=== PATIENT | female | born 1970 | race Caucasian/White ===

== ENCOUNTER → 2016-07-20 | Outpatient (CLI) | payer OTHER ==
[~2016-07-20] MED LIST: ACTUDL PEG; AMOX500C3 PO; AMOX875T PEG; ATEN50TA PEG; ATOR-22 PEG; CLX40 PEG; CMD25 PO; CYAN500L3 PEG; DRGTP12 TD; EFF75 PEG; ENOX40IN SQ; ENOX80IN SQ; ERGO8288 PEG; FLV1 PEG; FNTTP25 TOP; FOLI1TAB7 PEG; HYDR-5688 PEG; INSDGI SQ; INSDGIPEN SC; INSU1INJ2 SQ; INSUINJ20 SC; KETO200T PEG; LANS30TA3 PEG; LCTX PEG; MECL1TAB42 PEG; METO1INJ PEG; METO1TAB54 PEG; METR-163 PEG; MRLP17X PO; NUTR-1049 PEG; NUTR-1276 PEG; NUTR-1305 PEG; NUTR1.2L PEG; NVLGI/PEN SC; NVLNI SQ; NZR200 PEG; OXYC1TAB3 PEG; OXYC1TAB3 PO; POTA20IN2 PEG; PRD10 PEG; PRD10 PO; PRD5 PO; PRED-301 PEG; PROM25TA9 PEG; PROM25TA9 PO; PYRI50TA12 PEG; PYRI50TA77 PEG; QSTP PEG; SENN-65 PEG; TNR50 PEG; Tube Feeding Water Flush NG; Tube Feeding Water Flush PEG; VNCS125 PEG; VTMB12 PEG; WARF5TAB7 PEG; WARF5TAB90 PEG; WARF7.5T PEG; [UNRECOGNIZED DRUG - CODE]; [UNRECOGNIZED DRUG - CODE] PEG; [UNRECOGNIZED DRUG - CODE] PEG; [UNRECOGNIZED DRUG - REMARK] MS; [UNRECOGNIZED DRUG - REMARK] PEG
[2016-07-20 08:41] LABS: INR 1.2 (0.9-1.1); PROTHROMBIN TIME (PATIENT) 12.9 SECONDS (9.0-12.0)
== END | disposition home or self-care (01) ==
LOC: C.LABCC 07:51
PROVIDERS: ATTEND Internal Medicine
DX: I63.9 Cerebral infarction, unspecified (principal)

== ENCOUNTER → 2016-07-23 | Outpatient (CLI) | payer OTHER ==
[~2016-07-23] MED LIST changes: -FOLI1TAB7 PEG; +FOLI1TAB8 PEG; -PYRI50TA12 PEG; +PYRI50TA13 PEG
[2016-07-23 09:41] LABS: INR 1.2 (0.9-1.1); PROTHROMBIN TIME (PATIENT) 12.9 SECONDS (9.0-12.0)
== END ==
LOC: C.LABCC 09:12
PROVIDERS: ATTEND Internal Medicine
DX: N18.4 Chronic kidney disease, stage 4 (severe) (principal); I63.9 Cerebral infarction, unspecified

== ENCOUNTER → 2016-07-28 | Outpatient (CLI) | payer OTHER ==
[~2016-07-28] MED LIST changes: +FOLI1TAB7 PEG; -FOLI1TAB8 PEG; +PYRI50TA12 PEG; -PYRI50TA13 PEG
[2016-07-28 08:42] LABS: INR 1.4 (0.9-1.1); PROTHROMBIN TIME (PATIENT) 15.3 SECONDS (9.0-12.0)
== END ==
LOC: C.LABCC 08:08
PROVIDERS: ATTEND Internal Medicine
DX: I63.9 Cerebral infarction, unspecified (principal)

== ENCOUNTER → 2016-07-29 | Outpatient (CLI) | payer OTHER ==
--- NOTE | 2016-07-29 08:49 | DIAGNOSTIC IMAGING REPORT ---
EXAMINATION: RENAL ULTRASOUND CLINICAL HISTORY: Renal insufficiency COMPARISON STUDY: CT scan dated 05/07/2016 FINDINGS: The right kidney measures 11.2 cm. The left kidney measures 10.7 cm. There is no evidence of hydronephrosis. There are no renal masses. No bladder abnormalities are visualized. Bilateral ureteral jets were visualized. There is splenomegaly (17.6 cm) IMPRESSION : 1. No renal lesions identified. Symmetric renal size and cortical thickness. 2. Splenomegaly Electronically signed by: Santana Em M.D. 07/29/2016 8:47 AM Dictated Date/Time: 07/29/2016 8:45 AM
== END | disposition home or self-care (01) ==
LOC: C.ULTR 08:11
PROVIDERS: ATTEND Internal Medicine Nephrology
DX: N18.9 Chronic kidney disease, unspecified (principal); D64.9 Anemia, unspecified; I12.9 Hypertensive chronic kidney disease with stage 1 through stage 4 chronic kidney disease, or unspecified chronic kidney disease; D86.9 Sarcoidosis, unspecified; N20.0 Calculus of kidney; R16.1 Splenomegaly, not elsewhere classified

== ENCOUNTER → 2016-08-07 | Outpatient (CLI) | payer OTHER | LOC: C.LABCC 07:52 | PROVIDERS: ATTEND Internal Medicine | DX: J02.9 Acute pharyngitis, unspecified (principal) ==

== ENCOUNTER → 2016-08-10 | Outpatient (CLI) | payer OTHER ==
[2016-08-10 08:55] LABS: INR 4.2 (0.9-1.1); PROTHROMBIN TIME (PATIENT) 48.3 SECONDS (9.0-12.0)
== END ==
LOC: C.LABCC 08:28
PROVIDERS: ATTEND Internal Medicine
DX: I63.9 Cerebral infarction, unspecified (principal)

== ENCOUNTER → 2016-08-11 | Outpatient (CLI) | payer OTHER ==
[2016-08-11 08:43] LABS: INR 3.2 (0.9-1.1); PROTHROMBIN TIME (PATIENT) 35.5 SECONDS (9.0-12.0)
== END ==
LOC: C.LABCC 08:00
PROVIDERS: ATTEND Internal Medicine
DX: I63.9 Cerebral infarction, unspecified (principal)

== ENCOUNTER → 2016-08-14 | Outpatient (CLI) | payer OTHER | LOC: C.LABCC 07:59 | PROVIDERS: ATTEND Internal Medicine | DX: R74.8 Abnormal levels of other serum enzymes (principal) ==

== ENCOUNTER → 2016-08-18 | Outpatient (CLI) | payer OTHER ==
[2016-08-18 08:18] LABS: INR 2.8 (0.9-1.1); PROTHROMBIN TIME (PATIENT) 31.1 SECONDS (9.0-12.0)
== END ==
LOC: C.LABCC 07:50
PROVIDERS: ATTEND Internal Medicine
DX: E83.52 Hypercalcemia (principal); I63.9 Cerebral infarction, unspecified

== ENCOUNTER → 2016-08-19 | Outpatient (CLI) | payer OTHER ==
[2016-08-19 10:03] LABS: BASO % 0.2 %; BASO ABS # 0.01 K/uL (0-0.2); EOS % 3.5 %; HEMATOCRIT 26.3 % (37-47); IG% 0.5 %; LYMPH % 6.6 %; LYMPH ABS # 0.42 K/uL (1.2-3.4); MEAN CELL VOLUME 81.7 fL (80-100); MEAN CORPUSCULAR HEMOGLOBIN 26.7 pg (25-34); MEAN CORPUSCULAR HGB CONC 32.7 g/dl (32-36); MEAN PLATELET VOLUME 11.9 fL (7.4-10.4); MONO % 9.2 %; PLATELET COUNT 189 K/uL (130-400); RED BLOOD COUNT 3.22 M/uL (4.2-5.4); WHITE BLOOD COUNT 6.33 K/uL (4.8-10.8)
[2016-08-19 10:11] LABS: ALT/SGPT 77 U/L (12-78); BLOOD UREA NITROGEN 57 mg/dl (7-18); BUN/CREATININE RATIO 20.5 (10-20); CALCIUM 9.6 mg/dl (8.5-10.1); CARBON DIOXIDE 24 mmol/L (21-32); CHLORIDE 104 mmol/L (98-107); GLUCOSE 137 mg/dl (70-99); PHOSPHORUS 3.9 mg/dl (2.5-4.9); SODIUM 138 mmol/L (136-145)
[2016-08-19 10:24] LABS: ALKALINE PHOSPHATASE 1011 U/L (45-117); AST/SGOT 105 U/L (15-37); FERRITIN 211.6 ng/ml (8.0-388.0); TOTAL IRON BINDING CAPACITY 208 mcg/dl (250-450)
[2016-08-19 10:30] LABS: COMPLETE YES
[2016-08-19 10:37] LABS: INR 2.9 (0.9-1.1); PROTHROMBIN TIME (PATIENT) 32.3 SECONDS (9.0-12.0)
[2016-08-21 14:02] LABS: FREE KAPPA 195.5 MG/L (3.3-19.4); FREE KAPPA/LAMBDA RATIO 1.35 (0.26-1.65); FREE LAMBDA 145.1 MG/L (5.7-26.3)
== END ==
LOC: C.LABCC 09:13
PROVIDERS: ATTEND Internal Medicine
DX: N18.9 Chronic kidney disease, unspecified (principal); D86.9 Sarcoidosis, unspecified

== ENCOUNTER → 2016-08-20 | Outpatient (CLI) | payer OTHER ==
--- NOTE | 2016-08-20 12:35 | DIAGNOSTIC IMAGING REPORT ---
VIDEO SWALLOW HISTORY: Dysphagia (PT NEEDS H. LIFT)TO DETERMINE SAFEST DIET LEVEL TECHNIQUE: Video fluoroscopic evaluation of swallowing was performed in the AP and lateral projections by the speech pathology staff. The patient is fed nectar-thick and thin liquid barium, a barium coated wafer, and barium pudding. FLUOROSCOPY TIME: 2.4 minutes. COMPARISON STUDY: None. FINDINGS: Slightly diminished oral motility. Aspiration and reactive cough with thin liquids. No evidence for aspiration with thicker fluids IMPRESSION: 1. Aspiration with thin liquids 2. Please see the speech pathologist report for detailed findings and recommendations. Electronically signed by: Marcus Davye M.D. 08/20/2016 12:34 PM Dictated Date/Time: 08/20/2016 12:33 PM
--- NOTE | 2016-08-20 15:58 | SWALLOWING EVALUATION ---
HISTORY: This 46 year-old woman was referred for a VFSS at [facility] in order to rule out aspiration and determine safest diet consistency for possible return to p.o. intake. The patient has a PMH significant for a CVA in March of 2016 with resulting expressive aphasia and severe dysphagia. She currently NPO and receives all nutrition and hydration via PEG tube. Other PMH is significant for hypercalcemia, UTI with sepsis, lymphadenopathy, diabetes, and depression. She is currently a resident of [facility]. PROCEDURE: The patient was seen in the Radiology Department of [facility] for the VFSS. Cursory examination of the oral cavity revealed adequate dentition. Movement of the articulators was WNL impaired as evidenced by reduced ROM (right sided) and strength of the articulators. She was severely dysarthric. Able to nod her head appropriately to respond to yes/no questions, but was only able to vocalize glottal and vowel sounds. She was also restless and required frequent re-positioning. Easily distracted and needed frequent redirection. The patient was seated upright in a Broda wheelchair and was viewed in the Lateral planes. The Anterior-Posterior view was unable to be completed due to positioning constraints from the Broda chair. In the lateral plane, the patient was given the following boluses: 1 tsp. thin liquid barium x 2, 1 tsp. nectar-thick liquid barium, 1 tsp thin-honey liquid barium, 1 tsp. barium pudding x4, and 1 club cracker with barium paste. RESULTS: Oral Stage: Lip closure was adequate. The patient was unable to maintain a cohesive liquid bolus upon command during the liquid bolus hold task, and premature spillage of less than half of the bolus was noted (to the pyriforms and laryngeal vestibule). Mastication was slow. Lingual motion for bolus transport was disorganized, with piecemeal like deglutition being evidenced. A majority of each bolus remained in the oral cavity after the initial swallow. The initiation of the pharyngeal swallow was delayed, and triggered when the bolus head reached the pyriforms. Pharyngeal Stage: Soft palate elevation was complete. Laryngeal elevation revealed partial superior movement of the thyroid cartilage and partial approximation of the arytenoids to the epiglottic base. Anterior hyoid excursion was partially reduced. Epiglottic deflection was complete. Laryngeal vestibular closure was incomplete, with a narrow column of contrast being located in the vestibule at the height of the swallow. The pharyngeal stripping wave was present yet diminished. The opening to the pharyngoesophageal segment was partially reduced with distention and duration of the opening, with partial bolus flow obstruction. Tongue base retraction was reduced, with a narrow column of contrast being located between the tongue base and pharyngeal wall during the swallow. There was retention located in the valleculae, pyriforms, and along the aryepiglottic folds after the swallow. This patient presented with HUMPHREY aspiration of thin liquid, nectar thick liquid, and honey thick liquid. She presented with a strong cough in response to the aspiration that cleared most of the aspirated liquid but not all. This is due to delayed swallow reflex, reduced swallowing coordination, and generalized reduced strength and ROM of the pharyngeal mechanism. Aspiration of liquids occurred before (due to premature loss, with liquid spilling directly to the laryngeal vestibule) and during the swallow. There was retention in the trachea that did not fully clear after presenting honey thick liquids despite cough/throat clear. There was no aspiration of the pudding or the cracker. Retention of the pudding and cracker did clear with a second swallow. SUMMARY/RECOMMENDATIONS: This patient presents with severe oral-pharyngeal dysphagia. The following is recommended: 1. Continue with PEG tube as primary means of nutrition and hydration. 2. Initiate trials of pureed foods and pudding thick liquids with speech therapy only. Monitor closely for tolerance and signs and symptoms of aspiration to include lung sounds and temperature check 1 hour after p.o. trials. Discontinue feeding should the patient begin to cough. 3. Strict aspiration precautions to include patient being fully upright for all intake, and stringent oral care (brushing all surfaces of the oral cavity to include the tongue and palate) prior to each meal and before bed. 4. Safe swallow strategies: Small bites, small spoon of liquids. Double swallow after each bite. A summary of the results and recommendations was discussed with the patient and was recorded on a Consultation Record and returned with the patient immediately following the study. Thank you for referral of this patient. Please contact me at if any additional information is needed.
== END ==
LOC: C.RAD 10:59
PROVIDERS: ATTEND Internal Medicine
DX: R13.10 Dysphagia, unspecified (principal)

== ENCOUNTER → 2016-08-21 | Outpatient (CLI) | payer OTHER ==
--- NOTE | 2016-08-21 08:30 | DIAGNOSTIC IMAGING REPORT ---
CT SCAN OF THE ABDOMEN AND PELVIS WITHOUT IV CONTRAST CLINICAL HISTORY: Lymphadenopathy. COMPARISON STUDY: Abdominal CT dated 05/07/2016. TECHNIQUE: CT scan of the abdomen and pelvis is performed from the lung bases to the proximal femora. Images are reviewed in the axial, sagittal, and coronal planes. IV contrast was not administered for this examination as per the referring clinician. Note that the examination was performed and significant suboptimal fashion without IV contrast for the provided clinical history. Oral contrast was utilized. The examination is also degraded by streak artifact from the patient's right arm which could not be elevated above the abdomen as well as motion artifact. Automated dose control exposure was utilized. CT DOSE: 577.80 mGy.cm FINDINGS: Lung bases: The heart is mildly enlarged and without pericardial effusion. The coronary arteries and mitral annulus are densely calcified. There is diminished attenuation of the cardiac blood pool as compared to the myocardium suggesting anemia. Evaluation of the lung bases is significantly degraded by respiratory motion artifact. There is bibasilar patchy airspace consolidation calcified granulomas are noted in the left lower lobe. No pleural effusion is identified. There is a small hiatal hernia. Liver: The unenhanced liver is cirrhotic in morphology and heterogeneous in attenuation. There is nodularity of the hepatic surface contour. There is mild central intrahepatic biliary ductal dilatation. Gallbladder: Unremarkable. Spleen: The spleen is markedly enlarged, measuring 16.3 cm in length. Calcifications and heterogeneous attenuation are identified in the posterior spleen on axial image #126. Pancreas: Unremarkable. Adrenal glands: Unremarkable. Kidneys: The unenhanced kidneys are atrophic and without hydronephrosis. There are numerous bilateral nonobstructing renal calculi as well as dense renovascular calcifications. There is no evidence of contour deforming renal mass lesion. Abdominal vasculature: The abdominal aorta is normal in course and caliber noting moderate atherosclerotic calcification. There is advanced atherosclerotic calcification of the major branches. Stomach and bowel: A gastrostomy tube is in place. The stomach and duodenum are normal in configuration. There is rectosigmoid fecal impaction. No small bowel obstruction is identified. The appendix is surgically absent. Peritoneum: Trace perisplenic fluid is noted. No intraperitoneal free air is seen. Lymphadenopathy: There are numerous mildly enlarged retroperitoneal lymph nodes. An aortocaval node on image #195 measures 1.4 x 1.8 cm. Left periaortic nodes measure up to 1.3 x 1.9 cm. A portacaval node on image 162 measures 1.9 cm in short axis. These are unchanged as compared to the 05/07/2016 examination. Pelvic viscera: The the bladder wall appears thickened. Small foci of intraluminal gas are identified. The uterus and adnexa are normal as imaged. Skeletal structures: Skeletal structures are osteopenic. There is mild lumbosacral spondylosis. No lytic or blastic lesions are seen. IMPRESSION: 1. Suboptimal examination without IV contrast. 2. Mildly enlarged upper abdominal and retroperitoneal lymph nodes are similar appearance to 05/07/2016 examination. 3. Marked splenomegaly. 4. Cirrhotic liver morphology. 5. There is bibasilar patchy airspace consolidation. Cortical clinically for evidence of an infectious or inflammatory pneumonitis. 6. Cardiomegaly. 7. The bladder wall appears thickened and there is a small focus of residual gas. Correlate with urinalysis. 8. There is rectosigmoid fecal impaction. No bowel obstruction is seen. 9. Bilateral nonobstructing renal calculi. 10. Additional findings as above Electronically signed by: Tex Rosales M.D. 08/21/2016 8:28 AM Dictated Date/Time: 08/21/2016 8:11 AM
== END | disposition home or self-care (01) ==
LOC: C.CTS 06:33
PROVIDERS: ATTEND Internal Medicine Hematology & Oncology
DX: R59.1 Generalized enlarged lymph nodes (principal); R16.1 Splenomegaly, not elsewhere classified; K74.60 Unspecified cirrhosis of liver; J18.9 Pneumonia, unspecified organism; I51.7 Cardiomegaly; K56.41 Fecal impaction; N20.0 Calculus of kidney

== ENCOUNTER → 2016-08-24 | Outpatient (CLI) | payer OTHER ==
[2016-08-24 10:25] LABS: INR 3.9 (0.9-1.1); PROTHROMBIN TIME (PATIENT) 44.2 SECONDS (9.0-12.0)
== END ==
LOC: C.LABCC 09:45
PROVIDERS: ATTEND Internal Medicine
DX: I63.9 Cerebral infarction, unspecified (principal)

== ENCOUNTER → 2016-08-31 | Outpatient (CLI) | payer OTHER | LOC: C.LABCC 08:53 | PROVIDERS: ATTEND Internal Medicine | DX: E83.52 Hypercalcemia (principal) ==

== ENCOUNTER → 2016-09-01 | Outpatient (CLI) | payer OTHER ==
[2016-09-01 08:50] LABS: INR 2.1 (0.9-1.1); PROTHROMBIN TIME (PATIENT) 22.7 SECONDS (9.0-12.0)
== END ==
LOC: C.LABCC 08:16
PROVIDERS: ATTEND Internal Medicine
DX: I82.409 Acute embolism and thrombosis of unspecified deep veins of unspecified lower extremity (principal)

== ENCOUNTER → 2016-09-11 | Outpatient (CLI) | payer OTHER ==
[2016-09-11 08:45] LABS: INR 1.4 (0.9-1.1)
== END ==
LOC: C.LABCC 08:11
PROVIDERS: ATTEND Internal Medicine
DX: I63.9 Cerebral infarction, unspecified (principal)

== ENCOUNTER → 2016-09-12 | Outpatient (CLI) | payer OTHER ==
[2016-09-12 02:33] LABS: URINE APPEARANCE TURBID (CLEAR); URINE BILIRUBIN NEG (NEG); URINE COLOR DK YELLOW; URINE EPITHELIAL CELL AUTO >30 /lpf (0-5); URINE NITRITE NEG (NEG); URINE PH 6.5 (4.5-7.5); URINE SPECIFIC GRAVITY 1.009 (1.000-1.030); UROBILINOGEN NEG (NEG)
[2016-09-12 02:38] LABS: MANUAL MICROSCOPIC REQUIRED? NO; REVIEW REQ? YES
== END ==
LOC: C.LABCC 01:00
PROVIDERS: ATTEND Internal Medicine
DX: R39.89 Other symptoms and signs involving the genitourinary system (principal)

== ENCOUNTER → 2016-09-15 | Outpatient (CLI) | payer OTHER ==
[2016-09-15 08:42] LABS: INR 1.5 (0.9-1.1); PROTHROMBIN TIME (PATIENT) 16.1 SECONDS (9.0-12.0)
== END ==
LOC: C.LABCC 08:22
PROVIDERS: ATTEND Internal Medicine
DX: I63.9 Cerebral infarction, unspecified (principal)

== ENCOUNTER → 2016-09-17 | Outpatient (CLI) | payer OTHER ==
[2016-09-17 09:09] LABS: INR 1.5 (0.9-1.1); PROTHROMBIN TIME (PATIENT) 15.8 SECONDS (9.0-12.0)
== END ==
LOC: C.LABCC 08:25
PROVIDERS: ATTEND Internal Medicine
DX: I63.9 Cerebral infarction, unspecified (principal)

== ENCOUNTER → 2016-09-22 | Outpatient (CLI) | payer OTHER ==
[2016-09-22 08:38] LABS: INR 1.8 (0.9-1.1); PROTHROMBIN TIME (PATIENT) 20.1 SECONDS (9.0-12.0)
== END ==
LOC: C.LABCC 07:54
PROVIDERS: ATTEND Internal Medicine
DX: I63.9 Cerebral infarction, unspecified (principal)

== ENCOUNTER → 2016-09-30 | Outpatient (CLI) | payer OTHER ==
[2016-09-30 09:41] LABS: INR 1.2 (0.9-1.1); PROTHROMBIN TIME (PATIENT) 13.1 SECONDS (9.0-12.0)
== END ==
LOC: C.LABCC 08:52
PROVIDERS: ATTEND Internal Medicine
DX: I63.9 Cerebral infarction, unspecified (principal)

== ENCOUNTER → 2016-10-05 | Outpatient (CLI) | payer OTHER ==
[2016-10-05 10:40] LABS: MEAN CORPUSCULAR HGB CONC 32.3 g/dl (32-36)
[2016-10-05 10:51] LABS: ALT/SGPT 129 U/L (12-78); AST/SGOT 101 U/L (15-37); BLOOD UREA NITROGEN 82 mg/dl (7-18); BUN/CREATININE RATIO 24.1 (10-20); CALCIUM 11.1 mg/dl (8.5-10.1); CARBON DIOXIDE 28 mmol/L (21-32); CHLORIDE 105 mmol/L (98-107); GLUCOSE 141 mg/dl (70-99); INR 2.1 (0.9-1.1); POTASSIUM 4.4 mmol/L (3.5-5.1); PROTHROMBIN TIME (PATIENT) 23.7 SECONDS (9.0-12.0); SODIUM 140 mmol/L (136-145)
[2016-10-05 11:05] LABS: ALB/GLOB RATIO 0.4 (0.9-2); ALKALINE PHOSPHATASE 958 U/L (45-117)
[2016-10-05 13:19] LABS: HEMATOCRIT 28.5 % (37-47); MEAN CELL VOLUME 91.3 fL (80-100); MEAN CORPUSCULAR HEMOGLOBIN 29.5 pg (25-34); RED BLOOD COUNT 3.12 M/uL (4.2-5.4); WHITE BLOOD COUNT 5.19 K/uL (4.8-10.8)
[2016-10-05 13:26] LABS: BASO % 0.4 %; BASO ABS # 0.02 K/uL (0-0.2); COMPLETE YES; EOS % 0.8 %; IG% 0.4 %; LARGE PLATELETS 1+; LYMPH % 11.6 %; MEAN PLATELET VOLUME 12.7 fL (7.4-10.4); MONO % 9.2 %; NEUT % 77.6 %; PLATELET COUNT 117 K/uL (130-400)
== END ==
LOC: C.LABCC 09:12
PROVIDERS: ATTEND Internal Medicine
DX: D86.9 Sarcoidosis, unspecified (principal); E11.9 Type 2 diabetes mellitus without complications; I63.9 Cerebral infarction, unspecified

== ENCOUNTER → 2016-10-06 | Outpatient (CLI) | payer OTHER ==
[2016-10-06 08:43] LABS: BLOOD UREA NITROGEN 88 mg/dl (7-18); BUN/CREATININE RATIO 27.6 (10-20); CALCIUM 11.4 mg/dl (8.5-10.1); CARBON DIOXIDE 27 mmol/L (21-32); CHLORIDE 104 mmol/L (98-107); GLUCOSE 144 mg/dl (70-99); POTASSIUM 4.6 mmol/L (3.5-5.1); SODIUM 138 mmol/L (136-145)
--- NOTE | 2016-10-08 07:43 | CODING QUERY NO DIAGNOSIS ---
TREATMENT RENDERED WITHOUT A DIAGNOSIS To promote full compliance with coding requirements relating to patient care, physician participation is requested in all cases of geomagnetist uncertainty. Please assist us with providing a diagnosis/symptom for the test(s) below: A diagnosis/symptom was not documented on your Order. A valid diagnosis/symptom is required to bill all insurances. Please remember that we are unable to code a diagnosis of rule out, probable, possible, questionable, or suspected. Tests that require a diagnosis: DOS: 10/06/16 * PRP DIAGNOSIS: Provider Signature: Date: Thank you Tamy [facility] Information Management Once completed, please kindly fax back to [phone] For questions please call [phone]
== END ==
LOC: C.LABCC 08:16
PROVIDERS: ATTEND Internal Medicine
DX: N18.3 Chronic kidney disease, stage 3 (moderate) (principal)

== ENCOUNTER → 2016-10-09 | Outpatient (CLI) | payer OTHER ==
[2016-10-09 09:09] LABS: HEMATOCRIT 27.7 % (37-47); MEAN CELL VOLUME 93.3 fL (80-100); MEAN CORPUSCULAR HEMOGLOBIN 30.6 pg (25-34); MEAN CORPUSCULAR HGB CONC 32.9 g/dl (32-36); MEAN PLATELET VOLUME 12.4 fL (7.4-10.4); PLATELET COUNT 106 K/uL (130-400); RED BLOOD COUNT 2.97 M/uL (4.2-5.4); WHITE BLOOD COUNT 4.86 K/uL (4.8-10.8)
[2016-10-09 10:31] LABS: ANISOCYTOSIS PRESENT; BASO % 0.4 %; BASO ABS # 0.02 K/uL (0-0.2); COMPLETE YES; IG% 0.4 %; LYMPH % 10.7 %; LYMPH ABS # 0.52 K/uL (1.2-3.4); MONO % 12.3 %; NEUT % 76.2 %
== END ==
LOC: C.LABCC 08:53
PROVIDERS: ATTEND Internal Medicine
DX: D64.9 Anemia, unspecified (principal); N18.9 Chronic kidney disease, unspecified

== ENCOUNTER 2016-10-12 12:47 | Inpatient (IN) | payer OTHER ==
[~2016-10-12] VITALS: Ht 162.6 cm; Wt 72.3 kg
[~2016-10-12 12:47] MED LIST changes: -AMOX500C3 PO; -AMOX875T PEG; -ATEN50TA PEG; -CYAN500L3 PEG; -DRGTP12 TD; -EFF75 PEG; -ENOX40IN SQ; -ENOX80IN SQ; -ERGO8288 PEG; -FNTTP25 TOP; -FOLI1TAB7 PEG; -INSDGIPEN SC; -INSUINJ20 SC; -KETO200T PEG; -LCTX PEG; -MECL1TAB42 PEG; -METO1INJ PEG; -METR-163 PEG; -NUTR-1276 PEG; -NUTR-1305 PEG; -NVLGI/PEN SC; -NZR200 PEG; -OXYC1TAB3 PEG; -OXYC1TAB3 PO; -POTA20IN2 PEG; -PRD10 PO; -PRD5 PO; -PRED-301 PEG; -PROM25TA9 PEG; -PROM25TA9 PO; -PYRI50TA77 PEG; -QSTP PEG; -Tube Feeding Water Flush NG; -VNCS125 PEG; -WARF5TAB7 PEG; -WARF5TAB90 PEG; -WARF7.5T PEG; -[UNRECOGNIZED DRUG - CODE]; -[UNRECOGNIZED DRUG - CODE] PEG; -[UNRECOGNIZED DRUG - CODE] PEG; -[UNRECOGNIZED DRUG - REMARK] MS; -[UNRECOGNIZED DRUG - REMARK] PEG
[2016-10-12 13:27] LABS: BASO % 0.5 %; BASO ABS # 0.03 K/uL (0-0.2); EOS % 0.9 %; HEMATOCRIT 34.4 % (37-47); IG% 0.5 %; LYMPH % 9.4 %; LYMPH ABS # 0.62 K/uL (1.2-3.4); MEAN CORPUSCULAR HEMOGLOBIN 29.9 pg (25-34); MEAN CORPUSCULAR HGB CONC 32.8 g/dl (32-36); MEAN PLATELET VOLUME 11.2 fL (7.4-10.4); NEUT % 83.7 %; PLATELET COUNT 146 K/uL (130-400); RED BLOOD COUNT 3.78 M/uL (4.2-5.4); WHITE BLOOD COUNT 6.58 K/uL (4.8-10.8)
[2016-10-12 13:47] LABS: ALT/SGPT 122 U/L (12-78); BLOOD UREA NITROGEN 91 mg/dl (7-18); BUN/CREATININE RATIO 26.1 (10-20); CALCIUM 13.4 mg/dl (8.5-10.1); CARBON DIOXIDE 28 mmol/L (21-32); CHLORIDE 102 mmol/L (98-107); GLUCOSE 84 mg/dl (70-99); POTASSIUM 4.6 mmol/L (3.5-5.1); SODIUM 138 mmol/L (136-145)
[2016-10-12 13:58] LABS: ANISOCYTOSIS PRESENT; COMPLETE YES; TOXIC GRANULATION 1+
[2016-10-12 14:06] LABS: ALB/GLOB RATIO 0.4 (0.9-2); ALKALINE PHOSPHATASE 1103 U/L (45-117); AST/SGOT 101 U/L (15-37)
[2016-10-12] MEDS ORDERED: SODIUM CHLORIDE 0.9% 1000ML 1,000 ML IV ONE (14:15)
--- NOTE | 2016-10-12 14:20 | EMERGENCY ROOM VISIT NOTE ---
History Report prepared by Jaret: Ellis Durand Under the Supervision of: Dr. Bob Bryan M.D. First contact with patient: 13:37 Chief Complaint: ABNORMAL LABS Stated Complaint: ABNORMAL LABS/ VOMITING History of Present Illness The patient is a 45 year old female who presents to the Emergency Room from her fci, [facility], with abnormal labs prior to arrival. The patient's calcium is high. The patient also had episodes of vomiting. Her HPI is limited due to nonverbal status post-stroke. The patient has a history of stroke. Source of History: patient History Limited By: other (nonverbal status post-stroke) Onset: prior to arrival Position: other (global) Note: Other associated symptoms: high calcium Review of Systems The patient's ROS is limited due to nonverbal status post-stroke. Past Medical & Surgical Medical Problems: (1) Abdominal pain (2) Acute kidney injury (3) Anemia (4) Aspiration pneumonia due to gastric secretions (5) Diab W Unspec Compl, Type Ii Or Unspec Type, Not Uncntrld (6) Hypercalcemia (7) Hypertension Nos (8) Lymphadenopathy (9) Pleural Effusion Nos (10) Stroke Family History Diabetes mellitus Seizures Social History Smoking Status: Unknown if Ever Smoked Alcohol Use: none Drug Use: none Marital Status: in relationship Housing Status: lives with significant other Occupation Status: unemployed, disabled Current/Historical Medications Scheduled Atenolol (Tenormin), 50 MG PEG QAM Atorvastatin (Lipitor), 20 MG PEG HS Cyanocobalamin (Vitamin B-12), 500 MCG PEG QAM Ergocalciferol (Calcidol), 6.25 ML PEG WK Folic Acid (Folvite), 1 MG PEG DAILY Insulin Glargine (Lantus Solostar), 20 UNITS SC HS Insulin Isophane (Human) (Novolin N U-100), 10 UNITS SC QAM Potassium Chloride (Potassium Chloride), 20 MEQ PEG QPM Pyridoxine Hcl (Vitamin B 6), 50 MG PEG QAM Venlafaxine Hcl (Effexor), 75 MG PO QAM Warfarin Sod (Jantoven), 5 MG PO Q2D Warfarin Sodium (Coumadin), 7.5 MG PO Q2D [Free Water Flush], 1 DOSE MS Q1H [Free Water Flush], 1 DOSE MS Q4H Scheduled PRN Insulin Aspart (Novolog Flexpen), 2-12 UNITS SC DIRECTED PRN for SLIDING SCALE Promethazine Hcl (Phenergan), 25 MG PO Q6H PRN for Nausea Allergies Coded Allergies: Ezetimibe (Verified Allergy, Intermediate, Vytorin - hives and N/V, ) Simvastatin (Verified Allergy, Intermediate, Vytorin - hives and N/V, ) Latex1 -Allergic Contact Dermititis (Verified Allergy, Unknown, RASH, BLISTERS, 05/05/16) Adhesives (Verified Adverse Reaction, Mild, Unknown Rxn, 05/05/16) Physical Exam Vital Signs Date Time Temp Pulse Resp B/P Pulse Ox O2 Delivery O2 Flow Rate FiO2 10/12/16 15:00 65 18 140/79 98 Room Air 10/12/16 14:11 67 10/12/16 13:54 65 10/12/16 13:23 65 10/12/16 12:54 36.5 63 18 122/75 100 Room Air Physical Exam GENERAL: Patient awake, alert, oriented x 3. Patient follows commands. Patient does not appear toxic. Patient is adequately hydrated and well- nourished. SKIN: No erythema, pallor, cyanosis or rash HEENT: Normal head, pupils equal, reactive to light and accommodation. Ears normal. Oral cavity and posterior pharynx appear normal. Neck: Without adenopathy, no neck vein distention. LUNGS: Clear to auscultation. No wheezes, no rales, no rhonchi. HEART: 2/6 systolic ejection murmur. ABDOMEN: Peg tube in abdomen. No masses, no rebound, no hepatomegaly or splenomegaly. EXTREMITIES: No signs of trauma or infection. NEUROLOGIC: Cranial nerves II-XII within normal limits. No gross motor sensory function deficits. Medical Decision & Procedures ER Provider Diagnostic Interpretation: X ray results are stated below per my interpretation and the radiologist's interpretation. SINGLE VIEW CHEST CLINICAL HISTORY: Hypercalcemia. FINDINGS: An AP, portable, upright chest radiograph is compared to study dated 05/26/2016. Correlation is made with chest CT dated 05/21/2016. The examination is degraded by portable technique and patient rotation. The cardiomediastinal silhouette is unremarkable. There are low lung volumes. The lungs and pleural spaces are clear. No pneumothorax is seen. The skeletal structures are osteopenic. The bony thorax is grossly intact. Cholecystectomy clips are noted in the right upper quadrant. IMPRESSION: Low lung volumes with no acute cardiopulmonary abnormality. Electronically signed by: Tex Rosales M.D. 10/12/2016 2:21 PM Dictated Date/Time: 10/12/2016 2:20 PM Laboratory Results 10/12/16 13:10 Red Blood Count 3.78, Mean Corpuscular Volume 91.0, Mean Corpuscular Hemoglobin 29.9, Mean Corpuscular Hemoglobin Concent 32.8, Mean Platelet Volume 11.2, Neutrophils (%) (Auto) 83.7, Lymphocytes (%) (Auto) 9.4, Monocytes (%) (Auto) 5.0, Eosinophils (%) (Auto) 0.9, Basophils (%) (Auto) 0.5, Neutrophils # (Auto) 5.51, Lymphocytes # (Auto) 0.62, Monocytes # (Auto) 0.33, Eosinophils # (Auto) 0.06, Basophils # (Auto) 0.03 10/12/16 13:10 Test 10/12/16 12:56 10/12/16 13:10 10/12/16 15:05 Bedside Glucose 81 mg/dl (70-90) White Blood Count 6.58 K/uL (4.8-10.8) Red Blood Count 3.78 M/uL (4.2-5.4) Hemoglobin 11.3 g/dL (12.0-16.0) Hematocrit 34.4 % (37-47) Mean Corpuscular Volume 91.0 fL (80-100) Mean Corpuscular Hemoglobin 29.9 pg (25-34) Mean Corpuscular Hemoglobin Concent 32.8 g/dl (32-36) Platelet Count 146 K/uL (130-400) Mean Platelet Volume 11.2 fL (7.4-10.4) Neutrophils (%) (Auto) 83.7 % Lymphocytes (%) (Auto) 9.4 % Monocytes (%) (Auto) 5.0 % Eosinophils (%) (Auto) 0.9 % Basophils (%) (Auto) 0.5 % Neutrophils # (Auto) 5.51 K/uL (1.4-6.5) Lymphocytes # (Auto) 0.62 K/uL (1.2-3.4) Monocytes # (Auto) 0.33 K/uL (0.11-0.59) Eosinophils # (Auto) 0.06 K/uL (0-0.5) Basophils # (Auto) 0.03 K/uL (0-0.2) RDW Standard Deviation 68.6 fL (36.4-46.3) RDW Coefficient of Variation 20.4 % (11.5-14.5) Immature Granulocyte % (Auto) 0.5 % Immature Granulocyte # (Auto) 0.03 K/uL (0.00-0.02) Toxic Granulation 1+ Anisocytosis PRESENT Anion Gap 8.0 mmol/L (3-11) Estimated GFR () 17.2 Estimated GFR (Non- 14.8 BUN/Creatinine Ratio 26.1 (10-20) Calcium Level 13.4 mg/dl (8.5-10.1) Total Bilirubin 2.0 mg/dl (0.2-1) Aspartate Amino Transf (AST/SGOT) 101 U/L (15-37) Alanine Aminotransferase (ALT/SGPT) 122 U/L (12-78) Alkaline Phosphatase 1103 U/L (45-117) Total Protein 7.8 gm/dl (6.4-8.2) Albumin 2.4 gm/dl (3.4-5.0) Globulin 5.4 gm/dl (2.5-4.0) Albumin/Globulin Ratio 0.4 (0.9-2) Lipase 102 U/L (73-393) Urine Color YELLOW Urine Appearance CLOUDY (CLEAR) Urine pH 7.0 (4.5-7.5) Urine Specific [place] 1.010 (1.000-1.030) Urine Protein 1+ (NEG) Urine Glucose (UA) NEG (NEG) Urine Ketones NEG (NEG) Urine Occult Blood 2+ (NEG) Urine Nitrite NEG (NEG) Urine Bilirubin NEG (NEG) Urine Urobilinogen NEG (NEG) Urine Leukocyte Esterase MODERATE (NEG) Urine WBC (Auto) 5-10 /hpf (0-5) Urine RBC (Auto) 10-30 /hpf (0-4) Urine Hyaline Casts (Auto) 1-5 /lpf (0-5) Urine Epithelial Cells (Auto) >30 /lpf (0-5) Urine Bacteria (Auto) 1+ (NEG) Urine Renal Epithelial Cells 0-5 /lpf (0-5) Laboratory results as stated above per my review. Medications Administered Medications (Trade) Dose Ordered Sig/Filipe Route Start Time Stop Time Status Last Admin Dose Admin Sodium Chloride (Nss 1000ml) 1,000 ml @ 500 mls/hr Q2H ONCE IV 10/12/16 14:15 10/12/16 16:14 DC 10/12/16 14:15 500 MLS/HR ECG Indication: other Rate (beats per minute): 64 Rhythm: normal sinus Findings: no acute ischemic change, no ectopy ED Course 1351: Past medical records reviewed. The patient was evaluated in room B2. A complete history and physical examination was performed. 1415: Ordered NSS 1000 ml @ 500 mls/hr IV. 1540: At this time, I discussed the patient's [facility] and she agreed to accept the patient for further evaluation. Medical Decision Differential diagnoses include hypercalcemia, other metabolic disorders, infection including pneumonia or urinary. The patient was sent here from [facility] with vomiting and an elevated calcium. Calcium was repeated here and it remains high in addition to all her liver enzymes. Chest x-ray does not reveal any pathology. Multiple other labs were obtained and evaluated. Please see above. IV Fluids were started. I discussed care with the patient and with the hospitalist. Consults Time Called: 1534 Consulting Physician: Dr. Santana - Van [facility] Returned Call: 1540 At this time, I discussed the patient's case with Dr. Santana and she agreed to accept the patient for further evaluation. Impression Primary Impression: Hypercalcemia Additional Impression: Elevated alkaline phosphatase level Scribe Attestation The scribe's documentation has been prepared under my direction and personally reviewed by me in its entirety. I confirm that the note above accurately reflects all work, treatment, procedures, and medical decision making performed by me. Departure Information Dispostion Being Evaluated By Hospitalist [facility] Problem Qualifiers
[2016-10-12] MEDS ORDERED: NVLGI/PEN SC (14:34)
[2016-10-12] MEDS ORDERED: INSDGIPEN SC (14:34)
[2016-10-12] MEDS ORDERED: ATOR-22 PEG (14:34)
[2016-10-12] MEDS ORDERED: EFF75 PEG (14:34)
[2016-10-12] MEDS ORDERED: [UNRECOGNIZED DRUG - REMARK] MS ×2 (14:34)
[2016-10-12] MEDS ORDERED: WARF5TAB7 PEG (14:34)
[2016-10-12] MEDS ORDERED: ATEN50TA PEG (14:34)
[2016-10-12] MEDS ORDERED: ERGO8288 PEG (14:34)
[2016-10-12] MEDS ORDERED: PYRI50TA77 PEG (14:34)
[2016-10-12] MEDS ORDERED: CYAN500L3 PEG (14:34)
[2016-10-12] MEDS ORDERED: WARF7.5T PEG (14:34)
[2016-10-12] MEDS ORDERED: POTA20IN2 PEG (14:34)
[2016-10-12] MEDS ORDERED: PROM25TA9 PO (14:34)
[2016-10-12] MEDS ORDERED: INSUINJ20 SC (14:34)
[2016-10-12] MEDS ORDERED: FOLI1TAB7 PEG (14:34)
[2016-10-12 15:28] LABS: URINE APPEARANCE CLOUDY (CLEAR); URINE BILIRUBIN NEG (NEG); URINE COLOR YELLOW; URINE EPITHELIAL CELL AUTO >30 /lpf (0-5); URINE NITRITE NEG (NEG); UROBILINOGEN NEG (NEG); ZZURINE CULT IF INDIC CATH YES
[2016-10-12 15:32] LABS: MANUAL MICROSCOPIC REQUIRED? NO; REVIEW REQ? YES
--- NOTE | 2016-10-12 17:06 | History and Physical ---
History & Physical Date & Time of Service: Oct 12, 2016 at 16:31 Chief Complaint: Abnormal Labs/ Vomiting Primary Care Physician: Adriel Campos History of Present Illness Source: patient, hospital records, usp This is a 45 y/o F with a recent CVA with resulting right sided hemiplegia/ dysphagia and expressive aphasia, s/p PEG, sarcoidosis, HLD, CKD, hx of hypercalcemia, DM2, Anemia admitted to the hospital for evaluation of abn labs and vomiting. Pt is currently a resident at [facility] and underwent lab testing today which showed hypercalcemia with serum calcium of 13.4 and hence the pt was referred to the ER for further evaluation. In the ER repeat labs showed hypercalcemia with serum calcium greater than 13 and also acute on CKD and the pt was started on IV NSS. Pt was also noted to have a UTI and hence was started on antibiotics. Pt is aphasic and nods her head to questions. Denies any symptoms presently. Pt is bed and chair bound and does not ambulate. Pt receives tube feeds via PEG. Past Medical/Surgical History Medical Problems: (1) Hypercalcemia Status: Resolved (2) Lymphadenopathy Status: Chronic Family History Diabetes mellitus Seizures Social History Smoking Status: Former Smoker Alcohol Use: none Drug Use: none Marital Status: in relationship Housing status: other Occupational Status: unemployed, disabled Immunizations History of Influenza Vaccine: Unknown History of Tetanus Vaccine?: Unknown History of Pneumococcal: Unknown History of Hepatitis B Vaccine: Unknown Multi-Drug Resistant Organisms History of MDRO: No Allergies Coded Allergies: Ezetimibe (Verified Allergy, Intermediate, Vytorin - hives and N/V, ) Simvastatin (Verified Allergy, Intermediate, Vytorin - hives and N/V, ) Latex1 -Allergic Contact Dermititis (Verified Allergy, Unknown, RASH, BLISTERS, 05/05/16) Adhesives (Verified Adverse Reaction, Mild, Unknown Rxn, 05/05/16) Home Medications Scheduled Atenolol (Tenormin), 50 MG PEG QAM Atorvastatin (Lipitor), 20 MG PEG HS Cyanocobalamin (Vitamin B-12), 500 MCG PEG QAM Ergocalciferol (Calcidol), 6.25 ML PEG WK Folic Acid (Folvite), 1 MG PEG DAILY Insulin Glargine (Lantus Solostar), 20 UNITS SC HS Insulin Isophane (Human) (Novolin N U-100), 10 UNITS SC QAM Potassium Chloride (Potassium Chloride), 20 MEQ PEG QPM Pyridoxine Hcl (Vitamin B 6), 50 MG PEG QAM Venlafaxine Hcl (Effexor), 75 MG PO QAM Warfarin Sod (Jantoven), 5 MG PO Q2D Warfarin Sodium (Coumadin), 7.5 MG PO Q2D [Free Water Flush], 1 DOSE MS Q1H [Free Water Flush], 1 DOSE MS Q4H Scheduled PRN Insulin Aspart (Novolog Flexpen), 2-12 UNITS SC DIRECTED PRN for SLIDING SCALE Promethazine Hcl (Phenergan), 25 MG PO Q6H PRN for Nausea Review of Systems Unable to obtain due to aphasia Physical Exam Vital Signs Date Time Temp Pulse Resp B/P Pulse Ox O2 Delivery O2 Flow Rate FiO2 10/12/16 15:00 65 18 140/79 98 Room Air 10/12/16 14:11 67 10/12/16 13:54 65 10/12/16 13:23 65 10/12/16 12:54 36.5 63 18 122/75 100 Room Air General Appearance: WD/WN Head: normocephalic, atraumatic Eyes: normal inspection, PERRL, EOMI, sclerae normal ENT: hearing grossly normal Neck: supple, no adenopathy, thyroid normal, no JVD Respiratory/Chest: chest non-tender, lungs clear, normal breath sounds, no respiratory distress Cardiovascular: regular rate, rhythm, no edema, no gallop, no JVD, + systolic murmur (3/6 HSM at [facility]) Abdomen/GI: normal bowel sounds, non tender, soft, + pertinent finding (PEG tube) Extremities/Musculoskelatal: no calf tenderness, normal capillary refill, no pedal edema Neurologic/Psych: 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 RUE in flexion contracture at elbow. RLE Power 2/5 proximal and distal musculature) Diagnostics Laboratory Results Results Past 24 Hours Test 10/12/16 12:56 10/12/16 13:10 10/12/16 15:05 Range/Units Bedside Glucose 81 70-90 mg/dl White Blood Count 6.58 4.8-10.8 K/uL Red Blood Count 3.78 4.2-5.4 M/uL Hemoglobin 11.3 12.0-16.0 g/dL Hematocrit 34.4 37-47 % Mean Corpuscular Volume 91.0 80-100 fL Mean Corpuscular Hemoglobin 29.9 25-34 pg Mean Corpuscular Hemoglobin Concent 32.8 32-36 g/dl Platelet Count 146 130-400 K/uL Mean Platelet Volume 11.2 7.4-10.4 fL Neutrophils (%) (Auto) 83.7 % Lymphocytes (%) (Auto) 9.4 % Monocytes (%) (Auto) 5.0 % Eosinophils (%) (Auto) 0.9 % Basophils (%) (Auto) 0.5 % Neutrophils # (Auto) 5.51 1.4-6.5 K/uL Lymphocytes # (Auto) 0.62 1.2-3.4 K/uL Monocytes # (Auto) 0.33 0.11-0.59 K/uL Eosinophils # (Auto) 0.06 0-0.5 K/uL Basophils # (Auto) 0.03 0-0.2 K/uL RDW Standard Deviation 68.6 36.4-46.3 fL RDW Coefficient of Variation 20.4 11.5-14.5 % Immature Granulocyte % (Auto) 0.5 % Immature Granulocyte # (Auto) 0.03 0.00-0.02 K/uL Toxic Granulation 1+ Anisocytosis PRESENT Sodium Level 138 136-145 mmol/L Potassium Level 4.6 3.5-5.1 mmol/L Chloride Level 102 98-107 mmol/L Carbon Dioxide Level 28 21-32 mmol/L Anion Gap 8.0 3-11 mmol/L Blood Urea Nitrogen 91 7-18 mg/dl Creatinine 3.50 0.60-1.20 mg/dl Estimated GFR () 17.2 Estimated GFR (Non- 14.8 BUN/Creatinine Ratio 26.1 10-20 Random Glucose 84 70-99 mg/dl Calcium Level 13.4 8.5-10.1 mg/dl Total Bilirubin 2.0 0.2-1 mg/dl Aspartate Amino Transf (AST/SGOT) 101 15-37 U/L Alanine Aminotransferase (ALT/SGPT) 122 12-78 U/L Alkaline Phosphatase 1103 45-117 U/L Total Protein 7.8 6.4-8.2 gm/dl Albumin 2.4 3.4-5.0 gm/dl Globulin 5.4 2.5-4.0 gm/dl Albumin/Globulin Ratio 0.4 0.9-2 Lipase 102 73-393 U/L Urine Color YELLOW Urine Appearance CLOUDY CLEAR Urine pH 7.0 4.5-7.5 Urine Specific [place] 1.010 1.000-1.030 Urine Protein 1+ NEG Urine Glucose (UA) NEG NEG Urine Ketones NEG NEG Urine Occult Blood 2+ NEG Urine Nitrite NEG NEG Urine Bilirubin NEG NEG Urine Urobilinogen NEG NEG Urine Leukocyte Esterase MODERATE NEG Urine WBC (Auto) 5-10 0-5 /hpf Urine RBC (Auto) 10-30 0-4 /hpf Urine Hyaline Casts (Auto) 1-5 0-5 /lpf Urine Epithelial Cells (Auto) >30 0-5 /lpf Urine Bacteria (Auto) 1+ NEG Urine Renal Epithelial Cells 0-5 0-5 /lpf Microbiology Results 10/12/16 Urine Culture, Received Pending CXR normal EKG NSR, Poor R wave progression across precordial leads, Low voltage QRS limb leads Impression Assessment and Plan {} Hypercalcemia, Hx Sarcoidosis - Was on prednisone 7.5mg daily that was recently increased to 30mg daily on October 10. - Also worsening renal indices. - Continue with IV NSS. Consider IV pamidronate and IV lasix - Consult Hem/Onc , pt known to their service. {} CVA with Rt Hemiplegia - Hx of dense right hemiplegia - H/O of Homocystinemia - H/O of Lupus anticoagulant - c/w Atorvastatin 20mg daily via PEG. - Continue with coumadin. Daily INR. {} Acute on Chronic CKD stage III - Worsening renal indices. ? secondary pre renal. ? secondary to sarcoid. - Consult Renal - Check Renal Sono to rule out obstruction. - Avoid nephrotoxic agents (No NSAIDS, DARRYL or ARB). UTI - Urine culture sent from ER - Will empirically start on IV Levaquin 500mg q 48 hr. {} Dysphagia - Peg tube in place. - Will restart tube feeds. {} Anemia - Likely secondary to CKD - H/H stable {} Systolic murmur - Likely due to Mild MR. - Last echo showed normal LV and RV systolic function. {} DM2 - On Lantus and SSI at [place] - Will restart Lantus and check Accuchecks q 6 hrs. {} Mood - c/w Citalopram 40mg daily via PEG {} Code status DNR/DNI per patient wishes.
[2016-10-12] MEDS ORDERED: PAMIDRONATE DISODIUM IV INJ 60 MG in SODIUM CHLORIDE 0.9% 1000ML 1,000 ML IV SCH (17:14)
[2016-10-12] MEDS ORDERED: METOCLOPRAMIDE HCL INJ 5 MG/ML 2 ML VIAL IV PRN (17:15)
[2016-10-12] MEDS ORDERED: SODIUM CHLORIDE 0.9% 1000ML 2,000 ML IV SCH (17:15)
[2016-10-12] MEDS: TUBE FEEDING WATER FLUSH PEG SCH ×8 (17:30→23:30)
[2016-10-12] MEDS ORDERED: LEVOFLOXACIN / D5W 250 MG in PREMIXED IN D5W 50 ML IV SCH (17:30)
[2016-10-12] MEDS ORDERED: DEXTROSE 50% 50 ML SYR IV PRN (17:45)
[2016-10-12] MEDS ORDERED: GLUCOSE 40% GEL 15 GM TUBE PO PRN (17:45)
[2016-10-12] MEDS ORDERED: GLUCOSE 10 TABS/TUBE PO PRN (17:45)
[2016-10-12] MEDS ORDERED: GLUCAGON FOR INJ 1 MG VIAL SQ PRN (17:45)
[2016-10-12] MEDS: ERTAPENEM IV 500 MG in SODIUM CHLORIDE 0.9% 50ML 50 ML IV SCH (18:37)
--- NOTE | 2016-10-12 19:24 | DIAGNOSTIC IMAGING REPORT ---
RENAL ULTRASOUND HISTORY: Renal insufficiency ARF COMPARISON: 07/29/2016 FINDINGS: Right kidney: Maximum dimension 12.0 cm. No evidence for hydronephrosis. Normal corticomedullary differentiation and cortical thickness. Left kidney: Maximum dimension 12.1 cm. No evidence for hydronephrosis. Normal corticomedullary differentiation and cortical thickness. Bladder: No bladder wall thickening. The bilateral ureteral jets were identified. Trace bladder debris. Note: Several punctate nonobstructing renal calcifications bilaterally IMPRESSION: Several punctate nonobstructing renal cortical calcifications. Otherwise negative study. Electronically signed by: Marcus Davey M.D. 10/12/2016 7:22 PM Dictated Date/Time: 10/12/2016 7:21 PM
[2016-10-12] MEDS ORDERED: TUBE FEEDING WATER FLUSH NG SCH (20:00)
[2016-10-12 20:17] VITALS: BP 146/84; PULSE 83; TEMP 36.4; O2SAT 100; BMI 24.4
[2016-10-12 20:29] LABS: INR 1.3 (0.9-1.1)
[2016-10-12] MEDS ORDERED: INSULIN GLARGINE SOLOSTAR 100 UNITS/ML 3 ML PEN SC SCH (21:00)
[2016-10-12] MEDS: ATORVASTATIN 20 MG TAB PEG SCH (21:31)
[2016-10-12] MEDS: WARFARIN SOD 5 MG TAB PO SCH (21:54)
[2016-10-12 21:55] LABS: BUN/CREATININE RATIO 27.7 (10-20); CALCIUM 11.8 mg/dl (8.5-10.1); CREATININE 3.4 mg/dl (0.60-1.20); POTASSIUM 4.5 mmol/L (3.5-5.1)
[2016-10-12 23:06] VITALS: BP 163/85; PULSE 64; TEMP 36.4; O2SAT 96
[2016-10-13] VITALS (7 sets, daily range): BP systolic 112–161; BP diastolic 68–86; PULSE 66–88; TEMP 36.3–36.6; O2SAT 93–99; Ht 162.6 cm; Wt 72.3 kg
[2016-10-13] MEDS ORDERED: NURSING VERBAL MED ORDER ONE (00:15)
[2016-10-13] MEDS: INSULIN ASPART 100 UNITS/ML 3 ML PEN SC SCH ×4 (00:41→18:00)
[2016-10-13] MEDS: D5W AND NSS 1,000 ML IV SCH ×4 (00:42→21:47)
[2016-10-13] MEDS ORDERED: NURSING DECISION MEDICATION ORDER SCH (00:45)
[2016-10-13] MEDS: TUBE FEEDING WATER FLUSH PEG SCH ×7 (04:00→23:45)
[2016-10-13 07:29] LABS: BASO % 0.4 %; BASO ABS # 0.02 K/uL (0-0.2); HEMATOCRIT 28.9 % (37-47); IG% 0.4 %; LYMPH % 7.7 %; LYMPH ABS # 0.41 K/uL (1.2-3.4); MEAN CELL VOLUME 92.6 fL (80-100); MEAN CORPUSCULAR HEMOGLOBIN 30.8 pg (25-34); MEAN CORPUSCULAR HGB CONC 33.2 g/dl (32-36); MEAN PLATELET VOLUME 10.6 fL (7.4-10.4); MONO % 10.9 %; NEUT % 80.6 %; PLATELET COUNT 120 K/uL (130-400); RED BLOOD COUNT 3.12 M/uL (4.2-5.4); WHITE BLOOD COUNT 5.31 K/uL (4.8-10.8)
[2016-10-13 07:47] LABS: INR 1.2 (0.9-1.1); PROTHROMBIN TIME (PATIENT) 12.6 SECONDS (9.0-12.0)
[2016-10-13 08:00] LABS: ANISOCYTOSIS PRESENT; COMPLETE YES; TOXIC GRANULATION 1+
[2016-10-13] MEDS: CYANOCOBALAMIN 500 MCG TAB (VIT B-12) PEG SCH (08:09)
[2016-10-13] MEDS: VENLAFAXINE HCL 50 MG TAB PO SCH (08:10)
[2016-10-13] MEDS: PYRIDOXINE HCL 50 MG TAB PO SCH (08:11)
[2016-10-13] MEDS: INSULIN HUMAN NPH SC SCH (09:00)
--- NOTE | 2016-10-13 10:51 | ONCOLOGY CONSULTATION ---
DATE OF CONSULTATION: 10/13/2016 REASON FOR CONSULTATION: Hypercalcemia. HISTORY OF PRESENT ILLNESS: Carey is a pleasant and an aphasic 45-year-old female patient well known to the [facility] initially evaluated for nonspecific lymphadenopathy. She is currently a resident at [facility] and underwent lab testing on the day of admission, which showed elevated serum calcium of 13.4 with low albumin, thus corrected serum calcium is certainly a bit higher. Apparently, she had some vomiting, but otherwise asymptomatic. Carey is well known to the [facility] with history of CVA and right-sided weakness and aphasia. She was initially seen back in May. Biopsies of the liver were carried out on 05/26/2016. Pathology confirmed sarcoidosis and path was sent out for second opinion. The pathologist from [facility] confirmed the same as the patient suffers from both steatohepatitis and sarcoidosis. She also suffers from chronic anemia. I suspect due to a combination of chronic disease and renal insufficiency. Therefore, I have recommended both supplemental intravenous iron and erythropoietin to manage her anemia. I was contacted by the hospitalist service and asked to assist in the patient's hypercalcemia. I had recommended a modified dose of pamidronate, IV Lasix, and normal saline. PAST MEDICAL HISTORY: Again, significant for CVA, type 2 diabetes mellitus, sarcoidosis, anemia of chronic disease/renal failure, aspiration pneumonia, hypertension and prior pleural effusion. PAST SURGICAL HISTORY: None. SOCIAL HISTORY: Again, the patient resides at [facility]. She is a nonsmoker and nondrinker. FAMILY HISTORY: Noncontributory. HOME MEDICATIONS: Include atenolol 50 mg p.o. every day, citalopram 40 mg p.o. every day, cyanocobalamin 1000 mcg p.o. every day, folic acid 1 mg p.o. every day, ketaconazole topical cream 2% topically every day, lansoprazole 30 mg p.o. every day, Lantus insulin 20 units subcutaneously daily, Lipitor 20 mg p.o. every day, metoclopramide 5 mg p.o. b.i.d., MiraLax p.r.n., hydrocodone/acetaminophen 5/325 q. 4 hours p.r.n., Novolin N 10 units subQ daily, NovoLog subcutaneous b.i.d. dose unknown, prednisone 30 mg daily, Prevacid 30 mg p.o. q.a.m., paroxetine 50 mg p.o. every day, senna oral liquid p.o. every day, warfarin 2.5 mg p.o. every day. ALLERGIES: VYTORIN, SIMVASTATIN, LATEX, ADHESIVE. REVIEW OF SYSTEMS: The patient is aphasic and is reported as experiencing nausea prior to admission. She has a right-sided hemiparalysis and aphasia. PHYSICAL EXAMINATION: GENERAL: Very pleasant 45-year-old female patient, in no acute distress, awake and alert, answers simple questions. VITAL SIGNS: Temperature 36.5, pulse 70, respirations 20, blood pressure 133/76. SKIN: Without rash or lesion. HEENT: Atraumatic, normocephalic. EYES: PERRLA, EOMI. Sclerae are nonicteric. No conjunctival injection. Nares patent without rhinorrhea or discharge. Throat is clear. Tongue midline. Mucous membranes are moist. NECK: Supple. LYMPHATIC: No palpable cervical, supraclavicular or axillary adenopathy. HEART: Regular rate and rhythm. No clicks, rubs, murmurs or gallops. LUNGS: Clear to auscultation bilaterally. ABDOMEN: Soft, nontender, nondistended. PEG site okay. No palpable hepatosplenomegaly. No rigidity or guarding. EXTREMITIES: No clubbing, cyanosis or edema. NEUROLOGIC: Right-sided hemiparesis; otherwise, she is awake, alert and oriented. LABORATORY DATA: Sodium 141, potassium 4.5, chloride 106, carbon dioxide 27, creatinine 3.40, calcium 11.8. WBC 5310, hemoglobin 9.6, platelet count 120,000. IMPRESSION: 1. Hypercalcemia. 2. Sarcoidosis by history. 3. Cerebrovascular accident. 4. Anemia due to chronic disease and renal insufficiency. PLAN: In summary, Carey is a pleasant 45-year-old aphasic female who was admitted with elevated calcium and associated nausea. I was contacted by the hospitalist service and recommended a modified dose of pamidronate (60 mg IV x1), IV Lasix and normal saline. Continue monitoring serum chemistries daily while inhouse. I believe, Carey has already received IV iron and is in the midst of receiving erythropoietin, which can be managed as an outpatient. I have no further recommendations at this time. I would be more than happy to assist if there are any new issues during her hospital stay. Thank you for allowing us to participate in her care. If you have any questions or concerns, feel free to contact me at any time.
[2016-10-13] MEDS ORDERED: PEPTAMEN 1.5 CAL 1000ML BAG PEG PRN (14:15)
--- NOTE | 2016-10-13 15:42 | Nephrology Consultation ---
Nephrology Consultation Date & Providers Date of Consultation: Oct 13, 2016. Primary Care Provider: [facility] Referring Provider: Reason for Consultation Evaluation of hypercalcemia and acute on chronic kidney injury in this patient with biopsy proven Sarcoidosis History of Present Illness Ms. Ventura is a 45 year old white female who is seen at the request of [facility] Hospitalist Service for evaluation of hypercalcemia and acute on chronic kidney injury. Medical records in the hospital and office EMR were reviewed. The patient has a complex medical history. 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 She had emboli to the left hemisphere ( temporal/occipital/parietal and frontal lobes). She developed a dense right hemiparesis and expressive aphasia. She tested positive for lupus anticoagulant and required initiation of anticoagulation therapy. She also developed dysphagia and had a PEG tube placed. She required assisted placement. Ms. Ventura subsequently developed hypercalcemia and elevated liver enzymes. She underwent liver biopsy 05/03. Histology revealed granulomas c/w sardcoidosis, LIANG and cirrhosis. She was evaluated by Rheumatology and treated with high dose steroid therapy. Steroids were later tapered and Plaquenil was added. Ms. Ventura's medical history is also significant for CKD w / baseline creatinine 2.0, kidney stones due to hypercalcemia associated w/ sarcoidosis, AODM (poorly controlled and complicated by peripheral neuropathy), HTN, hyperlipidemia (intolerant of statins due to hives). Recently laboratory studies were obtained at [facility]. Serum calcium has risen to 13 and patient had progressive renal dysfunction she was admitted to the hospital for ongoing medical management. Ms. Ventura has been evaluated by oncology. They have started her on IV hydration, furosemide and IV pamidronate to treat her hypercalcemia Past Medical/Surgical History Medical: # CKD stage IV. 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 therapy # Dysphagia requiring PEG tube feeding Surgical: # Liver biopsy 05/03 # PEG tube Allergies Coded Allergies: Ezetimibe (Verified Allergy, Intermediate, Vytorin - hives and N/V, ) Simvastatin (Verified Allergy, Intermediate, Vytorin - hives and N/V, ) Latex1 -Allergic Contact Dermititis (Verified Allergy, Unknown, RASH, BLISTERS, 05/05/16) Adhesives (Verified Adverse Reaction, Mild, Unknown Rxn, 05/05/16) Inpatient Medications Current Inpatient Medications Medications (Trade) Dose Ordered Sig/Filipe Route Start Time Stop Time Status Last Admin Dose Admin Metoclopramide HCl (Reglan Inj) 10 mg Q6H PRN IV 10/12/16 17:15 11/11/16 17:14 Atenolol (Tenormin Tab) 50 mg QAM PEG 10/13/16 09:00 11/12/16 08:59 10/13/16 08:09 50 MG Atorvastatin Calcium (Lipitor Tab) 20 mg HS PEG 10/12/16 21:00 11/11/16 20:59 10/12/16 21:31 20 MG Folic Acid (Folvite Tab) 1 mg DAILY PEG 10/13/16 09:00 11/12/16 08:59 10/13/16 08:09 1 MG Insulin Human NPH (novoLIN-N NPH) 10 units QAM SC 10/13/16 09:00 11/12/16 08:59 Pyridoxine HCl (Vitamin B-6 Tab) 50 mg QAM PO 10/13/16 09:00 11/12/16 08:59 10/13/16 08:11 50 MG Venlafaxine HCl (effeXOR TAB) 75 mg QAM PO 10/13/16 09:00 11/12/16 08:59 10/13/16 08:10 75 MG Warfarin Sodium (Coumadin Tab) 5 mg Q2D@1600 PO 10/12/16 20:10 11/11/16 20:09 10/12/16 21:54 5 MG Warfarin Sodium (Coumadin Tab) 7.5 mg Q2D@1600 PO 10/13/16 16:00 11/12/16 15:59 Cyanocobalamin (Vitamin B-12 Tab) 500 mcg QAM PEG 10/13/16 09:00 11/12/16 08:59 10/13/16 08:09 500 MCG Sterile Water (Tube Feeding Water Flush) 1 ea Q1H PEG 10/12/16 17:30 11/11/16 17:29 Future Hold Insulin Aspart (novoLOG ASPART) SLIDING SCALE If C... Q6 SC 10/13/16 00:00 11/12/16 00:00 Glucose (Glucose 40% Gel) 15-30 GRAMS 15 GRAMS... UD PRN PO 10/12/16 17:45 11/11/16 17:44 Glucose (Glucose Chew Tab) 4-8 Tablets 4 Tabl... UD PRN PO 10/12/16 17:45 11/11/16 17:44 Dextrose (Dextrose 50% 50ML Syringe) 25-50ML OF 50% DW IV FOR... UD PRN IV 10/12/16 17:45 11/11/16 17:44 Glucagon 1 mg 1 mg UD PRN SQ 10/12/16 17:45 11/11/16 17:44 Ertapenem/Sodium Chloride (Invanz Iv/Nss 50ml) 55 ml @ 120 mls/hr Q24H IV 10/12/16 18:00 10/22/16 17:59 10/12/16 18:37 120 MLS/HR Sterile Water 1 ea 1 ea Q4H PEG 10/12/16 20:00 11/11/16 19:59 10/13/16 12:04 1 EA Dextrose/Sodium Chloride (D5W And Nss) 1,000 ml @ 150 mls/hr Q6H40M IV 10/13/16 00:30 11/12/16 00:29 10/13/16 14:17 150 MLS/HR Enteral Nutritional Formula (Peptamen 1.5) 1,000 ml PERINSTRUCTIONS PRN PEG 10/13/16 14:15 11/12/16 14:14 Family History Diabetes mellitus Seizures Negative for CKD/ESRD Social History Smoking Status: Unknown if Ever Smoked Alcohol Use: none Drug Use: none Marital Status: in relationship Housing Status: other Occupation: unemployed, disabled . Medically disabled. Resides at [facility]. No history of tobacco or alcohol use. Review of Systems Unable to obtain ROS due to expressive aphasia Physical Exam Date Time Temp Pulse Resp B/P Pulse Ox O2 Delivery O2 Flow Rate FiO2 10/13/16 14:49 36.4 67 18 136/77 98 10/13/16 11:30 Room Air 10/13/16 11:17 36.3 79 20 119/68 93 Room Air 10/13/16 07:44 36.5 70 20 133/76 99 Room Air 10/13/16 07:30 Room Air 10/13/16 04:06 36.6 71 18 149/86 97 Room Air 10/13/16 04:00 Room Air 10/13/16 00:01 Room Air 10/12/16 23:06 36.4 64 18 163/85 96 Room Air 10/12/16 20:17 36.4 83 18 146/84 100 Room Air 10/12/16 18:31 68 18 159/53 99 Room Air 10/12/16 18:13 67 10/12/16 16:48 66 18 144/54 97 Room Air General Appearance: + thin (frail, chronically ill appearing) Head: atraumatic (temporal muscle wasting) Eyes: PERRL, EOMI ENT: + pertinent finding (dry mucous membranes) Neck: no adenopathy Respiratory/Chest: + crackles (bibasilar rales) Cardiovascular: regular rate, rhythm Abdomen/GI: non tender, soft, + pertinent finding (PEG tube in place) Extremities/Musculoskelatal: no calf tenderness, no pedal edema Neurologic/Psych: alert, + pertinent finding (expressive aphasia, right hemiparesis) Laboratory Results Last 24 Hours Test 10/12/16 21:09 10/12/16 21:29 10/13/16 00:02 10/13/16 00:58 Bedside Glucose 77 mg/dl 64 mg/dl 71 mg/dl Sodium Level 141 mmol/L Potassium Level 4.5 mmol/L Chloride Level 106 mmol/L Carbon Dioxide Level 27 mmol/L Anion Gap 8.0 mmol/L Blood Urea Nitrogen 94 mg/dl Creatinine 3.40 mg/dl Est Creatinine Clear Calc Drug Dose 17.9 ml/min Estimated GFR () 17.8 Estimated GFR (Non- 15.4 BUN/Creatinine Ratio 27.7 Random Glucose 71 mg/dl Calcium Level 11.8 mg/dl Test 10/13/16 05:50 10/13/16 07:03 10/13/16 10:08 10/13/16 11:21 Bedside Glucose 77 mg/dl 83 mg/dl White Blood Count 5.31 K/uL Red Blood Count 3.12 M/uL Hemoglobin 9.6 g/dL Hematocrit 28.9 % Mean Corpuscular Volume 92.6 fL Mean Corpuscular Hemoglobin 30.8 pg Mean Corpuscular Hemoglobin Concent 33.2 g/dl Platelet Count 120 K/uL Mean Platelet Volume 10.6 fL Neutrophils (%) (Auto) 80.6 % Lymphocytes (%) (Auto) 7.7 % Monocytes (%) (Auto) 10.9 % Eosinophils (%) (Auto) 0.0 % Basophils (%) (Auto) 0.4 % Neutrophils # (Auto) 4.28 K/uL Lymphocytes # (Auto) 0.41 K/uL Monocytes # (Auto) 0.58 K/uL Eosinophils # (Auto) 0.00 K/uL Basophils # (Auto) 0.02 K/uL RDW Standard Deviation 69.2 fL RDW Coefficient of Variation 20.2 % Immature Granulocyte % (Auto) 0.4 % Immature Granulocyte # (Auto) 0.02 K/uL Toxic Granulation 1+ Anisocytosis PRESENT Prothrombin Time 12.6 SECONDS Prothromb Time International Ratio 1.2 Magnesium Level 2.7 mg/dl Impression (1) Acute kidney injury (2) Chronic kidney disease (3) Hypercalcemia (4) Sarcoidosis (5) Transaminasemia (6) Expressive aphasia (7) Lupus anticoagulant positive Patient admitted to the hospital with hypercalcemia, dehydration and acute on chronic kidney injury. She has biopsy proven sarcoidosis. She has chronic microscopic hematuria due to kidney stones. Patient has low grade proteinuria. Renal US was negative for obstruction. Recommendations ACUTE KIDNEY INJURY: -- Likely related to dehydration and hypercalcemia -- Renal US report reviewed. No obstruction -- Urine sediment shows hematuria from kidney stones. Will order UPCR to quantitate urinary protein -- Monitor serial PRP CHRONIC KIDNEY DISEASE: -- Baseline creatinine has been 2.0 HYPERCALCEMIA: -- Patient appears clinically volume contracted. Will increase IVF to 150 cc/hr -- Agree with oncology's recommendation to provide one dose of loop diuretic and start IV Pamidronate -- Will request consultation w/ rheumatology for steroid management of sarcoidosis TRANSAMINITIS: -- Likely related to LIANG and sarcoidosis involving the liver -- Recommend monitoring LFT's. Consider consultation w/ GI
[2016-10-13] MEDS: WARFARIN SOD 7.5 MG TAB PO SCH (15:55)
[2016-10-13 16:49] LABS: BUN/CREATININE RATIO 25.5 (10-20); CALCIUM 10.4 mg/dl (8.5-10.1); CREATININE 3.2 mg/dl (0.60-1.20); POTASSIUM 3.5 mmol/L (3.5-5.1)
--- NOTE | 2016-10-13 18:10 | Hospitalist Progress Note ---
Hospitalist Progress Note Date of Service Oct 13, 2016. Subjective Pt evaluation today including: chart review, review of studies Constitutional: + problem reported (unable to obtain due to aphasia) Objective Vital Signs Date Time Temp Pulse Resp B/P Pulse Ox O2 Delivery O2 Flow Rate FiO2 10/13/16 16:00 98 Room Air 10/13/16 14:49 36.4 67 18 136/77 98 10/13/16 11:30 Room Air 10/13/16 11:17 36.3 79 20 119/68 93 Room Air 10/13/16 07:44 36.5 70 20 133/76 99 Room Air 10/13/16 07:30 Room Air 10/13/16 04:06 36.6 71 18 149/86 97 Room Air 10/13/16 04:00 Room Air 10/13/16 00:01 Room Air 10/12/16 23:06 36.4 64 18 163/85 96 Room Air 10/12/16 20:17 36.4 83 18 146/84 100 Room Air 10/12/16 18:31 68 18 159/53 99 Room Air 10/12/16 18:13 67 Physical Exam General Appearance: WD/WN, no apparent distress Eyes: normal inspection, PERRL ENT: normal ENT inspection, hearing grossly normal Neck: supple, no adenopathy Respiratory/Chest: chest non-tender, lungs clear Cardiovascular: regular rate, rhythm, no edema Abdomen: normal bowel sounds, non tender Neurologic/Psychiatric: + motor weakness (right hemiparesis) Skin: normal color Laboratory Results Last 24 Hours Test 10/12/16 21:09 10/12/16 21:29 10/13/16 00:02 10/13/16 00:58 Bedside Glucose 77 mg/dl 64 mg/dl 71 mg/dl Sodium Level 141 mmol/L Potassium Level 4.5 mmol/L Chloride Level 106 mmol/L Carbon Dioxide Level 27 mmol/L Anion Gap 8.0 mmol/L Blood Urea Nitrogen 94 mg/dl Creatinine 3.40 mg/dl Est Creatinine Clear Calc Drug Dose 17.9 ml/min Estimated GFR () 17.8 Estimated GFR (Non- 15.4 BUN/Creatinine Ratio 27.7 Random Glucose 71 mg/dl Calcium Level 11.8 mg/dl Test 10/13/16 05:50 10/13/16 07:03 10/13/16 10:08 10/13/16 11:21 Bedside Glucose 77 mg/dl 83 mg/dl White Blood Count 5.31 K/uL Red Blood Count 3.12 M/uL Hemoglobin 9.6 g/dL Hematocrit 28.9 % Mean Corpuscular Volume 92.6 fL Mean Corpuscular Hemoglobin 30.8 pg Mean Corpuscular Hemoglobin Concent 33.2 g/dl Platelet Count 120 K/uL Mean Platelet Volume 10.6 fL Neutrophils (%) (Auto) 80.6 % Lymphocytes (%) (Auto) 7.7 % Monocytes (%) (Auto) 10.9 % Eosinophils (%) (Auto) 0.0 % Basophils (%) (Auto) 0.4 % Neutrophils # (Auto) 4.28 K/uL Lymphocytes # (Auto) 0.41 K/uL Monocytes # (Auto) 0.58 K/uL Eosinophils # (Auto) 0.00 K/uL Basophils # (Auto) 0.02 K/uL RDW Standard Deviation 69.2 fL RDW Coefficient of Variation 20.2 % Immature Granulocyte % (Auto) 0.4 % Immature Granulocyte # (Auto) 0.02 K/uL Toxic Granulation 1+ Anisocytosis PRESENT Prothrombin Time 12.6 SECONDS Prothromb Time International Ratio 1.2 Magnesium Level 2.7 mg/dl Test 10/13/16 16:05 Sodium Level 143 mmol/L Potassium Level 3.5 mmol/L Chloride Level 110 mmol/L Carbon Dioxide Level 25 mmol/L Anion Gap 8.0 mmol/L Blood Urea Nitrogen 81 mg/dl Creatinine 3.20 mg/dl Est Creatinine Clear Calc Drug Dose 20.9 ml/min Estimated GFR () 19.2 Estimated GFR (Non- 16.5 BUN/Creatinine Ratio 25.5 Random Glucose 121 mg/dl Calcium Level 10.4 mg/dl Diagnostic Results Medications (Trade) Dose Ordered Sig/Filipe Route Start Time Stop Time Status Last Admin Dose Admin Atenolol (Tenormin Tab) 50 mg QAM PEG 10/13/16 09:00 11/12/16 08:59 10/13/16 08:09 50 MG Atorvastatin Calcium (Lipitor Tab) 20 mg HS PEG 10/12/16 21:00 11/11/16 20:59 10/12/16 21:31 20 MG Folic Acid (Folvite Tab) 1 mg DAILY PEG 10/13/16 09:00 4/27/17 08:59 10/13/16 08:09 1 MG Pyridoxine HCl (Vitamin B-6 Tab) 50 mg QAM PO 10/13/16 09:00 11/12/16 08:59 10/13/16 08:11 50 MG Venlafaxine HCl (effeXOR TAB) 75 mg QAM PO 10/13/16 09:00 11/12/16 08:59 10/13/16 08:10 75 MG Warfarin Sodium (Coumadin Tab) 5 mg Q2D@1600 PO 10/12/16 20:10 11/11/16 20:09 10/12/16 21:54 5 MG Warfarin Sodium (Coumadin Tab) 7.5 mg Q2D@1600 PO 10/13/16 16:00 11/12/16 15:59 10/13/16 15:55 7.5 MG Cyanocobalamin (Vitamin B-12 Tab) 500 mcg QAM PEG 10/13/16 09:00 11/12/16 08:59 10/13/16 08:09 500 MCG Sterile Water 1 ea 1 ea Q4H PEG 10/12/16 20:00 11/11/16 19:59 10/13/16 15:55 1 EA Dextrose/Sodium Chloride (D5W And Nss) 1,000 ml @ 150 mls/hr Q6H40M IV 10/13/16 00:30 11/12/16 00:29 10/13/16 14:17 150 MLS/HR Enteral Nutritional Formula (Peptamen 1.5) 1,000 ml PERINSTRUCTIONS PRN PEG 10/13/16 14:15 11/12/16 14:14 10/13/16 15:52 1,000 ML Assessment and Plan {} Hypercalcemia, Hx Sarcoidosis - Was on prednisone 7.5mg daily that was recently increased to 30mg daily on October 10. - Also worsening renal indices. - Continue with IV NSS. Received IV pamidronate and IV lasix - Appreciate Renal and Hem/Onc {} CVA with Rt Hemiplegia - Hx of dense right hemiplegia - H/O of Homocystinemia - H/O of Lupus anticoagulant - c/w Atorvastatin 20mg daily via PEG. - Continue with coumadin. Daily INR. {} Acute on Chronic CKD stage III - Worsening renal indices. ? secondary pre renal. ? secondary to sarcoid. - Consult Renal - Check Renal Sono to rule out obstruction. - Avoid nephrotoxic agents (No NSAIDS, DARRYL or ARB). UTI - Urine culture sent from ER - Will empirically start on IV Levaquin 500mg q 48 hr. {} Dysphagia - Peg tube in place. - Will restart tube feeds.Customer Experience Leader services consulted {} Anemia - Likely secondary to CKD - H/H stable {} Systolic murmur - Likely due to Mild MR. - Last echo showed normal LV and RV systolic function. {} DM2 - On Lantus and SSI at [place] - Will restart Lantus and check Accuchecks q 6 hrs. {} Mood - c/w Citalopram 40mg daily via PEG {} Code status DNR/DNI per patient wishes.
[2016-10-13] MEDS: ERTAPENEM IV 500 MG in SODIUM CHLORIDE 0.9% 50ML 50 ML IV SCH (18:39)
[2016-10-13] MEDS: ACETAMINOPHEN SOLN 325 MG/10.15 ML UDC PO PRN (18:40)
[2016-10-13] MEDS: ATORVASTATIN 20 MG TAB PEG SCH (21:47)
[2016-10-14] MEDS: ACETAMINOPHEN SOLN 325 MG/10.15 ML UDC PO PRN ×3 (00:35→16:02)
[2016-10-14] MEDS: D5W AND NSS 1,000 ML IV SCH ×4 (04:08→23:28)
[2016-10-14] MEDS: TUBE FEEDING WATER FLUSH PEG SCH ×6 (04:08→19:35)
[2016-10-14 04:22] VITALS: BP 106/67; PULSE 61; TEMP 36.4; O2SAT 98
[2016-10-14 06:06] LABS: BASO % 0.3 %; BASO ABS # 0.01 K/uL (0-0.2); HEMATOCRIT 26.6 % (37-47); IG% 0.3 %; LYMPH ABS # 0.22 K/uL (1.2-3.4); MEAN CELL VOLUME 93.7 fL (80-100); MEAN CORPUSCULAR HEMOGLOBIN 30.6 pg (25-34); MEAN CORPUSCULAR HGB CONC 32.7 g/dl (32-36); MEAN PLATELET VOLUME 11.4 fL (7.4-10.4); NEUT % 80.4 %; PLATELET COUNT 108 K/uL (130-400); RED BLOOD COUNT 2.84 M/uL (4.2-5.4); WHITE BLOOD COUNT 3.16 K/uL (4.8-10.8)
[2016-10-14] MEDS: INSULIN ASPART 100 UNITS/ML 3 ML PEN SC SCH ×4 (06:11→19:34)
[2016-10-14 06:19] LABS: INR 1.6 (0.9-1.1); PROTHROMBIN TIME (PATIENT) 17.1 SECONDS (9.0-12.0)
[2016-10-14 06:35] LABS: COMPLETE YES; TOXIC GRANULATION 1+
[2016-10-14 06:42] LABS: BUN/CREATININE RATIO 24.7 (10-20); CALCIUM 9.9 mg/dl (8.5-10.1); POTASSIUM 3.4 mmol/L (3.5-5.1)
[2016-10-14 06:46] LABS: ALB/GLOB RATIO 0.5 (0.9-2)
[2016-10-14 07:08] LABS: LARGE PLATELETS 1+
--- NOTE | 2016-10-14 07:38 | Hospitalist Progress Note ---
Hospitalist Progress Note Date of Service Oct 14, 2016. Subjective Pt evaluation today including: chart review, review of studies Constitutional: + problem reported (unable to obtain due to aphasia) Medications Medications (Trade) Dose Ordered Sig/Filipe Route Start Time Stop Time Status Last Admin Dose Admin Atenolol (Tenormin Tab) 50 mg QAM PEG 10/13/16 09:00 11/12/16 08:59 10/13/16 08:09 50 MG Folic Acid (Folvite Tab) 1 mg DAILY PEG 10/13/16 09:00 11/12/16 08:59 10/13/16 08:09 1 MG Pyridoxine HCl (Vitamin B-6 Tab) 50 mg QAM PO 10/13/16 09:00 11/12/16 08:59 10/13/16 08:11 50 MG Venlafaxine HCl (effeXOR TAB) 75 mg QAM PO 10/13/16 09:00 11/12/16 08:59 10/13/16 08:10 75 MG Warfarin Sodium (Coumadin Tab) 7.5 mg Q2D@1600 PO 10/13/16 16:00 11/12/16 15:59 10/13/16 15:55 7.5 MG Cyanocobalamin (Vitamin B-12 Tab) 500 mcg QAM PEG 10/13/16 09:00 11/12/16 08:59 10/13/16 08:09 500 MCG Enteral Nutritional Formula (Peptamen 1.5) 1,000 ml PERINSTRUCTIONS PRN PEG 10/13/16 14:15 11/12/16 14:14 10/13/16 15:52 1,000 ML Acetaminophen (Tylenol Soln) 325 mg Q4H PRN PO 10/13/16 17:45 11/12/16 17:44 10/14/16 00:35 325 MG Objective Vital Signs Date Time Temp Pulse Resp B/P Pulse Ox O2 Delivery O2 Flow Rate FiO2 10/14/16 04:22 36.4 61 16 106/67 98 Room Air 10/14/16 04:00 Room Air 10/14/16 00:00 Room Air 10/13/16 23:00 36.5 66 16 161/83 97 Room Air 10/13/16 20:00 Room Air 10/13/16 19:58 36.5 88 16 112/70 95 Room Air 10/13/16 16:00 98 Room Air 10/13/16 14:49 36.4 67 18 136/77 98 10/13/16 11:30 Room Air 10/13/16 11:17 36.3 79 20 119/68 93 Room Air 10/13/16 07:44 36.5 70 20 133/76 99 Room Air Physical Exam General Appearance: WD/WN, no apparent distress Eyes: normal inspection, PERRL ENT: normal ENT inspection Neck: supple, no adenopathy Respiratory/Chest: chest non-tender, lungs clear Cardiovascular: regular rate, rhythm, no edema Abdomen: normal bowel sounds, non tender, + pertinent finding (PEG) Neurologic/Psychiatric: + pertinent finding (Right hemiparesis) Skin: normal color Laboratory Results Last 24 Hours Test 10/13/16 10:08 10/13/16 11:21 10/13/16 16:05 10/13/16 18:03 Bedside Glucose 83 mg/dl 117 mg/dl Sodium Level 143 mmol/L Potassium Level 3.5 mmol/L Chloride Level 110 mmol/L Carbon Dioxide Level 25 mmol/L Anion Gap 8.0 mmol/L Blood Urea Nitrogen 81 mg/dl Creatinine 3.20 mg/dl Est Creatinine Clear Calc Drug Dose 20.9 ml/min Estimated GFR () 19.2 Estimated GFR (Non- 16.5 BUN/Creatinine Ratio 25.5 Random Glucose 121 mg/dl Calcium Level 10.4 mg/dl Test 10/14/16 00:14 10/14/16 05:29 Bedside Glucose 139 mg/dl White Blood Count 3.16 K/uL Red Blood Count 2.84 M/uL Hemoglobin 8.7 g/dL Hematocrit 26.6 % Mean Corpuscular Volume 93.7 fL Mean Corpuscular Hemoglobin 30.6 pg Mean Corpuscular Hemoglobin Concent 32.7 g/dl Platelet Count 108 K/uL Mean Platelet Volume 11.4 fL Neutrophils (%) (Auto) 80.4 % Lymphocytes (%) (Auto) 7.0 % Monocytes (%) (Auto) 12.0 % Eosinophils (%) (Auto) 0.0 % Basophils (%) (Auto) 0.3 % Neutrophils # (Auto) 2.54 K/uL Lymphocytes # (Auto) 0.22 K/uL Monocytes # (Auto) 0.38 K/uL Eosinophils # (Auto) 0.00 K/uL Basophils # (Auto) 0.01 K/uL RDW Standard Deviation 68.9 fL RDW Coefficient of Variation 19.9 % Immature Granulocyte % (Auto) 0.3 % Immature Granulocyte # (Auto) 0.01 K/uL Toxic Granulation 1+ Large Platelets 1+ Prothrombin Time 17.1 SECONDS Prothromb Time International Ratio 1.6 Sodium Level 145 mmol/L Potassium Level 3.4 mmol/L Chloride Level 113 mmol/L Carbon Dioxide Level 25 mmol/L Anion Gap 7.0 mmol/L Blood Urea Nitrogen 74 mg/dl Creatinine 3.00 mg/dl Est Creatinine Clear Calc Drug Dose 22.4 ml/min Estimated GFR () 20.7 Estimated GFR (Non- 17.9 BUN/Creatinine Ratio 24.7 Random Glucose 182 mg/dl Calcium Level 9.9 mg/dl Total Bilirubin 1.0 mg/dl Aspartate Amino Transf (AST/SGOT) 57 U/L Alanine Aminotransferase (ALT/SGPT) 80 U/L Alkaline Phosphatase 762 U/L Total Protein 5.9 gm/dl Albumin 1.9 gm/dl Globulin 4.0 gm/dl Albumin/Globulin Ratio 0.5 10/14/16 05:29 Red Blood Count 2.84, Mean Corpuscular Volume 93.7, Mean Corpuscular Hemoglobin 30.6, Mean Corpuscular Hemoglobin Concent 32.7, Mean Platelet Volume 11.4, Neutrophils (%) (Auto) 80.4, Lymphocytes (%) (Auto) 7.0, Monocytes (%) (Auto) 12.0, Eosinophils (%) (Auto) 0.0, Basophils (%) (Auto) 0.3, Neutrophils # (Auto ) 2.54, Lymphocytes # (Auto) 0.22, Monocytes # (Auto) 0.38, Eosinophils # (Auto ) 0.00, Basophils # (Auto) 0.01 10/14/16 05:29 Test 10/12/16 13:10 10/12/16 15:05 10/13/16 07:03 10/13/16 10:08 Lipase 102 U/L (73-393) Urine Color YELLOW Urine Appearance CLOUDY (CLEAR) Urine pH 7.0 (4.5-7.5) Urine Specific [place] 1.010 (1.000-1.030) Urine Protein 1+ (NEG) Urine Glucose (UA) NEG (NEG) Urine Ketones NEG (NEG) Urine Occult Blood 2+ (NEG) Urine Nitrite NEG (NEG) Urine Bilirubin NEG (NEG) Urine Urobilinogen NEG (NEG) Urine Leukocyte Esterase MODERATE (NEG) Urine WBC (Auto) 5-10 /hpf (0-5) Urine RBC (Auto) 10-30 /hpf (0-4) Urine Hyaline Casts (Auto) 1-5 /lpf (0-5) Urine Epithelial Cells (Auto) >30 /lpf (0-5) Urine Bacteria (Auto) 1+ (NEG) Urine Renal Epithelial Cells 0-5 /lpf (0-5) Anisocytosis PRESENT Magnesium Level 2.7 mg/dl (1.8-2.4) Test 10/14/16 00:14 10/14/16 05:29 Bedside Glucose 139 mg/dl (70-90) White Blood Count 3.16 K/uL (4.8-10.8) Red Blood Count 2.84 M/uL (4.2-5.4) Hemoglobin 8.7 g/dL (12.0-16.0) Hematocrit 26.6 % (37-47) Mean Corpuscular Volume 93.7 fL (80-100) Mean Corpuscular Hemoglobin 30.6 pg (25-34) Mean Corpuscular Hemoglobin Concent 32.7 g/dl (32-36) Platelet Count 108 K/uL (130-400) Mean Platelet Volume 11.4 fL (7.4-10.4) Neutrophils (%) (Auto) 80.4 % Lymphocytes (%) (Auto) 7.0 % Monocytes (%) (Auto) 12.0 % Eosinophils (%) (Auto) 0.0 % Basophils (%) (Auto) 0.3 % Neutrophils # (Auto) 2.54 K/uL (1.4-6.5) Lymphocytes # (Auto) 0.22 K/uL (1.2-3.4) Monocytes # (Auto) 0.38 K/uL (0.11-0.59) Eosinophils # (Auto) 0.00 K/uL (0-0.5) Basophils # (Auto) 0.01 K/uL (0-0.2) RDW Standard Deviation 68.9 fL (36.4-46.3) RDW Coefficient of Variation 19.9 % (11.5-14.5) Immature Granulocyte % (Auto) 0.3 % Immature Granulocyte # (Auto) 0.01 K/uL (0.00-0.02) Toxic Granulation 1+ Large Platelets 1+ Prothrombin Time 17.1 SECONDS (9.0-12.0) Prothromb Time International Ratio 1.6 (0.9-1.1) Anion Gap 7.0 mmol/L (3-11) Est Creatinine Clear Calc Drug Dose 22.4 ml/min Estimated GFR () 20.7 Estimated GFR (Non- 17.9 BUN/Creatinine Ratio 24.7 (10-20) Calcium Level 9.9 mg/dl (8.5-10.1) Total Bilirubin 1.0 mg/dl (0.2-1) Aspartate Amino Transf (AST/SGOT) 57 U/L (15-37) Alanine Aminotransferase (ALT/SGPT) 80 U/L (12-78) Alkaline Phosphatase 762 U/L (45-117) Total Protein 5.9 gm/dl (6.4-8.2) Albumin 1.9 gm/dl (3.4-5.0) Globulin 4.0 gm/dl (2.5-4.0) Albumin/Globulin Ratio 0.5 (0.9-2) Date/Time Source Procedure Growth Status 10/13/16 06:40 Nasal MRSA DNA Surveillance Screen - Final Specimen Negative for MRSA by DNA Probe Complete 10/12/16 15:05 Urine,Catheterized Urine Culture - Preliminary PIN-POINT GROWTH PRESENT, REINCUBATING. Resulted Diagnostic Results 10/14/16 05:29 Red Blood Count 2.84, Mean Corpuscular Volume 93.7, Mean Corpuscular Hemoglobin 30.6, Mean Corpuscular Hemoglobin Concent 32.7, Mean Platelet Volume 11.4, Neutrophils (%) (Auto) 80.4, Lymphocytes (%) (Auto) 7.0, Monocytes (%) (Auto) 12.0, Eosinophils (%) (Auto) 0.0, Basophils (%) (Auto) 0.3, Neutrophils # (Auto ) 2.54, Lymphocytes # (Auto) 0.22, Monocytes # (Auto) 0.38, Eosinophils # (Auto ) 0.00, Basophils # (Auto) 0.01 10/14/16 05:29 Test 10/12/16 13:10 10/12/16 15:05 10/13/16 07:03 10/13/16 10:08 Lipase 102 U/L (73-393) Urine Color YELLOW Urine Appearance CLOUDY (CLEAR) Urine pH 7.0 (4.5-7.5) Urine Specific [place] 1.010 (1.000-1.030) Urine Protein 1+ (NEG) Urine Glucose (UA) NEG (NEG) Urine Ketones NEG (NEG) Urine Occult Blood 2+ (NEG) Urine Nitrite NEG (NEG) Urine Bilirubin NEG (NEG) Urine Urobilinogen NEG (NEG) Urine Leukocyte Esterase MODERATE (NEG) Urine WBC (Auto) 5-10 /hpf (0-5) Urine RBC (Auto) 10-30 /hpf (0-4) Urine Hyaline Casts (Auto) 1-5 /lpf (0-5) Urine Epithelial Cells (Auto) >30 /lpf (0-5) Urine Bacteria (Auto) 1+ (NEG) Urine Renal Epithelial Cells 0-5 /lpf (0-5) Anisocytosis PRESENT Magnesium Level 2.7 mg/dl (1.8-2.4) Test 10/14/16 05:29 10/14/16 11:39 White Blood Count 3.16 K/uL (4.8-10.8) Red Blood Count 2.84 M/uL (4.2-5.4) Hemoglobin 8.7 g/dL (12.0-16.0) Hematocrit 26.6 % (37-47) Mean Corpuscular Volume 93.7 fL (80-100) Mean Corpuscular Hemoglobin 30.6 pg (25-34) Mean Corpuscular Hemoglobin Concent 32.7 g/dl (32-36) Platelet Count 108 K/uL (130-400) Mean Platelet Volume 11.4 fL (7.4-10.4) Neutrophils (%) (Auto) 80.4 % Lymphocytes (%) (Auto) 7.0 % Monocytes (%) (Auto) 12.0 % Eosinophils (%) (Auto) 0.0 % Basophils (%) (Auto) 0.3 % Neutrophils # (Auto) 2.54 K/uL (1.4-6.5) Lymphocytes # (Auto) 0.22 K/uL (1.2-3.4) Monocytes # (Auto) 0.38 K/uL (0.11-0.59) Eosinophils # (Auto) 0.00 K/uL (0-0.5) Basophils # (Auto) 0.01 K/uL (0-0.2) RDW Standard Deviation 68.9 fL (36.4-46.3) RDW Coefficient of Variation 19.9 % (11.5-14.5) Immature Granulocyte % (Auto) 0.3 % Immature Granulocyte # (Auto) 0.01 K/uL (0.00-0.02) Toxic Granulation 1+ Large Platelets 1+ Prothrombin Time 17.1 SECONDS (9.0-12.0) Prothromb Time International Ratio 1.6 (0.9-1.1) Anion Gap 7.0 mmol/L (3-11) Est Creatinine Clear Calc Drug Dose 22.4 ml/min Estimated GFR () 20.7 Estimated GFR (Non- 17.9 BUN/Creatinine Ratio 24.7 (10-20) Calcium Level 9.9 mg/dl (8.5-10.1) Total Bilirubin 1.0 mg/dl (0.2-1) Aspartate Amino Transf (AST/SGOT) 57 U/L (15-37) Alanine Aminotransferase (ALT/SGPT) 80 U/L (12-78) Alkaline Phosphatase 762 U/L (45-117) Total Protein 5.9 gm/dl (6.4-8.2) Albumin 1.9 gm/dl (3.4-5.0) Globulin 4.0 gm/dl (2.5-4.0) Albumin/Globulin Ratio 0.5 (0.9-2) Bedside Glucose 219 mg/dl (70-90) Date/Time Source Procedure Growth Status 10/13/16 06:40 Nasal MRSA DNA Surveillance Screen - Final Specimen Negative for MRSA by DNA Probe Complete 10/12/16 15:05 Urine,Catheterized Urine Culture - Final THREE TYPES OF ORGANISMS PRESENT, ALL... Complete Assessment and Plan {} Hypercalcemia, Hx Sarcoidosis - Was on prednisone 7.5mg daily that was recently increased to 30mg daily on October 10. - Continue with IV NSS. Received IV pamidronate and IV lasix - Appreciate Renal and Hem/Onc - Spoke to Rheum who would like her to be restarted on Prednisone 5mg daily and Ketoconazole 200mg daily. Weekly CMP. {} CVA with Rt Hemiplegia - Hx of dense right hemiplegia - H/O of Homocystinemia - H/O of Lupus anticoagulant - c/w Atorvastatin 20mg daily via PEG. - Continue with coumadin. Daily INR. {} Acute on Chronic CKD stage III - Worsening renal indices. Likely pre renal azotemia - Renal consult appreciated. - Renal sono shows no evidence of obstruction - Avoid nephrotoxic agents (No NSAIDS, DARRYL or ARB). - Improving renal indices. Cont with IV fluids UTI - Urine culture sent from ER. Will follow up - Will empirically start on IV Levaquin 500mg q 48 hr. {} Dysphagia - Peg tube in place. - Will restart tube feeds.Set [employer] Type Operator services consulted - Tube feeds restarted. Will restart lantus at 10 units qhs (pt was on 20 units qhs at the time of admit) {} Anemia - Likely secondary to CKD - H/H stable {} Systolic murmur - Likely due to Mild MR. - Last echo showed normal LV and RV systolic function. {} DM2 - On Lantus and SSI at [place] - Will restart Lantus and check Accuchecks q 6 hrs. {} Mood - c/w Citalopram 40mg daily via PEG {} Code status DNR/DNI per patient wishes. Continued [facility] stay due to: multiple IV medications needed Discharge planning: group home facility
[2016-10-14] MEDS: CYANOCOBALAMIN 500 MCG TAB (VIT B-12) PEG SCH (07:39)
[2016-10-14] MEDS: VENLAFAXINE HCL 50 MG TAB PO SCH (07:39)
[2016-10-14] MEDS: PYRIDOXINE HCL 50 MG TAB PO SCH (07:40)
[2016-10-14 07:57] VITALS: BP 148/69; PULSE 74; TEMP 36.5; O2SAT 96
[2016-10-14] MEDS: INSULIN HUMAN NPH SC SCH (10:07)
[2016-10-14] MEDS: PEPTAMEN 1.5 CAL 1000ML BAG PEG SCH (10:19)
--- NOTE | 2016-10-14 10:58 | Nephrology Progress Note ---
Nephrology Progress Note Date of Service Oct 14, 2016. Chief Complaint Evaluation of hypercalcemia and acute on chronic kidney injury in this patient with biopsy proven Sarcoidosis Subjective Ms. Ventura was seen & examined in her hospital room this morning. 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 She is resting comfortably. She does not appear to be in distress. She is receiving 0.9NS at 150 cc/hr. Review of Systems Unable to obtain due to aphasia Vital Signs Last 8 Hrs Date Time Temp Pulse Resp B/P Pulse Ox O2 Delivery O2 Flow Rate FiO2 10/14/16 08:00 Room Air 10/14/16 07:57 36.5 74 16 148/69 96 Room Air 10/14/16 04:22 36.4 61 16 106/67 98 Room Air 10/14/16 04:00 Room Air I & O 24-Hour Column 10/14/16 07:59 Intake Total 4180 ml Output Total 1100 ml Balance 3080 ml Last Recorded Weight Weight (Kilograms): 69.400 Physical Exam General Appearance: no apparent distress, + thin (chronically ill appearing) Head: normocephalic, atraumatic Eyes: PERRL, EOMI Neck: supple, no adenopathy Respiratory/Chest: lungs clear Cardiovascular: regular rate, rhythm Abdomen/GI: normal bowel sounds, non tender, soft, + pertinent finding (PEG tube in place) Extremities/Musculoskelatal: no calf tenderness, no pedal edema Neurologic/Psych: alert Family History Diabetes mellitus Seizures Negative for CKD/ESRD Social History Smoking Status: Never smoker Alcohol Use: none Drug Use: none Marital Status: in relationship Housing Status: other Occupation: unemployed, disabled . Medically disabled. Resides at [facility]. No history of tobacco or alcohol use. Laboratory Results Past 24 Hours 10/14/16 05:29 Red Blood Count 2.84, Mean Corpuscular Volume 93.7, Mean Corpuscular Hemoglobin 30.6, Mean Corpuscular Hemoglobin Concent 32.7, Mean Platelet Volume 11.4, Neutrophils (%) (Auto) 80.4, Lymphocytes (%) (Auto) 7.0, Monocytes (%) (Auto) 12.0, Eosinophils (%) (Auto) 0.0, Basophils (%) (Auto) 0.3, Neutrophils # (Auto ) 2.54, Lymphocytes # (Auto) 0.22, Monocytes # (Auto) 0.38, Eosinophils # (Auto ) 0.00, Basophils # (Auto) 0.01 10/13/16 16:05 10/14/16 05:29 Test 10/13/16 11:21 10/13/16 16:05 10/13/16 18:03 10/14/16 00:14 Bedside Glucose 83 mg/dl (70-90) 117 mg/dl (70-90) 139 mg/dl (70-90) Anion Gap 8.0 mmol/L (3-11) Est Creatinine Clear Calc Drug Dose 20.9 ml/min Estimated GFR () 19.2 Estimated GFR (Non- 16.5 BUN/Creatinine Ratio 25.5 (10-20) Calcium Level 10.4 mg/dl (8.5-10.1) Test 10/14/16 05:29 10/14/16 05:55 White Blood Count 3.16 K/uL (4.8-10.8) Red Blood Count 2.84 M/uL (4.2-5.4) Hemoglobin 8.7 g/dL (12.0-16.0) Hematocrit 26.6 % (37-47) Mean Corpuscular Volume 93.7 fL (80-100) Mean Corpuscular Hemoglobin 30.6 pg (25-34) Mean Corpuscular Hemoglobin Concent 32.7 g/dl (32-36) Platelet Count 108 K/uL (130-400) Mean Platelet Volume 11.4 fL (7.4-10.4) Neutrophils (%) (Auto) 80.4 % Lymphocytes (%) (Auto) 7.0 % Monocytes (%) (Auto) 12.0 % Eosinophils (%) (Auto) 0.0 % Basophils (%) (Auto) 0.3 % Neutrophils # (Auto) 2.54 K/uL (1.4-6.5) Lymphocytes # (Auto) 0.22 K/uL (1.2-3.4) Monocytes # (Auto) 0.38 K/uL (0.11-0.59) Eosinophils # (Auto) 0.00 K/uL (0-0.5) Basophils # (Auto) 0.01 K/uL (0-0.2) RDW Standard Deviation 68.9 fL (36.4-46.3) RDW Coefficient of Variation 19.9 % (11.5-14.5) Immature Granulocyte % (Auto) 0.3 % Immature Granulocyte # (Auto) 0.01 K/uL (0.00-0.02) Toxic Granulation 1+ Large Platelets 1+ Prothrombin Time 17.1 SECONDS (9.0-12.0) Prothromb Time International Ratio 1.6 (0.9-1.1) Anion Gap 7.0 mmol/L (3-11) Est Creatinine Clear Calc Drug Dose 22.4 ml/min Estimated GFR () 20.7 Estimated GFR (Non- 17.9 BUN/Creatinine Ratio 24.7 (10-20) Calcium Level 9.9 mg/dl (8.5-10.1) Total Bilirubin 1.0 mg/dl (0.2-1) Aspartate Amino Transf (AST/SGOT) 57 U/L (15-37) Alanine Aminotransferase (ALT/SGPT) 80 U/L (12-78) Alkaline Phosphatase 762 U/L (45-117) Total Protein 5.9 gm/dl (6.4-8.2) Albumin 1.9 gm/dl (3.4-5.0) Globulin 4.0 gm/dl (2.5-4.0) Albumin/Globulin Ratio 0.5 (0.9-2) Bedside Glucose 179 mg/dl (70-90) Allergies Coded Allergies: Ezetimibe (Verified Allergy, Intermediate, Vytorin - hives and N/V, ) Simvastatin (Verified Allergy, Intermediate, Vytorin - hives and N/V, ) Latex1 -Allergic Contact Dermititis (Verified Allergy, Unknown, RASH, BLISTERS, 05/05/16) Adhesives (Verified Adverse Reaction, Mild, Unknown Rxn, 05/05/16) Medications Current Inpatient Medications Medications (Trade) Dose Ordered Sig/Filipe Route Start Time Stop Time Status Last Admin Dose Admin Metoclopramide HCl (Reglan Inj) 10 mg Q6H PRN IV 10/12/16 17:15 11/11/16 17:14 Atenolol (Tenormin Tab) 50 mg QAM PEG 10/13/16 09:00 11/12/16 08:59 10/14/16 07:40 50 MG Atorvastatin Calcium (Lipitor Tab) 20 mg HS PEG 10/12/16 21:00 11/11/16 20:59 10/13/16 21:47 20 MG Folic Acid (Folvite Tab) 1 mg DAILY PEG 10/13/16 09:00 11/12/16 08:59 10/14/16 07:39 1 MG Insulin Human NPH (novoLIN-N NPH) 10 units QAM SC 10/13/16 09:00 11/12/16 08:59 10/14/16 10:07 10 UNITS Pyridoxine HCl (Vitamin B-6 Tab) 50 mg QAM PO 10/13/16 09:00 11/12/16 08:59 10/14/16 07:40 50 MG Venlafaxine HCl (effeXOR TAB) 75 mg QAM PO 10/13/16 09:00 11/12/16 08:59 10/14/16 07:39 75 MG Warfarin Sodium (Coumadin Tab) 5 mg Q2D@1600 PO 10/12/16 20:10 11/11/16 20:09 10/12/16 21:54 5 MG Warfarin Sodium (Coumadin Tab) 7.5 mg Q2D@1600 PO 10/13/16 16:00 11/12/16 15:59 10/13/16 15:55 7.5 MG Cyanocobalamin (Vitamin B-12 Tab) 500 mcg QAM PEG 10/13/16 09:00 11/12/16 08:59 10/14/16 07:39 500 MCG Sterile Water (Tube Feeding Water Flush) 1 ea Q1H PEG 10/12/16 17:30 11/11/16 17:29 Future Hold 10/13/16 23:45 1 EA Insulin Aspart (novoLOG ASPART) SLIDING SCALE If C... Q6 SC 10/13/16 00:00 11/12/16 00:00 10/14/16 06:11 1 UNITS Glucose (Glucose 40% Gel) 15-30 GRAMS 15 GRAMS... UD PRN PO 10/12/16 17:45 11/11/16 17:44 Glucose (Glucose Chew Tab) 4-8 Tablets 4 Tabl... UD PRN PO 10/12/16 17:45 11/11/16 17:44 Dextrose (Dextrose 50% 50ML Syringe) 25-50ML OF 50% DW IV FOR... UD PRN IV 10/12/16 17:45 11/11/16 17:44 Glucagon 1 mg 1 mg UD PRN SQ 10/12/16 17:45 11/11/16 17:44 Ertapenem/Sodium Chloride (Invanz Iv/Nss 50ml) 55 ml @ 120 mls/hr Q24H IV 10/12/16 18:00 10/22/16 17:59 10/13/16 18:39 120 MLS/HR Sterile Water 1 ea 1 ea Q4H PEG 10/12/16 20:00 11/11/16 19:59 10/14/16 08:11 1 EA Dextrose/Sodium Chloride (D5W And Nss) 1,000 ml @ 150 mls/hr Q6H40M IV 10/13/16 00:30 11/12/16 00:29 10/14/16 10:36 150 MLS/HR Acetaminophen (Tylenol Soln) 325 mg Q4H PRN PO 10/13/16 17:45 11/12/16 17:44 10/14/16 10:35 325 MG Enteral Nutritional Formula (Peptamen 1.5) 1,000 ml DAILY PEG 10/14/16 10:00 11/13/16 09:59 10/14/16 10:19 1,000 ML Impression (1) Acute kidney injury (2) Chronic kidney disease (3) Hypercalcemia (4) Sarcoidosis (5) Transaminasemia (6) Expressive aphasia (7) Lupus anticoagulant positive Patient admitted to the hospital with hypercalcemia, dehydration and acute on chronic kidney injury. She has biopsy proven sarcoidosis. She has chronic microscopic hematuria due to kidney stones. Patient has low grade proteinuria. Renal US was negative for obstruction. Recommendations ACUTE KIDNEY INJURY: -- Likely related to dehydration and hypercalcemia. Creatinine has improved from 3.5 to 3.0 (baseline 2.0) with IV hydration -- Renal US 10/12/16: No obstruction -- Urine sediment shows hematuria from kidney stones. Will order UPCR to quantitate urinary protein -- Monitor serial PRP CHRONIC KIDNEY DISEASE: -- Baseline creatinine has been 2.0 HYPERCALCEMIA: -- Continue IV hydration -- Patient has been given one dose IV Pamidronate 10/13/16 -- Rheumatology consultation has been requested for management of sarcoidosis / steroid therapy TRANSAMINITIS: -- Likely related to LIANG and sarcoidosis involving the liver -- LFT's are trending downward. Continue to monitor. Consider consultation w/ GI
[2016-10-14 11:59] VITALS: BP 130/79; PULSE 69; TEMP 36.5; O2SAT 99
--- NOTE | 2016-10-14 12:53 | Rheumatology Consultation ---
Rheumatology Consultation Date of Consultation: Oct 14, 2016. Requesting Physician: Dr Mccartney Attending Physician: Dr Arteaga Reason for Consultation: Sarcoidosis, hypercalcemia History of Present Illness Carey is well known to me and the rheumatology department for sarcoidosis recurrent hypercalcemia. She has a complicated medical history with major CVA last fall that left her with right sided weakness (mainly arm > leg), aphasia, dysphagia recurring tube feeds and now recurrent admissions for hypercalcemia. she has received IV bisphosphonates on multiple occasions now (3 times) in the last 6-7 months. she continues to require relatively higher doses of steroids to control her calcium levels as well. she was last seen in the rheumatology clinic with increasing calcium levels around 11. She was started on plaquenil several months ago to try to help with the hypercalcemia but so far has not been helping. her treatment is complicated given CKD stage 4/5 and multiple UTIs as well. She presented to the [facility] [place] several days ago for again worsening renal function, nausea and elevated Ca at 13.4. she was on her baseline pred 7.5mg daily at [facility] and on the day of admission was given 30mg orally. when she was admitted she was given 1 dose of IV pamidronate and fluids. also being treated for a UTI. Her calcium has responded nicely with a level of 9.9 today , her GFR also has improved slightly to 17. she has been seen by nephrology Dr Mccartney and hematology Dr Peterson and I reviewed both notes. I saw in room today - she was lying in bed - reports she feels fine, no more nausea. history limited given aphasia. nursing reports some right knee pain that responds to tylenol. no loera - getting straight cathed. she denies any rashes, nursing denies any hematuria, blood in stools, no diarrhea. getting tube feeds again now. prednisone is not on her admission med list and she is currently not getting any prednisone. no fevers. is on IV abx. she has continued elevated DARRYL level. in past PTH was normal, PTH rp was at 44, vit D low at 7 Past Medical/Surgical History Medical History: CVA/TIA/stroke (with aphasia, dysphagia), depression, diabetes , renal disease (ckd stage 4-5), other (sarcoidosis) Family History non contributory Social History Smoking Status: Unknown if Ever Smoked History of Alcohol Use: No Drug Use: none Marital Status: in relationship Housing Status: other Occupation Status: unemployed, disabled Review of Systems Constitutional: No chills, No fever Abdomen: + nausea, + see HPI Musculoskeletal: + see HPI All Other Systems: Reviewed and Negative Allergies Coded Allergies: Ezetimibe (Verified Allergy, Intermediate, Vytorin - hives and N/V, ) Simvastatin (Verified Allergy, Intermediate, Vytorin - hives and N/V, ) Latex1 -Allergic Contact Dermititis (Verified Allergy, Unknown, RASH, BLISTERS, 05/05/16) Adhesives (Verified Adverse Reaction, Mild, Unknown Rxn, 05/05/16) Medications Current Inpatient Medications Medications (Trade) Dose Ordered Sig/Filipe Route Start Time Stop Time Status Last Admin Dose Admin Metoclopramide HCl (Reglan Inj) 10 mg Q6H PRN IV 10/12/16 17:15 11/11/16 17:14 Atenolol (Tenormin Tab) 50 mg QAM PEG 10/13/16 09:00 11/12/16 08:59 10/13/16 08:09 50 MG Atorvastatin Calcium (Lipitor Tab) 20 mg HS PEG 10/12/16 21:00 11/11/16 20:59 10/13/16 21:47 20 MG Folic Acid (Folvite Tab) 1 mg DAILY PEG 10/13/16 09:00 11/12/16 08:59 10/13/16 08:09 1 MG Insulin Human NPH (novoLIN-N NPH) 10 units QAM SC 10/13/16 09:00 11/12/16 08:59 Pyridoxine HCl (Vitamin B-6 Tab) 50 mg QAM PO 10/13/16 09:00 11/12/16 08:59 10/13/16 08:11 50 MG Venlafaxine HCl (effeXOR TAB) 75 mg QAM PO 10/13/16 09:00 11/12/16 08:59 10/13/16 08:10 75 MG Warfarin Sodium (Coumadin Tab) 5 mg Q2D@1600 PO 10/12/16 20:10 11/11/16 20:09 10/12/16 21:54 5 MG Warfarin Sodium (Coumadin Tab) 7.5 mg Q2D@1600 PO 10/13/16 16:00 11/12/16 15:59 10/13/16 15:55 7.5 MG Cyanocobalamin (Vitamin B-12 Tab) 500 mcg QAM PEG 10/13/16 09:00 11/12/16 08:59 10/13/16 08:09 500 MCG Sterile Water (Tube Feeding Water Flush) 1 ea Q1H PEG 10/12/16 17:30 11/11/16 17:29 Future Hold 10/13/16 23:45 1 EA Insulin Aspart (novoLOG ASPART) SLIDING SCALE If C... Q6 SC 10/13/16 00:00 11/12/16 00:00 10/14/16 06:11 1 UNITS Glucose (Glucose 40% Gel) 15-30 GRAMS 15 GRAMS... UD PRN PO 10/12/16 17:45 11/11/16 17:44 Glucose (Glucose Chew Tab) 4-8 Tablets 4 Tabl... UD PRN PO 10/12/16 17:45 11/11/16 17:44 Dextrose (Dextrose 50% 50ML Syringe) 25-50ML OF 50% DW IV FOR... UD PRN IV 10/12/16 17:45 11/11/16 17:44 Glucagon 1 mg 1 mg UD PRN SQ 10/12/16 17:45 11/11/16 17:44 Ertapenem/Sodium Chloride (Invanz Iv/Nss 50ml) 55 ml @ 120 mls/hr Q24H IV 10/12/16 18:00 10/22/16 17:59 10/13/16 18:39 120 MLS/HR Sterile Water 1 ea 1 ea Q4H PEG 10/12/16 20:00 11/11/16 19:59 10/14/16 04:08 1 EA Dextrose/Sodium Chloride (D5W And Nss) 1,000 ml @ 150 mls/hr Q6H40M IV 10/13/16 00:30 11/12/16 00:29 10/14/16 04:08 150 MLS/HR Enteral Nutritional Formula (Peptamen 1.5) 1,000 ml PERINSTRUCTIONS PRN PEG 10/13/16 14:15 11/12/16 14:14 10/13/16 15:52 1,000 ML Acetaminophen (Tylenol Soln) 325 mg Q4H PRN PO 10/13/16 17:45 11/12/16 17:44 10/14/16 00:35 325 MG Physical Exam Date Time Temp Pulse Resp B/P Pulse Ox O2 Delivery O2 Flow Rate FiO2 10/14/16 04:22 36.4 61 16 106/67 98 Room Air 10/14/16 04:00 Room Air 10/14/16 00:00 Room Air 10/13/16 23:00 36.5 66 16 161/83 97 Room Air 10/13/16 20:00 Room Air 10/13/16 19:58 36.5 88 16 112/70 95 Room Air 10/13/16 16:00 98 Room Air 10/13/16 14:49 36.4 67 18 136/77 98 10/13/16 11:30 Room Air 10/13/16 11:17 36.3 79 20 119/68 93 Room Air 10/13/16 07:44 36.5 70 20 133/76 99 Room Air 10/13/16 07:30 Room Air General Appearance: WD/WN, no apparent distress ENT: normal ENT inspection, hearing grossly normal, pharynx normal Respiratory: chest non-tender, lungs clear Cardiovascular: regular rate, rhythm, no edema Abdomen: normal bowel sounds, non tender, soft Musculoskeletal: no synovitis or effusions noted no knee pain on exam contracture deformity of right hand Skin: normal color, warm/dry, no rash Laboratory Results Last 24 Hours Test 10/13/16 10:08 10/13/16 11:21 10/13/16 16:05 10/13/16 18:03 Bedside Glucose 83 mg/dl 117 mg/dl Sodium Level 143 mmol/L Potassium Level 3.5 mmol/L Chloride Level 110 mmol/L Carbon Dioxide Level 25 mmol/L Anion Gap 8.0 mmol/L Blood Urea Nitrogen 81 mg/dl Creatinine 3.20 mg/dl Est Creatinine Clear Calc Drug Dose 20.9 ml/min Estimated GFR () 19.2 Estimated GFR (Non- 16.5 BUN/Creatinine Ratio 25.5 Random Glucose 121 mg/dl Calcium Level 10.4 mg/dl Test 10/14/16 00:14 10/14/16 05:29 Bedside Glucose 139 mg/dl White Blood Count 3.16 K/uL Red Blood Count 2.84 M/uL Hemoglobin 8.7 g/dL Hematocrit 26.6 % Mean Corpuscular Volume 93.7 fL Mean Corpuscular Hemoglobin 30.6 pg Mean Corpuscular Hemoglobin Concent 32.7 g/dl Platelet Count 108 K/uL Mean Platelet Volume 11.4 fL Neutrophils (%) (Auto) 80.4 % Lymphocytes (%) (Auto) 7.0 % Monocytes (%) (Auto) 12.0 % Eosinophils (%) (Auto) 0.0 % Basophils (%) (Auto) 0.3 % Neutrophils # (Auto) 2.54 K/uL Lymphocytes # (Auto) 0.22 K/uL Monocytes # (Auto) 0.38 K/uL Eosinophils # (Auto) 0.00 K/uL Basophils # (Auto) 0.01 K/uL RDW Standard Deviation 68.9 fL RDW Coefficient of Variation 19.9 % Immature Granulocyte % (Auto) 0.3 % Immature Granulocyte # (Auto) 0.01 K/uL Toxic Granulation 1+ Large Platelets 1+ Prothrombin Time 17.1 SECONDS Prothromb Time International Ratio 1.6 Sodium Level 145 mmol/L Potassium Level 3.4 mmol/L Chloride Level 113 mmol/L Carbon Dioxide Level 25 mmol/L Anion Gap 7.0 mmol/L Blood Urea Nitrogen 74 mg/dl Creatinine 3.00 mg/dl Est Creatinine Clear Calc Drug Dose 22.4 ml/min Estimated GFR () 20.7 Estimated GFR (Non- 17.9 BUN/Creatinine Ratio 24.7 Random Glucose 182 mg/dl Calcium Level 9.9 mg/dl Total Bilirubin 1.0 mg/dl Aspartate Amino Transf (AST/SGOT) 57 U/L Alanine Aminotransferase (ALT/SGPT) 80 U/L Alkaline Phosphatase 762 U/L Total Protein 5.9 gm/dl Albumin 1.9 gm/dl Globulin 4.0 gm/dl Albumin/Globulin Ratio 0.5 Assessment & Plan Assessment & Plan: Assessment: Carey is a 45 y/o female with sarcoidosis with persistent hypercalcemia despite ongoing prednisone therapy and plaquenil. she has had 3 admissions now for hypercaclemia and received 3 doses of IV bisphosphonates as well. her treatment is complicated by diabetes, CVA with complications, recurrent UTIS and CKD. I would be hesitant to use remicade given her recurrent infections. does not seem to be responding to the addition of plaquenil at this point. I discussed case with Dr Benitez ([facility]) as well to get her input. at this point we both recommend starting ketoconazole 200mg daily for her hypercalcemia. Plan: 1. start her pred 5mg daily (she was on 7.5mg daily at [facility]) 2. check PTH, PTH rp as well 3. check daily calcium's while in house - weekly at [facility] 4. start ketocanozole 200mg daily 5. case dsicussed with primary Service Dr Arteaga 6. Thank you for the consult and involving me in this patient's care 7. I will arrange outpatient Rheumatology follow up in the next 3-4 weeks
[2016-10-14 15:02] VITALS: BP 160/86; PULSE 68; TEMP 36.7; O2SAT 100
[2016-10-14] MEDS: WARFARIN SOD 5 MG TAB PO SCH (16:02)
[2016-10-14] MEDS: ERTAPENEM IV 500 MG in SODIUM CHLORIDE 0.9% 50ML 50 ML IV SCH (19:34)
[2016-10-14 20:01] VITALS: BP 162/83; PULSE 69; TEMP 36.8; O2SAT 97
[2016-10-14] MEDS: ATORVASTATIN 20 MG TAB PEG SCH (20:40)
[2016-10-15] VITALS (7 sets, daily range): BP systolic 124–160; BP diastolic 60–85; PULSE 73–93; TEMP 36.4–37.2; O2SAT 93–99
[2016-10-15] MEDS: INSULIN ASPART 100 UNITS/ML 3 ML PEN SC SCH ×4 (01:03→18:13)
[2016-10-15] MEDS: PEPTAMEN 1.5 CAL 1000ML BAG PEG SCH (03:06)
[2016-10-15] MEDS: TUBE FEEDING WATER FLUSH PEG SCH ×7 (04:12→23:46)
[2016-10-15] MEDS: ACETAMINOPHEN SOLN 325 MG/10.15 ML UDC PO PRN ×2 (04:59→23:46)
[2016-10-15] MEDS: D5W AND NSS 1,000 ML IV SCH ×2 (05:09→11:55)
[2016-10-15 05:26] LABS: BASO % 0.5 %; BASO ABS # 0.02 K/uL (0-0.2); HEMATOCRIT 26.6 % (37-47); IG% 0.5 %; LYMPH % 7.9 %; LYMPH ABS # 0.29 K/uL (1.2-3.4); MEAN CELL VOLUME 91.1 fL (80-100); MEAN CORPUSCULAR HEMOGLOBIN 30.1 pg (25-34); MEAN CORPUSCULAR HGB CONC 33.1 g/dl (32-36); MEAN PLATELET VOLUME 11.4 fL (7.4-10.4); MONO % 8.7 %; NEUT % 82.4 %; PLATELET COUNT 113 K/uL (130-400); RED BLOOD COUNT 2.92 M/uL (4.2-5.4); WHITE BLOOD COUNT 3.67 K/uL (4.8-10.8)
[2016-10-15 05:34] LABS: INR 2.4 (0.9-1.1); PROTHROMBIN TIME (PATIENT) 26.1 SECONDS (9.0-12.0)
[2016-10-15 05:53] LABS: BUN/CREATININE RATIO 22.5 (10-20); CALCIUM 9.7 mg/dl (8.5-10.1); CREATININE 2.6 mg/dl (0.60-1.20); POTASSIUM 3.3 mmol/L (3.5-5.1)
[2016-10-15 05:55] LABS: ALB/GLOB RATIO 0.5 (0.9-2)
[2016-10-15 06:05] LABS: COMPLETE YES
--- NOTE | 2016-10-15 07:32 | Hospitalist Progress Note ---
Hospitalist Progress Note Date of Service Oct 15, 2016. Subjective Pt evaluation today including: physical exam Medications Medications (Trade) Dose Ordered Sig/Filipe Route Start Time Stop Time Status Last Admin Dose Admin Enteral Nutritional Formula (Peptamen 1.5) 1,000 ml DAILY PEG 10/14/16 10:00 11/13/16 09:59 10/15/16 03:06 1,000 ML Objective Vital Signs Date Time Temp Pulse Resp B/P Pulse Ox O2 Delivery O2 Flow Rate FiO2 10/15/16 04:00 Room Air 10/15/16 04:00 36.5 75 18 135/84 99 Room Air 10/15/16 00:35 36.8 93 18 138/82 98 Room Air 10/15/16 00:00 Room Air 10/14/16 20:01 36.8 69 18 162/83 97 Room Air 10/14/16 20:00 Room Air 10/14/16 16:00 Room Air 10/14/16 15:02 36.7 68 20 160/86 100 Room Air 10/14/16 12:00 Room Air 10/14/16 11:59 36.5 69 16 130/79 99 Room Air 10/14/16 08:00 Room Air 10/14/16 07:57 36.5 74 16 148/69 96 Room Air Laboratory Results Last 24 Hours Test 10/14/16 11:39 10/14/16 19:02 10/15/16 00:59 10/15/16 04:54 Bedside Glucose 219 mg/dl 255 mg/dl 254 mg/dl White Blood Count 3.67 K/uL Red Blood Count 2.92 M/uL Hemoglobin 8.8 g/dL Hematocrit 26.6 % Mean Corpuscular Volume 91.1 fL Mean Corpuscular Hemoglobin 30.1 pg Mean Corpuscular Hemoglobin Concent 33.1 g/dl Platelet Count 113 K/uL Mean Platelet Volume 11.4 fL Neutrophils (%) (Auto) 82.4 % Lymphocytes (%) (Auto) 7.9 % Monocytes (%) (Auto) 8.7 % Eosinophils (%) (Auto) 0.0 % Basophils (%) (Auto) 0.5 % Neutrophils # (Auto) 3.02 K/uL Lymphocytes # (Auto) 0.29 K/uL Monocytes # (Auto) 0.32 K/uL Eosinophils # (Auto) 0.00 K/uL Basophils # (Auto) 0.02 K/uL RDW Standard Deviation 65.0 fL RDW Coefficient of Variation 19.2 % Immature Granulocyte % (Auto) 0.5 % Immature Granulocyte # (Auto) 0.02 K/uL Red Blood Cell Morphology Unremarkable Prothrombin Time 26.1 SECONDS Prothromb Time International Ratio 2.4 Sodium Level 147 mmol/L Potassium Level 3.3 mmol/L Chloride Level 116 mmol/L Carbon Dioxide Level 23 mmol/L Anion Gap 8.0 mmol/L Blood Urea Nitrogen 58 mg/dl Creatinine 2.60 mg/dl Est Creatinine Clear Calc Drug Dose 25.9 ml/min Estimated GFR () 24.6 Estimated GFR (Non- 21.3 BUN/Creatinine Ratio 22.5 Random Glucose 234 mg/dl Calcium Level 9.7 mg/dl Total Bilirubin 1.0 mg/dl Aspartate Amino Transf (AST/SGOT) 59 U/L Alanine Aminotransferase (ALT/SGPT) 81 U/L Alkaline Phosphatase 792 U/L Total Protein 5.9 gm/dl Albumin 1.9 gm/dl Globulin 4.0 gm/dl Albumin/Globulin Ratio 0.5 Test 10/15/16 06:12 Bedside Glucose 246 mg/dl Assessment and Plan {} Hypercalcemia, Hx Sarcoidosis - Was on prednisone 7.5mg daily that was recently increased to 30mg daily on October 10. - Continue with IV NSS. Received IV pamidronate and IV lasix - Appreciate Renal and Hem/Onc - Spoke to Rheum who would like her to be restarted on Prednisone 5mg daily and Ketoconazole 200mg daily. Weekly CMP. {} CVA with Rt Hemiplegia - Hx of dense right hemiplegia - H/O of Homocystinemia - H/O of Lupus anticoagulant - c/w Atorvastatin 20mg daily via PEG. - Continue with coumadin. Daily INR. {} Acute on Chronic CKD stage III - Worsening renal indices. Likely pre renal azotemia - Renal consult appreciated. - Renal sono shows no evidence of obstruction - Avoid nephrotoxic agents (No NSAIDS, DARRYL or ARB). - Improving renal indices. Cont with IV fluids UTI - Urine culture sent from ER. Will follow up - Will empirically start on IV Levaquin 500mg q 48 hr. {} Dysphagia - Peg tube in place. - Will restart tube feeds.[employer] services consulted - Tube feeds restarted. Will increase lantus to 20 units qhs (pt was on 20 units qhs at the time of admit) {} Anemia - Likely secondary to CKD - H/H stable {} Systolic murmur - Likely due to Mild MR. - Last echo showed normal LV and RV systolic function. {} DM2 - On Lantus and SSI at [facility] - Will restart Lantus and check Accuchecks q 6 hrs. {} Mood - c/w Citalopram 40mg daily via PEG {} Code status DNR/DNI per patient wishes. Will tx back to [facility] today. Discharge planning: senior care facility
[2016-10-15] MEDS: CYANOCOBALAMIN 500 MCG TAB (VIT B-12) PEG SCH (07:59)
[2016-10-15] MEDS: VENLAFAXINE HCL 50 MG TAB PO SCH (07:59)
[2016-10-15] MEDS: PYRIDOXINE HCL 50 MG TAB PO SCH (07:59)
[2016-10-15] MEDS: KETOCONAZOLE 200 MG TAB PEG SCH (08:22)
[2016-10-15] MEDS: INSULIN HUMAN NPH SC SCH (08:26)
--- NOTE | 2016-10-15 15:51 | Nephrology Progress Note ---
Nephrology Progress Note Date of Service Oct 15, 2016. Chief Complaint Evaluation of hypercalcemia and acute on chronic kidney injury in this patient with biopsy proven Sarcoidosis Subjective Ms. Ventura was seen & examined in her hospital room this morning. 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 She is resting comfortably. She does not appear to be in distress. She is receiving D5 0.9NS at 150 cc/hr. Review of Systems Unable to obtain ROS due to expressive aphasia Vital Signs Last 8 Hrs Date Time Temp Pulse Resp B/P Pulse Ox O2 Delivery O2 Flow Rate FiO2 10/15/16 14:57 36.4 75 20 160/84 99 Room Air 10/15/16 12:48 36.4 73 18 99 Room Air 10/15/16 12:00 Room Air 10/15/16 11:57 36.4 73 18 133/80 99 Room Air 10/15/16 08:00 Room Air 10/15/16 07:58 37.2 79 18 124/60 97 Room Air I & O 24-Hour Column 10/15/16 08:00 Intake Total 5093 ml Output Total 2595 ml Balance 2498 ml Last Recorded Weight Weight (Kilograms): 71.700 Physical Exam General Appearance: no apparent distress Head: atraumatic Eyes: PERRL Neck: no adenopathy Respiratory/Chest: lungs clear Cardiovascular: regular rate, rhythm Abdomen/GI: normal bowel sounds, non tender, soft, + pertinent finding (PEG tube in place) Extremities/Musculoskelatal: no calf tenderness, no pedal edema Neurologic/Psych: alert, + pertinent finding (aphasic) Family History Diabetes mellitus Seizures Negative for CKD/ESRD Social History Smoking Status: Never smoker Alcohol Use: none Drug Use: none Marital Status: in relationship Housing Status: other Occupation: unemployed, disabled . Medically disabled. Resides at [facility]. No history of tobacco or alcohol use. Laboratory Results Past 24 Hours 10/15/16 04:54 Red Blood Count 2.92, Mean Corpuscular Volume 91.1, Mean Corpuscular Hemoglobin 30.1, Mean Corpuscular Hemoglobin Concent 33.1, Mean Platelet Volume 11.4, Neutrophils (%) (Auto) 82.4, Lymphocytes (%) (Auto) 7.9, Monocytes (%) (Auto) 8.7, Eosinophils (%) (Auto) 0.0, Basophils (%) (Auto) 0.5, Neutrophils # (Auto) 3.02, Lymphocytes # (Auto) 0.29, Monocytes # (Auto) 0.32, Eosinophils # (Auto) 0.00, Basophils # (Auto) 0.02 10/15/16 04:54 Test 10/14/16 19:02 10/15/16 00:59 10/15/16 04:54 10/15/16 06:12 Bedside Glucose 255 mg/dl (70-90) 254 mg/dl (70-90) 246 mg/dl (70-90) White Blood Count 3.67 K/uL (4.8-10.8) Red Blood Count 2.92 M/uL (4.2-5.4) Hemoglobin 8.8 g/dL (12.0-16.0) Hematocrit 26.6 % (37-47) Mean Corpuscular Volume 91.1 fL (80-100) Mean Corpuscular Hemoglobin 30.1 pg (25-34) Mean Corpuscular Hemoglobin Concent 33.1 g/dl (32-36) Platelet Count 113 K/uL (130-400) Mean Platelet Volume 11.4 fL (7.4-10.4) Neutrophils (%) (Auto) 82.4 % Lymphocytes (%) (Auto) 7.9 % Monocytes (%) (Auto) 8.7 % Eosinophils (%) (Auto) 0.0 % Basophils (%) (Auto) 0.5 % Neutrophils # (Auto) 3.02 K/uL (1.4-6.5) Lymphocytes # (Auto) 0.29 K/uL (1.2-3.4) Monocytes # (Auto) 0.32 K/uL (0.11-0.59) Eosinophils # (Auto) 0.00 K/uL (0-0.5) Basophils # (Auto) 0.02 K/uL (0-0.2) RDW Standard Deviation 65.0 fL (36.4-46.3) RDW Coefficient of Variation 19.2 % (11.5-14.5) Immature Granulocyte % (Auto) 0.5 % Immature Granulocyte # (Auto) 0.02 K/uL (0.00-0.02) Red Blood Cell Morphology Unremarkable Prothrombin Time 26.1 SECONDS (9.0-12.0) Prothromb Time International Ratio 2.4 (0.9-1.1) Anion Gap 8.0 mmol/L (3-11) Est Creatinine Clear Calc Drug Dose 25.9 ml/min Estimated GFR () 24.6 Estimated GFR (Non- 21.3 BUN/Creatinine Ratio 22.5 (10-20) Calcium Level 9.7 mg/dl (8.5-10.1) Total Bilirubin 1.0 mg/dl (0.2-1) Aspartate Amino Transf (AST/SGOT) 59 U/L (15-37) Alanine Aminotransferase (ALT/SGPT) 81 U/L (12-78) Alkaline Phosphatase 792 U/L (45-117) Total Protein 5.9 gm/dl (6.4-8.2) Albumin 1.9 gm/dl (3.4-5.0) Globulin 4.0 gm/dl (2.5-4.0) Albumin/Globulin Ratio 0.5 (0.9-2) 25-Hydroxy Vitamin D Total 15.4 ng/ml (30-100) Test 10/15/16 11:41 Bedside Glucose 223 mg/dl (70-90) Allergies Coded Allergies: Ezetimibe (Verified Allergy, Intermediate, Vytorin - hives and N/V, ) Simvastatin (Verified Allergy, Intermediate, Vytorin - hives and N/V, ) Latex1 -Allergic Contact Dermititis (Verified Allergy, Unknown, RASH, BLISTERS, 05/05/16) Adhesives (Verified Adverse Reaction, Mild, Unknown Rxn, 05/05/16) Medications Current Inpatient Medications Medications (Trade) Dose Ordered Sig/Filipe Route Start Time Stop Time Status Last Admin Dose Admin Metoclopramide HCl (Reglan Inj) 10 mg Q6H PRN IV 10/12/16 17:15 11/11/16 17:14 Atenolol (Tenormin Tab) 50 mg QAM PEG 10/13/16 09:00 11/12/16 08:59 10/15/16 07:59 50 MG Atorvastatin Calcium (Lipitor Tab) 20 mg HS PEG 10/12/16 21:00 11/11/16 20:59 10/14/16 20:40 20 MG Folic Acid (Folvite Tab) 1 mg DAILY PEG 10/13/16 09:00 11/12/16 08:59 10/15/16 07:59 1 MG Insulin Human NPH (novoLIN-N NPH) 10 units QAM SC 10/13/16 09:00 11/12/16 08:59 10/15/16 08:26 10 UNITS Pyridoxine HCl (Vitamin B-6 Tab) 50 mg QAM PO 10/13/16 09:00 11/12/16 08:59 10/15/16 07:59 50 MG Venlafaxine HCl (effeXOR TAB) 75 mg QAM PO 10/13/16 09:00 11/12/16 08:59 10/15/16 07:59 75 MG Warfarin Sodium (Coumadin Tab) 5 mg Q2D@1600 PO 10/12/16 20:10 11/11/16 20:09 10/14/16 16:02 5 MG Warfarin Sodium (Coumadin Tab) 7.5 mg Q2D@1600 PO 10/13/16 16:00 11/12/16 15:59 10/13/16 15:55 7.5 MG Cyanocobalamin (Vitamin B-12 Tab) 500 mcg QAM PEG 10/13/16 09:00 11/12/16 08:59 10/15/16 07:59 500 MCG Sterile Water (Tube Feeding Water Flush) 1 ea Q1H PEG 10/12/16 17:30 11/11/16 17:29 Future Hold 10/13/16 23:45 1 EA Insulin Aspart (novoLOG ASPART) SLIDING SCALE If C... Q6 SC 10/13/16 00:00 11/12/16 00:00 10/15/16 12:20 7 UNITS Glucose (Glucose 40% Gel) 15-30 GRAMS 15 GRAMS... UD PRN PO 10/12/16 17:45 11/11/16 17:44 Glucose (Glucose Chew Tab) 4-8 Tablets 4 Tabl... UD PRN PO 10/12/16 17:45 11/11/16 17:44 Dextrose (Dextrose 50% 50ML Syringe) 25-50ML OF 50% DW IV FOR... UD PRN IV 10/12/16 17:45 11/11/16 17:44 Glucagon 1 mg 1 mg UD PRN SQ 10/12/16 17:45 11/11/16 17:44 Ertapenem/Sodium Chloride (Invanz Iv/Nss 50ml) 55 ml @ 120 mls/hr Q24H IV 10/12/16 18:00 10/22/16 17:59 10/14/16 19:34 120 MLS/HR Sterile Water 1 ea 1 ea Q4H PEG 10/12/16 20:00 11/11/16 19:59 10/15/16 12:18 1 EA Dextrose/Sodium Chloride (D5W And Nss) 1,000 ml @ 150 mls/hr Q6H40M IV 10/13/16 00:30 11/12/16 00:29 10/15/16 11:55 150 MLS/HR Acetaminophen (Tylenol Soln) 325 mg Q4H PRN PO 10/13/16 17:45 11/12/16 17:44 10/15/16 04:59 325 MG Enteral Nutritional Formula (Peptamen 1.5) 1,000 ml DAILY PEG 10/14/16 10:00 11/13/16 09:59 10/15/16 03:06 1,000 ML Ketoconazole (Nizoral Tab) 200 mg QAM PEG 10/15/16 09:00 10/22/16 08:59 10/15/16 08:22 200 MG Prednisone (PredniSONE TAB) 5 mg DAILY PO 10/16/16 09:00 11/15/16 08:59 Impression (1) Acute kidney injury (2) Chronic kidney disease (3) Hypercalcemia (4) Sarcoidosis (5) Transaminasemia (6) Expressive aphasia (7) Lupus anticoagulant positive Patient admitted to the hospital with hypercalcemia, dehydration and acute on chronic kidney injury. She has biopsy proven sarcoidosis. She has chronic microscopic hematuria due to kidney stones. Patient has low grade proteinuria. Renal US was negative for obstruction. Recommendations ACUTE KIDNEY INJURY: -- Related to dehydration and hypercalcemia. Creatinine is improving with IV hydration (baseline creatinine 2.0) -- Will change IVF to 0.45 NS at 75 cc/hr to avoid hypernatremia -- Renal US 10/12/16: No obstruction -- Urine sediment shows hematuria from kidney stones. Awaiting UPCR to quantitate urinary protein -- Monitor serial PRP CHRONIC KIDNEY DISEASE: -- Baseline creatinine has been 2.0 HYPERCALCEMIA: -- Resolved -- Patient has been given one dose IV Pamidronate 10/13/16 -- Rheumatology has started patient on low dose Prednisone and Ketoconazole TRANSAMINITIS: -- Likely related to LIANG and sarcoidosis involving the liver -- LFT's are trending downward. Continue to monitor. Consider consultation w/ GI
[2016-10-15] MEDS: WARFARIN SOD 7.5 MG TAB PO SCH (15:54)
[2016-10-15] MEDS: SODIUM CHLORIDE 0.45% 1000ML 1,000 ML IV SCH (15:55)
[2016-10-15] MEDS: ERTAPENEM IV 500 MG in SODIUM CHLORIDE 0.9% 50ML 50 ML IV SCH (18:11)
[2016-10-15] MEDS: ATORVASTATIN 20 MG TAB PEG SCH (20:26)
[2016-10-16] MEDS: INSULIN ASPART 100 UNITS/ML 3 ML PEN SC SCH ×3 (00:28→12:33)
[2016-10-16 00:31] VITALS: BP 148/81; PULSE 78; TEMP 36.4; O2SAT 100
[2016-10-16] MEDS: TUBE FEEDING WATER FLUSH PEG SCH ×3 (03:35→12:32)
[2016-10-16] MEDS: PEPTAMEN 1.5 CAL 1000ML BAG PEG SCH (03:35)
[2016-10-16 04:37] VITALS: BP 145/62; PULSE 78; TEMP 36.5; O2SAT 99
[2016-10-16] MEDS: SODIUM CHLORIDE 0.45% 1000ML 1,000 ML IV SCH (05:09)
[2016-10-16 07:24] VITALS: BP 136/75; PULSE 73; TEMP 36.3; O2SAT 100
[2016-10-16] MEDS: INSULIN HUMAN NPH SC SCH (07:37)
[2016-10-16 08:13] LABS: INR 2.3 (0.9-1.1)
[2016-10-16] MEDS: VENLAFAXINE HCL 50 MG TAB PO SCH (08:28)
[2016-10-16] MEDS: KETOCONAZOLE 200 MG TAB PEG SCH (08:28)
[2016-10-16] MEDS: CYANOCOBALAMIN 500 MCG TAB (VIT B-12) PEG SCH (08:28)
[2016-10-16] MEDS: PYRIDOXINE HCL 50 MG TAB PO SCH (08:29)
[2016-10-16 08:37] LABS: BUN/CREATININE RATIO 22.4 (10-20); CALCIUM 9.6 mg/dl (8.5-10.1); CREATININE 2.3 mg/dl (0.60-1.20)
[2016-10-16 11:29] VITALS: BP 163/84; PULSE 70; TEMP 36.6; O2SAT 99
--- NOTE | 2016-10-16 11:36 | Nephrology Progress Note ---
Nephrology Progress Note Date of Service Oct 16, 2016. Chief Complaint Evaluation of hypercalcemia and acute on chronic kidney injury in this patient with biopsy proven Sarcoidosis Subjective Ms. Ventura was seen & examined in her hospital room this morning. 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 She is resting comfortably. She does not appear to be in distress. Review of Systems Unable to obtain due to expressive aphasia Vital Signs Last 8 Hrs Date Time Temp Pulse Resp B/P Pulse Ox O2 Delivery O2 Flow Rate FiO2 10/16/16 11:29 36.6 70 20 163/84 99 Room Air 10/16/16 08:00 Room Air 10/16/16 07:24 36.3 73 18 136/75 100 Room Air 10/16/16 04:37 36.5 78 18 145/62 99 Room Air 10/16/16 04:00 Room Air I & O 24-Hour Column 10/16/16 07:59 Intake Total 4745 ml Output Total 2950 ml Balance 1795 ml Last Recorded Weight Weight (Kilograms): 72.300 Physical Exam General Appearance: no apparent distress Head: normocephalic, atraumatic Eyes: PERRL Neck: no adenopathy Respiratory/Chest: lungs clear, no respiratory distress Cardiovascular: regular rate, rhythm Abdomen/GI: normal bowel sounds, non tender, soft Extremities/Musculoskelatal: no calf tenderness, no pedal edema Neurologic/Psych: alert, + pertinent finding (aphasic) Family History Diabetes mellitus Seizures Negative for CKD/ESRD Social History Smoking Status: Never smoker Alcohol Use: none Drug Use: none Marital Status: in relationship Housing Status: other Occupation: unemployed, disabled . Medically disabled. Resides at [facility]. No history of tobacco or alcohol use. Laboratory Results Past 24 Hours 10/16/16 07:50 Test 10/15/16 11:41 10/15/16 18:07 10/16/16 00:11 10/16/16 06:16 Bedside Glucose 223 mg/dl (70-90) 217 mg/dl (70-90) 176 mg/dl (70-90) 163 mg/dl (70-90) Test 10/16/16 07:50 Prothrombin Time 25.0 SECONDS (9.0-12.0) Prothromb Time International Ratio 2.3 (0.9-1.1) Anion Gap 8.0 mmol/L (3-11) Est Creatinine Clear Calc Drug Dose 29.8 ml/min Estimated GFR () 28.6 Estimated GFR (Non- 24.7 BUN/Creatinine Ratio 22.4 (10-20) Calcium Level 9.6 mg/dl (8.5-10.1) Allergies Coded Allergies: Ezetimibe (Verified Allergy, Intermediate, Vytorin - hives and N/V, ) Simvastatin (Verified Allergy, Intermediate, Vytorin - hives and N/V, ) Latex1 -Allergic Contact Dermititis (Verified Allergy, Unknown, RASH, BLISTERS, 05/05/16) Adhesives (Verified Adverse Reaction, Mild, Unknown Rxn, 05/05/16) Medications Current Inpatient Medications Medications (Trade) Dose Ordered Sig/Filipe Route Start Time Stop Time Status Last Admin Dose Admin Metoclopramide HCl (Reglan Inj) 10 mg Q6H PRN IV 10/12/16 17:15 11/11/16 17:14 Atenolol (Tenormin Tab) 50 mg QAM PEG 10/13/16 09:00 11/12/16 08:59 10/16/16 08:28 50 MG Atorvastatin Calcium (Lipitor Tab) 20 mg HS PEG 10/12/16 21:00 11/11/16 20:59 10/15/16 20:26 20 MG Folic Acid (Folvite Tab) 1 mg DAILY PEG 10/13/16 09:00 11/12/16 08:59 10/16/16 08:28 1 MG Insulin Human NPH (novoLIN-N NPH) 10 units QAM SC 10/13/16 09:00 11/12/16 08:59 10/16/16 07:37 10 UNITS Pyridoxine HCl (Vitamin B-6 Tab) 50 mg QAM PO 10/13/16 09:00 11/12/16 08:59 10/16/16 08:29 50 MG Venlafaxine HCl (effeXOR TAB) 75 mg QAM PO 10/13/16 09:00 11/12/16 08:59 10/16/16 08:28 75 MG Warfarin Sodium (Coumadin Tab) 5 mg Q2D@1600 PO 10/12/16 20:10 11/11/16 20:09 10/14/16 16:02 5 MG Warfarin Sodium (Coumadin Tab) 7.5 mg Q2D@1600 PO 10/13/16 16:00 11/12/16 15:59 10/15/16 15:54 7.5 MG Cyanocobalamin (Vitamin B-12 Tab) 500 mcg QAM PEG 10/13/16 09:00 11/12/16 08:59 10/16/16 08:28 500 MCG Sterile Water (Tube Feeding Water Flush) 1 ea Q1H PEG 10/12/16 17:30 11/11/16 17:29 Future Hold 10/13/16 23:45 1 EA Insulin Aspart (novoLOG ASPART) SLIDING SCALE If C... Q6 SC 10/13/16 00:00 11/12/16 00:00 10/16/16 06:20 5 UNITS Glucose (Glucose 40% Gel) 15-30 GRAMS 15 GRAMS... UD PRN PO 10/12/16 17:45 11/11/16 17:44 Glucose (Glucose Chew Tab) 4-8 Tablets 4 Tabl... UD PRN PO 10/12/16 17:45 11/11/16 17:44 Dextrose (Dextrose 50% 50ML Syringe) 25-50ML OF 50% DW IV FOR... UD PRN IV 10/12/16 17:45 11/11/16 17:44 Glucagon 1 mg 1 mg UD PRN SQ 10/12/16 17:45 11/11/16 17:44 Ertapenem/Sodium Chloride (Invanz Iv/Nss 50ml) 55 ml @ 120 mls/hr Q24H IV 10/12/16 18:00 10/22/16 17:59 10/15/16 18:11 120 MLS/HR Sterile Water (Tube Feeding Water Flush) 1 ea Q4H PEG 10/12/16 20:00 11/11/16 19:59 10/16/16 07:36 1 EA Acetaminophen (Tylenol Soln) 325 mg Q4H PRN PO 10/13/16 17:45 11/12/16 17:44 10/15/16 23:46 325 MG Enteral Nutritional Formula (Peptamen 1.5) 1,000 ml DAILY PEG 10/14/16 10:00 11/13/16 09:59 10/16/16 03:35 1,000 ML Ketoconazole (Nizoral Tab) 200 mg QAM PEG 10/15/16 09:00 10/22/16 08:59 10/16/16 08:28 200 MG Prednisone 5 mg 5 mg DAILY PO 10/16/16 09:00 11/15/16 08:59 10/16/16 08:28 5 MG Sodium Chloride (1/2 Nss 1000ml) 1,000 ml @ 75 mls/hr [id number] IV 10/15/16 15:45 11/14/16 15:44 10/16/16 05:09 75 MLS/HR Impression (1) Acute kidney injury (2) Chronic kidney disease (3) Hypercalcemia (4) Sarcoidosis (5) Transaminasemia (6) Expressive aphasia (7) Lupus anticoagulant positive Patient admitted to the hospital with hypercalcemia, dehydration and acute on chronic kidney injury. She has biopsy proven sarcoidosis. She has chronic microscopic hematuria due to kidney stones. Patient has low grade proteinuria. Renal US was negative for obstruction. Recommendations ACUTE KIDNEY INJURY: -- Related to dehydration and hypercalcemia. Creatinine is improving with IV hydration (baseline creatinine 2.0) -- Renal US 10/12/16: No obstruction -- Urine sediment shows hematuria from kidney stones. Awaiting UPCR to quantitate urinary protein -- Monitor serial PRP CHRONIC KIDNEY DISEASE: -- Baseline creatinine has been 2.0 HYPERCALCEMIA: -- Resolved -- Patient has been given one dose IV Pamidronate 10/13/16 -- Rheumatology has started patient on low dose Prednisone and Ketoconazole TRANSAMINITIS: -- Likely related to LIANG and sarcoidosis involving the liver -- LFT's are trending downward
[2016-10-16] MEDS ORDERED: NUTR-1305 PEG (12:19)
[2016-10-16] MEDS ORDERED: PRD5 PO (12:19)
[2016-10-16] MEDS ORDERED: NZR200 PEG (12:19)
--- NOTE | 2016-10-16 12:38 | Discharge Summary ---
Discharge Summary Date of Service Oct 16, 2016. Discharge Summary Admission Date: Oct 12, 2016 at 17:13 Discharge Date: Oct 16, 2016 Discharge Disposition: detention facility Principal Diagnosis: Hypercalcemia, Sarcoidosis, Acute Renal failure Problems/Secondary Diagnoses: Abn.LFTs secondary to sarcoid Anemia Immunizations: Have You Had Influenza Vaccine: Unknown History of Tetanus Vaccine?: Unknown History of Pneumococcal: Unknown History of Hepatitis B Vaccine: Unknown Consultations: Oncology, Nephrology, Rheumatology, Wet Process Operator services. Medication Reconciliation New Medications: Ketoconazole (Ketoconazole) 200 Mg Tab 200 MG PEG QAM for 30 Days, #30 TAB 6 Refills Nutritional Supplements (Peptamen 1.5 Jos) 1 Liq Liq 1000 ML PEG DAILY for 30 Days, #30 BAG 7 Refills Prednisone (Prednisone) 5 Mg Tab 5 MG PO DAILY for 30 Days, #30 TAB 4 Refills Continued Medications: Atenolol (Tenormin) 50 Mg Tab 50 MG PEG QAM, TAB Atorvastatin (Lipitor) 20 Mg Tab 20 MG PEG HS, TAB Cyanocobalamin (Vitamin B-12) 500 Mcg Be 500 MCG PEG QAM Ergocalciferol (Calcidol) 8,000 Unit/Ml Neto 6.25 ML PEG WK MONDAYS Folic Acid (Folvite) 1 Mg Tab 1 MG PEG DAILY, TAB Insulin Aspart (Novolog Flexpen) 100 Units/Ml Inj 2-12 UNITS SC DIRECTED PRN for SLIDING SCALE 131-180= 2 UNITS 181-240= 4 UNITS 241-300= 6 UNITS 301-350= 8 UNITS 351-400= 10 UNITS GREATED THAN 400= 12 UNITS AND CALL Insulin Glargine (Lantus Solostar) 100 Unit/Ml Inj 20 UNITS SC HS, PEN Insulin Isophane (Human) (Novolin N U-100) 100 Unit/Ml Inj 10 UNITS SC QAM Potassium Chloride (Potassium Chloride) 20 Meq/100 Ml Inj 20 MEQ PEG QPM DILUTE WITH 90-120ML WATER/JUICE Promethazine Hcl (Phenergan) 25 Mg Tab 25 MG PO Q6H PRN for Nausea, TAB Pyridoxine Hcl (Vitamin B 6) 50 Mg Tab 50 MG PEG QAM Venlafaxine Hcl (Effexor) 75 Mg Tab 75 MG PO QAM, TAB MAY GIVE VIA PEG IF UNABLE TO TAKE ORALLY Warfarin Sod (Jantoven) 5 Mg Tab 5 MG PO Q2D, TAB ON ODD DAYS ALTERNATING WITH 7.5MG TABS Warfarin Sodium (Coumadin) 7.5 Mg Tab 7.5 MG PO Q2D, TAB ON EVEN DAYS ALTERNATING WITH 5MG TABS [Free Water Flush] () 1 DOSE MS Q4H 100ML FREE WATER FLUSH EVERY 4 HOURS WHILE TUBE FEED IS OFF Discontinued Medications: [Free Water Flush] () 1 DOSE MS Q1H 100ML FREE WATER FLUSHES EVERY 1 HOUR VIA PUMP WHILE FEEDS INFUSE Discharge Exam Physical Exam: General Appearance: WD/WN, no apparent distress Eyes: normal inspection, PERRL ENT: normal ENT inspection Neck: supple Respiratory/Chest: chest non-tender, lungs clear, normal breath sounds Cardiovascular: regular rate, rhythm, no edema Abdomen / GI: normal bowel sounds, + pertinent finding (PEG tube) Extremities: normal inspection Neurologic/Psychiatric: + aphasia (right hemiparesis), + pertinent finding Skin: normal color Hospital Course Ms. Ventura is a 45 year old white female who is seen at the request of [facility] Hospitalist Service for evaluation of hypercalcemia and acute on chronic kidney injury. Medical records in the hospital and office EMR were reviewed. The patient has a complex medical history. 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 She had emboli to the left hemisphere ( temporal/occipital/parietal and frontal lobes). She developed a dense right hemiparesis and expressive aphasia. She tested positive for lupus anticoagulant and required initiation of anticoagulation therapy. She also developed dysphagia and had a PEG tube placed. She required usp placement. Ms. Ventura subsequently developed hypercalcemia and elevated liver enzymes. She underwent liver biopsy 05/03. Histology revealed granulomas c/w sardcoidosis, LIANG and cirrhosis. She was evaluated by Rheumatology and treated with high dose steroid therapy. Steroids were later tapered and Plaquenil was added. Ms. Ventura's medical history is also significant for CKD w / baseline creatinine 2.0, kidney stones due to hypercalcemia associated w/ sarcoidosis, AODM (poorly controlled and complicated by peripheral neuropathy), HTN, hyperlipidemia (intolerant of statins due to hives). Recently laboratory studies were obtained at [facility]. Serum calcium has risen to 13 and patient had progressive renal dysfunction she was admitted to the hospital for ongoing medical management. Patient was admitted to telemetry and the following is a summarization of the medical problems encountered during the hospital stay {} Hypercalcemia, Hx Sarcoidosis - Received IV pamidronate and IV lasix and IV fluids. Serum calcium improved to normal at the time of discharge. - Appreciate Renal and Hem/Onc - Spoke to Rheum who would like her to be restarted on Prednisone 5mg daily and Ketoconazole 200mg daily. Weekly CMP. {} CVA with Rt Hemiplegia - Hx of dense right hemiplegia - H/O of Homocystinemia - H/O of Lupus anticoagulant - c/w Atorvastatin 20mg daily via PEG. - Continue with coumadin. Daily INR. {} Acute on Chronic CKD stage III - Worsening renal indices. Likely pre renal azotemia - Renal consult appreciated. - Renal sono shows no evidence of obstruction - Avoid nephrotoxic agents (No NSAIDS, DARRYL or ARB). - Improving renal indices. Cont with IV fluids UTI - Urine culture sent from ER. Will follow up - Will empirically start on IV Levaquin 500mg q 48 hr. {} Dysphagia - Peg tube in place. - Will restart tube feeds.Wet Process Operator services consulted - Tube feeds restarted. Will increase lantus to 20 units qhs (pt was on 20 units qhs at the time of admit) {} Anemia - Likely secondary to CKD - H/H stable {} Systolic murmur - Likely due to Mild MR. - Last echo showed normal LV and RV systolic function. {} DM2 - On Lantus and SSI at [facility] - Will restart Lantus and check Accuchecks q 6 hrs. {} Mood - c/w Citalopram 40mg daily via PEG {} Code status DNR/DNI per patient wishes. Will tx back to [facility] today. NUTRITION RECOMMENDATIONS Height (Feet) * 5 Feet Height (Inches) * 4.00 inches Weight (Kilograms) MAKE SURE ENTRY IS IN KILOGRAMS * 69.400 KILOGRAMS Weight Comment * Pt denied any recent weight changes. Admission weight: 68.3kg BMI: 25.8kg/m2 Estimated Calorie Needs * 1570-1650kcal Protein Requirement * 68-85g protein Food and Nutrition Progress * Pt began Peptamen 1.5 yesterday at a rate of 20ml/hr and has been tolerating this well. She has had one small bowel movement since EN began; abdomen remains non-distended, soft, and non-tender. Her Creatinine is trending down- was 3.5 on admission & is now 3.0. Calcium is also trending down & is WNL today. Potassium is 3.4(L); EN regimen at goal of 45ml/hr will provide 2030mg K. Will advance pt to goal of 45ml/hr today as pt has been tolerating current formula at 20ml/hr. At goal, this will provide 1080ml total volume, 1620kcal, 73g protein, 832ml free water. Additional 120ml free water flush q4h and 30ml free water flush when feeding stops. Nutrition Assessment Label * Alt Nutr Related Lab Vals * Related To unknown etiology- possibly d/t sarcoidosis * Evidenced By hypercalcemia. Intervention/Recommendations * RECOMMENDATIONS: 1. Advance Peptamen 1.5 to 45ml/hr continuous. This will provide 1080ml total volume, 1620kcal, 73g protein, 832ml free water. 2. Provide 240ml free water flush q6h and 30ml water flush if/when EN stops. 3. Once tolerance is established of EN at goal rate, consider cycling EN to provide periods of bowel rest. Nutritional Goals * Maintain Weight +/- 5 lbs * Maintain/Imp Skin Integ * Bowel Regularity * Optimal Nutrition Support Follow Up Plan * Level of Care 3 (5 Days) Total Time Spent: Greater than 30 minutes This includes examination of the patient, discharge planning, medication reconciliation, and communication with other providers. Discharge Instructions Please refer to the electronic Patient Visit Report (Discharge Instructions) for additional information.
--- NOTE | 2016-10-16 12:39 | Discharge Instructions ---
Discharge Instructions Date of Service Oct 16, 2016. Admission Reason for Admission: Acute Kidney Injury; Hypercalcemia Discharge Discharge Diagnosis / Problem: Acute Kidney injury, Hypercalcemia, Abn LFTs, Sarcoidosis Discharge Goals Goal(s): Learn about illness Activity Recommendations Activity Limitations: as noted below (pt is bed bound) . Instructions / Follow-Up Instructions / Follow-Up follow up with Renal, Oncology, Rheumatology in one to two weeks. Current Hospital Diet Patient's current hospital diet: Discharge Diet Recommended Diet: N/A (on tube feeds-please see recommendations) Pending Studies Studies pending at discharge: yes (Weekly BMP and serum calcium) List of pending studies: BMP Laboratory Results 10/15/16 04:54 Red Blood Count 2.92, Mean Corpuscular Volume 91.1, Mean Corpuscular Hemoglobin 30.1, Mean Corpuscular Hemoglobin Concent 33.1, Mean Platelet Volume 11.4, Neutrophils (%) (Auto) 82.4, Lymphocytes (%) (Auto) 7.9, Monocytes (%) (Auto) 8.7, Eosinophils (%) (Auto) 0.0, Basophils (%) (Auto) 0.5, Neutrophils # (Auto) 3.02, Lymphocytes # (Auto) 0.29, Monocytes # (Auto) 0.32, Eosinophils # (Auto) 0.00, Basophils # (Auto) 0.02 10/16/16 07:50 Test 10/12/16 13:10 10/12/16 15:05 10/13/16 07:03 10/13/16 10:08 Lipase 102 U/L (73-393) Urine Color YELLOW Urine Appearance CLOUDY (CLEAR) Urine pH 7.0 (4.5-7.5) Urine Specific [place] 1.010 (1.000-1.030) Urine Protein 1+ (NEG) Urine Glucose (UA) NEG (NEG) Urine Ketones NEG (NEG) Urine Occult Blood 2+ (NEG) Urine Nitrite NEG (NEG) Urine Bilirubin NEG (NEG) Urine Urobilinogen NEG (NEG) Urine Leukocyte Esterase MODERATE (NEG) Urine WBC (Auto) 5-10 /hpf (0-5) Urine RBC (Auto) 10-30 /hpf (0-4) Urine Hyaline Casts (Auto) 1-5 /lpf (0-5) Urine Epithelial Cells (Auto) >30 /lpf (0-5) Urine Bacteria (Auto) 1+ (NEG) Urine Renal Epithelial Cells 0-5 /lpf (0-5) Anisocytosis PRESENT Magnesium Level 2.7 mg/dl (1.8-2.4) Angiotensin Converting Enzyme 193 U/L (9-67) Test 10/14/16 05:29 10/15/16 04:54 10/16/16 07:50 10/16/16 11:38 Toxic Granulation 1+ Large Platelets 1+ White Blood Count 3.67 K/uL (4.8-10.8) Red Blood Count 2.92 M/uL (4.2-5.4) Hemoglobin 8.8 g/dL (12.0-16.0) Hematocrit 26.6 % (37-47) Mean Corpuscular Volume 91.1 fL (80-100) Mean Corpuscular Hemoglobin 30.1 pg (25-34) Mean Corpuscular Hemoglobin Concent 33.1 g/dl (32-36) Platelet Count 113 K/uL (130-400) Mean Platelet Volume 11.4 fL (7.4-10.4) Neutrophils (%) (Auto) 82.4 % Lymphocytes (%) (Auto) 7.9 % Monocytes (%) (Auto) 8.7 % Eosinophils (%) (Auto) 0.0 % Basophils (%) (Auto) 0.5 % Neutrophils # (Auto) 3.02 K/uL (1.4-6.5) Lymphocytes # (Auto) 0.29 K/uL (1.2-3.4) Monocytes # (Auto) 0.32 K/uL (0.11-0.59) Eosinophils # (Auto) 0.00 K/uL (0-0.5) Basophils # (Auto) 0.02 K/uL (0-0.2) RDW Standard Deviation 65.0 fL (36.4-46.3) RDW Coefficient of Variation 19.2 % (11.5-14.5) Immature Granulocyte % (Auto) 0.5 % Immature Granulocyte # (Auto) 0.02 K/uL (0.00-0.02) Red Blood Cell Morphology Unremarkable Total Bilirubin 1.0 mg/dl (0.2-1) Aspartate Amino Transf (AST/SGOT) 59 U/L (15-37) Alanine Aminotransferase (ALT/SGPT) 81 U/L (12-78) Alkaline Phosphatase 792 U/L (45-117) Total Protein 5.9 gm/dl (6.4-8.2) Albumin 1.9 gm/dl (3.4-5.0) Globulin 4.0 gm/dl (2.5-4.0) Albumin/Globulin Ratio 0.5 (0.9-2) 25-Hydroxy Vitamin D Total 15.4 ng/ml (30-100) Prothrombin Time 25.0 SECONDS (9.0-12.0) Prothromb Time International Ratio 2.3 (0.9-1.1) Anion Gap 8.0 mmol/L (3-11) Est Creatinine Clear Calc Drug Dose 29.8 ml/min Estimated GFR () 28.6 Estimated GFR (Non- 24.7 BUN/Creatinine Ratio 22.4 (10-20) Calcium Level 9.6 mg/dl (8.5-10.1) Bedside Glucose 179 mg/dl (70-90) Date/Time Source Procedure Growth Status 10/13/16 06:40 Nasal MRSA DNA Surveillance Screen - Final Specimen Negative for MRSA by DNA Probe Complete 10/12/16 15:05 Urine,Catheterized Urine Culture - Final THREE TYPES OF ORGANISMS PRESENT, ALL... Complete Medical Emergencies . Who to Call and When: Medical Emergencies: If at any time you feel your situation is an emergency, please call 911 immediately. . Non-Emergent Contact Non-Emergency issues call your: Primary Care Provider . Past History Medical & Surgical History: (1) Expressive aphasia (2) Sarcoidosis (3) Chronic kidney disease (4) Transaminasemia (5) Lupus anticoagulant positive (6) Diab W Unspec Compl, Type Ii Or Unspec Type, Not Uncntrld (7) Hypertension Nos (8) Stroke (9) Hypercalcemia . "Provider Documentation" section prepared by Shannan Arteaga. VTE Core Measure Inpt VTE Proph given/why not?: Warfarin (Coumadin)
[2016-10-18] MEDS ORDERED: METR-163 PEG (16:22)
[2016-11-11] MEDS ORDERED: ENOX40IN SQ (10:06)
[2016-12-10] MEDS ORDERED: WARF5TAB90 PEG (05:27)
[2016-12-10] MEDS ORDERED: WARF7.5T PEG (05:27)
[2016-12-10] MEDS ORDERED: FNTTP25 TOP (05:29)
[2016-12-10] MEDS ORDERED: NUTR-1276 PEG (05:40)
[2016-12-10] MEDS ORDERED: [UNRECOGNIZED DRUG - REMARK] PEG (05:41)
[2016-12-13] MEDS ORDERED: INSDGIPEN SC (13:15)
[2016-12-13] MEDS ORDERED: FNTTP25 TOP (13:15)
[2016-12-13] MEDS ORDERED: Tube Feeding Water Flush NG (13:15)
[2016-12-13] MEDS ORDERED: OXYC1TAB3 PEG (13:15)
[2016-12-13] MEDS ORDERED: OXYC1TAB3 PO (13:15)
== END 2016-10-16 16:00 | DRG 641 ==
LOC: ENRESERVTM → ENRESERVDT → EDBD 12:47 → C.EDB 12:48 → C.MED 17:13
PROVIDERS: ADMIT Internal Medicine; ATTEND Internal Medicine
DX: E83.52 Hypercalcemia (principal); I69.353 Hemiplegia and hemiparesis following cerebral infarction affecting right non-dominant side; N17.9 Acute kidney failure, unspecified; N39.0 Urinary tract infection, site not specified; N18.4 Chronic kidney disease, stage 4 (severe); I69.320 Aphasia following cerebral infarction; D86.9 Sarcoidosis, unspecified; D63.1 Anemia in chronic kidney disease; E11.40 Type 2 diabetes mellitus with diabetic neuropathy, unspecified; E86.0 Dehydration; K21.9 Gastro-esophageal reflux disease without esophagitis; I12.9 Hypertensive chronic kidney disease with stage 1 through stage 4 chronic kidney disease, or unspecified chronic kidney disease; K75.81 Nonalcoholic steatohepatitis (NASH); K74.60 Unspecified cirrhosis of liver; N18.3 Chronic kidney disease, stage 3 (moderate); Z83.3 Family history of diabetes mellitus; Z82.0 Family history of epilepsy and other diseases of the nervous system; Z79.4 Long term (current) use of insulin; Z79.01 Long term (current) use of anticoagulants; Z79.899 Other long term (current) drug therapy; Z87.891 Personal history of nicotine dependence; Z93.1 Gastrostomy status

== ENCOUNTER → 2016-10-12 | Outpatient (CLI) | payer OTHER ==
[2016-10-12 10:20] LABS: BLOOD UREA NITROGEN 89 mg/dl (7-18); BUN/CREATININE RATIO 26.3 (10-20); CALCIUM 12.5 mg/dl (8.5-10.1); CARBON DIOXIDE 29 mmol/L (21-32); CHLORIDE 103 mmol/L (98-107); GLUCOSE 73 mg/dl (70-99); POTASSIUM 4.3 mmol/L (3.5-5.1); SODIUM 140 mmol/L (136-145)
== END | disposition home or self-care (01) ==
LOC: C.LABCC 09:19
PROVIDERS: ATTEND Internal Medicine
DX: D86.9 Sarcoidosis, unspecified (principal)

== ENCOUNTER → 2016-10-17 | Outpatient (CLI) | payer OTHER ==
[~2016-10-17] MED LIST changes: -ACTUDL PEG; +AMOX500C3 PO; +AMOX875T PEG; +ATEN50TA PEG; -CLX40 PEG; -CMD25 PO; +CYAN500L3 PEG; +DRGTP12 TD; +EFF75 PEG; +ENOX40IN SQ; +ENOX80IN SQ; +ERGO8288 PEG; -FLV1 PEG; +FNTTP25 TOP; +FOLI1TAB7 PEG; -HYDR-5688 PEG; -INSDGI SQ; +INSDGIPEN SC; -INSU1INJ2 SQ; +INSUINJ20 SC; +KETO200T PEG; -LANS30TA3 PEG; +LCTX PEG; +MECL1TAB42 PEG; +METO1INJ PEG; -METO1TAB54 PEG; +METR-163 PEG; -MRLP17X PO; -NUTR-1049 PEG; +NUTR-1276 PEG; +NUTR-1305 PEG; -NUTR1.2L PEG; +NVLGI/PEN SC; -NVLNI SQ; +NZR200 PEG; +OXYC1TAB3 PEG; +OXYC1TAB3 PO; +POTA20IN2 PEG; -PRD10 PEG; +PRD10 PO; +PRD5 PO; +PRED-301 PEG; +PROM25TA9 PEG; +PROM25TA9 PO; -PYRI50TA12 PEG; +PYRI50TA77 PEG; +QSTP PEG; -SENN-65 PEG; -TNR50 PEG; +Tube Feeding Water Flush NG; -Tube Feeding Water Flush PEG; +VNCS125 PEG; -VTMB12 PEG; +WARF5TAB7 PEG; +WARF5TAB90 PEG; +WARF7.5T PEG; +[UNRECOGNIZED DRUG - CODE]; +[UNRECOGNIZED DRUG - CODE] PEG; +[UNRECOGNIZED DRUG - CODE] PEG; +[UNRECOGNIZED DRUG - REMARK] MS; +[UNRECOGNIZED DRUG - REMARK] PEG
== END ==
LOC: EDSTATUS 11:44 → C.LABCC 11:45
PROVIDERS: ATTEND Internal Medicine
DX: R19.7 Diarrhea, unspecified (principal)

== ENCOUNTER → 2016-10-20 | Outpatient (CLI) | payer OTHER ==
[~2016-10-20] MED LIST changes: +ACTUDL PEG; +CLX40 PEG; +CMD25 PO; +FLV1 PEG; +HYDR-5688 PEG; +INSDGI SQ; +INSU1INJ2 SQ; +LANS30TA3 PEG; +METO1TAB54 PEG; +MRLP17X PO; +NUTR-1049 PEG; +NUTR1.2L PEG; +NVLNI SQ; +PRD10 PEG; +PYRI50TA12 PEG; +SENN-65 PEG; +TNR50 PEG; +Tube Feeding Water Flush PEG; +VTMB12 PEG
[2016-10-20 09:05] LABS: INR 3.8 (0.9-1.1); PROTHROMBIN TIME (PATIENT) 42.7 SECONDS (9.0-12.0)
== END ==
LOC: C.LABCC 08:27
PROVIDERS: ATTEND Internal Medicine
DX: I63.9 Cerebral infarction, unspecified (principal)

== ENCOUNTER → 2016-10-21 | Outpatient (CLI) | payer OTHER ==
[~2016-10-21] MED LIST changes: -ACTUDL PEG; -CLX40 PEG; -CMD25 PO; -FLV1 PEG; -HYDR-5688 PEG; -INSDGI SQ; -INSU1INJ2 SQ; -LANS30TA3 PEG; -METO1TAB54 PEG; -MRLP17X PO; -NUTR-1049 PEG; -NUTR1.2L PEG; -NVLNI SQ; -PRD10 PEG; -PYRI50TA12 PEG; -SENN-65 PEG; -TNR50 PEG; -Tube Feeding Water Flush PEG; -VTMB12 PEG
[2016-10-21 08:29] LABS: BASO % 0.5 %; BASO ABS # 0.03 K/uL (0-0.2); COMPLETE YES; EOS % 2.7 %; HEMATOCRIT 27.7 % (37-47); IG% 0.5 %; LYMPH % 13.5 %; LYMPH ABS # 0.79 K/uL (1.2-3.4); MEAN CORPUSCULAR HEMOGLOBIN 30.9 pg (25-34); MEAN CORPUSCULAR HGB CONC 33.2 g/dl (32-36); MEAN PLATELET VOLUME 11.1 fL (7.4-10.4); MONO % 11.1 %; NEUT % 71.7 %; PLATELET COUNT 103 K/uL (130-400); RED BLOOD COUNT 2.98 M/uL (4.2-5.4); WHITE BLOOD COUNT 5.86 K/uL (4.8-10.8)
[2016-10-21 08:40] LABS: ALT/SGPT 28 U/L (12-78); BLOOD UREA NITROGEN 69 mg/dl (7-18); BUN/CREATININE RATIO 29.8 (10-20); CALCIUM 10.7 mg/dl (8.5-10.1); CARBON DIOXIDE 20 mmol/L (21-32); CHLORIDE 115 mmol/L (98-107); GLUCOSE 182 mg/dl (70-99); POTASSIUM 3.7 mmol/L (3.5-5.1); SODIUM 146 mmol/L (136-145)
[2016-10-21 08:43] LABS: ALB/GLOB RATIO 0.5 (0.9-2); ALKALINE PHOSPHATASE 506 U/L (45-117); AST/SGOT 19 U/L (15-37)
--- NOTE | 2016-10-22 07:46 | CODING QUERY NO DIAGNOSIS ---
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 Please assist us with providing a diagnosis/symptom for the test(s) below: A diagnosis/symptom was not documented on your Order. A valid diagnosis/symptom is required to bill all insurances. Please remember that we are unable to code a diagnosis of rule out, probable, possible, questionable, or suspected. Tests that require a diagnosis: DOS: 10/21/16 * CBC DIAGNOSIS: * CMP DIAGNOSIS: Provider Signature: Date: Thank you Tamy Ortiz [facility] Information Management Once completed, please kindly fax back to [phone] For questions please call [phone]
== END ==
LOC: C.LABCC 08:09
PROVIDERS: ATTEND Internal Medicine
DX: D64.9 Anemia, unspecified (principal); N18.3 Chronic kidney disease, stage 3 (moderate)

== ENCOUNTER → 2016-10-26 | Outpatient (CLI) | payer OTHER ==
[2016-10-26 09:15] LABS: ALT/SGPT 44 U/L (12-78); BLOOD UREA NITROGEN 70 mg/dl (7-18); BUN/CREATININE RATIO 29.3 (10-20); CALCIUM 10.9 mg/dl (8.5-10.1); CARBON DIOXIDE 24 mmol/L (21-32); CHLORIDE 112 mmol/L (98-107); GLUCOSE 156 mg/dl (70-99); POTASSIUM 4.9 mmol/L (3.5-5.1); SODIUM 145 mmol/L (136-145)
[2016-10-26 09:18] LABS: ALB/GLOB RATIO 0.5 (0.9-2); ALKALINE PHOSPHATASE 674 U/L (45-117); AST/SGOT 42 U/L (15-37)
[2016-10-26 09:21] LABS: INR 1.6 (0.9-1.1); PROTHROMBIN TIME (PATIENT) 17.4 SECONDS (9.0-12.0)
== END ==
LOC: C.LABCC 08:34
PROVIDERS: ATTEND Internal Medicine
DX: I63.9 Cerebral infarction, unspecified (principal); E83.52 Hypercalcemia

== ENCOUNTER 2016-10-28 15:18 | Emergency (ER) | payer OTHER ==
[~2016-10-28 15:18] MED LIST changes: -AMOX500C3 PO; -AMOX875T PEG; -DRGTP12 TD; -ENOX40IN SQ; -ENOX80IN SQ; -FNTTP25 TOP; -KETO200T PEG; -LCTX PEG; -MECL1TAB42 PEG; -METO1INJ PEG; -NUTR-1276 PEG; -OXYC1TAB3 PEG; -OXYC1TAB3 PO; -PRD10 PO; -PRED-301 PEG; -PROM25TA9 PEG; -QSTP PEG; -Tube Feeding Water Flush NG; -VNCS125 PEG; -WARF5TAB90 PEG; -[UNRECOGNIZED DRUG - CODE]; -[UNRECOGNIZED DRUG - CODE] PEG; -[UNRECOGNIZED DRUG - CODE] PEG; -[UNRECOGNIZED DRUG - REMARK] PEG
[2016-10-28 15:27] VITALS: TEMP 36.7
--- NOTE | 2016-10-28 16:14 | EMERGENCY ROOM VISIT NOTE ---
History Report prepared by Jaret: Stacy Osorio Under the Supervision of: Dr. Bud Marti M.D. 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 The patient has aphasia from a previous stroke but was able to answer yes and no questions. She states she fell and hit the right side of her head and injured her right leg. She denies any LOC from the fall. The patient states she does have pain on the right side of her head behind her ear. She states she also has right leg pain that is worsened with bending and movement. The patient denies any neck pain, facial pain, or shortness of breath. The patient stats she is still currently taking Coumadin and has a history of diabetes. The patient states she has a peg tube and denies any pain or recent complications. She states that she also had a ultrasound of her right leg after the fall occurred with no significant findings. Source of History: patient History Limited By: aphasia Position: other (global) Timing: other (sudden) Associated Symptoms: No LOC, No SOB, No neck pain Note: Associated symptoms: right leg pain, right head pain. Patient denies facial pain. Review of Systems See HPI for pertinent positives & negatives. A total of 10 systems reviewed and were otherwise negative. Past Medical & Surgical Medical Problems: (1) Abdominal pain (2) Acute kidney injury (3) Anemia (4) Aspiration pneumonia due to gastric secretions (5) Chronic kidney disease (6) Diab W Unspec Compl, Type Ii Or Unspec Type, Not Uncntrld (7) Expressive aphasia (8) Hypercalcemia (9) Hypertension Nos (10) Lupus anticoagulant positive (11) Lymphadenopathy (12) Pleural Effusion Nos (13) Sarcoidosis (14) Stroke (15) Transaminasemia Old medical records were reviewed. Nurse's notes were reviewed and I agree with. Family History Diabetes mellitus Seizures Social History Smoking Status: Former Smoker Alcohol Use: none Drug Use: none Marital Status: in relationship Housing Status: lives with significant other Occupation Status: unemployed, disabled Current/Historical Medications Scheduled Atenolol (Tenormin), 50 MG PEG QAM Atorvastatin (Lipitor), 20 MG PEG HS Cyanocobalamin (Vitamin B-12), 500 MCG PEG QAM Ergocalciferol (Calcidol), 6.25 ML PEG WK Folic Acid (Folvite), 1 MG PEG DAILY Insulin Aspart (Novolog Flexpen), UNITS SC QID Insulin Glargine (Lantus Solostar), 20 UNITS SC HS Insulin Isophane (Human) (Novolin N U-100), 10 UNITS SC QAM Ketoconazole (Ketoconazole), 200 MG PEG QAM Metoclopramide HCl (Metoclopramide HCl), 5 ML PEG Q6 Metronidazole (Flagyl), 500 MG PEG Q8 Nutritional Supplements (Vital 1.5 Jos), UD Potassium Chloride (Potassium Chloride), 20 MEQ PEG QPM Prednisone (Prednisone), 5 MG PEG QAM Venlafaxine Hcl (Effexor), 75 MG PO QAM Warfarin Sod (Jantoven), 5 MG PO 5XWK Warfarin Sodium (Coumadin), 7.5 MG PO TTH [Free Water Flush], 1 DOSE MS Q4H Allergies Coded Allergies: Ezetimibe (Verified Allergy, Intermediate, Vytorin - hives and N/V, ) Simvastatin (Verified Allergy, Intermediate, Vytorin - hives and N/V, ) Latex1 -Allergic Contact Dermititis (Verified Allergy, Unknown, RASH, BLISTERS, 05/05/16) Adhesives (Verified Adverse Reaction, Mild, Unknown Rxn, 05/05/16) Physical Exam Vital Signs Date Time Temp Pulse Resp B/P Pulse Ox O2 Delivery O2 Flow Rate FiO2 10/28/16 21:30 82 20 110/50 96 Room Air 10/28/16 19:57 80 16 96/46 98 Room Air 10/28/16 17:25 80 16 114/72 96 Room Air 10/28/16 15:27 36.7 83 18 114/72 95 Room Air Physical Exam General: Chronically ill appearing middle aged female. Baseline aphasia but answers yes no questions appropriately. HEENT: Small hematoma and tenderness to right lateral scalp. Pupils are equal round and reactive to light. Extraocular movements are intact. Oropharynx is pink with moist mucous membranes. No swelling of the mouth lips or tongue. Neck: Supple with a midline trachea. No meningeal signs or stiffness, no JVD or bruits. No Stridor. Chest: Clear to auscultation bilaterally. No wheezes or rhonchi. No increased work of breathing. Heart: regular rate and rhythm. Abdomen: Soft nontender, nondistended without rebound guarding or rigidity. Extremities: No cyanosis clubbing or edema. No calf tenderness or assymetry. Mild tenderness to right femur and knee, no redness. Spine/Back. Non tender to palpation. No CVA tenderness Skin: Good turgor without rashes. Neurologic exam: Cranial nerves two through 12 are intact. Baseline weakness in right arm and right leg. Medical Decision & Procedures ER Provider Diagnostic Interpretation: X-ray results as stated below per interpretation by me and the radiologist: RIGHT KNEE 1 OR 2 VIEWS ROUTINE CLINICAL HISTORY: eval for trauma Right pain COMPARISON: None. DISCUSSION: Mild to moderate degenerative change. Extensive soft tissue vascular calcification. No acute bony abnormality. There is no evidence for soft tissue swelling. IMPRESSION: No acute bony abnormality. Electronically signed by: Marcus Davey M.D. 10/28/2016 4:47 PM Dictated Date/Time: 10/28/2016 4:47 PM RIGHT FEMUR 2 VIEWS ROUTINE CLINICAL HISTORY: eval for trauma Right pain COMPARISON: None. DISCUSSION: Moderate generalized degenerative change right hip. Sclerosis and elevation of the right acetabular angle. No evidence for acute bony abnormality. Multiple soft tissue vascular calcifications. There is no evidence for soft tissue swelling. IMPRESSION: No evidence for acute bony abnormality. Moderate degenerative change. Electronically signed by: Marcus Davey M.D. 10/28/2016 4:46 PM Dictated Date/Time: 10/28/2016 4:[address] results as stated below per my review and radiologist interpretation: HEAD CT NONCONTRAST CT DOSE: 537.48 mGy.cm HISTORY: Trauma eval for trauma TECHNIQUE: Multiaxial CT images of the head were performed without the use of intravenous contrast. Comparison: 04/19/2016 Findings: The paranasal sinuses and mastoid air cells are clear. Progressive benign calcification left middle cerebral arterial infarct. No evidence for acute intracranial abnormality. No midline shift. No acute intracranial hemorrhage. Ventricular system is midline. Impression: 1. No acute intracranial abnormality. 2. Progressive calcification of an old left middle cerebral arterial territory infarct. This is a benign finding Electronically signed by: Marcus Davey M.D. 10/28/2016 4:22 PM Dictated Date/Time: 10/28/2016 4:19 PM Laboratory Results 10/28/16 16:00 Red Blood Count 3.07, Mean Corpuscular Volume 95.4, Mean Corpuscular Hemoglobin 31.6, Mean Corpuscular Hemoglobin Concent 33.1, Mean Platelet Volume 11.9, Neutrophils (%) (Auto) 77.1, Lymphocytes (%) (Auto) 10.4, Monocytes (%) (Auto) 8.5, Eosinophils (%) (Auto) 2.8, Basophils (%) (Auto) 0.4, Neutrophils # (Auto) 3.92, Lymphocytes # (Auto) 0.53, Monocytes # (Auto) 0.43, Eosinophils # (Auto) 0.14, Basophils # (Auto) 0.02 10/28/16 16:00 Test 10/28/16 16:00 White Blood Count 5.08 K/uL (4.8-10.8) Red Blood Count 3.07 M/uL (4.2-5.4) Hemoglobin 9.7 g/dL (12.0-16.0) Hematocrit 29.3 % (37-47) Mean Corpuscular Volume 95.4 fL (80-100) Mean Corpuscular Hemoglobin 31.6 pg (25-34) Mean Corpuscular Hemoglobin Concent 33.1 g/dl (32-36) Platelet Count 156 K/uL (130-400) Mean Platelet Volume 11.9 fL (7.4-10.4) Neutrophils (%) (Auto) 77.1 % Lymphocytes (%) (Auto) 10.4 % Monocytes (%) (Auto) 8.5 % Eosinophils (%) (Auto) 2.8 % Basophils (%) (Auto) 0.4 % Neutrophils # (Auto) 3.92 K/uL (1.4-6.5) Lymphocytes # (Auto) 0.53 K/uL (1.2-3.4) Monocytes # (Auto) 0.43 K/uL (0.11-0.59) Eosinophils # (Auto) 0.14 K/uL (0-0.5) Basophils # (Auto) 0.02 K/uL (0-0.2) RDW Standard Deviation 66.0 fL (36.4-46.3) RDW Coefficient of Variation 18.6 % (11.5-14.5) Immature Granulocyte % (Auto) 0.8 % Immature Granulocyte # (Auto) 0.04 K/uL (0.00-0.02) Prothrombin Time 22.9 SECONDS (9.0-12.0) Prothromb Time International Ratio 2.1 (0.9-1.1) Activated Partial Thromboplast Time 36.5 SECONDS (21.0-31.0) Partial Thromboplastin Ratio 1.4 Anion Gap 6.0 mmol/L (3-11) Estimated GFR () 27.1 Estimated GFR (Non- 23.4 BUN/Creatinine Ratio 28.1 (10-20) Calcium Level 10.9 mg/dl (8.5-10.1) Laboratory studies as stated above per my review. ED Course 1542: Past medical records reviewed. The patient was evaluated in room B3B, and a complete history and physical examination were performed. 162: I reevaluated the patient and she was at CT currently. 1754: Upon reevaluation, the patient is resting comfortably. I discussed the results and treatment plan with her. She verbalized agreement of the treatment plan. The patient was discharged home. Medical Decision Differentials include, but are not limited to; intracranial hemorrhage, trauma, orthopedic injuries, electrolyte or metabolic abnormality. This patient comes in as described above. she had a mechanical fall. she does have a history of a stroke that has left her with a large deficit on the right side and aphasia. She has no new neurologic deficits. I did a CAT scan of her head and and she has no acute findings. Her blood work shows some baseline renal insufficiency. I did x-rays of her leg and knee and there are no evidence of any injuries. She is resting comfortably and and will be discharged back to the half-way. She should return if worsening symptoms, fever chills, any new problems concerns. She was happy with the plan and discharged to the airway was home. Impression Primary Impression: Closed head injury Additional Impression: Contusion of right leg Scribe Attestation The scribe's documentation has been prepared under my direction and personally reviewed by me in its entirety. I confirm that the note above accurately reflects all work, treatment, procedures, and medical decision making performed by me. Departure Information Dispostion Home / Self-Care Referrals Adriel Campos (PCP) Forms HOME CARE DOCUMENTATION FORM, IMPORTANT VISIT INFORMATION Patient Instructions My [facility] Additional Instructions Rest. Drink plenty of fluids. Be careful getting up and down. With assistance only. Your potassium was mildly elevated at with 5.2. Have this rechecked in 1-2 days. Return if: Worsening of symptoms, fever or chills, any new problems or concerns Problem Qualifiers
[2016-10-28] MEDS ORDERED: METO1INJ PEG (16:22)
[2016-10-28] MEDS ORDERED: [UNRECOGNIZED DRUG - CODE] (16:22)
[2016-10-28] MEDS ORDERED: PRED-301 PEG (16:22)
--- NOTE | 2016-10-28 16:25 | DIAGNOSTIC IMAGING REPORT ---
HEAD CT NONCONTRAST CT DOSE: 537.48 mGy.cm HISTORY: Trauma eval for trauma TECHNIQUE: Multiaxial CT images of the head were performed without the use of intravenous contrast. Comparison: 04/19/2016 Findings: The paranasal sinuses and mastoid air cells are clear. Progressive benign calcification left middle cerebral arterial infarct. No evidence for acute intracranial abnormality. No midline shift. No acute intracranial hemorrhage. Ventricular system is midline. Impression: 1. No acute intracranial abnormality. 2. Progressive calcification of an old left middle cerebral arterial territory infarct. This is a benign finding Electronically signed by: Marcus Davey M.D. 10/28/2016 4:22 PM Dictated Date/Time: 10/28/2016 4:19 PM
[2016-10-28 16:36] LABS: BASO % 0.4 %; BASO ABS # 0.02 K/uL (0-0.2); COMPLETE YES; EOS % 2.8 %; HEMATOCRIT 29.3 % (37-47); IG% 0.8 %; LYMPH % 10.4 %; LYMPH ABS # 0.53 K/uL (1.2-3.4); MEAN CELL VOLUME 95.4 fL (80-100); MEAN CORPUSCULAR HEMOGLOBIN 31.6 pg (25-34); MEAN CORPUSCULAR HGB CONC 33.1 g/dl (32-36); MEAN PLATELET VOLUME 11.9 fL (7.4-10.4); MONO % 8.5 %; NEUT % 77.1 %; PLATELET COUNT 156 K/uL (130-400); RED BLOOD COUNT 3.07 M/uL (4.2-5.4); WHITE BLOOD COUNT 5.08 K/uL (4.8-10.8)
[2016-10-28 16:38] LABS: INR 2.1 (0.9-1.1); PARTIAL THROMBOPLASTIN RATIO 1.4; PROTHROMBIN TIME (PATIENT) 22.9 SECONDS (9.0-12.0)
[2016-10-28 16:47] LABS: BLOOD UREA NITROGEN 67 mg/dl (7-18); BUN/CREATININE RATIO 28.1 (10-20); CALCIUM 10.9 mg/dl (8.5-10.1); CARBON DIOXIDE 26 mmol/L (21-32); CHLORIDE 111 mmol/L (98-107); GLUCOSE 208 mg/dl (70-99); POTASSIUM 5.3 mmol/L (3.5-5.1); SODIUM 143 mmol/L (136-145)
--- NOTE | 2016-10-28 16:48 | DIAGNOSTIC IMAGING REPORT ---
RIGHT FEMUR 2 VIEWS ROUTINE CLINICAL HISTORY: eval for trauma Right pain COMPARISON: None. DISCUSSION: Moderate generalized degenerative change right hip. Sclerosis and elevation of the right acetabular angle. No evidence for acute bony abnormality. Multiple soft tissue vascular calcifications. There is no evidence for soft tissue swelling. IMPRESSION: No evidence for acute bony abnormality. Moderate degenerative change. Electronically signed by: Marcus Davey M.D. 10/28/2016 4:46 PM Dictated Date/Time: 10/28/2016 4:45 PM
--- NOTE | 2016-10-28 16:49 | DIAGNOSTIC IMAGING REPORT ---
RIGHT KNEE 1 OR 2 VIEWS ROUTINE CLINICAL HISTORY: eval for trauma Right pain COMPARISON: None. DISCUSSION: Mild to moderate degenerative change. Extensive soft tissue vascular calcification. No acute bony abnormality. There is no evidence for soft tissue swelling. IMPRESSION: No acute bony abnormality. Electronically signed by: Marcus Davey M.D. 10/28/2016 4:47 PM Dictated Date/Time: 10/28/2016 4:47 PM
[2016-10-28 21:30] VITALS: BP 110/50; PULSE 82; O2SAT 96
[2016-11-11] MEDS ORDERED: ENOX40IN SQ (10:06)
[2016-12-10] MEDS ORDERED: WARF5TAB90 PEG (05:27)
[2016-12-10] MEDS ORDERED: WARF7.5T PEG (05:27)
[2016-12-10] MEDS ORDERED: FNTTP25 TOP (05:29)
[2016-12-10] MEDS ORDERED: NUTR-1276 PEG (05:40)
[2016-12-10] MEDS ORDERED: [UNRECOGNIZED DRUG - REMARK] PEG (05:41)
[2016-12-13] MEDS ORDERED: Tube Feeding Water Flush NG (13:15)
[2016-12-13] MEDS ORDERED: OXYC1TAB3 PEG (13:15)
[2016-12-13] MEDS ORDERED: INSDGIPEN SC (13:15)
[2016-12-13] MEDS ORDERED: FNTTP25 TOP (13:15)
[2016-12-13] MEDS ORDERED: OXYC1TAB3 PO (13:15)
== END 2016-10-28 21:36 | disposition home or self-care (01) ==
LOC: EDBD 15:18 → C.EDB 15:19
DX: S09.90XA Unspecified injury of head, initial encounter (principal); S80.11XA Contusion of right lower leg, initial encounter; W19.XXXA Unspecified fall, initial encounter; D64.9 Anemia, unspecified; N18.9 Chronic kidney disease, unspecified; E11.9 Type 2 diabetes mellitus without complications; F80.1 Expressive language disorder; E83.52 Hypercalcemia; I10 Essential (primary) hypertension; D68.62 Lupus anticoagulant syndrome; R59.1 Generalized enlarged lymph nodes; D86.9 Sarcoidosis, unspecified; I63.9 Cerebral infarction, unspecified; R74.0 Nonspecific elevation of levels of transaminase and lactic acid dehydrogenase [LDH]; Z83.3 Family history of diabetes mellitus; Z82.0 Family history of epilepsy and other diseases of the nervous system; Z87.891 Personal history of nicotine dependence; Z79.4 Long term (current) use of insulin; Z79.01 Long term (current) use of anticoagulants; Z51.81 Encounter for therapeutic drug level monitoring

== ENCOUNTER → 2016-10-29 | Outpatient (CLI) | payer OTHER ==
[~2016-10-29] MED LIST changes: +AMOX500C3 PO; +AMOX875T PEG; +DRGTP12 TD; +ENOX40IN SQ; +ENOX80IN SQ; +FNTTP25 TOP; +KETO200T PEG; +LCTX PEG; +MECL1TAB42 PEG; +METO1INJ PEG; +NUTR-1276 PEG; -NUTR-1305 PEG; +OXYC1TAB3 PEG; +OXYC1TAB3 PO; +PRD10 PO; -PRD5 PO; +PRED-301 PEG; +PROM25TA9 PEG; -PROM25TA9 PO; -PYRI50TA77 PEG; +QSTP PEG; +Tube Feeding Water Flush NG; +VNCS125 PEG; +WARF5TAB90 PEG; +[UNRECOGNIZED DRUG - CODE]; +[UNRECOGNIZED DRUG - CODE] PEG; +[UNRECOGNIZED DRUG - CODE] PEG; +[UNRECOGNIZED DRUG - REMARK] PEG
[2016-10-29 08:51] LABS: BASO % 0.7 %; BASO ABS # 0.03 K/uL (0-0.2); EOS % 3.6 %; HEMATOCRIT 25.9 % (37-47); IG% 0.5 %; LYMPH % 11.9 %; LYMPH ABS # 0.49 K/uL (1.2-3.4); MEAN CELL VOLUME 95.9 fL (80-100); MEAN CORPUSCULAR HEMOGLOBIN 31.5 pg (25-34); MEAN CORPUSCULAR HGB CONC 32.8 g/dl (32-36); MEAN PLATELET VOLUME 12.2 fL (7.4-10.4); MONO % 10.7 %; NEUT % 72.6 %; PLATELET COUNT 145 K/uL (130-400); WHITE BLOOD COUNT 4.11 K/uL (4.8-10.8)
[2016-10-29 09:30] LABS: ANISOCYTOSIS PRESENT; COMPLETE YES; GIANT PLATELETS 2+; HYPOCHROMIA PRESENT; POIKILOCYTOSIS PRESENT
[2016-10-29 09:51] LABS: ALT/SGPT 40 U/L (12-78); AST/SGOT 38 U/L (15-37); BLOOD UREA NITROGEN 64 mg/dl (7-18); BUN/CREATININE RATIO 26.5 (10-20); CALCIUM 10.8 mg/dl (8.5-10.1); CARBON DIOXIDE 29 mmol/L (21-32); CHLORIDE 111 mmol/L (98-107); GLUCOSE 156 mg/dl (70-99); POTASSIUM 4.8 mmol/L (3.5-5.1); SODIUM 145 mmol/L (136-145)
[2016-10-29 09:53] LABS: ALB/GLOB RATIO 0.5 (0.9-2); ALKALINE PHOSPHATASE 609 U/L (45-117)
== END ==
LOC: C.LABCC 07:56
PROVIDERS: ATTEND Internal Medicine
DX: N18.9 Chronic kidney disease, unspecified (principal); D64.9 Anemia, unspecified

== ENCOUNTER → 2016-10-30 | Outpatient (CLI) | payer OTHER ==
[2016-10-30 09:02] LABS: ALT/SGPT 30 U/L (12-78); AST/SGOT 27 U/L (15-37); BLOOD UREA NITROGEN 70 mg/dl (7-18); BUN/CREATININE RATIO 27.8 (10-20); CARBON DIOXIDE 27 mmol/L (21-32); CHLORIDE 109 mmol/L (98-107); GLUCOSE 219 mg/dl (70-99); SODIUM 143 mmol/L (136-145)
[2016-10-30 09:05] LABS: ALB/GLOB RATIO 0.5 (0.9-2); ALKALINE PHOSPHATASE 573 U/L (45-117)
[2016-10-30 09:06] LABS: CALCIUM 10.8 mg/dl (8.5-10.1)
== END ==
LOC: C.LABCC 08:33
PROVIDERS: ATTEND Internal Medicine
DX: E87.5 Hyperkalemia (principal)

== ENCOUNTER → 2016-11-02 | Outpatient (CLI) | payer OTHER ==
[2016-11-02 08:22] LABS: BASO % 0.4 %; BASO ABS # 0.02 K/uL (0-0.2); EOS % 3.2 %; HEMATOCRIT 27.1 % (37-47); IG% 0.4 %; LYMPH % 11.4 %; LYMPH ABS # 0.57 K/uL (1.2-3.4); MEAN CELL VOLUME 98.2 fL (80-100); MEAN CORPUSCULAR HEMOGLOBIN 31.5 pg (25-34); MEAN CORPUSCULAR HGB CONC 32.1 g/dl (32-36); MEAN PLATELET VOLUME 12.2 fL (7.4-10.4); MONO % 8.4 %; NEUT % 76.2 %; PLATELET COUNT 152 K/uL (130-400); RED BLOOD COUNT 2.76 M/uL (4.2-5.4); WHITE BLOOD COUNT 4.99 K/uL (4.8-10.8)
[2016-11-02 08:31] LABS: INR 3.5 (0.9-1.1); PROTHROMBIN TIME (PATIENT) 39.8 SECONDS (9.0-12.0)
[2016-11-02 08:48] LABS: COMPLETE YES
== END | disposition home or self-care (01) ==
LOC: C.LABCC 08:05
PROVIDERS: ATTEND Internal Medicine
DX: D64.9 Anemia, unspecified (principal)

== ENCOUNTER 2016-11-04 22:55 | Inpatient (IN) | payer OTHER ==
[~2016-11-04] VITALS: Ht 162.6 cm; Wt 70.5 kg
[~2016-11-04 22:55] MED LIST changes: -AMOX500C3 PO; -AMOX875T PEG; -DRGTP12 TD; -ENOX40IN SQ; -ENOX80IN SQ; -FNTTP25 TOP; -KETO200T PEG; -LCTX PEG; -MECL1TAB42 PEG; -NUTR-1276 PEG; -OXYC1TAB3 PEG; -OXYC1TAB3 PO; -PRD10 PO; -PROM25TA9 PEG; -QSTP PEG; -Tube Feeding Water Flush NG; -VNCS125 PEG; -WARF5TAB90 PEG; -[UNRECOGNIZED DRUG - CODE] PEG; -[UNRECOGNIZED DRUG - CODE] PEG; -[UNRECOGNIZED DRUG - REMARK] PEG
[2016-11-04] MEDS ORDERED: SODIUM CHLORIDE 0.9% 1000ML 1,000 ML IV STA (23:24)
[2016-11-04] MEDS ORDERED: PANTOprazole INJ 80 MG in DEXTROSE 5% 100ML 100 ML IV SCH (23:30)
[2016-11-04 23:36] LABS: BASO % 0.3 %; BASO ABS # 0.03 K/uL (0-0.2); COMPLETE YES; EOS % 0.8 %; HEMATOCRIT 32.7 % (37-47); IG% 0.4 %; LYMPH % 6.1 %; LYMPH ABS # 0.72 K/uL (1.2-3.4); MEAN CELL VOLUME 101.2 fL (80-100); MEAN CORPUSCULAR HEMOGLOBIN 32.5 pg (25-34); MEAN CORPUSCULAR HGB CONC 32.1 g/dl (32-36); MEAN PLATELET VOLUME 12.5 fL (7.4-10.4); MONO % 3.6 %; NEUT % 88.8 %; PLATELET COUNT 214 K/uL (130-400); RED BLOOD COUNT 3.23 M/uL (4.2-5.4); WHITE BLOOD COUNT 11.77 K/uL (4.8-10.8)
[2016-11-04 23:44] LABS: ALT/SGPT 52 U/L (12-78); AST/SGOT 55 U/L (15-37); BLOOD UREA NITROGEN 90 mg/dl (7-18); BUN/CREATININE RATIO 30.9 (10-20); CALCIUM 11.9 mg/dl (8.5-10.1); CARBON DIOXIDE 33 mmol/L (21-32); CHLORIDE 106 mmol/L (98-107); GLUCOSE 205 mg/dl (70-99); MAGNESIUM 2.6 mg/dl (1.8-2.4); POTASSIUM 4.9 mmol/L (3.5-5.1); SODIUM 147 mmol/L (136-145)
--- NOTE | 2016-11-04 23:46 | EMERGENCY ROOM VISIT NOTE ---
History Report prepared by Jaret: Fabrizio Ragsdale Under the Supervision of: Dr. Frances Comer M.D. First contact with patient: 23:18 Chief Complaint: GI ASSESSMENT Stated Complaint: COFFEE GROUND EMISIS History of Present Illness The patient is a 45 year old female who presents to the Emergency Room from [facility] via EMS with complaints of coffee ground emesis starting about 5 and a half hours ago. The emesis was positive for blood. She received Phenergan about an hour and a half ago. She has a peg tube in place. She is on Coumadin. The patient is a DNR. HPI is limited secondary to patient's history of chronic expressive aphasia. She has a history of CVA. Additional history is obtained as per Emergency Room nursing staff. Source of History: nursing staff History Limited By: other (chronic expressive aphasia) Onset: about 5 and a half hours ago Position: other (global) Quality: other (coffee ground emesis) Modifying Factors (Relieving): other (Phenergan ) Review of Systems ROS is limited secondary to patient's history of chronic expressive aphasia. Past Medical & Surgical Medical Problems: (1) Abdominal pain (2) Acute kidney injury (3) Adult failure to thrive (4) Anemia (5) Aphasia following cerebral infarction (6) Aspiration pneumonia due to gastric secretions (7) Chronic kidney disease (8) Chronic kidney disease, stage 3 (9) Diab W Unspec Compl, Type Ii Or Unspec Type, Not Uncntrld (10) Dysphagia following cerebral infarction (11) Dysphagia, oropharyngeal phase (12) Dysphagia, unspecified (13) Expressive aphasia (14) GI bleed (15) Gross hematuria (16) Hemiparesis (17) Hemiplegia (18) Hypercalcemia (19) Hypertension Nos (20) Hypertensive chronic kidney disease (21) group home (current) use of anticoagulants (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 (23) Lupus anticoagulant positive (24) Lymphadenopathy (25) Major depressive disorder (26) Muscle weakness (generalized) (27) Nausea and vomiting (28) Other artificial openings of gastrointestinal tract status (29) Pleural Effusion Nos (30) Pressure ulcer of right buttock, stage 2 (31) Sarcoidosis (32) Splenomegaly (33) Stroke (34) Transaminasemia Family History Diabetes mellitus Seizures Social History Smoking Status: Former Smoker Alcohol Use: none Drug Use: none Marital Status: in relationship Housing Status: lives with significant other Occupation Status: unemployed, disabled Current/Historical Medications Scheduled Atenolol (Tenormin), 50 MG PEG QAM Atorvastatin (Lipitor), 20 MG PEG HS Cyanocobalamin (Vitamin B-12), 500 MCG PEG QAM Ergocalciferol (Calcidol), 6.25 ML PEG WK Fentanyl (Fentanyl), 12 MCG TD Q72H Folic Acid (Folvite), 1 MG PEG DAILY Insulin Aspart (Novolog Flexpen), UNITS SC QID Insulin Glargine (Lantus Solostar), 20 UNITS SC HS Insulin Isophane (Human) (Novolin N U-100), 10 UNITS SC QAM Ketoconazole (Nizoral), 200 MG PEG DAILY Metoclopramide HCl (Metoclopramide HCl), 5 ML PEG Q6 Nutritional Supplements (Vital 1.5 Jos), PEG UD Potassium Chloride (Potassium Chloride), 20 MEQ PEG QPM Prednisone (Prednisone), 5 MG PEG QAM Venlafaxine Hcl (Effexor), 75 MG PEG QAM Warfarin Sod (Jantoven), 5 MG PEG 5XWK Warfarin Sodium (Coumadin), 7.5 MG PEG TTH Scheduled PRN Meclizine Hcl (Meclizine Hcl), 25 MG PEG PRN/UD PRN for ONE HOUR PRIOR TO TRAVEL Oxycodone Ir (Roxicodone Ir), 5 MG PEG Q4H PRN for MOD PAIN Oxycodone Ir (Roxicodone Ir), 10 MG PO Q4H PRN for Severe Pain Promethazine Hcl (Phenergan), 25 MG PEG Q6H PRN for Nausea Allergies Coded Allergies: Ezetimibe (Verified Allergy, Intermediate, Vytorin - hives and N/V, ) Simvastatin (Verified Allergy, Intermediate, Vytorin - hives and N/V, ) Latex1 -Allergic Contact Dermititis (Verified Allergy, Unknown, RASH, BLISTERS, 05/05/16) Adhesives (Verified Adverse Reaction, Mild, Unknown Rxn, 05/05/16) Physical Exam Vital Signs Date Time Temp Pulse Resp B/P Pulse Ox O2 Delivery O2 Flow Rate FiO2 11/05/16 03:01 141/54 11/05/16 02:55 107 19 94 11/05/16 02:40 107 24 93 11/05/16 02:31 124/55 11/05/16 02:25 105 24 95 11/05/16 02:10 107 22 98 11/05/16 02:02 Nasal Cannula 2.0 11/05/16 02:00 123/55 11/05/16 01:55 108 25 99 11/05/16 01:50 107 22 99 11/05/16 01:40 107 22 100 11/05/16 01:31 110/92 11/05/16 01:30 108 24 99 11/05/16 01:27 141/86 11/05/16 01:20 111 21 100 11/05/16 01:01 152/91 11/05/16 01:00 113 24 96 11/05/16 00:50 112 21 95 11/05/16 00:45 112 24 96 11/05/16 00:43 90/40 11/05/16 00:35 113 22 97 11/05/16 00:25 109 27 98 11/05/16 00:15 113 25 93 11/05/16 00:05 114 27 92 11/04/16 23:55 112 25 93 11/04/16 23:45 109 23 93 11/04/16 23:35 109 26 93 11/04/16 23:25 110 26 93 11/04/16 23:20 110 11/04/16 23:19 37.2 112 18 95/73 95 Room Air 11/04/16 23:15 110 25 11/04/16 23:05 111 30 93 11/04/16 22:59 95/73 Physical Exam Vital signs reviewed. General: Chronically ill-appearing with right sided hemiplegia and contracture. HEENT: No scleral icterus, PERRLA, neck supple. Atraumatic. Cardiovascular: Tachycardic rate. Notably hypotensive. Pulmonary: Coarse breath sounds bilaterally, normal work of breathing. Abdomen: Soft, mild abdominal tenderness, nondistended, positive bowel sounds. Peg tube in place. Musculoskeletal: Atraumatic, no peripheral edema. Neurologic: Patient awake alert and oriented x 3, full strength in all 4 extremities. Cranial nerves 2 through 12 grossly intact. Skin: Warm, dry, no rash Medical Decision & Procedures ER Provider Diagnostic Interpretation: X-ray results as stated below per interpretation by me: CHEST X-RAY Some right perihilar fullness with obscuration of the heart border, no significant change from previous 10/12/16. CT results as stated below per my review and radiologist interpretation: CT ABDOMEN & PELVIS Compared to 08/21/16 Redemonstrated cirrhosis with evidence of portal hypertension including splenomegaly. Posterior splenic calcification is stable, possibly sequela of remote infarct. No ascites. Development of distal esophageal wall thickening, likely esophagitis. No free air. Redemonstrated PEG tube, appropriately positioned. No bowel obstruction or perforation. Cholecystectomy and appendectomy. Extensive vascular calcification, likely from diabetic vasculopathy. Mild retroperitoneal lymphadenopathy is grossly stable. Radiologist: Mukesh Pro MD Laboratory Results 11/04/16 22:42 Red Blood Count 3.23, Mean Corpuscular Volume 101.2, Mean Corpuscular Hemoglobin 32.5, Mean Corpuscular Hemoglobin Concent 32.1, Mean Platelet Volume 12.5, Neutrophils (%) (Auto) 88.8, Lymphocytes (%) (Auto) 6.1, Monocytes (%) ( Auto) 3.6, Eosinophils (%) (Auto) 0.8, Basophils (%) (Auto) 0.3, Neutrophils # ( Auto) 10.45, Lymphocytes # (Auto) 0.72, Monocytes # (Auto) 0.42, Eosinophils # ( Auto) 0.10, Basophils # (Auto) 0.03 11/04/16 22:42 Test 11/04/16 22:42 White Blood Count 11.77 K/uL (4.8-10.8) Red Blood Count 3.23 M/uL (4.2-5.4) Hemoglobin 10.5 g/dL (12.0-16.0) Hematocrit 32.7 % (37-47) Mean Corpuscular Volume 101.2 fL (80-100) Mean Corpuscular Hemoglobin 32.5 pg (25-34) Mean Corpuscular Hemoglobin Concent 32.1 g/dl (32-36) Platelet Count 214 K/uL (130-400) Mean Platelet Volume 12.5 fL (7.4-10.4) Neutrophils (%) (Auto) 88.8 % Lymphocytes (%) (Auto) 6.1 % Monocytes (%) (Auto) 3.6 % Eosinophils (%) (Auto) 0.8 % Basophils (%) (Auto) 0.3 % Neutrophils # (Auto) 10.45 K/uL (1.4-6.5) Lymphocytes # (Auto) 0.72 K/uL (1.2-3.4) Monocytes # (Auto) 0.42 K/uL (0.11-0.59) Eosinophils # (Auto) 0.10 K/uL (0-0.5) Basophils # (Auto) 0.03 K/uL (0-0.2) RDW Standard Deviation 69.3 fL (36.4-46.3) RDW Coefficient of Variation 18.4 % (11.5-14.5) Immature Granulocyte % (Auto) 0.4 % Immature Granulocyte # (Auto) 0.05 K/uL (0.00-0.02) Anion Gap 8.0 mmol/L (3-11) Estimated GFR () 21.6 Estimated GFR (Non- 18.6 BUN/Creatinine Ratio 30.9 (10-20) Calcium Level 11.9 mg/dl (8.5-10.1) Magnesium Level 2.6 mg/dl (1.8-2.4) Total Bilirubin 0.9 mg/dl (0.2-1) Direct Bilirubin 0.6 mg/dl (0-0.2) Aspartate Amino Transf (AST/SGOT) 55 U/L (15-37) Alanine Aminotransferase (ALT/SGPT) 52 U/L (12-78) Alkaline Phosphatase 704 U/L (45-117) Total Protein 6.9 gm/dl (6.4-8.2) Albumin 2.3 gm/dl (3.4-5.0) Laboratory results per my review. Medications Administered Medications (Trade) Dose Ordered Sig/Filipe Route Start Time Stop Time Status Last Admin Dose Admin Sodium Chloride 1,000 ml @ 999 mls/hr Q1H1M STAT IV 11/04/16 23:24 11/05/16 00:24 DC 11/04/16 23:24 999 MLS/HR Pantoprazole Sodium 80 mg/ Dextrose 120 ml @ 400 mls/hr NOW IV 11/04/16 23:30 11/05/16 04:05 DC 11/05/16 01:45 400 MLS/HR Phytonadione 5 mg/ Sodium Chloride 50.5 ml @ 101 mls/hr ONE ONCE IV 11/05/16 00:15 4/20/17 00:44 DC 11/05/16 00:34 101 MLS/HR Sodium Chloride (Nss 1000ml) 1,000 ml @ 999 mls/hr Q1H1M STAT IV 11/05/16 01:21 11/05/16 02:21 DC 11/05/16 01:21 999 MLS/HR Fentanyl Citrate (Fentanyl Inj) 50 mcg NOW STAT IV 11/05/16 01:30 11/05/16 01:31 DC 11/05/16 01:57 50 MCG ECG Indication: abdominal pain Rate (beats per minute): 105 Rhythm: sinus tachycardia Findings: Q waves (inferior and anterior), no acute ischemic change, left axis deviation, no ectopy ED Course 2318: Past medical records reviewed. The patient was evaluated in room B09. A complete history and physical examination was performed. 2324: Sodium Chloride 1000 ml @ 999 mls/hr IV 2330: Pantoprazole Sodium 80 mg/Dextrose 120 ml @ 400 mls/hr IV 0015: Phytonadione 5 mg/Sodium Chloride 50.5 ml @ 101 mls/hr Protocol IV 0121: Sodium Chloride 1000 ml @ 999 mls/hr IV 0130: Fentanyl Inj 50 mcg IV 0200: Upon reevaluation, the patient is resting comfortably. I discussed laboratory and radiographic results with her. She verbalized agreement of the treatment plan. [facility] The patient will be evaluated for further management and care.; Medical Decision Differential diagnosis: Etiologies such as diverticulosis, AVM, coagulopathy, colitis, inflammatory bowel disease, malignancy, Inna-Dejesus tear, esophagitis, peptic ulcer disease , variceal bleed, gastritis, epistaxis, fissure, hemorrhoids, as well as others were entertained. This patient was evaluated and appeared to be in no significant distress. IV access was obtained and laboratory work was drawn. Patient was placed on the cardiac catheterization technologist. Patient was found to be slightly tachycardic and mildly hypotensive. She was hydrated with normal saline solution. Laboratory work reveals a stable H&H. She does seem to be volume depleted with a BUN of 90 and a creatinine of 2.9 from a baseline of 2.5. Patient was given IV Protonix 80 mg bolus. Type and cross for 2 units of PRBCs was ordered to hold. Patient had gross blood from the PEG tube with manual aspiration. Patient's INR is 4.3. Patient was given vitamin K 5 mg IV. Patient's case was discussed with the hospitalist service. She will be evaluated for further management. Consults Time Called: 0155 Consulting Physician: [facility] Returned Call: [phone] [facility]. Impression Primary Impression: GI bleed Additional Impressions: Acute on chronic renal insufficiency Dehydration Scribe Attestation The scribe's documentation has been prepared under my direction and personally reviewed by me in its entirety. I confirm that the note above accurately reflects all work, treatment, procedures, and medical decision making performed by me. Departure Information Dispostion Being Evaluated By Hospitalist Referrals [place] (PCP) Patient Instructions My [facility] Problem Qualifiers Primary Impression: GI bleed
[2016-11-04 23:47] LABS: ALKALINE PHOSPHATASE 704 U/L (45-117)
[2016-11-04 23:50] LABS: INR 4.3 (0.9-1.1); PARTIAL THROMBOPLASTIN RATIO 1.9; PROTHROMBIN TIME (PATIENT) 48.4 SECONDS (9.0-12.0)
[2016-11-05] MEDS ORDERED: PHYTONADIONE INJ 5 MG in SODIUM CHLORIDE 0.9% 50ML 50 ML IV ONE (00:15)
[2016-11-05] MEDS ORDERED: KETO200T PEG (00:18)
[2016-11-05] MEDS ORDERED: [UNRECOGNIZED DRUG - CODE] PEG (00:24)
[2016-11-05] MEDS ORDERED: DRGTP12 TD (00:34)
[2016-11-05] MEDS ORDERED: [UNRECOGNIZED DRUG - CODE] PEG (00:39)
[2016-11-05] MEDS ORDERED: PROM25TA9 PEG (00:49)
[2016-11-05] MEDS ORDERED: OXYC1TAB3 PEG (00:51)
[2016-11-05] MEDS ORDERED: OXYC1TAB3 PO (00:52)
[2016-11-05] MEDS ORDERED: MECL1TAB42 PEG (00:55)
[2016-11-05] MEDS ORDERED: SODIUM CHLORIDE 0.9% 1000ML 1,000 ML IV STA (01:21)
[2016-11-05] MEDS ORDERED: FENTANYL CITRATE INJ 50 MCG/1 ML 2 ML VIAL IV STA (01:30)
[2016-11-05] MEDS ORDERED: POLYETHYLENE (MIRALAX) 17 GM PACK PO PRN (03:00)
[2016-11-05] MEDS ORDERED: ONDANSETRON INJ 2 MG/ML 2 ML VIAL IV PRN (03:00)
--- NOTE | 2016-11-05 03:05 | History and Physical ---
History & Physical Date & Time of Service: Nov 05, 2016 at 03:04 Chief Complaint: Coffee Ground Emisis Primary Care Physician: Cuate Keller M.D. 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 The patient has expressive aphasia and nods yes or no to questions. She appears to be in pain and has bright red bleeding via PEG tube. Past Medical/Surgical History Medical Problems: (1) Abdominal pain Status: Resolved (2) Acute kidney injury Status: Resolved (3) Adult failure to thrive Status: Resolved (4) Anemia Status: Resolved (5) Aphasia following cerebral infarction Status: Chronic (6) Aspiration pneumonia due to gastric secretions Status: Resolved (7) Chronic kidney disease Status: Resolved (8) Chronic kidney disease, stage 3 Status: Chronic (9) Diab W Unspec Compl, Type Ii Or Unspec Type, Not Uncntrld Status: Chronic (10) Dysphagia following cerebral infarction Status: Resolved (11) Dysphagia, oropharyngeal phase Status: Resolved (12) Dysphagia, unspecified Status: Resolved (13) Expressive aphasia Status: Chronic (14) Gross hematuria Status: Resolved (15) Hemiparesis Status: Resolved (16) Hemiplegia Status: Resolved (17) Hypercalcemia Status: Resolved (18) Hypertension Nos Status: Chronic (19) Hypertensive chronic kidney disease Status: Chronic (20) intermediate (current) use of anticoagulants Status: Chronic (21) intermediate (current) use of insulin Status: Chronic (22) Lupus anticoagulant positive Status: Chronic (23) Lymphadenopathy Status: Chronic (24) Major depressive disorder Status: Chronic (25) Muscle weakness (generalized) Status: Resolved (26) Nausea and vomiting Status: Resolved (27) Other artificial openings of gastrointestinal tract status Status: Chronic (28) Pleural Effusion Nos Status: Resolved (29) Pressure ulcer of right buttock, stage 2 Status: Resolved (30) Sarcoidosis Status: Resolved (31) Splenomegaly Status: Resolved (32) Stroke Status: Resolved (33) Transaminasemia Status: Resolved Family History Diabetes mellitus Seizures Social History Smoking Status: Former Smoker Drug Use: none Marital Status: in relationship Housing status: other Occupational Status: unemployed, disabled Immunizations History of Influenza Vaccine: Unknown History of Tetanus Vaccine?: Unknown History of Pneumococcal: Unknown History of Hepatitis B Vaccine: Unknown Multi-Drug Resistant Organisms History of MDRO: No Allergies Coded Allergies: Ezetimibe (Verified Allergy, Intermediate, Vytorin - hives and N/V, ) Simvastatin (Verified Allergy, Intermediate, Vytorin - hives and N/V, ) Latex1 -Allergic Contact Dermititis (Verified Allergy, Unknown, RASH, BLISTERS, 05/05/16) Adhesives (Verified Adverse Reaction, Mild, Unknown Rxn, 05/05/16) Home Medications Scheduled Atenolol (Tenormin), 50 MG PEG QAM Atorvastatin (Lipitor), 20 MG PEG HS Cyanocobalamin (Vitamin B-12), 500 MCG PEG QAM Ergocalciferol (Calcidol), 6.25 ML PEG WK Fentanyl (Fentanyl), 12 MCG TD Q72H Folic Acid (Folvite), 1 MG PEG DAILY Insulin Aspart (Novolog Flexpen), UNITS SC QID Insulin Glargine (Lantus Solostar), 20 UNITS SC HS Insulin Isophane (Human) (Novolin N U-100), 10 UNITS SC QAM Ketoconazole (Nizoral), 200 MG PEG DAILY Metoclopramide HCl (Metoclopramide HCl), 5 ML PEG Q6 Nutritional Supplements (Vital 1.5 Jos), PEG UD Potassium Chloride (Potassium Chloride), 20 MEQ PEG QPM Prednisone (Prednisone), 5 MG PEG QAM Venlafaxine Hcl (Effexor), 75 MG PEG QAM Warfarin Sod (Jantoven), 5 MG PEG 5XWK Warfarin Sodium (Coumadin), 7.5 MG PEG TTH Scheduled PRN Meclizine Hcl (Meclizine Hcl), 25 MG PEG PRN/UD PRN for ONE HOUR PRIOR TO TRAVEL Oxycodone Ir (Roxicodone Ir), 5 MG PEG Q4H PRN for MOD PAIN Oxycodone Ir (Roxicodone Ir), 10 MG PO Q4H PRN for Severe Pain Promethazine Hcl (Phenergan), 25 MG PEG Q6H PRN for Nausea Review of Systems Unable to obtain as the patient has expressive aphasia but but she nods yes or no. When asked about pain she nodded yes and pointed to suprapubic area. Physical Exam Vital Signs Date Time Temp Pulse Resp B/P Pulse Ox O2 Delivery O2 Flow Rate FiO2 11/05/16 02:02 Nasal Cannula 2.0 11/05/16 01:50 107 22 99 11/05/16 01:40 107 22 100 11/05/16 01:31 110/92 11/05/16 01:30 108 24 99 11/05/16 01:27 141/86 11/05/16 01:20 111 21 100 11/05/16 01:01 152/91 11/05/16 01:00 113 24 96 11/05/16 00:50 112 21 95 11/05/16 00:45 112 24 96 11/05/16 00:43 90/40 11/05/16 00:35 113 22 97 11/05/16 00:25 109 27 98 11/05/16 00:15 113 25 93 11/05/16 00:05 114 27 92 11/04/16 23:55 112 25 93 11/04/16 23:45 109 23 93 11/04/16 23:35 109 26 93 11/04/16 23:25 110 26 93 11/04/16 23:20 110 11/04/16 23:19 37.2 112 18 95/73 95 Room Air 11/04/16 23:15 110 25 11/04/16 23:05 111 30 93 11/04/16 22:59 95/73 General Appearance: + mild distress Head: normocephalic Eyes: normal inspection ENT: hearing grossly normal, + pertinent finding (expressive aphasia) Respiratory/Chest: chest non-tender, lungs clear, normal breath sounds, no respiratory distress, no accessory muscle use Cardiovascular: regular rate, rhythm, + tachycardia Abdomen/GI: normal bowel sounds, soft, + tenderness (diffuse), + pertinent finding (PEG tube with tyler blood) Extremities/Musculoskelatal: no pedal edema Neurologic/Psych: alert, + aphasia, + motor weakness (right-sided hemiparesis) Diagnostics Laboratory Results Results Past 24 Hours Test 11/04/16 22:42 Range/Units White Blood Count 11.77 4.8-10.8 K/uL Red Blood Count 3.23 4.2-5.4 M/uL Hemoglobin 10.5 12.0-16.0 g/dL Hematocrit 32.7 37-47 % Mean Corpuscular Volume 101.2 80-100 fL Mean Corpuscular Hemoglobin 32.5 25-34 pg Mean Corpuscular Hemoglobin Concent 32.1 32-36 g/dl Platelet Count 214 130-400 K/uL Mean Platelet Volume 12.5 7.4-10.4 fL Neutrophils (%) (Auto) 88.8 % Lymphocytes (%) (Auto) 6.1 % Monocytes (%) (Auto) 3.6 % Eosinophils (%) (Auto) 0.8 % Basophils (%) (Auto) 0.3 % Neutrophils # (Auto) 10.45 1.4-6.5 K/uL Lymphocytes # (Auto) 0.72 1.2-3.4 K/uL Monocytes # (Auto) 0.42 0.11-0.59 K/uL Eosinophils # (Auto) 0.10 0-0.5 K/uL Basophils # (Auto) 0.03 0-0.2 K/uL RDW Standard Deviation 69.3 36.4-46.3 fL RDW Coefficient of Variation 18.4 11.5-14.5 % Immature Granulocyte % (Auto) 0.4 % Immature Granulocyte # (Auto) 0.05 0.00-0.02 K/uL Prothrombin Time 48.4 9.0-12.0 SECONDS Prothromb Time International Ratio 4.3 0.9-1.1 Activated Partial Thromboplast Time 50.0 21.0-31.0 SECONDS Partial Thromboplastin Ratio 1.9 Sodium Level 147 136-145 mmol/L Potassium Level 4.9 3.5-5.1 mmol/L Chloride Level 106 98-107 mmol/L Carbon Dioxide Level 33 21-32 mmol/L Anion Gap 8.0 3-11 mmol/L Blood Urea Nitrogen 90 7-18 mg/dl Creatinine 2.90 0.60-1.20 mg/dl Estimated GFR () 21.6 Estimated GFR (Non- 18.6 BUN/Creatinine Ratio 30.9 10-20 Random Glucose 205 70-99 mg/dl Calcium Level 11.9 8.5-10.1 mg/dl Magnesium Level 2.6 1.8-2.4 mg/dl Total Bilirubin 0.9 0.2-1 mg/dl Direct Bilirubin 0.6 0-0.2 mg/dl Aspartate Amino Transf (AST/SGOT) 55 15-37 U/L Alanine Aminotransferase (ALT/SGPT) 52 12-78 U/L Alkaline Phosphatase 704 45-117 U/L Total Protein 6.9 6.4-8.2 gm/dl Albumin 2.3 3.4-5.0 gm/dl Diagnostic Radiology [~ rep ct add3]] ABDOMEN AND PELVIS CT WITHOUT CONTRAST CT DOSE: 569.33 mGy.cm HISTORY: Obstruction. Emesis. GIB, SBO TECHNIQUE: Multiaxial CT images of the abdomen and pelvis were performed without contrast. COMPARISON STUDY: 08/21/2016 FINDINGS: Minimal interstitial change at both lung bases. Gastrostomy tube in good position. Bilateral renal nephrocalcinosis no evidence for obstruction. Cirrhotic liver morphology. Moderate stable splenomegaly. Mild esophageal wall thickening. Stable abdominal and pelvic constantino change. Nonobstructive bowel pattern. Multiple uterine myometrial calcifications. IMPRESSION: 1. Nonobstructive bowel pattern. 2. Hepatic cirrhosis. 3. Moderate splenomegaly. 4. 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 5. Multiple incidental findings unchanged in prior exam. 6. PEG tube in good position Electronically signed by: Marcus Davey M.D. 11/05/2016 6:53 AM [~ rep ct add3]] SINGLE VIEW CHEST CLINICAL HISTORY: GI bleeding. Vomiting. FINDINGS: An AP, portable, upright chest radiograph is compared to study dated 10/12/2016. The examination is significantly degraded by portable technique and patient rotation. The cardiomediastinal silhouette is unremarkable. There is elevation of the right hemidiaphragm. The lungs and pleural spaces are clear. No pneumothorax is seen. The bony thorax is grossly intact. IMPRESSION: No active disease in the chest. 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 GI bleeding: - CT abd/pelvis: 1. Nonobstructive bowel pattern. 2. Hepatic cirrhosis. 3. Moderate splenomegaly. 4. 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 5. Multiple incidental findings unchanged in prior exam. 6. PEG tube in good position - Coffee-ground emesis and tyler blood from PEG tube - Protonix bolus and drip - Octreotide drip - GI consult Acute blood loss anemia: secondary to GI bleed and supratherapeutic INR - Hemoglobin on arrival 10.5-->8.2 - Monitor H&H every 6 hours - Might require blood transfusion Supra therapeutic INR: INR on admission 4.3 - Received 5 mg of vitamin K - Repeat INR at 2.3 - Hold Coumadin , monitor INR. UTI: UA: Positive for moderate leuk esterase , 2+ occult blood, 2+ bacteria Urine culture pending Started on Rocephin EARL ON CKD -Baseline creatinine around 2 -Creatinine on admission 2.9 - Continue IV fluids, monitor creatinine and avoid nephrotoxins Hypercalcemia, history of sarcoidosis - Calcium at 11.9 - IV fluids, pamidronate 60 mg IV - Continue therapy per Rheum consult during last admission Elevated alkaline phosphatase: Likely secondary to sarcoidosis History of stroke with right hemiparesis - H/O of Homocystinemia and Lupus anticoagulant - c/w Atorvastatin 20mg daily via PEG. Dysphagia - Peg tube in place -Hold feeds due to GI bleed Type 2 diabetes: - Insulin sliding-scale DVT prophylaxis: SCDs Avoid chemical anti-coagulation DO NOT RESUSCITATE Disposition: Admitted to telemetry, monitor H&H, INR Level of Care Telemetry Resuscitation Status DO NOT RESUSCITATE VTE Prophylaxis VTE Risk Assessment Done? Y/N: Yes Risk Level: Moderate Given or contraindicated: SCD's Resident Tracking Resident Involvement: Resident Care Provided Care Provided: Adult Hospital Medicine Assessment and Plan Attending Addendum: I have physically seen and examined this patient, have directed their medical care, have supervised the medical residents activities, and agree with the H&P as noted above, with the following changes: NONE
[2016-11-05] MEDS ORDERED: OCTREOTIDE IV BOLUS & DRIP IV STA (03:12)
[2016-11-05] MEDS ORDERED: OCTREOTIDE ACETATE INJ 100 MCG in SYRINGE 9 ML IV STA (03:17)
[2016-11-05 03:26] LABS: HEMATOCRIT 25.8 % (37-47)
[2016-11-05] MEDS ORDERED: OCTREOTIDE ACETATE INJ 500 MCG in NSS 100ML IV SCH (03:30)
[2016-11-05 03:36] LABS: INR 2.3 (0.9-1.1); PARTIAL THROMBOPLASTIN RATIO 1.5; PROTHROMBIN TIME (PATIENT) 25.3 SECONDS (9.0-12.0)
[2016-11-05 04:24] LABS: URINE APPEARANCE TURBID (CLEAR); URINE BILIRUBIN NEG (NEG); URINE COLOR DK YELLOW; URINE EPITHELIAL CELL AUTO 20-30 /lpf (0-5); URINE NITRITE NEG (NEG); URINE SPECIFIC GRAVITY 1.014 (1.000-1.030); UROBILINOGEN NEG (NEG); ZZURINE CULT IF INDIC CATH YES
[2016-11-05 04:27] LABS: MANUAL MICROSCOPIC REQUIRED? NO; REVIEW REQ? NO
[2016-11-05 05:15] VITALS: BP 105/84; PULSE 101; TEMP 37.4; O2SAT 94; Ht 162.6 cm; Wt 70.5 kg
[2016-11-05] MEDS: SODIUM CHLORIDE 0.45% 1000ML 1,000 ML IV SCH ×2 (06:03→16:18)
[2016-11-05] MEDS: PANTOprazole INJ 40 MG in DEXTROSE 5% 100ML IV SCH ×4 (06:04→20:56)
[2016-11-05] MEDS ORDERED: PAMIDRONATE DISODIUM IV INJ 60 MG in SODIUM CHLORIDE 0.9% 1000ML 1,000 ML IV SCH (06:30)
[2016-11-05] MEDS ORDERED: PHARMACY GLYCEMIC MGMT CONSULT PRN (06:49)
--- NOTE | 2016-11-05 06:55 | DIAGNOSTIC IMAGING REPORT ---
ABDOMEN AND PELVIS CT WITHOUT CONTRAST CT DOSE: 569.33 mGy.cm HISTORY: Obstruction. Emesis. GIB, SBO TECHNIQUE: Multiaxial CT images of the abdomen and pelvis were performed without contrast. COMPARISON STUDY: 08/21/2016 FINDINGS: Minimal interstitial change at both lung bases. Gastrostomy tube in good position. Bilateral renal nephrocalcinosis no evidence for obstruction. Cirrhotic liver morphology. Moderate stable splenomegaly. Mild esophageal wall thickening. Stable abdominal and pelvic constantino change. Nonobstructive bowel pattern. Multiple uterine myometrial calcifications. IMPRESSION: 1. Nonobstructive bowel pattern. 2. Hepatic cirrhosis. 3. Moderate splenomegaly. 4. 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 5. Multiple incidental findings unchanged in prior exam. 6. PEG tube in good position Electronically signed by: Marcus Davey M.D. 11/05/2016 6:53 AM Dictated Date/Time: 11/05/2016 6:50 AM
[2016-11-05 07:03] LABS: HEMATOCRIT 28.6 % (37-47); MEAN CELL VOLUME 101.4 fL (80-100); MEAN CORPUSCULAR HEMOGLOBIN 32.3 pg (25-34); MEAN CORPUSCULAR HGB CONC 31.8 g/dl (32-36); MEAN PLATELET VOLUME 11.1 fL (7.4-10.4); PLATELET COUNT 146 K/uL (130-400); RED BLOOD COUNT 2.82 M/uL (4.2-5.4); WHITE BLOOD COUNT 13.01 K/uL (4.8-10.8)
[2016-11-05 07:10] LABS: INR 1.7 (0.9-1.1); PROTHROMBIN TIME (PATIENT) 18.4 SECONDS (9.0-12.0)
[2016-11-05 07:28] LABS: BASO % 0.2 %; BASO ABS # 0.03 K/uL (0-0.2); COMPLETE YES; EOS % 0.2 %; IG% 0.3 %; LYMPH % 5.8 %; LYMPH ABS # 0.75 K/uL (1.2-3.4); MONO % 5.4 %; NEUT % 88.1 %
[2016-11-05] MEDS ORDERED: GLUCOSE 10 TABS/TUBE PO PRN (07:30)
[2016-11-05] MEDS ORDERED: GLUCAGON FOR INJ 1 MG VIAL SQ PRN (07:30)
[2016-11-05] MEDS ORDERED: DEXTROSE 50% 50 ML SYR IV PRN (07:30)
[2016-11-05] MEDS ORDERED: GLUCOSE 40% GEL 15 GM TUBE PO PRN (07:30)
[2016-11-05 07:46] LABS: BUN/CREATININE RATIO 28.4 (10-20); CREATININE 2.9 mg/dl (0.60-1.20); POTASSIUM 4.8 mmol/L (3.5-5.1)
[2016-11-05 07:47] LABS: ALB/GLOB RATIO 0.5 (0.9-2)
[2016-11-05] MEDS: CEFTRIAXONE SOD INJ 1 GM in DEXTROSE 5% ADD-VANTAGE 50ML 50 ML IV SCH (07:51)
--- NOTE | 2016-11-05 07:51 | DIAGNOSTIC IMAGING REPORT ---
SINGLE VIEW CHEST CLINICAL HISTORY: GI bleeding. Vomiting. FINDINGS: An AP, portable, upright chest radiograph is compared to study dated 10/12/2016. The examination is significantly degraded by portable technique and patient rotation. The cardiomediastinal silhouette is unremarkable. There is elevation of the right hemidiaphragm. The lungs and pleural spaces are clear. No pneumothorax is seen. The bony thorax is grossly intact. IMPRESSION: No active disease in the chest. Electronically signed by: Tex Rosales M.D. 11/05/2016 7:48 AM Dictated Date/Time: 11/05/2016 7:48 AM
[2016-11-05 07:54] VITALS: BP 96/57; PULSE 89; TEMP 36.6; O2SAT 95
[2016-11-05] MEDS: FENTANYL 12 MCG/HR TDSY TD SCH (07:59)
[2016-11-05] MEDS: CHECK FENTANYL PATCH PLACEMENT SCH ×3 (07:59→23:59)
--- NOTE | 2016-11-05 08:13 | Family Medicine Progress Note ---
Progress Note Date of Service Nov 05, 2016. Subjective Pt evaluation today including: conversation w/ patient, physical exam, chart review, lab review, review of studies Patient indicates that she is having diffuse abdominal pain, and it seems to have started acutely yesterday, as she denies having abdominal discomfort the day prior. She otherwise denies chest pain, SOB, lightheadedness, headaches. She indicates that she was not told that she had blood in either her urine or stool in [place], although nursing staff here mentioned her one large stool here was possibly melena. Constitutional: No fever, No sweats Respiratory: No cough, No shortness of breath Cardiovascular: No chest pain, No palpitations Abdomen: + GI bleeding, + nausea, + pain, No vomiting Objective Vital Signs Date Time Temp Pulse Resp B/P Pulse Ox O2 Delivery O2 Flow Rate FiO2 11/05/16 07:54 36.6 89 22 96/57 95 Room Air 11/05/16 05:15 37.4 101 20 105/84 94 Room Air 11/05/16 04:44 130/50 11/05/16 04:36 101 26 95 11/05/16 04:06 104 24 93 11/05/16 04:00 103/55 11/05/16 03:47 37.7 104 26 130/45 93 Room Air 11/05/16 03:38 130/45 11/05/16 03:36 107 26 11/05/16 03:06 105 20 94 11/05/16 03:01 141/54 11/05/16 02:55 107 19 94 11/05/16 02:40 107 24 93 11/05/16 02:31 124/55 11/05/16 02:25 105 24 95 11/05/16 02:10 107 22 98 11/05/16 02:02 Nasal Cannula 2.0 11/05/16 02:00 123/55 11/05/16 01:55 108 25 99 11/05/16 01:50 107 22 99 11/05/16 01:40 107 22 100 11/05/16 01:31 110/92 11/05/16 01:30 108 24 99 11/05/16 01:27 141/86 11/05/16 01:20 111 21 100 11/05/16 01:01 152/91 11/05/16 01:00 113 24 96 11/05/16 00:50 112 21 95 11/05/16 00:45 112 24 96 11/05/16 00:43 90/40 11/05/16 00:35 113 22 97 11/05/16 00:25 109 27 98 11/05/16 00:15 113 25 93 11/05/16 00:05 114 27 92 11/04/16 23:55 112 25 93 11/04/16 23:45 109 23 93 11/04/16 23:35 109 26 93 11/04/16 23:25 110 26 93 11/04/16 23:20 110 11/04/16 23:19 37.2 112 18 95/73 95 Room Air 11/04/16 23:15 110 25 11/04/16 23:05 111 30 93 11/04/16 22:59 95/73 Physical Exam General Appearance: WD/WN, + moderate distress Eyes: normal inspection ENT: hearing grossly normal Neck: supple Respiratory/Chest: lungs clear, normal breath sounds, no respiratory distress, no accessory muscle use Cardiovascular: regular rate, rhythm, no murmur Abdomen: normal bowel sounds, soft, + tenderness (diffuse) Extremities: normal inspection, no pedal edema, no calf tenderness Neurologic/Psychiatric: alert, oriented x 3, + aphasia, + motor weakness ( right hemiparesis) Skin: normal color, warm/dry, no rash Laboratory Results Results Past 24 Hours Test 11/04/16 22:42 11/05/16 03:15 11/05/16 03:30 11/05/16 06:47 Range/Units White Blood Count 11.77 4.8-10.8 K/uL Red Blood Count 3.23 4.2-5.4 M/uL Hemoglobin 10.5 8.2 12.0-16.0 g/dL Hematocrit 32.7 25.8 37-47 % Mean Corpuscular Volume 101.2 80-100 fL Mean Corpuscular Hemoglobin 32.5 25-34 pg Mean Corpuscular Hemoglobin Concent 32.1 32-36 g/dl Platelet Count 214 130-400 K/uL Mean Platelet Volume 12.5 7.4-10.4 fL Neutrophils (%) (Auto) 88.8 % Lymphocytes (%) (Auto) 6.1 % Monocytes (%) (Auto) 3.6 % Eosinophils (%) (Auto) 0.8 % Basophils (%) (Auto) 0.3 % Neutrophils # (Auto) 10.45 1.4-6.5 K/uL Lymphocytes # (Auto) 0.72 1.2-3.4 K/uL Monocytes # (Auto) 0.42 0.11-0.59 K/uL Eosinophils # (Auto) 0.10 0-0.5 K/uL Basophils # (Auto) 0.03 0-0.2 K/uL RDW Standard Deviation 69.3 36.4-46.3 fL RDW Coefficient of Variation 18.4 11.5-14.5 % Immature Granulocyte % (Auto) 0.4 % Immature Granulocyte # (Auto) 0.05 0.00-0.02 K/uL Prothrombin Time 48.4 25.3 9.0-12.0 SECONDS Prothromb Time International Ratio 4.3 2.3 0.9-1.1 Activated Partial Thromboplast Time 50.0 37.9 21.0-31.0 SECONDS Partial Thromboplastin Ratio 1.9 1.5 Sodium Level 147 136-145 mmol/L Potassium Level 4.9 3.5-5.1 mmol/L Chloride Level 106 98-107 mmol/L Carbon Dioxide Level 33 21-32 mmol/L Anion Gap 8.0 3-11 mmol/L Blood Urea Nitrogen 90 7-18 mg/dl Creatinine 2.90 0.60-1.20 mg/dl Estimated GFR () 21.6 Estimated GFR (Non- 18.6 BUN/Creatinine Ratio 30.9 10-20 Random Glucose 205 70-99 mg/dl Calcium Level 11.9 8.5-10.1 mg/dl Magnesium Level 2.6 1.8-2.4 mg/dl Total Bilirubin 0.9 0.2-1 mg/dl Direct Bilirubin 0.6 0-0.2 mg/dl Aspartate Amino Transf (AST/SGOT) 55 15-37 U/L Alanine Aminotransferase (ALT/SGPT) 52 12-78 U/L Alkaline Phosphatase 704 45-117 U/L Total Protein 6.9 6.4-8.2 gm/dl Albumin 2.3 3.4-5.0 gm/dl Urine Color DK YELLOW Urine Appearance TURBID CLEAR Urine pH 5.0 4.5-7.5 Urine Specific [place] 1.014 1.000-1.030 Urine Protein 1+ NEG Urine Glucose (UA) TRACE NEG Urine Ketones NEG NEG Urine Occult Blood 3+ NEG Urine Nitrite NEG NEG Urine Bilirubin NEG NEG Urine Urobilinogen NEG NEG Urine Leukocyte Esterase MODERATE NEG Urine WBC (Auto) 10-30 0-5 /hpf Urine RBC (Auto) >30 0-4 /hpf Urine Hyaline Casts (Auto) 1-5 0-5 /lpf Urine Epithelial Cells (Auto) 20-30 0-5 /lpf Urine Bacteria (Auto) 2+ NEG Bedside Glucose 143 70-90 mg/dl Test 11/05/16 06:58 11/05/16 11:10 11/05/16 11:45 11/05/16 16:05 Range/Units White Blood Count 13.01 4.8-10.8 K/uL Red Blood Count 2.82 4.2-5.4 M/uL Hemoglobin 9.1 8.2 8.7 12.0-16.0 g/dL Hematocrit 28.6 26.3 28.2 37-47 % Mean Corpuscular Volume 101.4 80-100 fL Mean Corpuscular Hemoglobin 32.3 25-34 pg Mean Corpuscular Hemoglobin Concent 31.8 32-36 g/dl Platelet Count 146 130-400 K/uL Mean Platelet Volume 11.1 7.4-10.4 fL Neutrophils (%) (Auto) 88.1 % Lymphocytes (%) (Auto) 5.8 % Monocytes (%) (Auto) 5.4 % Eosinophils (%) (Auto) 0.2 % Basophils (%) (Auto) 0.2 % Neutrophils # (Auto) 11.46 1.4-6.5 K/uL Lymphocytes # (Auto) 0.75 1.2-3.4 K/uL Monocytes # (Auto) 0.70 0.11-0.59 K/uL Eosinophils # (Auto) 0.03 0-0.5 K/uL Basophils # (Auto) 0.03 0-0.2 K/uL RDW Standard Deviation 69.7 36.4-46.3 fL RDW Coefficient of Variation 18.4 11.5-14.5 % Immature Granulocyte % (Auto) 0.3 % Immature Granulocyte # (Auto) 0.04 0.00-0.02 K/uL Red Blood Cell Morphology Unremarkable Prothrombin Time 18.4 16.2 9.0-12.0 SECONDS Prothromb Time International Ratio 1.7 1.5 0.9-1.1 Sodium Level 147 148 136-145 mmol/L Potassium Level 4.8 4.8 3.5-5.1 mmol/L Chloride Level 109 112 98-107 mmol/L Carbon Dioxide Level 29 28 21-32 mmol/L Anion Gap 9.0 8.0 3-11 mmol/L Blood Urea Nitrogen 82 82 7-18 mg/dl Creatinine 2.90 2.80 0.60-1.20 mg/dl Est Creatinine Clear Calc Drug Dose 23.2 24.0 ml/min Estimated GFR () 21.6 22.5 Estimated GFR (Non- 18.6 19.4 BUN/Creatinine Ratio 28.4 29.3 10-20 Random Glucose 141 159 70-99 mg/dl Calcium Level 11.0 10.2 8.5-10.1 mg/dl Total Bilirubin 1.1 0.2-1 mg/dl Aspartate Amino Transf (AST/SGOT) 41 15-37 U/L Alanine Aminotransferase (ALT/SGPT) 44 12-78 U/L Alkaline Phosphatase 588 45-117 U/L Total Protein 6.4 6.4-8.2 gm/dl Albumin 2.2 3.4-5.0 gm/dl Globulin 4.2 2.5-4.0 gm/dl Albumin/Globulin Ratio 0.5 0.9-2 Bedside Glucose 151 70-90 mg/dl Microbiology Results 11/05/16 MRSA DNA Surveillance Screen - Final, Complete Specimen Negative for MRSA by DNA Probe 11/05/16 Urine Culture, Received Pending Assessment and Plan 45-year-old female with a 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 GI bleeding - CT abdo/pelvis showed no acute pathology. GI consulted - recs appreciated. Octreotide drip discontinued, in view of stable H/H - NPO/no feeds via PEG - Continue Protonix drip - Pain management Anemia - secondary to GI bleed. Repeat H/H q6h showed stable values. - Trend H/H daily, or sooner if clinically indicated (symptoms/further GI bleed) - Consider need for blood transfusion Supra therapeutic INR - INR 4.3 on admission. Given vitamin K, with subsequent improvements in INR - Hold warfarin, trend INR - May need endoscopy to assess safety in restarting warfarin UTI - UA positive for leuk esterase, occult blood and bacteria. Urine culture pending. - Continue Rocephin (day 1) EARL ON CKD - Baseline creatinine ~2, creatinine on admission 2.9 - Continue IV fluids - Avoid nephrotoxins - Monitor BMP Hypercalcemia, history of sarcoidosis - Given 1 dose pamidronate - Continue IV fluids - Continue therapy per Rheum consult during last admission Elevated alkaline phosphatase - Likely secondary to sarcoidosis History of stroke with right hemiparesis - H/O of Homocystinemia and Lupus anticoagulant - Atorvastatin 20mg daily via PEG. Dysphagia - Peg tube in place - Hold feeds due to GI bleed Type 2 diabetes - Insulin sliding-scale DVT prophylaxis - SCDs - Avoid chemical anti-coagulation Code status: DO NOT RESUSCITATE Resident Physician Supervision Note: I interviewed and examined the patient. Discussed with Dr. Cage and agree with findings and plan as documented in the note. Any exceptions or clarifications are listed here: None Documented By: Ladarius Bruno ongoing upper abdominal pain. no further bleeding. did have large loose suzie colored stool ros otherwise negative except for as above as best can be ascertained vitals noted, see EMR, appearing in mild pain (pain meds then given stat by nursing) no diaphoresis. epigastric tenderness without guarding or rebound UGI bleed w acute blood loss anemia - stabilizing with reversal of coumadin. continue protonix, trend Hgb. hemodynamically stable and has 2 IVs. anticipate scope in near future to help risk stratify being able to resume coumadin Continued [facility] stay due to: multiple IV medications needed Discharge planning: custodial facility Resident Tracking Resident Involvement: Resident Care Provided Care Provided: Adult Hospital Medicine
[2016-11-05] MEDS: MoRPHine SULFATE 2 MG/ML CARP IV PRN (08:48)
--- NOTE | 2016-11-05 10:09 | Gastrointestinal Consultation ---
Gastrointestinal Consultation Date of Consultation: Nov 05, 2016 Attending Physician: Dr. Farmer Consulting Physician: Dr. Salinas/WILLA Gardner Reason for Consultation: Bleeding from PEG site History of Present Illness Patient is a 45 year old female with a history of embolic CVA in 2016 with right hemiparesis resulting in dysphagia and aphasia status post PEG tube placement by Dr. Salinas. Patient was brought to the ER from [facility] due to reports of coffee-ground emesis approximately 5 hours prior to arrival. Patient' s baseline hemoglobin is approximately 9. On arrival, she was noted to have an H &H of 10.5 and 32.7 which dropped to 8.2 and 25.8. She did have a supratherapeutic INR of 4.3 upon arrival which has been in the process of being reversed and most recent INR was noted to be 1.7. She has been placed on a PPI ggt. The most recent H&H was 9.1 and 28.6. The patient is only able to provide minimal history to questions about symptoms via head movements. She denies any recent vomiting but has some nausea. She confirms abdominal pain around the PEG site. 2 units of PRBCs are ordered and are pending. Past Medical/Surgical History Medical Problems: (1) Acute on chronic renal insufficiency Status: Acute (2) Altered mental status Status: Acute (3) Closed head injury Status: Acute (4) Contusion of multiple sites Status: Acute (5) Contusion of right leg Status: Acute (6) Dehydration Status: Acute (7) Elevated alkaline phosphatase level Status: Acute (8) Fall Status: Acute (9) Fever Status: Acute (10) Hyperkalemia Status: Acute (11) Nausea Status: Acute (12) Sepsis due to urinary tract infection Status: Acute (13) UTI (urinary tract infection) Status: Acute (14) Vomiting Status: Acute Past Surgical History: PEG tube placement Family History Diabetes mellitus Seizures Unable to obtain from patient as she is nonverbal Social History Smoking Status: Former Smoker Alcohol Use: none Drug Use: none Marital Status: in relationship Housing Status: lives with significant other Occupation Status: disabled Allergies Coded Allergies: Ezetimibe (Verified Allergy, Intermediate, Vytorin - hives and N/V, ) Simvastatin (Verified Allergy, Intermediate, Vytorin - hives and N/V, ) Latex1 -Allergic Contact Dermititis (Verified Allergy, Unknown, RASH, BLISTERS, 05/05/16) Adhesives (Verified Adverse Reaction, Mild, Unknown Rxn, 05/05/16) Current Medications Home Meds and Scripts Medications Dose Route/Sig Max Daily Dose Days Date Category Dose Instructions Meclizine Hcl 25 Mg Tab 25 Mg PEG PRN/UD PRN 11/05/16 Reported Roxicodone Ir (Oxycodone HCl) 5 Mg Tab 10 Mg PO Q4H PRN 11/05/16 Reported Roxicodone Ir (Oxycodone HCl) 5 Mg Tab 5 Mg PEG Q4H PRN 11/05/16 Reported Phenergan (Promethazine HCl) 25 Mg Tab 25 Mg PEG Q6H PRN 11/05/16 Reported Vital 1.5 Jos (Nutritional Supplements) 1 Liq Liq PEG UD 11/05/16 Reported 75ML/HR VIA PEG TUBE UNTIL 1080ML INFUSED Fentanyl 12 Mcg Tdsy 12 Mcg TD Q72H 11/05/16 Reported Nizoral (Ketoconazole) 200 Mg Tab 200 Mg PEG DAILY 11/05/16 Reported Prednisone 5 Mg Tab 5 Mg PEG QAM 10/28/16 Reported Metoclopramide HCl 5 Mg/Ml Inj 5 Ml PEG Q6 10/28/16 Reported Jantoven (Warfarin Sodium) 5 Mg Tab 5 Mg PEG 5XWK 10/12/16 Reported EXCEPT WEDNESDAY AND WEDNESDAY Coumadin (Warfarin Sodium) 7.5 Mg Tab 7.5 Mg PEG TTH 10/12/16 Reported Vitamin B-12 (Cyanocobalamin) 500 Mcg Be 500 Mcg PEG QAM 10/12/16 Reported Effexor (Venlafaxine Hcl) 75 Mg Tab 75 Mg PEG QAM 10/12/16 Reported Novolog Flexpen (Insulin Aspart) 100 Units/Ml Inj Units SC QID 10/12/16 Reported 131-180= 2 UNITS 181-240= 4 UNITS 241-300= 6 UNITS 301-350= 8 UNITS 351-400= 10 UNITS GREATED THAN 400= 12 UNITS AND CALL MD Alfonso Rain U-100 (Insulin Isophane (Human)) 100 Unit/Ml Inj 10 Units SC QAM 10/12/16 Reported Lantus Solostar (Insulin Glargine) 100 Unit/Ml Inj 20 Units SC HS 10/12/16 Reported Potassium Chloride 20 Meq/100 Ml Inj 20 Meq PEG QPM 10/12/16 Reported DILUTE WITH 90-120ML WATER/JUICE Folvite (Folic Acid) 1 Mg Tab 1 Mg PEG DAILY 10/12/16 Reported Calcidol (Ergocalciferol) 8,000 Unit/Ml Neto 6.25 Ml PEG WK 10/12/16 Reported MONDAYS Lipitor (Atorvastatin Calcium) 20 Mg Tab 20 Mg PEG HS 10/12/16 Reported Tenormin (Atenolol) 50 Mg Tab 50 Mg PEG QAM 10/12/16 Reported Review of Systems unable to obtain as the patient is nonverbal Physical Exam Date Time Temp Pulse Resp B/P Pulse Ox O2 Delivery O2 Flow Rate FiO2 11/05/16 07:54 36.6 89 22 96/57 95 Room Air 11/05/16 05:15 37.4 101 20 105/84 94 Room Air 11/05/16 04:44 130/50 11/05/16 04:36 101 26 95 11/05/16 04:06 104 24 93 11/05/16 04:00 103/55 11/05/16 03:47 37.7 104 26 130/45 93 Room Air 11/05/16 03:38 130/45 11/05/16 03:36 107 26 11/05/16 03:06 105 20 94 11/05/16 03:01 141/54 11/05/16 02:55 107 19 94 11/05/16 02:40 107 24 93 11/05/16 02:31 124/55 11/05/16 02:25 105 24 95 11/05/16 02:10 107 22 98 11/05/16 02:02 Nasal Cannula 2.0 11/05/16 02:00 123/55 11/05/16 01:55 108 25 99 11/05/16 01:50 107 22 99 11/05/16 01:40 107 22 100 11/05/16 01:31 110/92 11/05/16 01:30 108 24 99 11/05/16 01:27 141/86 11/05/16 01:20 111 21 100 11/05/16 01:01 152/91 11/05/16 01:00 113 24 96 11/05/16 00:50 112 21 95 11/05/16 00:45 112 24 96 11/05/16 00:43 90/40 11/05/16 00:35 113 22 97 11/05/16 00:25 109 27 98 11/05/16 00:15 113 25 93 11/05/16 00:05 114 27 92 11/04/16 23:55 112 25 93 11/04/16 23:45 109 23 93 11/04/16 23:35 109 26 93 11/04/16 23:25 110 26 93 11/04/16 23:20 110 11/04/16 23:19 37.2 112 18 95/73 95 Room Air 11/04/16 23:15 110 25 11/04/16 23:05 111 30 93 11/04/16 22:59 95/73 General Appearance: no apparent distress Eyes: EOMI Respiratory/Chest: lungs clear, normal breath sounds, no respiratory distress Cardiovascular: regular rate, rhythm, no gallop, no murmur Abdomen: normal bowel sounds, soft, + tenderness (epigastric and LUQ), + pertinent finding (PEG tube intact within the LUQ. Unable to determine skin line placement as markings are eroded. Old blood noted at fistulous tract. Several pieces of gauze under bumper.) Extremities: no pedal edema Neurologic/Psych: alert, normal mood/affect Skin: warm/dry Laboratory Results Last 24 Hours Test 11/04/16 22:42 11/05/16 03:15 11/05/16 03:30 11/05/16 06:47 White Blood Count 11.77 K/uL Red Blood Count 3.23 M/uL Hemoglobin 10.5 g/dL 8.2 g/dL Hematocrit 32.7 % 25.8 % Mean Corpuscular Volume 101.2 fL Mean Corpuscular Hemoglobin 32.5 pg Mean Corpuscular Hemoglobin Concent 32.1 g/dl Platelet Count 214 K/uL Mean Platelet Volume 12.5 fL Neutrophils (%) (Auto) 88.8 % Lymphocytes (%) (Auto) 6.1 % Monocytes (%) (Auto) 3.6 % Eosinophils (%) (Auto) 0.8 % Basophils (%) (Auto) 0.3 % Neutrophils # (Auto) 10.45 K/uL Lymphocytes # (Auto) 0.72 K/uL Monocytes # (Auto) 0.42 K/uL Eosinophils # (Auto) 0.10 K/uL Basophils # (Auto) 0.03 K/uL RDW Standard Deviation 69.3 fL RDW Coefficient of Variation 18.4 % Immature Granulocyte % (Auto) 0.4 % Immature Granulocyte # (Auto) 0.05 K/uL Prothrombin Time 48.4 SECONDS 25.3 SECONDS Prothromb Time International Ratio 4.3 2.3 Activated Partial Thromboplast Time 50.0 SECONDS 37.9 SECONDS Partial Thromboplastin Ratio 1.9 1.5 Sodium Level 147 mmol/L Potassium Level 4.9 mmol/L Chloride Level 106 mmol/L Carbon Dioxide Level 33 mmol/L Anion Gap 8.0 mmol/L Blood Urea Nitrogen 90 mg/dl Creatinine 2.90 mg/dl Estimated GFR () 21.6 Estimated GFR (Non- 18.6 BUN/Creatinine Ratio 30.9 Random Glucose 205 mg/dl Calcium Level 11.9 mg/dl Magnesium Level 2.6 mg/dl Total Bilirubin 0.9 mg/dl Direct Bilirubin 0.6 mg/dl Aspartate Amino Transf (AST/SGOT) 55 U/L Alanine Aminotransferase (ALT/SGPT) 52 U/L Alkaline Phosphatase 704 U/L Total Protein 6.9 gm/dl Albumin 2.3 gm/dl Urine Color DK YELLOW Urine Appearance TURBID Urine pH 5.0 Urine Specific [place] 1.014 Urine Protein 1+ Urine Glucose (UA) TRACE Urine Ketones NEG Urine Occult Blood 3+ Urine Nitrite NEG Urine Bilirubin NEG Urine Urobilinogen NEG Urine Leukocyte Esterase MODERATE Urine WBC (Auto) 10-30 /hpf Urine RBC (Auto) >30 /hpf Urine Hyaline Casts (Auto) 1-5 /lpf Urine Epithelial Cells (Auto) 20-30 /lpf Urine Bacteria (Auto) 2+ Bedside Glucose 143 mg/dl Test 11/05/16 06:58 11/05/16 09:00 White Blood Count 13.01 K/uL Red Blood Count 2.82 M/uL Hemoglobin 9.1 g/dL Hematocrit 28.6 % Mean Corpuscular Volume 101.4 fL Mean Corpuscular Hemoglobin 32.3 pg Mean Corpuscular Hemoglobin Concent 31.8 g/dl Platelet Count 146 K/uL Mean Platelet Volume 11.1 fL Neutrophils (%) (Auto) 88.1 % Lymphocytes (%) (Auto) 5.8 % Monocytes (%) (Auto) 5.4 % Eosinophils (%) (Auto) 0.2 % Basophils (%) (Auto) 0.2 % Neutrophils # (Auto) 11.46 K/uL Lymphocytes # (Auto) 0.75 K/uL Monocytes # (Auto) 0.70 K/uL Eosinophils # (Auto) 0.03 K/uL Basophils # (Auto) 0.03 K/uL RDW Standard Deviation 69.7 fL RDW Coefficient of Variation 18.4 % Immature Granulocyte % (Auto) 0.3 % Immature Granulocyte # (Auto) 0.04 K/uL Red Blood Cell Morphology Unremarkable Prothrombin Time 18.4 SECONDS Prothromb Time International Ratio 1.7 Sodium Level 147 mmol/L Potassium Level 4.8 mmol/L Chloride Level 109 mmol/L Carbon Dioxide Level 29 mmol/L Anion Gap 9.0 mmol/L Blood Urea Nitrogen 82 mg/dl Creatinine 2.90 mg/dl Est Creatinine Clear Calc Drug Dose 23.2 ml/min Estimated GFR () 21.6 Estimated GFR (Non- 18.6 BUN/Creatinine Ratio 28.4 Random Glucose 141 mg/dl Calcium Level 11.0 mg/dl Total Bilirubin 1.1 mg/dl Aspartate Amino Transf (AST/SGOT) 41 U/L Alanine Aminotransferase (ALT/SGPT) 44 U/L Alkaline Phosphatase 588 U/L Total Protein 6.4 gm/dl Albumin 2.2 gm/dl Globulin 4.2 gm/dl Albumin/Globulin Ratio 0.5 Impression Patient is a 45 year old female with history of embolic CVA with dysphagia and aphasia status post PEG tube placement admitted with coffee-ground emesis and bleeding from PEG site in the setting of supratherapeutic INR of 4.3. Plan 1. Agree with INR reversal and blood transfusion as ordered. 2. Gastrografin PEG tube check to ensure intact placement. I did discuss with nursing about the finding of gauze under PEG bumper which can contribute to bleeding, buried bumper syndrome, PEG displacement and gastric ulcerations. 3. Continue IV Protonix ggt as ordered. If no further bleeding, could transition to Protonix 40 mg IV BID. 4. Additional recommendations pending results of testing. Thank you for allowing us to participate in the care of this pleasant patient. If you have any questions or concerns, please do not hesitate to contact us. Agree with WILLA Gardner as above Abd: Soft, NT, ND, +BS Continue current therapy No plans for invasive workup at this time.
--- NOTE | 2016-11-05 10:26 | Pharmacy Progress Note ---
Glycemic Control Intl Consult Date of Service Nov 05, 2016. Scope Glycemic Pharmacist consulted by Dr Farmer on 11/05/16 for glycemic control and to write orders per [facility] inpatient glycemic control protocol Objective Weight (Kilograms): 69.200 Accuchecks BSG (last 24hrs): Test 11/04/16 22:42 11/05/16 06:47 11/05/16 06:58 11/05/16 09:00 Random Glucose 205 mg/dl (70-99) 141 mg/dl (70-99) Bedside Glucose 143 mg/dl (70-90) Laboratory Data (last 24hrs) Test 11/04/16 22:42 11/05/16 06:58 11/05/16 09:00 Anion Gap 8.0 mmol/L 9.0 mmol/L BUN/Creatinine Ratio 30.9 28.4 Blood Urea Nitrogen 90 mg/dl 82 mg/dl Creatinine 2.90 mg/dl 2.90 mg/dl Potassium Level 4.9 mmol/L 4.8 mmol/L Sodium Level 147 mmol/L 147 mmol/L White Blood Count 11.77 K/uL 13.01 K/uL Red Blood Count 3.23 M/uL 2.82 M/uL Hemoglobin 10.5 g/dL 9.1 g/dL Hematocrit 32.7 % 28.6 % Mean Corpuscular Volume 101.2 fL 101.4 fL Mean Corpuscular Hemoglobin 32.5 pg 32.3 pg Mean Corpuscular Hemoglobin Concent 32.1 g/dl 31.8 g/dl Platelet Count 214 K/uL 146 K/uL Mean Platelet Volume 12.5 fL 11.1 fL Neutrophils (%) (Auto) 88.8 % 88.1 % Lymphocytes (%) (Auto) 6.1 % 5.8 % Monocytes (%) (Auto) 3.6 % 5.4 % Eosinophils (%) (Auto) 0.8 % 0.2 % Basophils (%) (Auto) 0.3 % 0.2 % Neutrophils # (Auto) 10.45 K/uL 11.46 K/uL Lymphocytes # (Auto) 0.72 K/uL 0.75 K/uL Monocytes # (Auto) 0.42 K/uL 0.70 K/uL Eosinophils # (Auto) 0.10 K/uL 0.03 K/uL Basophils # (Auto) 0.03 K/uL 0.03 K/uL Recent Pertinent Medications Outpatient Anti-diabetic Regimen: * NovoLog * 2-12 units SQ QID * Lantus * 20 units SQ q PM * NPH * 10 units SQ q AM * TUBE FEEDS OUTPATIENT * A1c outdated on admission Risk Factors for Insulin Resistance: * Infection: UTI, ceftriaxone IV, day #1 * Pressors: n/a * IVF: 1/2 NSS, pantoprazole gtt, octreotide gtt, pamidronate gtt * Diet: NPO (tube feeds being held secondary to GI bleed) Assessment & Plan ASSESSMENT: * ADA & AACE recommend a goal blood sugar range 140-180 mg/dl for the majority of critically ill & non-critically ill patients. However, more stringent targets may be selected in individual cases. * Pt on chronic PEG tube feedings with Vital 1.5 @ 75ml/hr [id number] * Historically, when tube feedings are on hold BSGs are normal and minimal insulin is required * From historic admission/consultations: pt required ~ 80 units of insulin/day with tube feedings, dextrose IVF, + prednisone 11/05/16 * Fasting BSG at goal today and tube feeds are being held secondary to GI bleed * Hold basal insulin at this time, resume if >180mg/dL * Many infusion that will directly affect BSGs (octreotide, pantoprazole) * continue to monitor BSGs, correctional NovoLog PRN - add basal insulin if sustained hyperglycemia occurs * Currently NPO * forgo prandial coverage at this time * A1c outdated - ordered with AM labs PLAN FOR INPATIENT GLYCEMIC CONTROL: WHILE TUBE FEEDINGS ON HOLD: * HOLD HOME NPH * HOLD Lantus * NovoLog insulin per scale Q6hrs while NPO * Goal Range: Low 140 mg/dL - High 180 mg/dL * Correction Factor: 20 mg/dL/unit * Carb ratio: forgo at this time * A1c - on order * add to discharge instructions RECOMMENDATIONS FOR DISCHARGE: * * Please note that the plan above was derived based on current level of insulin resistance and hospital stress. These recommendations are appropriate for inpatient admission only. Plan of care upon discharge will need to be reassessed to avoid potential outpatient hypo/hyperglycemia. Thank you.
--- NOTE | 2016-11-05 11:03 | DIAGNOSTIC IMAGING REPORT ---
KUB CLINICAL HISTORY: GASTRO TUBE CHECK WITH GASTROGRAFIN tube check COMPARISON STUDY: 05/06/2016 FINDINGS: The soft tissues, psoas shadows, renal outlines and intestinal gas pattern appear normal. There is no evidence for bowel obstruction. No abnormal abdominal calcifications are seen. PEG tube in good position. No evidence for extravasation. IMPRESSION: Negative in good position. No evidence for contrast extravasation. Nonobstructive bowel pattern. Electronically signed by: Marcus Davey M.D. 11/05/2016 11:02 AM Dictated Date/Time: 11/05/2016 11:00 AM
[2016-11-05 11:24] LABS: HEMATOCRIT 26.3 % (37-47)
[2016-11-05 11:53] LABS: BUN/CREATININE RATIO 29.3 (10-20); CALCIUM 10.2 mg/dl (8.5-10.1); CREATININE 2.8 mg/dl (0.60-1.20); INR 1.5 (0.9-1.1); POTASSIUM 4.8 mmol/L (3.5-5.1); PROTHROMBIN TIME (PATIENT) 16.2 SECONDS (9.0-12.0)
[2016-11-05 11:56] VITALS: BP 110/49; PULSE 83; TEMP 36.6; O2SAT 96
[2016-11-05] MEDS: INSULIN ASPART 100 UNITS/ML 3 ML PEN SC SCH ×2 (12:00→18:00)
[2016-11-05 14:56] VITALS: BP 120/68; PULSE 78; TEMP 36.7; O2SAT 95
[2016-11-05] MEDS: MoRPHine SULFATE 4 MG/ML 1 ML CARP\\VIAL IV PRN (15:16)
[2016-11-05 16:14] LABS: HEMATOCRIT 28.2 % (37-47)
[2016-11-05 19:05] VITALS: BP 117/52; PULSE 74; TEMP 36.9; O2SAT 98
[2016-11-05 23:54] VITALS: BP 123/46; PULSE 77; TEMP 36.5; O2SAT 96
[2016-11-06] MEDS: SODIUM CHLORIDE 0.45% 1000ML 1,000 ML IV SCH ×3 (00:47→21:20)
[2016-11-06] MEDS: PANTOprazole INJ 40 MG in DEXTROSE 5% 100ML IV SCH ×5 (01:58→21:21)
[2016-11-06] MEDS: INSULIN ASPART 100 UNITS/ML 3 ML PEN SC SCH ×4 (06:00→18:00)
[2016-11-06 06:10] LABS: ESTIMATED AVERAGE GLUCOSE 117 mg/dl; HA1C FLAG Normal (Normal)
[2016-11-06 06:17] LABS: HEMATOCRIT 24.9 % (37-47)
[2016-11-06 06:27] LABS: INR 1.2 (0.9-1.1); PROTHROMBIN TIME (PATIENT) 13.1 SECONDS (9.0-12.0)
--- NOTE | 2016-11-06 06:37 | Family Medicine Progress Note ---
Progress Note Date of Service Nov 06, 2016. Subjective Pt evaluation today including: conversation w/ patient, physical exam, chart review, lab review Patient indicates that she is no longer feeling abdominal pain, she is however feeling pain on either lateral side of her abdomen. She indicates that she is no longer having nausea. She also denies symptoms of anemia including SOB, headache, lightheadedness. According to nursing staff, patient seems to be perking up, in comparison to yesterday. Nurse states that patient had another large 'suzie' bowel movement again, however, there is no more tyler blood coming out of her PEG tube. Constitutional: No chills, No fever Respiratory: No shortness of breath Cardiovascular: No chest pain, No palpitations Abdomen: + GI bleeding, + diarrhea, + pain (laterally), No nausea, No vomiting Female : + problem reported (Pedraza in situ) Objective Vital Signs Date Time Temp Pulse Resp B/P Pulse Ox O2 Delivery O2 Flow Rate FiO2 11/06/16 04:00 Room Air 11/06/16 00:00 Room Air 11/05/16 23:54 36.5 77 16 123/46 96 Room Air 11/05/16 20:00 Room Air 11/05/16 19:05 36.9 74 21 117/52 98 Room Air 11/05/16 16:00 Room Air 11/05/16 14:56 36.7 78 18 120/68 95 Room Air 11/05/16 12:00 Room Air 11/05/16 11:56 36.6 83 16 110/49 96 Room Air 11/05/16 08:00 Room Air 11/05/16 07:54 36.6 89 22 96/57 95 Room Air Physical Exam General Appearance: WD/WN, no apparent distress Eyes: normal inspection ENT: hearing grossly normal Neck: supple Respiratory/Chest: lungs clear, normal breath sounds, no respiratory distress, no accessory muscle use Cardiovascular: regular rate, rhythm, no murmur Abdomen: normal bowel sounds, soft, + tenderness (laterally - right worse than left), + pertinent finding (PEG in situ) Extremities: normal inspection, no pedal edema, no calf tenderness Neurologic/Psychiatric: alert, normal mood/affect, + aphasia, + motor weakness (Right hemiparesis from previous CVA) Skin: normal color, warm/dry, no rash Laboratory Results Results Past 24 Hours Test 11/05/16 23:56 11/06/16 06:09 11/06/16 06:18 11/06/16 10:55 Range/Units Bedside Glucose 91 84 104 70-90 mg/dl Hemoglobin 7.9 12.0-16.0 g/dL Hematocrit 24.9 37-47 % Prothrombin Time 13.1 9.0-12.0 SECONDS Prothromb Time International Ratio 1.2 0.9-1.1 Sodium Level 147 136-145 mmol/L Potassium Level 4.2 3.5-5.1 mmol/L Chloride Level 112 98-107 mmol/L Carbon Dioxide Level 24 21-32 mmol/L Anion Gap 11.0 3-11 mmol/L Blood Urea Nitrogen 80 7-18 mg/dl Creatinine 2.70 0.60-1.20 mg/dl Est Creatinine Clear Calc Drug Dose 25.1 ml/min Estimated GFR () 23.5 Estimated GFR (Non- 20.3 BUN/Creatinine Ratio 29.6 10-20 Random Glucose 83 70-99 mg/dl Calcium Level 10.0 8.5-10.1 mg/dl Test 11/06/16 14:13 Range/Units Hemoglobin 7.7 12.0-16.0 g/dL Hematocrit 24.0 37-47 % Assessment and Plan 45-year-old female with a 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 GI bleeding - CT abdo/pelvis showed no acute pathology. GI consulted - recs appreciated. Octreotide drip discontinued, in view of relatively stable H/H - NPO/no feeds via PEG - Continue Protonix drip - Pain management via morphine PRN Anemia - secondary to GI bleed. Repeat H/H q6h showed stable values, however daily labs do show slow downtrend of Hb. - Trend H/H daily, or sooner if clinically indicated (symptoms/further GI bleed) - Consider need for blood transfusion Supra therapeutic INR - INR 4.3 on admission. Given vitamin K, with subsequent improvements in INR - Hold warfarin, trend INR - Likely will need endoscopy to assess safety in restarting warfarin given clotting risk and CVA history - plans to discuss with GI UTI - UA positive for leuk esterase, occult blood and bacteria. Urine culture shows growth of streptococcus species. Sensitivities pending. - Continue Rocephin (day 2) - modify according to sensitivities. EARL ON CKD - Baseline creatinine ~2, creatinine on admission 2.9 - Continue IV fluids - Avoid nephrotoxins - Monitor BMP Hypercalcemia, history of sarcoidosis - Given 1 dose pamidronate - Continue IV fluids - Continue therapy per Rheum consult during last admission Elevated alkaline phosphatase - Likely secondary to sarcoidosis History of stroke with right hemiparesis - H/O of Homocystinemia and Lupus anticoagulant - Atorvastatin 20mg daily via PEG. Dysphagia - Peg tube in place - Hold PEG feeds due to GI bleed Type 2 diabetes - Insulin sliding-scale DVT prophylaxis - SCDs - Avoid chemical anti-coagulation for now Code status: DO NOT RESUSCITATE Resident Physician Supervision Note: I interviewed and examined the patient. Discussed with Dr. Cage and agree with findings and plan as documented in the note. Any exceptions or clarifications are listed here: None Documented By: Ladarius Bruno feeling better no further vomiting no abdominal pain ongoing suzie colored stools but no blood ros otherwise negative except for as above as best can be ascertained vitals noted nad no pallor or icterus abd soft nd nt a/p UGI bleed - ongoing protonix - change to PEG -continue reversal of coumadin currently. without scope, will need to d/w GI timing of trial of re-introduction of anticoagulation given CVA and concern w antiphospholipid antibodies otherwise as above Continued [facility] stay due to: multiple IV medications needed Discharge planning: fdc facility Resident Tracking Resident Involvement: Resident Care Provided Care Provided: Adult Hospital Medicine
[2016-11-06 07:03] LABS: BUN/CREATININE RATIO 29.6 (10-20); CREATININE 2.7 mg/dl (0.60-1.20); POTASSIUM 4.2 mmol/L (3.5-5.1)
[2016-11-06] MEDS: CEFTRIAXONE SOD INJ 1 GM in DEXTROSE 5% ADD-VANTAGE 50ML 50 ML IV SCH (07:39)
[2016-11-06] MEDS: MoRPHine SULFATE 2 MG/ML CARP IV PRN ×2 (07:42→14:17)
[2016-11-06] MEDS: CHECK FENTANYL PATCH PLACEMENT SCH ×3 (07:48→23:38)
[2016-11-06 08:00] VITALS: BP 133/65; PULSE 75; TEMP 36.7; O2SAT 97
--- NOTE | 2016-11-06 11:03 | Pharmacy Progress Note ---
Glycemic Control: Progress Nt Date of Service Nov 06, 2016. Scope Glycemic Pharmacist consulted by Dr Farmer on 11/05/16 for glycemic control and to write orders per [facility] inpatient glycemic control protocol. Objective Accuchecks BSG (last 24hrs): Test 11/05/16 11:10 11/05/16 11:45 11/05/16 23:56 11/06/16 06:09 Random Glucose 159 mg/dl (70-99) 83 mg/dl (70-99) Bedside Glucose 151 mg/dl (70-90) 91 mg/dl (70-90) Test 11/06/16 06:18 Bedside Glucose 84 mg/dl (70-90) Laboratory Data (last 24hrs) Test 11/05/16 11:10 11/06/16 06:09 Anion Gap 8.0 mmol/L 11.0 mmol/L BUN/Creatinine Ratio 29.3 29.6 Blood Urea Nitrogen 82 mg/dl 80 mg/dl Creatinine 2.80 mg/dl 2.70 mg/dl Potassium Level 4.8 mmol/L 4.2 mmol/L Sodium Level 148 mmol/L 147 mmol/L HbA1c: Test 11/05/16 06:58 Hemoglobin A1c 5.7 % (4.5-5.6) H Recent Pertinent Medications Outpatient Anti-diabetic Regimen: * Lantus 20 units Q HS * NPH 10 units Q AM * Novolog 2-12 units SQ ACHS * Vital 1.5 cont tube feeds for ~14 hrs per day * A1c = 5.7 % 10/2016 The patient is currently receiving: * Basal insulin: Lantus -- units every -- hours * Correctional Insulin: Novolog Correction per scale Q 6 hrs Goal Range: Low 140 mg/dL - High 180 mg/dL Correction Factor: 20 mg/dL/unit * Prandial insulin: Per carb ratio of 1 unit per -- grams CHO consumed * Oral Agents: None currently Risk Factors for Insulin Resistance: * Steroids: n/a * Infection: treatment for UTI and SBP prophylaxis; Ceftriaxone * Pressors: n/a * IVF: Pantoprazole drip mixed in D5W * Recent Surgery: n/a * Diet: currently NPO * Mechanical Ventilation: n/a Assessment & Plan ASSESSMENT: 11/05/16 * Fasting BSG at goal today and tube feeds are being held secondary to GI bleed * Hold basal insulin at this time, resume if >180mg/dL * Many infusion that will directly affect BSGs (octreotide, pantoprazole) * continue to monitor BSGs, correctional NovoLog PRN - add basal insulin if sustained hyperglycemia occurs * Currently NPO * forgo prandial coverage at this time * A1c outdated - ordered with AM labs 11/06/16 * Patient remains NPO; only source of CHO administration is via pantoprazole infusion (mixed in D5W) * BSGs less than 100 x 2 checks now * Will continue only correctional insulin w/ the current CF; doubt that patient will require additional insulin coverage until diet advanced/tolerated PLAN FOR INPATIENT GLYCEMIC CONTROL: * No basal insulin at this time * Continuing correction factor of 20 mg/dl/unit * No correctional insulin at this time * Continuing goal range of Low 140 mg/dL - High 180 mg/dL RECOMMENDATIONS FOR DISCHARGE: * * Please note that the plan above was derived based on current level of insulin resistance and hospital stress. These recommendations are appropriate for inpatient admission only. Plan of care upon discharge will need to be reassessed to avoid potential outpatient hypo/hyperglycemia. Thank you.
[2016-11-06 12:26] VITALS: BP 118/70; PULSE 79; TEMP 36.7; O2SAT 97
[2016-11-06 15:26] VITALS: BP 115/51; PULSE 70; TEMP 36.6; O2SAT 97
--- NOTE | 2016-11-06 17:43 | DIAGNOSTIC IMAGING REPORT ---
HEAD CT NONCONTRAST CT DOSE: 537.48 mGy.cm HISTORY: No logic deficit L sided numbness and weakness eval for any new findings TECHNIQUE: Multiaxial CT images of the head were performed without the use of intravenous contrast. Comparison: 10/28/2016 Findings: Sinuses are clear The calvarium and skull base are intact. The ventricles and sulci are within normal limits. There is no mass, hematoma, midline shift, or acute infarct. Heavily calcified left middle cerebral arterial territory infarct similar compared to the prior study. This involves components of the left lateral frontal lobe. These findings are considered similar compared to the prior exam. No new or interval findings are present. Ventricular system is midline. Impression: Heavily calcified left cerebral infarct. No acute or interval process. Electronically signed by: Marcus Davey M.D. 11/06/2016 5:41 PM Dictated Date/Time: 11/06/2016 5:39 PM
[2016-11-06 20:06] VITALS: BP 116/56; PULSE 72; TEMP 36.5; O2SAT 95
[2016-11-06 23:56] VITALS: BP 137/67; PULSE 71; TEMP 36.9; O2SAT 95
[2016-11-07] VITALS (8 sets, daily range): BP systolic 106–148; BP diastolic 41–96; PULSE 67–79; TEMP 36.6–36.9; O2SAT 90–99
[2016-11-07] MEDS ORDERED: NURSING VERBAL MED ORDER ONE ×2 (00:15→14:45)
[2016-11-07] MEDS ORDERED: DEXTROSE 50% 50 ML SYR IV STA (00:19)
[2016-11-07] MEDS: D5W AND 1/2NSS 1,000 ML IV SCH ×3 (00:28→21:22)
[2016-11-07] MEDS: MoRPHine SULFATE 4 MG/ML 1 ML CARP\\VIAL IV PRN ×2 (02:35→09:13)
[2016-11-07] MEDS: PANTOprazole INJ 40 MG in DEXTROSE 5% 100ML IV SCH ×2 (02:35→08:48)
[2016-11-07] MEDS: INSULIN ASPART 100 UNITS/ML 3 ML PEN SC SCH ×4 (05:54→17:04)
[2016-11-07 06:15] LABS: HEMATOCRIT 23.5 % (37-47)
[2016-11-07 06:25] LABS: INR 1.2 (0.9-1.1); PROTHROMBIN TIME (PATIENT) 12.8 SECONDS (9.0-12.0)
[2016-11-07 06:59] LABS: BUN/CREATININE RATIO 26.9 (10-20); CALCIUM 9.1 mg/dl (8.5-10.1); CREATININE 2.6 mg/dl (0.60-1.20)
[2016-11-07] MEDS: CHECK FENTANYL PATCH PLACEMENT SCH ×3 (08:22→23:24)
[2016-11-07] MEDS: CEFTRIAXONE SOD INJ 1 GM in DEXTROSE 5% ADD-VANTAGE 50ML 50 ML IV SCH (08:22)
--- NOTE | 2016-11-07 11:08 | Pharmacy Progress Note ---
Glycemic: Assessment & Plan Date of Service Nov 07, 2016. Assessment & Plan The patient is currently receiving 0 units of insulin per day. BSGs ranging 72 - 124 mg/dl over the past 24hrs. * Basal insulin: NONE * Correctional Insulin: Novolog Correction per scale q6h Goal Range: Low 140 mg/dL - High 180 mg/dL Correction Factor: 20 mg/dL/unit * Prandial insulin: None ASSESSMENT: * IVFs were changed to include dextrose d/t hypernatremia and/or decreasing BSGs * BSGs are still below goal this AM so no plans to add basal insulin at this point PLAN FOR INPATIENT GLYCEMIC CONTROL: * Continue Novolog q6h * Goal 140-180 * CF 20 * No carb ratio * Resume basal and/or carb ratio once BSGs increase above goal and/or diet resumes Pharmacy will continue to monitor patient daily and write orders per [facility] inpatient glycemic control protocol. Thanks. * Please note that the plan above was derived based on current level of insulin resistance and hospital stress. These recommendations are appropriate for inpatient admission only. Plan of care upon discharge will need to be reassessed to avoid potential outpatient hypo/hyperglycemia.
[2016-11-07] MEDS: PENICILLIN-VK SUSP 250 MG/5 ML 200 ML GT SCH ×3 (13:29→21:20)
--- NOTE | 2016-11-07 15:34 | Family Medicine Progress Note ---
Progress Note Date of Service Nov 07, 2016. Subjective Pt evaluation today including: conversation w/ patient, physical exam, chart review, lab review, conversation w/ sap pp consultant, review of inpatient medication list Pain: pain of her right calf PO Intake: currently NPO Voiding: loera catheter in place Patient with no acute events overnight She did complain of right calf pain as she points to her right calf and whimpers as she is unable to speak. She denies any chest pain, haematochezia, haematemesis, sob, nausea, vomiting, fevers, chills, or night sweats She has not had any bowel movements in the last 24 hours. All Other Systems: Reviewed and Negative Medications Current Inpatient Medications Medications (Trade) Dose Ordered Sig/Filipe Route Start Time Stop Time Status Last Admin Dose Admin Acetaminophen (Tylenol Tab) 650 mg Q4H PRN PO 11/05/16 03:00 12/05/16 02:59 Ondansetron HCl (Zofran Inj) 4 mg Q6H PRN IV 11/05/16 03:00 12/05/16 02:59 Polyethylene (Miralax Powder Packet) 17 gm DAILY PRN PO 11/05/16 03:00 12/05/16 02:59 Fentanyl (Duragesic Patch) 12 mcg Q72H TD 11/05/16 06:45 11/19/16 06:44 11/05/16 07:59 12 MCG Miscellaneous (Fentanyl Patch Remove & Waste) 1 ea Q3D N/A 11/08/16 06:45 12/08/16 06:44 Miscellaneous Information (Check Fentanyl Patch Placement) 1 ea QS N/A 11/05/16 08:00 12/05/16 07:59 11/07/16 08:22 1 EA Miscellaneous Information (Consult Glycemic Management Pharmacy) 1 ea DAILY PRN N/A 11/05/16 06:49 12/05/16 06:48 Morphine Sulfate (MoRPHine SULFATE INJ) 2 mg Q4H PRN IV 11/05/16 06:45 11/19/16 06:44 11/06/16 14:17 2 MG Morphine Sulfate (MoRPHine SULFATE INJ) 4 mg Q4H PRN IV 11/05/16 06:45 11/19/16 06:44 11/07/16 09:13 4 MG Insulin Aspart (novoLOG ASPART) SLIDING SCALE Q6 SC 11/05/16 12:00 12/05/16 11:59 Glucose (Glucose 40% Gel) 15-30 GRAMS 15 GRAMS... UD PRN PO 11/05/16 07:30 12/05/16 07:29 Glucose (Glucose Chew Tab) 4-8 Tablets 4 Tabl... UD PRN PO 11/05/16 07:30 12/05/16 07:29 Dextrose (Dextrose 50% 50ML Syringe) 25-50ML OF 50% DW IV FOR... UD PRN IV 11/05/16 07:30 12/05/16 07:29 Glucagon 1 mg 1 mg UD PRN SQ 11/05/16 07:30 12/05/16 07:29 Dextrose/Sodium Chloride (D5W And 1/2nss) 1,000 ml @ 100 mls/hr Q10H IV 11/07/16 00:30 12/07/16 00:29 11/07/16 10:56 100 MLS/HR Lansoprazole (Prevacid Solutab) 30 mg BID PEG 11/07/16 21:00 12/07/16 20:59 Penicillin V Potassium (Penicillin-Vk Susp) 5 ml QID GT 11/07/16 13:00 11/12/16 12:59 11/07/16 13:29 5 ML Miscellaneous Information (Nursing Verbal Med Order) 1 ea ONE ONCE N/A 11/07/16 14:45 11/07/16 14:46 UNV Objective Vital Signs Date Time Temp Pulse Resp B/P Pulse Ox O2 Delivery O2 Flow Rate FiO2 11/07/16 15:03 36.6 71 18 122/41 99 Room Air 11/07/16 12:00 Room Air 11/07/16 11:16 36.7 67 18 148/69 98 Room Air 11/07/16 08:00 Room Air 11/07/16 07:31 36.6 79 18 125/54 90 Room Air 11/07/16 04:00 Room Air 11/07/16 04:00 36.9 70 18 106/53 97 Room Air 11/06/16 23:59 Room Air 11/06/16 23:56 36.9 71 16 137/67 95 Room Air 11/06/16 20:06 36.5 72 18 116/56 95 Room Air 11/06/16 20:00 Room Air 11/06/16 15:26 36.6 70 16 115/51 97 Room Air Physical Exam General Appearance: + mild distress Respiratory/Chest: lungs clear, normal breath sounds, no respiratory distress, no accessory muscle use Cardiovascular: regular rate, rhythm, no edema, no JVD Abdomen: normal bowel sounds, soft, + tenderness (tenderness in the R middle and RUQ), + pertinent finding (PEG tube in place w/out any surrounding erythema or discharge) Extremities: no pedal edema, normal capillary refill, + calf tenderness ( tenderness to palpation at the R upper part of calf, small amount of blood exravasation at mid part of right calf), + pertinent finding Neurologic/Psychiatric: normal mood/affect, oriented x 3, + aphasia, + motor weakness (Right sided motor weakness due to previous CVA) Skin: normal color, warm/dry, no rash Assessment and Plan 45-year-old female with a history of CVA (right hemiparesis and expressive aphasia), positive homocystine and lupus anticoagulant, dysphagia s/p PEG tube placement, sarcoidosis resulting in hypercalcemia (with h/o kidney stones), cirrhosis, CKD, DM with peripheral neuropathy, HTN, HLD who was admitted from [facility] with coffee-ground emesis/tyler blood from PEG and supra- therapeutic INR. GI bleeding - Protonix switch from IV to PO (via PEG) - H&H stable with no evidence of active bleeding - Asked case management to get type of peg tube feeding so we can restart patients diet - Warfarin held for now. Will likely restart anticoagulation tomorrow in light of repeat risk of stroke. Warfarin vs NOAC? - Continue to monitor H&H and INR UTI - Cultures and Sensitivities returned (grew enterococcus faecalis) - Will start patient on Pen VK 250 QID EARL on CKD - Baseline creat 2 - Creat currently 2.6 - Continue IV fluids - Monitor renal function Hypercalcemia hx of Sarcoidosis - Continue IV fluids Hx of stroke - atorvastatin via PEG T2DM - Insulin sliding scale Diet - restart PEG tube feedings as soon as we get tube feeding from [facility] DVT prophylaxis - ANJEL stoddard DNR Resident Physician Supervision Note: I interviewed and examined the patient. Discussed with Dr. Rothman and agree with findings and plan as documented in the note. Any exceptions or clarifications are listed here: None Documented By: Ladarius Ruiz leg feeling better, pain behind R leg now. no further abdominal pain no further hematemesis, no further BM's at this time vitals noted nad breathing unlabored RLE area of bruising behind R knee no calf tenderness or edema a/p UGI bleed - now resolved. d/w pt risks/benefits - despite bleed, since she had large stroke appearing embolic and high risk for repeated clotting events - would want to get back on blood thinners - she expresses understanding of this. since risk for rebleed present, would want to resume anticoagulation while inpt to be able to closely observe for rebleed (if rebleeds, would then ask GI to revisit possible EGD). harder question is what anticoagulation -- coumadin allows for reversal but also can get supratherapeutic (as occurred this admission) and also overall higher risk of bleeding; NOACs somewhat harder to reverse (currently) but lower overall risk for bleeding - but with CKD ??could any be safely dosed. will review literature. more than likely due to severity of CKD will have to resume coumadin but will review and determine - barring an re-bleed or significant drop in Hgb, will resume anticoagulation of some kind tomorrow R leg pain - check dopplers otherwise as above Continued [facility] stay due to: ambulation difficulties, multiple IV medications needed Discharge planning: alf facility
[2016-11-07] MEDS: TUBE FEEDING WATER FLUSH PEG SCH ×7 (16:30→22:21)
[2016-11-07] MEDS: PEPTAMEN 1.5 CAL 1000ML BAG PEG SCH (16:31)
--- NOTE | 2016-11-07 17:56 | DIAGNOSTIC IMAGING REPORT ---
ULTRASOUND VENOUS DOPPLER LWR EXT BILA CLINICAL HISTORY: Lower extremity pain COMPARISON STUDY: 03/26/2016 FINDINGS: Real-time and color flow Doppler imaging were performed. Flow was seen within the femoral, popliteal and calf veins with no intraluminal thrombus demonstrated. The saphenous vein is patent. IMPRESSION: No evidence of lower extremity DVT. Electronically signed by: Santana Em M.D. 11/07/2016 5:54 PM Dictated Date/Time: 11/07/2016 5:54 PM
[2016-11-07] MEDS: ACETAMINOPHEN 325 MG TAB PO PRN (18:03)
[2016-11-07] MEDS: LANSOPRAZOLE SOLUTAB 30 MG PEG SCH (21:23)
[2016-11-07] MEDS: [UNRECOGNIZED DRUG - REMARK] SCH (22:21)
--- NOTE | 2016-11-07 22:47 | DIAGNOSTIC IMAGING REPORT ---
RIGHT TIBIA/FIBULA 2 VIEWS ROUTINE CLINICAL HISTORY: Right leg pain COMPARISON: None. DISCUSSION: There are vascular calcifications present. There are dural calcifications present. No fractures are visualized. No destructive lesions are evident. IMPRESSION: 1. No fractures identified 2. Vascular and dermal calcifications. Electronically signed by: Santana Em M.D. 11/07/2016 10:45 PM Dictated Date/Time: 11/07/2016 10:44 PM
[2016-11-07] MEDS: MoRPHine SULFATE 2 MG/ML CARP IV PRN (23:23)
[2016-11-08] VITALS (9 sets, daily range): BP systolic 102–143; BP diastolic 41–80; PULSE 72–87; TEMP 36.5–37.1; O2SAT 95–99
[2016-11-08] MEDS: INSULIN ASPART 100 UNITS/ML 3 ML PEN SC SCH ×6 (00:10→22:08)
[2016-11-08] MEDS: TUBE FEEDING WATER FLUSH PEG SCH ×17 (02:00→22:05)
[2016-11-08] MEDS: MoRPHine SULFATE 4 MG/ML 1 ML CARP\\VIAL IV PRN (02:05)
[2016-11-08] MEDS: FENTANYL 12 MCG/HR TDSY TD SCH (06:13)
[2016-11-08] MEDS: FENTANYL PATCH REMOVE & WASTE SCH (06:13)
[2016-11-08 06:14] LABS: HEMATOCRIT 24.8 % (37-47)
[2016-11-08 06:21] LABS: INR 1.2 (0.9-1.1); PROTHROMBIN TIME (PATIENT) 13.1 SECONDS (9.0-12.0)
[2016-11-08 06:47] LABS: BUN/CREATININE RATIO 22.8 (10-20); CALCIUM 8.8 mg/dl (8.5-10.1); CREATININE 2.6 mg/dl (0.60-1.20); POTASSIUM 3.6 mmol/L (3.5-5.1)
[2016-11-08] MEDS: D5W AND 1/2NSS 1,000 ML IV SCH (07:35)
[2016-11-08] MEDS: PEPTAMEN 1.5 CAL 1000ML BAG PEG SCH (07:35)
[2016-11-08] MEDS: CHECK FENTANYL PATCH PLACEMENT SCH ×2 (07:36→16:10)
[2016-11-08] MEDS: PENICILLIN-VK SUSP 250 MG/5 ML 200 ML GT SCH ×4 (07:36→20:23)
[2016-11-08] MEDS: LANSOPRAZOLE SOLUTAB 30 MG PEG SCH ×2 (07:37→20:23)
[2016-11-08] MEDS: ACETAMINOPHEN 325 MG TAB PO PRN ×2 (07:37→20:22)
--- NOTE | 2016-11-08 09:18 | Pharmacy Progress Note ---
Glycemic: Assessment & Plan Date of Service Nov 08, 2016. Assessment & Plan The patient is currently receiving 1 units of insulin per day. BSGs ranging 135 - 192 mg/dl over the past 24hrs. * Basal insulin: NONE * Correctional Insulin: Novolog Correction per scale Q6H Goal Range: Low 140 mg/dL - High 180 mg/dL Correction Factor: 20 mg/dL/unit * Prandial insulin: NONE ASSESSMENT: 11/07/16 * IVFs were changed to include dextrose d/t hypernatremia and/or decreasing BSGs * BSGs are still below goal this AM so no plans to add basal insulin at this point 11/08/16 * Tube feeds have been started and are set to run from [id number] each day * She received ~5 hrs last night and BSGs were only as high as 192 * Of note, dextrose IVFs still running at this point * I noted that during her last admission when on tube feeds, she actually only required correctional insulin at times * Would like to see how BSGs respond to tube feeds (especially when off dextrose IVFs) prior to adding any basal or correctional insulin PLAN FOR INPATIENT GLYCEMIC CONTROL: * Change Novolog to q4h during tube feeding administration only * Goal 140-180 * CF 20 * No carb ratio * Would recommend d/c'ing dextrose IVFs now that tube feeds resumed * Will plan to resume basal and/or nutritional insulin coverage if BSGs are sustained above 180 while on TFs Pharmacy will continue to monitor patient daily and write orders per [facility] inpatient glycemic control protocol. Thanks. * Please note that the plan above was derived based on current level of insulin resistance and hospital stress. These recommendations are appropriate for inpatient admission only. Plan of care upon discharge will need to be reassessed to avoid potential outpatient hypo/hyperglycemia.
[2016-11-08] MEDS: DICLOFENAC SOD 1% GEL 100 GM TUBE EXT SCH ×2 (13:41→20:23)
[2016-11-08] MEDS ORDERED: NURSING VERBAL MED ORDER ONE (14:15)
--- NOTE | 2016-11-08 14:37 | Family Medicine Progress Note ---
Progress Note Date of Service Nov 08, 2016. Subjective Pt evaluation today including: conversation w/ patient, physical exam, chart review, lab review, review of studies, conversation w/ workday consultant, review of inpatient medication list Pain: moderate PO Intake: via PEG Voiding: loera catheter in place Patient with no acute events overnight. Had her feeding tube started and there was a hole in the tubing which was resolved by the nurse Patient still having pain at the site of her right calf and right knee. She denies any vomiting, nausea, chest pain, shortness of breath, abdominal pain , or bleeding from PEG tube. She has not had a bowel movement overnight, All Other Systems: Reviewed and Negative Medications Current Inpatient Medications Medications (Trade) Dose Ordered Sig/Filipe Route Start Time Stop Time Status Last Admin Dose Admin Acetaminophen (Tylenol Tab) 650 mg Q4H PRN PO 11/05/16 03:00 12/05/16 02:59 11/08/16 07:37 650 MG Ondansetron HCl (Zofran Inj) 4 mg Q6H PRN IV 11/05/16 03:00 12/05/16 02:59 Polyethylene (Miralax Powder Packet) 17 gm DAILY PRN PO 11/05/16 03:00 12/05/16 02:59 Fentanyl (Duragesic Patch) 12 mcg Q72H TD 11/05/16 06:45 11/19/16 06:44 11/08/16 06:13 12 MCG Miscellaneous (Fentanyl Patch Remove & Waste) 1 ea Q3D N/A 11/08/16 06:45 12/08/16 06:44 11/08/16 06:13 1 EA Miscellaneous Information (Check Fentanyl Patch Placement) 1 ea QS N/A 11/05/16 08:00 12/05/16 07:59 11/08/16 07:36 1 EA Miscellaneous Information (Consult Glycemic Management Pharmacy) 1 ea DAILY PRN N/A 11/05/16 06:49 12/05/16 06:48 Morphine Sulfate (MoRPHine SULFATE INJ) 2 mg Q4H PRN IV 11/05/16 06:45 11/19/16 06:44 11/07/16 23:23 2 MG Morphine Sulfate (MoRPHine SULFATE INJ) 4 mg Q4H PRN IV 11/05/16 06:45 11/19/16 06:44 11/08/16 02:05 4 MG Glucose (Glucose 40% Gel) 15-30 GRAMS 15 GRAMS... UD PRN PO 11/05/16 07:30 12/05/16 07:29 Glucose (Glucose Chew Tab) 4-8 Tablets 4 Tabl... UD PRN PO 11/05/16 07:30 12/05/16 07:29 Dextrose (Dextrose 50% 50ML Syringe) 25-50ML OF 50% DW IV FOR... UD PRN IV 11/05/16 07:30 12/05/16 07:29 Glucagon (Glucagon Inj) 1 mg UD PRN SQ 11/05/16 07:30 12/05/16 07:29 Lansoprazole (Prevacid Solutab) 30 mg BID PEG 11/07/16 21:00 12/07/16 20:59 11/08/16 07:37 30 MG Penicillin V Potassium (Penicillin-Vk Susp) 5 ml QID GT 11/07/16 13:00 11/12/16 12:59 11/08/16 13:40 5 ML Enteral Nutritional Formula (Peptamen 1.5) SEE PROTOCOL DAILY@0700 PEG 11/08/16 07:00 12/08/16 06:59 11/08/16 07:35 1,000 ML Miscellaneous (Stop Order) 1 ea DAILY@2200 N/A 11/07/16 22:00 12/07/16 21:59 11/07/16 22:21 1 EA Sterile Water (Tube Feeding Water Flush) 1 ea 0800,0900,1000,1100,1200,1300 PEG 11/08/16 08:00 12/08/16 07:59 11/08/16 13:00 1 EA Sterile Water (Tube Feeding Water Flush) 1 ea 1400,1500,1600,1700,1800 PEG 11/07/16 16:00 12/07/16 15:59 11/08/16 13:40 1 EA Sterile Water (Tube Feeding Water Flush) 1 ea 1900,2000,2100,2200 PEG 11/07/16 19:00 12/07/16 18:59 11/07/16 22:21 1 EA Sterile Water (Tube Feeding Water Flush) 1 ea 0200,0600 PEG 11/08/16 02:00 12/08/16 01:59 11/08/16 05:58 1 EA Insulin Aspart (novoLOG ASPART) SLIDING SCALE 1000,1400,1800,2200 SC 11/08/16 10:00 12/08/16 09:59 11/08/16 13:47 1 UNITS Diclofenac Sodium (Voltaren 1% Top Gel) 1 appln TID EXT 11/08/16 14:00 12/08/16 13:59 11/08/16 13:41 1 APPLN Objective Vital Signs Date Time Temp Pulse Resp B/P Pulse Ox O2 Delivery O2 Flow Rate FiO2 11/08/16 12:00 Room Air 11/08/16 11:09 36.7 78 16 128/57 98 Room Air 11/08/16 08:00 Room Air 11/08/16 07:39 36.7 77 16 143/41 99 Room Air 11/08/16 04:19 36.6 72 18 126/71 98 Room Air 11/08/16 04:00 Room Air 11/07/16 23:59 Room Air 11/07/16 23:36 36.6 74 16 134/96 96 Room Air 11/07/16 20:00 95 Room Air 2.0 11/07/16 19:32 36.7 76 18 126/66 95 Room Air 11/07/16 16:00 95 Room Air 11/07/16 15:03 36.6 71 18 122/41 99 Room Air Physical Exam General Appearance: WD/WN, + mild distress, + pertinent finding (patient appears tearful and sad at the bedside) Eyes: normal inspection ENT: hearing grossly normal, pharynx normal Respiratory/Chest: chest non-tender, lungs clear, no respiratory distress, no accessory muscle use Cardiovascular: regular rate, rhythm, no JVD, no murmur Abdomen: normal bowel sounds, non tender, soft, + pertinent finding (PEG tube in place with no surrounding erythema or discharge) Extremities: normal capillary refill, + pertinent finding (knee and right calf are tender to touch) Neurologic/Psychiatric: + aphasia, + motor weakness (Right sided motor weakness due to previous CVA) Skin: warm/dry (small amount of bruising and exravasation of blood at right calf (likely the beginning of a pressure ulcer)), + pertinent finding Laboratory Results Results Past 24 Hours Test 11/07/16 16:02 11/07/16 23:17 11/08/16 06:03 11/08/16 06:08 Range/Units Bedside Glucose 180 192 135 70-90 mg/dl Hemoglobin 8.2 12.0-16.0 g/dL Hematocrit 24.8 37-47 % Prothrombin Time 13.1 9.0-12.0 SECONDS Prothromb Time International Ratio 1.2 0.9-1.1 Sodium Level 141 136-145 mmol/L Potassium Level 3.6 3.5-5.1 mmol/L Chloride Level 108 98-107 mmol/L Carbon Dioxide Level 25 21-32 mmol/L Anion Gap 8.0 3-11 mmol/L Blood Urea Nitrogen 59 7-18 mg/dl Creatinine 2.60 0.60-1.20 mg/dl Est Creatinine Clear Calc Drug Dose 26.1 ml/min Estimated GFR () 24.6 Estimated GFR (Non- 21.3 BUN/Creatinine Ratio 22.8 10-20 Random Glucose 143 70-99 mg/dl Calcium Level 8.8 8.5-10.1 mg/dl Test 11/08/16 11:12 11/08/16 13:43 Range/Units Bedside Glucose 160 193 70-90 mg/dl Assessment and Plan 45-year-old female with a history of CVA (right hemiparesis and expressive aphasia), positive homocystine and lupus anticoagulant, dysphagia s/p PEG tube placement, sarcoidosis resulting in hypercalcemia (with h/o kidney stones), cirrhosis, CKD, DM with peripheral neuropathy, HTN, HLD who was admitted from [facility] with coffee-ground emesis/tyler blood from PEG and supra- therapeutic INR. Patient had feeds started via PEG tube and hole in tubing was fixed by nurse. Tibia/fibula xray and lower extremity doppler were negative for any acute pathology. Right calf pain is likely due to the beginning of a pressure ulcer and will treat with voltaren gel and will consult wound nurse for further recommendations. Patient's Hgb is stable and is rising therefore would be reasonable to start heparin drip and then restart Warfarin if no there is no evidence of bleeding overnight. NOAC's shouldn't be used with poor renal function. GI bleeding - Protonix PO (via PEG) - H&H stable with no evidence of active bleeding - Will start heparin this afternoon with hopes to restart warfarin if no bleeding. - Continue to monitor H&H and INR UTI - Cultures and Sensitivities returned (grew enterococcus faecalis) - Pen VK 250 QID EARL on CKD - Baseline creat 2 - Creat currently 2.6 - Monitor renal function Hx of stroke - atorvastatin via PEG T2DM - Insulin sliding scale Diet - Peg tube feedings DVT prophylaxis - ANJEL stockings DNR Resident Physician Supervision Note: I interviewed and examined the patient. Discussed with Dr. Rothman and agree with findings and plan as documented in the note. Any exceptions or clarifications are listed here: None Documented By: Ladarius Bruno no new abdominal pain or GI bleeding. seems anxious about restarting blood thinner but undrstands risks/benefits and that unless rebleeding continues benefit of preventing another massive stroke (risking locked in syndrome or worse if she were to have contralateral CVA as bad as her initial one) outweighs risk of recurrent GI bleeding. as best can be ascertained, ROS otherwise negative except for as above vitals noted nad breathing unlabored abdomen soft nd nt GI bleeding with acute blood loss anemia - now stable. GI had no plans for scope. at this point bleeding has stopped and she really requires every possible effort at anticoagulation so as to not risk recurrent stroke (see above ). reviewed and unfortunately w renal function no clear safe vs effective dosing of NOAC. will start heparin gtt -- if rebleeds will have to have scope. if doesn't then can resume coumadin cautiously otherwise as above Continued [facility] stay due to: multiple IV medications needed, home environment unsafe for pt Discharge planning: [facility]
[2016-11-08 15:50] LABS: PARTIAL THROMBOPLASTIN RATIO 1.3
[2016-11-08] MEDS: HEPARIN 25,000 UNIT/500ML D5W 500 ML IV PRN (16:19)
[2016-11-08] MEDS: [UNRECOGNIZED DRUG - REMARK] SCH (22:08)
[2016-11-08 23:03] LABS: PARTIAL THROMBOPLASTIN RATIO 2.2
[2016-11-09] VITALS (9 sets, daily range): BP systolic 83–135; BP diastolic 53–85; PULSE 80–102; TEMP 36.7–37.2; O2SAT 95–100
[2016-11-09] MEDS: CHECK FENTANYL PATCH PLACEMENT SCH ×4 (00:01→23:44)
[2016-11-09] MEDS: MoRPHine SULFATE 2 MG/ML CARP IV PRN ×2 (01:05→05:26)
[2016-11-09] MEDS: TUBE FEEDING WATER FLUSH PEG SCH ×17 (02:01→21:57)
[2016-11-09] MEDS: MoRPHine SULFATE 4 MG/ML 1 ML CARP\\VIAL IV PRN ×2 (03:14→09:27)
[2016-11-09 06:28] LABS: HEMATOCRIT 25.1 % (37-47)
[2016-11-09 06:50] LABS: INR 1.2 (0.9-1.1); PROTHROMBIN TIME (PATIENT) 13.1 SECONDS (9.0-12.0)
[2016-11-09 07:02] LABS: BUN/CREATININE RATIO 20.6 (10-20); CALCIUM 9.1 mg/dl (8.5-10.1); CREATININE 2.4 mg/dl (0.60-1.20); POTASSIUM 3.4 mmol/L (3.5-5.1)
[2016-11-09] MEDS: LANSOPRAZOLE SOLUTAB 30 MG PEG SCH ×2 (07:25→21:18)
[2016-11-09] MEDS: DICLOFENAC SOD 1% GEL 100 GM TUBE EXT SCH ×3 (07:25→21:09)
[2016-11-09] MEDS: PENICILLIN-VK SUSP 250 MG/5 ML 200 ML GT SCH ×4 (07:29→21:23)
[2016-11-09] MEDS: PEPTAMEN 1.5 CAL 1000ML BAG PEG SCH (07:58)
[2016-11-09] MEDS: INSULIN ASPART 100 UNITS/ML 3 ML PEN SC SCH ×4 (10:00→22:27)
[2016-11-09] MEDS ORDERED: POTASSIUM CHLORIDE 20 MEQ/15 ML UDC PEG STA (10:03)
--- NOTE | 2016-11-09 10:58 | Pharmacy Progress Note ---
Glycemic: Assessment & Plan Date of Service Nov 09, 2016. Assessment & Plan The patient is currently receiving 2 units of insulin per day. BSGs ranging 103 - 193 mg/dl over the past 24hrs. * Basal insulin: NONE * Correctional Insulin: Novolog Correction per scale q4h while on tube feeds only Goal Range: Low 140 mg/dL - High 180 mg/dL Correction Factor: 20 mg/dL/unit * Prandial insulin: NONE - BSGs remain at or just above goal with only correctional insulin, no changes needed to inpatient regimen at this time - Will consider decreasing frequency of Novolog if BSGs remain stable Pharmacy will continue to monitor patient daily and write orders per [facility] inpatient glycemic control protocol. Thanks. * Please note that the plan above was derived based on current level of insulin resistance and hospital stress. These recommendations are appropriate for inpatient admission only. Plan of care upon discharge will need to be reassessed to avoid potential outpatient hypo/hyperglycemia.
--- NOTE | 2016-11-09 13:34 | Family Medicine Progress Note ---
Progress Note Date of Service Nov 09, 2016. Subjective Pt evaluation today including: conversation w/ patient, physical exam, chart review, lab review, review of studies, review of inpatient medication list Pain: pain at Rt knee, Rt Calf PO Intake: adequate Voiding: loera catheter in place NO acute events overnight, at baseline mental status per nurse. Patient remains non-verbal but appears to comprehend/follow commands. She denies Chest pain, SOB, palpitation. She also reports ongoing pain at Rt knee and calf. Cardiovascular: No chest pain, No palpitations Musculoskeletal: + problem reported (pain RLE (calf, knee)) Neurologic: + weakness (Rt sided weakness (from previous CVA)) Additional Comments: could not assess thorough ROS due to patient's aphasia. Refer to above for positive symptoms Medications Current Inpatient Medications Medications (Trade) Dose Ordered Sig/Filipe Route Start Time Stop Time Status Last Admin Dose Admin Acetaminophen (Tylenol Tab) 650 mg Q4H PRN PO 11/05/16 03:00 12/05/16 02:59 11/08/16 20:22 650 MG Ondansetron HCl (Zofran Inj) 4 mg Q6H PRN IV 11/05/16 03:00 12/05/16 02:59 Polyethylene (Miralax Powder Packet) 17 gm DAILY PRN PO 11/05/16 03:00 12/05/16 02:59 Fentanyl (Duragesic Patch) 12 mcg Q72H TD 11/05/16 06:45 11/19/16 06:44 11/08/16 06:13 12 MCG Miscellaneous (Fentanyl Patch Remove & Waste) 1 ea Q3D N/A 11/08/16 06:45 12/08/16 06:44 11/08/16 06:13 1 EA Miscellaneous Information (Check Fentanyl Patch Placement) 1 ea QS N/A 11/05/16 08:00 12/05/16 07:59 11/09/16 07:24 1 EA Miscellaneous Information (Consult Glycemic Management Pharmacy) 1 ea DAILY PRN N/A 11/05/16 06:49 12/05/16 06:48 Morphine Sulfate (MoRPHine SULFATE INJ) 2 mg Q4H PRN IV 11/05/16 06:45 11/19/16 06:44 11/09/16 05:26 2 MG Morphine Sulfate (MoRPHine SULFATE INJ) 4 mg Q4H PRN IV 11/05/16 06:45 11/19/16 06:44 11/09/16 09:27 4 MG Glucose (Glucose 40% Gel) 15-30 GRAMS 15 GRAMS... UD PRN PO 11/05/16 07:30 12/05/16 07:29 Glucose (Glucose Chew Tab) 4-8 Tablets 4 Tabl... UD PRN PO 11/05/16 07:30 12/05/16 07:29 Dextrose (Dextrose 50% 50ML Syringe) 25-50ML OF 50% DW IV FOR... UD PRN IV 11/05/16 07:30 12/05/16 07:29 Glucagon (Glucagon Inj) 1 mg UD PRN SQ 11/05/16 07:30 12/05/16 07:29 Lansoprazole (Prevacid Solutab) 30 mg BID PEG 11/07/16 21:00 12/07/16 20:59 11/09/16 07:25 30 MG Penicillin V Potassium (Penicillin-Vk Susp) 5 ml QID GT 11/07/16 13:00 11/12/16 12:59 11/09/16 07:29 5 ML Enteral Nutritional Formula (Peptamen 1.5) SEE PROTOCOL DAILY@0700 PEG 11/08/16 07:00 12/08/16 06:59 11/09/16 07:58 1,000 ML Miscellaneous (Stop Order) 1 ea DAILY@2200 N/A 11/07/16 22:00 12/07/16 21:59 11/08/16 22:08 1 EA Sterile Water (Tube Feeding Water Flush) 1 ea 0800,0900,1000,1100,1200,1300 PEG 11/08/16 08:00 12/08/16 07:59 11/09/16 12:00 1 EA Sterile Water (Tube Feeding Water Flush) 1 ea 1400,1500,1600,1700,1800 PEG 11/07/16 16:00 12/07/16 15:59 11/08/16 18:09 1 EA Sterile Water (Tube Feeding Water Flush) 1 ea 1900,2000,2100,2200 PEG 11/07/16 19:00 12/07/16 18:59 11/08/16 22:05 1 EA Sterile Water (Tube Feeding Water Flush) 1 ea 0200,0600 PEG 11/08/16 02:00 12/08/16 01:59 11/09/16 05:26 1 EA Insulin Aspart (novoLOG ASPART) SLIDING SCALE 1000,1400,1800,2200 SC 11/08/16 10:00 12/08/16 09:59 11/08/16 22:08 1 UNITS Diclofenac Sodium 1 appln 1 appln TID EXT 11/08/16 14:00 12/08/16 13:59 11/09/16 07:25 1 APPLN Heparin Sodium/ Dextrose (Heparin 25,000 Unit/500ml D5W) 500 ml @ 20 mls/hr Q24H PRN IV 11/08/16 15:45 12/08/16 15:44 11/08/16 16:19 22 MLS/HR Objective Vital Signs Date Time Temp Pulse Resp B/P Pulse Ox O2 Delivery O2 Flow Rate FiO2 11/09/16 12:36 96 Room Air 11/09/16 10:48 36.7 102 20 125/74 99 11/09/16 08:01 96 Room Air 11/09/16 07:47 36.9 87 20 135/85 100 Room Air 11/09/16 04:15 37.1 80 22 131/53 98 Room Air 11/09/16 04:00 98 Room Air 11/08/16 23:59 98 Room Air 11/08/16 23:54 37.1 74 20 104/49 98 Room Air 11/08/16 21:20 95 Room Air 11/08/16 19:13 36.5 87 20 102/80 95 Room Air 11/08/16 16:00 97 Room Air 11/08/16 15:08 36.6 79 18 124/54 97 Room Air Physical Exam Notes: General Appearance: WD/WN, + mild distress, + pertinent finding Eyes: normal inspection ENT: hearing grossly normal, pharynx normal Respiratory/Chest: chest non-tender, lungs clear, no respiratory distress, no accessory muscle use Cardiovascular: regular rate, rhythm, no JVD, no murmur Abdomen: normal bowel sounds, non tender, soft, + pertinent finding (PEG tube in place, no localized erythema/discharge) Extremities: normal capillary refill, + pertinent finding (knee and right calf are tender to touch) Neurologic/Psychiatric: + aphasia, + motor weakness (Right sided motor weakness due to previous CVA) Skin: warm/dry Laboratory Results Results Past 24 Hours Test 11/08/16 13:43 11/08/16 15:31 11/08/16 18:08 11/08/16 22:04 Range/Units Bedside Glucose 193 163 183 70-90 mg/dl Activated Partial Thromboplast Time 32.8 21.0-31.0 SECONDS Partial Thromboplastin Ratio 1.3 Test 11/08/16 22:37 11/09/16 06:05 11/09/16 06:41 11/09/16 10:02 Range/Units Activated Partial Thromboplast Time 58.1 78.4 21.0-31.0 SECONDS Partial Thromboplastin Ratio 2.2 3.0 Hemoglobin 8.3 12.0-16.0 g/dL Hematocrit 25.1 37-47 % Prothrombin Time 13.1 9.0-12.0 SECONDS Prothromb Time International Ratio 1.2 0.9-1.1 Sodium Level 142 136-145 mmol/L Potassium Level 3.4 3.5-5.1 mmol/L Chloride Level 109 98-107 mmol/L Carbon Dioxide Level 24 21-32 mmol/L Anion Gap 9.0 3-11 mmol/L Blood Urea Nitrogen 49 7-18 mg/dl Creatinine 2.40 0.60-1.20 mg/dl Est Creatinine Clear Calc Drug Dose 27.9 ml/min Estimated GFR () 27.1 Estimated GFR (Non- 23.4 BUN/Creatinine Ratio 20.6 10-20 Random Glucose 105 70-99 mg/dl Calcium Level 9.1 8.5-10.1 mg/dl Bedside Glucose 103 140 70-90 mg/dl Test 11/09/16 13:00 Range/Units Assessment and Plan 45 yo F w/ PMHx fo CVA ( +Homocysteine, +Lupus anticoag) complicated by Rt sided hemiparesis and Expressive aphasia, dysphagia s/p PEG Tube placement, Sarcoidosis with resultant Hypercalcemia, Cirrhosis, CKD, DM/peripheral neuropathym HTN, HLD, [facility] resident p/w bleeding per PEG tube with supratherapeutic INR, with condition complaints of rt knee, calf pain with negative Rt Rib/fib XR, negative Rt Doppler LE GI bleeding - Protonix PO (via PEG) - H&H stable with no evidence of active bleeding (Hgb 8.2 -->8.3) - Heparin restarted 11/08 - Restart Warfarin this evening provided no further bleeding - Continue to monitor H&H and INR UTI - Cultures positive for enterococcus faecalis - Continue PCN VK 250 QID EALR on CKD - Baseline creat 2 -Cr trending down, Cr 2.4 <--2.6 -Continue to Monitor renal function Hx of stroke - Continue atorvastatin via PEG T2DM - Insulin sliding scale Diet - Peg tube feedings DVT prophylaxis - Heparin, Coumadin will be started provided no further bleeding this evening Hypokalemia - K 3.4 , mild -Given 20 meq KCl via PEG Rt LE pain (Calf) -possible early ulcer formation -Doppler negative, Tib/fib XR negative -Wound care, Pain management DNR Resident Physician Supervision Note: I interviewed and examined the patient. Discussed with Dr. Younger and agree with findings and plan as documented in the note. Any exceptions or clarifications are listed here: No signs of bleeding since starting therapeutic heparin 24 hours ago; will restart Coumadin this evening and continue to monitor for bleeding. H/H in AM. GI notes reviewed; no further work up recommended at this time. Documented By: Juan Ridley Continued [facility] stay due to: inadequate oral pain control, other (GI Bleed) Discharge planning: [facility] facility Resident Tracking Resident Involvement: Resident Care Provided Care Provided: Adult Hospital Medicine
[2016-11-09 14:21] LABS: PARTIAL THROMBOPLASTIN RATIO 2.3
[2016-11-09] MEDS: HEPARIN 25,000 UNIT/500ML D5W 500 ML IV PRN (18:49)
[2016-11-09] MEDS ORDERED: WARFARIN SOD 5 MG TAB PO ONE (21:00)
[2016-11-09] MEDS: [UNRECOGNIZED DRUG - REMARK] SCH (21:58)
[2016-11-10] VITALS (11 sets, daily range): BP systolic 109–123; BP diastolic 65–87; PULSE 97–107; TEMP 36.7–37.4; O2SAT 95–100
[2016-11-10] MEDS: TUBE FEEDING WATER FLUSH PEG SCH ×17 (01:51→22:04)
[2016-11-10] MEDS: MoRPHine SULFATE 2 MG/ML CARP IV PRN ×3 (02:59→13:36)
[2016-11-10 06:20] LABS: HEMATOCRIT 24.9 % (37-47); MEAN CELL VOLUME 97.6 fL (80-100); MEAN CORPUSCULAR HEMOGLOBIN 32.5 pg (25-34); MEAN CORPUSCULAR HGB CONC 33.3 g/dl (32-36); MEAN PLATELET VOLUME 11.6 fL (7.4-10.4); PLATELET COUNT 118 K/uL (130-400); RED BLOOD COUNT 2.55 M/uL (4.2-5.4)
[2016-11-10 06:53] LABS: INR 1.1 (0.9-1.1); PARTIAL THROMBOPLASTIN RATIO 2.2; PROTHROMBIN TIME (PATIENT) 12.3 SECONDS (9.0-12.0)
[2016-11-10 06:59] LABS: BUN/CREATININE RATIO 17.6 (10-20); CALCIUM 9.4 mg/dl (8.5-10.1); CREATININE 2.4 mg/dl (0.60-1.20); POTASSIUM 3.7 mmol/L (3.5-5.1)
[2016-11-10] MEDS: PEPTAMEN 1.5 CAL 1000ML BAG PEG SCH (07:02)
[2016-11-10] MEDS: LANSOPRAZOLE SOLUTAB 30 MG PEG SCH ×2 (08:06→20:12)
[2016-11-10] MEDS: DICLOFENAC SOD 1% GEL 100 GM TUBE EXT SCH ×3 (08:07→20:13)
[2016-11-10] MEDS: PENICILLIN-VK SUSP 250 MG/5 ML 200 ML GT SCH ×4 (08:07→20:12)
[2016-11-10] MEDS: CHECK FENTANYL PATCH PLACEMENT SCH ×3 (08:08→23:49)
[2016-11-10] MEDS: INSULIN ASPART 100 UNITS/ML 3 ML PEN SC SCH ×4 (10:59→22:09)
--- NOTE | 2016-11-10 11:08 | Family Medicine Progress Note ---
Progress Note Date of Service Nov 10, 2016. Subjective Pt evaluation today including: conversation w/ patient, physical exam, chart review, lab review, review of studies, review of inpatient medication list Pain: Rt calf pain improved from previous PO Intake: NPO Voiding: no voiding problems Patient has expressive aphasia and is unable to verbalize. No acute events overnight per nurse. She confirms pain has improved at right calf. Pt denies fevers, chest pain, shortness of breath, nausea, vomiting, diarrhea, constipation Constitutional: No chills, No fever Respiratory: No shortness of breath Cardiovascular: No chest pain, No palpitations Abdomen: No constipation, No diarrhea, No nausea, No pain, No vomiting Additional Comments: Could not get thorough review of symptoms due to patient's inability to verbalize. Please refer to above note for pertinent symptoms. Medications Current Inpatient Medications Medications (Trade) Dose Ordered Sig/Filipe Route Start Time Stop Time Status Last Admin Dose Admin Acetaminophen (Tylenol Tab) 650 mg Q4H PRN PO 11/05/16 03:00 12/05/16 02:59 11/08/16 20:22 650 MG Ondansetron HCl (Zofran Inj) 4 mg Q6H PRN IV 11/05/16 03:00 12/05/16 02:59 Polyethylene (Miralax Powder Packet) 17 gm DAILY PRN PO 11/05/16 03:00 12/05/16 02:59 Fentanyl (Duragesic Patch) 12 mcg Q72H TD 11/05/16 06:45 11/19/16 06:44 11/08/16 06:13 12 MCG Miscellaneous (Fentanyl Patch Remove & Waste) 1 ea Q3D N/A 11/08/16 06:45 12/08/16 06:44 11/08/16 06:13 1 EA Miscellaneous Information (Check Fentanyl Patch Placement) 1 ea QS N/A 11/05/16 08:00 12/05/16 07:59 11/10/16 08:08 1 EA Miscellaneous Information (Consult Glycemic Management Pharmacy) 1 ea DAILY PRN N/A 11/05/16 06:49 12/05/16 06:48 Morphine Sulfate (MoRPHine SULFATE INJ) 2 mg Q4H PRN IV 11/05/16 06:45 11/19/16 06:44 11/10/16 02:59 2 MG Morphine Sulfate (MoRPHine SULFATE INJ) 4 mg Q4H PRN IV 11/05/16 06:45 11/19/16 06:44 11/09/16 09:27 4 MG Glucose (Glucose 40% Gel) 15-30 GRAMS 15 GRAMS... UD PRN PO 11/05/16 07:30 12/05/16 07:29 Glucose (Glucose Chew Tab) 4-8 Tablets 4 Tabl... UD PRN PO 11/05/16 07:30 12/05/16 07:29 Dextrose (Dextrose 50% 50ML Syringe) 25-50ML OF 50% DW IV FOR... UD PRN IV 11/05/16 07:30 12/05/16 07:29 Glucagon (Glucagon Inj) 1 mg UD PRN SQ 11/05/16 07:30 12/05/16 07:29 Lansoprazole (Prevacid Solutab) 30 mg BID PEG 11/07/16 21:00 12/07/16 20:59 11/10/16 08:06 30 MG Penicillin V Potassium (Penicillin-Vk Susp) 5 ml QID GT 11/07/16 13:00 11/12/16 12:59 11/10/16 08:07 5 ML Enteral Nutritional Formula (Peptamen 1.5) SEE PROTOCOL DAILY@0700 PEG 11/08/16 07:00 12/08/16 06:59 11/10/16 07:02 75 ML Miscellaneous (Stop Order) 1 ea DAILY@2200 N/A 11/07/16 22:00 12/07/16 21:59 11/09/16 21:58 1 EA Sterile Water (Tube Feeding Water Flush) 1 ea 0800,0900,1000,1100,1200,1300 PEG 11/08/16 08:00 12/08/16 07:59 11/10/16 11:01 1 EA Sterile Water (Tube Feeding Water Flush) 1 ea 1400,1500,1600,1700,1800 PEG 11/07/16 16:00 12/07/16 15:59 11/09/16 18:41 1 EA Sterile Water (Tube Feeding Water Flush) 1 ea 1900,2000,2100,2200 PEG 11/07/16 19:00 12/07/16 18:59 11/09/16 21:57 1 EA Sterile Water (Tube Feeding Water Flush) 1 ea 0200,0600 PEG 11/08/16 02:00 12/08/16 01:59 11/10/16 05:51 1 EA Insulin Aspart (novoLOG ASPART) SLIDING SCALE 1000,1400,1800,2200 SC 11/08/16 10:00 12/08/16 09:59 11/10/16 10:59 4 UNITS Diclofenac Sodium 1 appln 1 appln TID EXT 11/08/16 14:00 12/08/16 13:59 11/10/16 08:07 1 APPLN Heparin Sodium/ Dextrose (Heparin 25,000 Unit/500ml D5W) 500 ml @ 20 mls/hr Q24H PRN IV 11/08/16 15:45 12/08/16 15:44 11/09/16 18:49 20 MLS/HR Objective Vital Signs Date Time Temp Pulse Resp B/P Pulse Ox O2 Delivery O2 Flow Rate FiO2 11/10/16 08:04 37.2 97 20 119/72 99 Room Air 11/10/16 08:00 98 Room Air 2.0 11/10/16 04:00 98 Room Air 11/10/16 02:59 37.3 100 20 123/70 98 Room Air 11/10/16 00:23 37.4 102 16 112/65 99 Room Air 11/09/16 23:59 99 Room Air 11/09/16 20:00 Room Air 11/09/16 18:52 36.9 96 18 83/72 99 Room Air 11/09/16 16:00 Room Air 11/09/16 15:48 37.2 95 18 95/56 95 Room Air 11/09/16 12:36 96 Room Air Physical Exam Eyes: + abnormal EOM Notes: General Appearance: WD/WN, NO distress, + pertinent finding Eyes: normal inspection ENT: hearing grossly normal, pharynx normal Respiratory/Chest: chest non-tender, lungs clear, no respiratory distress, no accessory muscle use Cardiovascular: regular rate, rhythm, no JVD, no murmur Abdomen: normal bowel sounds, non tender, soft, + pertinent finding (PEG tube in place, no localized erythema/discharge) Extremities: normal capillary refill, + pertinent finding (knee and right calf are tender to touch) Neurologic/Psychiatric: + aphasia, + motor weakness (Right sided motor weakness due to previous CVA) Skin: warm/dry Rt calf, tender touch at area of ecchymoses Laboratory Results Results Past 24 Hours Test 11/09/16 18:43 11/09/16 22:13 11/10/16 05:50 11/10/16 10:55 Range/Units Bedside Glucose 223 194 242 70-90 mg/dl White Blood Count 3.80 4.8-10.8 K/uL Red Blood Count 2.55 4.2-5.4 M/uL Hemoglobin 8.3 12.0-16.0 g/dL Hematocrit 24.9 37-47 % Mean Corpuscular Volume 97.6 80-100 fL Mean Corpuscular Hemoglobin 32.5 25-34 pg Mean Corpuscular Hemoglobin Concent 33.3 32-36 g/dl RDW Standard Deviation 58.3 36.4-46.3 fL RDW Coefficient of Variation 16.4 11.5-14.5 % Platelet Count 118 130-400 K/uL Mean Platelet Volume 11.6 7.4-10.4 fL Prothrombin Time 12.3 9.0-12.0 SECONDS Prothromb Time International Ratio 1.1 0.9-1.1 Activated Partial Thromboplast Time 57.6 21.0-31.0 SECONDS Partial Thromboplastin Ratio 2.2 Sodium Level 142 136-145 mmol/L Potassium Level 3.7 3.5-5.1 mmol/L Chloride Level 109 98-107 mmol/L Carbon Dioxide Level 24 21-32 mmol/L Anion Gap 9.0 3-11 mmol/L Blood Urea Nitrogen 42 7-18 mg/dl Creatinine 2.40 0.60-1.20 mg/dl Est Creatinine Clear Calc Drug Dose 27.9 ml/min Estimated GFR () 27.1 Estimated GFR (Non- 23.4 BUN/Creatinine Ratio 17.6 10-20 Random Glucose 147 70-99 mg/dl Calcium Level 9.4 8.5-10.1 mg/dl Test 11/10/16 13:43 Range/Units Bedside Glucose 214 70-90 mg/dl Assessment and Plan 45 yo F w/ PMHx fo CVA ( +Homocysteine, +Lupus anticoag) complicated by Rt sided hemiparesis and Expressive aphasia, dysphagia s/p PEG Tube placement, Sarcoidosis with resultant Hypercalcemia, Cirrhosis, CKD, DM/peripheral neuropathy HTN, HLD, [facility] resident p/w bleeding per PEG tube with supratherapeutic INR, with condition complaints of rt knee, calf pain with negative Rt Rib/fib XR, negative Rt Doppler LE GI bleeding - not bleeding on exam - H&H stable with no evidence of active bleeding (Hgb 8.3 -->8.3) - Repeat INR 1.1 -Restarted Warfarin on 11/09 -Give Warfarin 5 mg this evening - Continue to monitor H&H and INR UTI - Cultures positive for enterococcus faecalis - Continue PCN VK 250 QID EARL on CKD - Baseline creat 2 -Cr stable , Cr 2.4 <--2.4 -Continue to Monitor renal function Hx of stroke - Continue atorvastatin via PEG T2DM - Insulin sliding scale Diet - Peg tube feedings DVT prophylaxis - Heparin, Coumadin will be started provided no further bleeding this evening Hypokalemia - resolved -K 3.7 Rt LE pain (Calf) -possible early ulcer formation -Doppler negative, Tib/fib XR negative -Wound care, Pain management DNR Resident Physician Supervision Note: I interviewed and examined the patient. Discussed with Dr. Younger and agree with findings and plan as documented in the note. Any exceptions or clarifications are listed here: The patient's hemoglobin has been stable and is been no signs of bleeding from her PEG site; she's had no hematemesis. Coumadin was reinitiated yesterday, and she remains on therapeutic heparin today with a subtherapeutic INR. We'll continue Coumadin this evening; if no evidence of bleeding we'll transferred to [facility] tomorrow. Documented By: uJan Ridley Discharge planning: care home facility Resident Tracking Resident Involvement: Resident Care Provided Care Provided: Adult Hospital Medicine
[2016-11-10] MEDS ORDERED: INSULIN ASPART 100 UNITS/ML 3 ML PEN SC SCH (14:00)
[2016-11-10] MEDS: MoRPHine SULFATE 4 MG/ML 1 ML CARP\\VIAL IV PRN (20:12)
[2016-11-10] MEDS ORDERED: WARFARIN SOD 5 MG TAB PO ONE (21:00)
[2016-11-10] MEDS: [UNRECOGNIZED DRUG - REMARK] SCH (22:04)
[2016-11-10] MEDS: HEPARIN 25,000 UNIT/500ML D5W 500 ML IV PRN (22:08)
[2016-11-11] MEDS: TUBE FEEDING WATER FLUSH PEG SCH ×9 (01:54→13:51)
[2016-11-11 04:00] VITALS: O2SAT 95
[2016-11-11 04:40] VITALS: BP 108/72; PULSE 93; TEMP 36.7; O2SAT 94
[2016-11-11] MEDS: FENTANYL PATCH REMOVE & WASTE SCH (06:10)
[2016-11-11] MEDS: FENTANYL 12 MCG/HR TDSY TD SCH (06:10)
[2016-11-11] MEDS: PEPTAMEN 1.5 CAL 1000ML BAG PEG SCH (06:11)
[2016-11-11 06:35] LABS: PARTIAL THROMBOPLASTIN RATIO 2.4
[2016-11-11 07:05] LABS: INR 1.3 (0.9-1.1); PROTHROMBIN TIME (PATIENT) 13.7 SECONDS (9.0-12.0)
[2016-11-11 07:07] LABS: HEMATOCRIT 24.5 % (37-47); MEAN CORPUSCULAR HEMOGLOBIN 33.2 pg (25-34); MEAN CORPUSCULAR HGB CONC 33.9 g/dl (32-36); MEAN PLATELET VOLUME 11.4 fL (7.4-10.4); PLATELET COUNT 105 K/uL (130-400); WHITE BLOOD COUNT 3.48 K/uL (4.8-10.8)
[2016-11-11 07:11] LABS: BUN/CREATININE RATIO 16.5 (10-20); CALCIUM 9.9 mg/dl (8.5-10.1); CREATININE 2.3 mg/dl (0.60-1.20); POTASSIUM 4.1 mmol/L (3.5-5.1)
[2016-11-11 07:24] VITALS: BP 139/77; PULSE 102; TEMP 36.5; O2SAT 98
[2016-11-11] MEDS: LANSOPRAZOLE SOLUTAB 30 MG PEG SCH (08:54)
[2016-11-11] MEDS: DICLOFENAC SOD 1% GEL 100 GM TUBE EXT SCH ×2 (08:54→13:40)
[2016-11-11] MEDS: CHECK FENTANYL PATCH PLACEMENT SCH (08:55)
[2016-11-11] MEDS: PENICILLIN-VK SUSP 250 MG/5 ML 200 ML GT SCH ×2 (09:17→12:09)
--- NOTE | 2016-11-11 09:57 | Discharge Instructions ---
Discharge Instructions Date of Service Nov 11, 2016. Admission Reason for Admission: Gi Bleed Discharge Discharge Diagnosis / Problem: gastrointestinal bleed Discharge Goals Goal(s): Improve function, Diagnostic testing, Therapeutic intervention Activity Recommendations Activity Limitations: resume your previous activity Lifting Limitations: none (not applicable) Exercise/Sports Limitations: as tolerated May Resume Sexual Activity: when tolerated Driving or Machine Use: not applicable Weightbearing Status: Left non-weightbearing, Right non-weightbearing Limitations secondary to history of CVA. . Current Hospital Diet Patient's current hospital diet: Discharge Diet Recommended Diet: N/A Fluid Restriction: None Procedures Procedures Performed: None Pending Studies Studies pending at discharge: no Laboratory Results Hemoglobin A1c Test 11/05/16 06:58 Range/Units Estimated Average Glucose 117 mg/dl Hemoglobin A1c 5.7 H 4.5-5.6 % Medical Emergencies . Who to Call and When: Medical Emergencies: If at any time you feel your situation is an emergency, please call 911 immediately. . Non-Emergent Contact Non-Emergency issues call your: Primary Care Provider Contact Number: group home . . "Provider Documentation" section prepared by Juan Ridley. . VTE Core Measure Inpt VTE Proph given/why not?: SCD's
[2016-11-11] MEDS ORDERED: ENOX40IN SQ (10:06)
[2016-11-11] MEDS ORDERED: ENOXAPARIN 1 MG/KG SQ SCH (10:15)
--- NOTE | 2016-11-11 10:22 | Discharge Summary ---
Discharge Summary Date of Service Nov 11, 2016. Discharge Summary Admission Date: Nov 05, 2016 at 03:04 Discharge Date: Nov 11, 2016 Discharge Disposition: senior care facility Principal Diagnosis: 1) gastrointestinal bleed 2) anemia secondary to acute blood loss, with history of chronic anemia Secondary Diagnoses/Problems: 1) Supra therapeutic INR: 2) UTI 3) EARL ON CKD 4) hypercalcemia 5) History of stroke with right hemiparesis 6) Dysphagia 7) type 2 diabetes on insulin Procedures: None Vaccinations: None Consultations: Gastroenterology, Case Pending Studies/Follow-Up: None Medication Reconciliation New Medications: Enoxaparin (Lovenox) 40 Mg/0.4 Ml Inj 70 MG SQ DAILY for 10 Days, #10 SYR Continued Medications: Atenolol (Tenormin) 50 Mg Tab 50 MG PEG QAM, TAB Atorvastatin (Lipitor) 20 Mg Tab 20 MG PEG HS, TAB Cyanocobalamin (Vitamin B-12) 500 Mcg Be 500 MCG PEG QAM Ergocalciferol (Calcidol) 8,000 Unit/Ml Neto 6.25 ML PEG WK MONDAYS Fentanyl (Fentanyl) 12 Mcg Tdsy 12 MCG TD Q72H Folic Acid (Folvite) 1 Mg Tab 1 MG PEG DAILY, TAB Insulin Aspart (Novolog Flexpen) 100 Units/Ml Inj UNITS SC QID for SLIDING SCALE 131-180= 2 UNITS 181-240= 4 UNITS 241-300= 6 UNITS 301-350= 8 UNITS 351-400= 10 UNITS GREATED THAN 400= 12 UNITS AND CALL Insulin Glargine (Lantus Solostar) 100 Unit/Ml Inj 20 UNITS SC HS, PEN Insulin Isophane (Human) (Novolin N U-100) 100 Unit/Ml Inj 10 UNITS SC QAM Ketoconazole (Nizoral) 200 Mg Tab 200 MG PEG DAILY, TAB Meclizine Hcl (Meclizine Hcl) 25 Mg Tab 25 MG PEG PRN/UD PRN for ONE HOUR PRIOR TO TRAVEL, TAB Metoclopramide HCl (Metoclopramide HCl) 5 Mg/Ml Inj 5 ML PEG Q6 Nutritional Supplements (Vital 1.5 Jos) 1 Liq Liq PEG UD 75ML/HR VIA PEG TUBE UNTIL 1080ML INFUSED Oxycodone Ir (Roxicodone Ir) 5 Mg Tab 5 MG PEG Q4H PRN for MOD PAIN, TAB Oxycodone Ir (Roxicodone Ir) 5 Mg Tab 10 MG PO Q4H PRN for Severe Pain, TAB Potassium Chloride (Potassium Chloride) 20 Meq/100 Ml Inj 20 MEQ PEG QPM DILUTE WITH 90-120ML WATER/JUICE Prednisone (Prednisone) 5 Mg Tab 5 MG PEG QAM, TAB Promethazine Hcl (Phenergan) 25 Mg Tab 25 MG PEG Q6H PRN for Nausea, TAB Venlafaxine Hcl (Effexor) 75 Mg Tab 75 MG PEG QAM, TAB Warfarin Sod (Jantoven) 5 Mg Tab 5 MG PEG 5XWK, TAB EXCEPT WEDNESDAY AND WEDNESDAY Warfarin Sodium (Coumadin) 7.5 Mg Tab 7.5 MG PEG TTH, TAB Admission Information HPI (per Admitting provider): 45-year-old female with a 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 The patient has expressive aphasia and nods yes or no to questions. She appears to be in pain and has bright red bleeding via PEG tube. Physical Exam (per Admitting): General Appearance: + mild distress Head: normocephalic Eyes: normal inspection ENT: hearing grossly normal, + pertinent finding (expressive aphasia) Respiratory/Chest: chest non-tender, lungs clear, normal breath sounds, no respiratory distress, no accessory muscle use Cardiovascular: regular rate, rhythm, + tachycardia Abdomen/GI: normal bowel sounds, soft, + tenderness (diffuse), + pertinent finding (PEG tube with tyler blood) Extremities/Musculoskelatal: no pedal edema Neurologic/Psych: alert, + aphasia, + motor weakness (right-sided hemiparesis) Hospital Course The patient was admitted to the telemetry unit. Gastroenterology was consult. Anticoagulation was held. The patient was also found to have a urinary tract infection. This was treated with IV Rocephin and then switched to penicillin via the PEG tube. The bleeding stopped and the patient's hemoglobin stabilized; she did not require blood transfusion. Given that the bleeding stopped, gastroenterology deferred on any procedures. There was concern given her history of embolic CVA that despite the bleeding and anemia, the risk of holding anticoagulation for too long was greater than the risk of recurrent bleeding. As such the patient initially was started on a heparin drip and she was continued on this for 36 hours; when she did not rebleed, her Coumadin was also restarted. On the day of discharge, the patient was medicated with 70 Mg of Lovenox subcutaneous at the same time her heparin drip was discontinued. She required this bridge therapy until she is therapeutic on her Coumadin. Dosing was discussed with pharmacy it was decided to medically the patient with 70 mg every 24 hours based on her renal function. The idea of a novel anticoagulant was also discussed that obtaining therapeutic levels may be difficult given her renal function. Prior to discharge, I discussed the case with Dr. Jordi Chaves he was a physician at the skilled nursing where the patient resides. Discharge Exam Vital signs as noted. She is her baseline in terms of communication; she has some difficulty medication board as well. Heart regular rate and rhythm Lungs were clear except somewhat diminished in the baseline due to respiratory effort. The site of the patent tube was clear without any signs of bleeding. She had a resolving bruise in the right posterior calf; this area is nontender; there is no calf edema. Time statement 45 minutes including bedside exam, discussion with pharmacy, and discussion with receiving physician at skilled nursing. Total time spent on discharge = This includes examination of the patient, discharge planning, medication reconciliation, and communication with other providers. Discharge Instructions Discussed with physician at skilled nursing
[2016-11-11] MEDS ORDERED: ENOXAPARIN 80 MG/0.8 ML SYR SQ SCH (10:30)
[2016-11-11] MEDS ORDERED: INSULIN ASPART 100 UNITS/ML 3 ML PEN SC SCH ×2 (11:00)
[2016-11-11 11:27] VITALS: BP 139/77; PULSE 102; TEMP 36.5; O2SAT 98
[2016-11-11] MEDS: MoRPHine SULFATE 2 MG/ML CARP IV PRN ×2 (11:50→13:39)
--- NOTE | 2016-11-11 14:32 | Pharmacy Progress Note ---
Glycemic Control: Progress Nt Date of Service Nov 11, 2016. Scope Glycemic Pharmacist consulted by Dr Farmer on 11/05/16 for glycemic control and to write orders per [facility] inpatient glycemic control protocol. Objective Accuchecks BSG (last 24hrs): Test 11/10/16 17:32 11/10/16 21:27 11/11/16 06:00 11/11/16 12:02 Bedside Glucose 239 mg/dl (70-90) 255 mg/dl (70-90) 248 mg/dl (70-90) Random Glucose 112 mg/dl (70-99) Laboratory Data (last 24hrs) Test 11/11/16 06:00 Anion Gap 9.0 mmol/L BUN/Creatinine Ratio 16.5 Blood Urea Nitrogen 38 mg/dl Creatinine 2.30 mg/dl Potassium Level 4.1 mmol/L Sodium Level 145 mmol/L White Blood Count 3.48 K/uL HbA1c: Test 11/05/16 06:58 Hemoglobin A1c 5.7 % (4.5-5.6) H Recent Pertinent Medications Outpatient Anti-diabetic Regimen: * NovoLog * 2-12 units SQ QID * Lantus * 20 units SQ q PM * NPH * 10 units SQ q AM * TUBE FEEDS OUTPATIENT * A1c outdated on admission Risk Factors for Insulin Resistance: * Infection: PCN * Diet: Peptamen from 07:00-22:00 @ 75mL/hr Assessment & Plan ASSESSMENT: * ADA & AACE recommend a goal blood sugar range 140-180 mg/dl for the majority of critically ill & non-critically ill patients. However, more stringent targets may be selected in individual cases. * Pt on chronic PEG tube feedings with Vital 1.5 @ 75ml/hr [id number] * Historically, when tube feedings are on hold BSGs are normal and minimal insulin is required * From historic admission/consultations: pt required ~ 80 units of insulin/day with tube feedings, dextrose IVF, + prednisone 11/11/16 * The patient has been experiencing hyperglycemia with correctional NovoLog alone * Add prandial NovoLog coverage of tube feedings at this time to help achieve euglycemia * Fasting BSG remains WNL * continue to forgo basal insulins PLAN FOR INPATIENT GLYCEMIC CONTROL: FOR WHEN PEPTAMEN IS @75ML/HR FROM 07:00-22:00 * NovoLog insulin per scale Q4H @ 07,11,,, * Goal Range: Low 110 mg/dL - High 150 mg/dL * Correction Factor: 20 mg/dL/unit * NovoLog 3 units SQ q4H @ ,,,, to cover CHO which is a CR of ~20 * A1c 5.7% * added to discharge instructions * Please note that the plan above was derived based on current level of insulin resistance and hospital stress. These recommendations are appropriate for inpatient admission only. Plan of care upon discharge will need to be reassessed to avoid potential outpatient hypo/hyperglycemia. Thank you.
[2016-12-10] MEDS ORDERED: WARF5TAB90 PEG (05:27)
[2016-12-10] MEDS ORDERED: WARF7.5T PEG (05:27)
[2016-12-10] MEDS ORDERED: FNTTP25 TOP (05:29)
[2016-12-10] MEDS ORDERED: NUTR-1276 PEG (05:40)
[2016-12-10] MEDS ORDERED: [UNRECOGNIZED DRUG - REMARK] PEG (05:41)
[2016-12-13] MEDS ORDERED: Tube Feeding Water Flush NG (13:15)
[2016-12-13] MEDS ORDERED: INSDGIPEN SC (13:15)
[2016-12-13] MEDS ORDERED: OXYC1TAB3 PO (13:15)
[2016-12-13] MEDS ORDERED: FNTTP25 TOP (13:15)
[2016-12-13] MEDS ORDERED: OXYC1TAB3 PEG (13:15)
== END 2016-11-11 15:30 | DRG 378 ==
LOC: ENRESERVDT → CANRESERV → ENRESERVTM → EDBD 22:55 → C.EDB 22:57 → C.2E 11-05 03:04 → EDBEDREQSVC 11-05 04:20
PROVIDERS: ADMIT Family Medicine; ATTEND Family Medicine
DX: K92.2 Gastrointestinal hemorrhage, unspecified (principal); D62 Acute posthemorrhagic anemia; N39.0 Urinary tract infection, site not specified; N17.9 Acute kidney failure, unspecified; I69.351 Hemiplegia and hemiparesis following cerebral infarction affecting right dominant side; I12.9 Hypertensive chronic kidney disease with stage 1 through stage 4 chronic kidney disease, or unspecified chronic kidney disease; E11.22 Type 2 diabetes mellitus with diabetic chronic kidney disease; E83.52 Hypercalcemia; Z79.4 Long term (current) use of insulin; R13.10 Dysphagia, unspecified; K75.81 Nonalcoholic steatohepatitis (NASH); D86.9 Sarcoidosis, unspecified; E83.59 Other disorders of calcium metabolism; N29 Other disorders of kidney and ureter in diseases classified elsewhere; K74.60 Unspecified cirrhosis of liver; E78.5 Hyperlipidemia, unspecified; Z66 Do not resuscitate; E87.6 Hypokalemia; G62.9 Polyneuropathy, unspecified; Z79.01 Long term (current) use of anticoagulants; Z87.891 Personal history of nicotine dependence; I69.320 Aphasia following cerebral infarction; Z93.1 Gastrostomy status; N18.3 Chronic kidney disease, stage 3 (moderate); I69.391 Dysphagia following cerebral infarction

== ENCOUNTER → 2016-11-13 | Outpatient (CLI) | payer OTHER ==
[~2016-11-13] MED LIST changes: +AMOX500C3 PO; +AMOX875T PEG; +DRGTP12 TD; +ENOX40IN SQ; +ENOX80IN SQ; +FNTTP25 TOP; +KETO200T PEG; +LCTX PEG; +MECL1TAB42 PEG; -METR-163 PEG; +NUTR-1276 PEG; -NZR200 PEG; +OXYC1TAB3 PEG; +OXYC1TAB3 PO; +PRD10 PO; +PROM25TA9 PEG; +QSTP PEG; +Tube Feeding Water Flush NG; +VNCS125 PEG; +WARF5TAB90 PEG; -[UNRECOGNIZED DRUG - CODE]; +[UNRECOGNIZED DRUG - CODE] PEG; -[UNRECOGNIZED DRUG - REMARK] MS; +[UNRECOGNIZED DRUG - REMARK] PEG
[2016-11-13 08:45] LABS: INR 1.2 (0.9-1.1); PROTHROMBIN TIME (PATIENT) 13.1 SECONDS (9.0-12.0)
== END ==
LOC: C.LABCC 08:14
PROVIDERS: ATTEND Internal Medicine
DX: I63.9 Cerebral infarction, unspecified (principal)

== ENCOUNTER → 2016-11-14 | Outpatient (CLI) | payer OTHER ==
[2016-11-14 07:42] LABS: INR 1.5 (0.9-1.1); PROTHROMBIN TIME (PATIENT) 15.8 SECONDS (9.0-12.0)
== END ==
LOC: C.LABCC 14:08
PROVIDERS: ATTEND Internal Medicine
DX: I63.9 Cerebral infarction, unspecified (principal)

== ENCOUNTER → 2016-11-15 | Outpatient (CLI) | payer OTHER ==
[2016-11-15 08:18] LABS: INR 1.6 (0.9-1.1); PROTHROMBIN TIME (PATIENT) 17.9 SECONDS (9.0-12.0)
== END | disposition home or self-care (01) ==
LOC: C.LABCC 14:01
PROVIDERS: ATTEND Internal Medicine
DX: I63.9 Cerebral infarction, unspecified (principal)

== ENCOUNTER → 2016-11-16 | Outpatient (CLI) | payer OTHER ==
[2016-11-16 08:41] LABS: INR 1.7 (0.9-1.1); PROTHROMBIN TIME (PATIENT) 18.3 SECONDS (9.0-12.0)
== END ==
LOC: C.LABCC 08:18
PROVIDERS: ATTEND Internal Medicine
DX: I63.9 Cerebral infarction, unspecified (principal)

== ENCOUNTER → 2016-11-18 | Outpatient (CLI) | payer OTHER ==
[2016-11-18 09:46] LABS: INR 1.3 (0.9-1.1); PROTHROMBIN TIME (PATIENT) 13.8 SECONDS (9.0-12.0)
== END | disposition home or self-care (01) ==
LOC: C.LABCC 09:11
PROVIDERS: ATTEND Internal Medicine
DX: Z79.01 Long term (current) use of anticoagulants (principal)

== ENCOUNTER → 2016-11-20 | Outpatient (CLI) | payer OTHER ==
[2016-11-20 08:44] LABS: INR 1.1 (0.9-1.1); PROTHROMBIN TIME (PATIENT) 11.6 SECONDS (9.0-12.0)
== END ==
LOC: C.LABCC 08:11
PROVIDERS: ATTEND Internal Medicine
DX: Z51.81 Encounter for therapeutic drug level monitoring (principal); Z79.01 Long term (current) use of anticoagulants

== ENCOUNTER → 2016-11-21 | Outpatient (CLI) | payer OTHER ==
[2016-11-21 16:00] LABS: INR 1.9 (0.9-1.1); PROTHROMBIN TIME (PATIENT) 20.7 SECONDS (9.0-12.0)
== END ==
LOC: C.LABCC 09:27
PROVIDERS: ATTEND Internal Medicine
DX: I48.91 Unspecified atrial fibrillation (principal)

== ENCOUNTER → 2016-11-22 | Outpatient (CLI) | payer OTHER ==
[2016-11-22 08:58] LABS: INR 1.9 (0.9-1.1); PROTHROMBIN TIME (PATIENT) 21.1 SECONDS (9.0-12.0)
== END ==
LOC: C.LABCC 09:26
PROVIDERS: ATTEND Internal Medicine
DX: I63.9 Cerebral infarction, unspecified (principal)

== ENCOUNTER → 2016-11-23 | Outpatient (CLI) | payer OTHER ==
[2016-11-23 08:17] LABS: BASO % 0.5 %; BASO ABS # 0.03 K/uL (0-0.2); EOS % 2.4 %; HEMATOCRIT 27.1 % (37-47); IG% 0.2 %; LYMPH % 11.5 %; LYMPH ABS # 0.63 K/uL (1.2-3.4); MEAN CELL VOLUME 101.1 fL (80-100); MEAN CORPUSCULAR HEMOGLOBIN 32.8 pg (25-34); MEAN CORPUSCULAR HGB CONC 32.5 g/dl (32-36); MEAN PLATELET VOLUME 11.6 fL (7.4-10.4); MONO % 12.5 %; NEUT % 72.9 %; PLATELET COUNT 137 K/uL (130-400); RED BLOOD COUNT 2.68 M/uL (4.2-5.4)
[2016-11-23 08:34] LABS: INR 1.4 (0.9-1.1); PROTHROMBIN TIME (PATIENT) 15.7 SECONDS (9.0-12.0)
[2016-11-23 09:11] LABS: COMPLETE YES
== END ==
LOC: C.LABCC 08:03
PROVIDERS: ATTEND Internal Medicine
DX: Z79.01 Long term (current) use of anticoagulants (principal)

== ENCOUNTER → 2016-11-24 | Outpatient (CLI) | payer OTHER ==
[~2016-11-24] MED LIST changes: -ENOX40IN SQ
[2016-11-24 08:30] LABS: BLOOD UREA NITROGEN 78 mg/dl (7-18); CARBON DIOXIDE 28 mmol/L (21-32); CHLORIDE 100 mmol/L (98-107); GLUCOSE 183 mg/dl (70-99); INR 1.3 (0.9-1.1); POTASSIUM 4.4 mmol/L (3.5-5.1); PROTHROMBIN TIME (PATIENT) 13.6 SECONDS (9.0-12.0); SODIUM 137 mmol/L (136-145)
[2016-11-24 09:01] LABS: CALCIUM 12.5 mg/dl (8.5-10.1)
== END | disposition home or self-care (01) ==
LOC: C.LABCC 08:09
PROVIDERS: ATTEND Internal Medicine
DX: Z79.01 Long term (current) use of anticoagulants (principal)

== ENCOUNTER 2016-11-26 14:15 | Inpatient (IN) | payer OTHER ==
[~2016-11-26] VITALS: Ht 162.6 cm; Wt 69.0 kg
[~2016-11-26 14:15] MED LIST changes: -AMOX500C3 PO; -AMOX875T PEG; -ENOX80IN SQ; -FNTTP25 TOP; -LCTX PEG; -NUTR-1276 PEG; -PRD10 PO; -QSTP PEG; -Tube Feeding Water Flush NG; -VNCS125 PEG; -WARF5TAB90 PEG; -[UNRECOGNIZED DRUG - REMARK] PEG
[2016-11-26] MEDS ORDERED: SODIUM CHLORIDE 0.9% 500ML 500 ML IV STA (14:43)
--- NOTE | 2016-11-26 14:52 | EMERGENCY ROOM VISIT NOTE ---
History First contact with patient: 14:32 Chief Complaint: OTHER COMPLAINT Stated Complaint: CALCIUM LEVEL OF 12.5 ON 11/24/16 History of Present Illness The patient is a 46 year old female who presents to the Emergency Room via transport from [facility] with complaints of "calcium level of 12.5 on 2016". The patient has an extensive past medical history, most noted though she has a history of CVA. She comes to us today from seeing Dr. Waddell, as she was noted to have a calcium level of 12.5. She was transferred directly to here. At this time, the transport individual notes that she is at her baseline , but did seem to be fatigued earlier. She is for the most part nonverbal, as she has suffered a severe CVA. She follows with Dr. Keller, and Dr. Chaves family doctor. It is noted that she may have an interval development of an ulcer/sore on the right posterior calf and heel. She denies any chest pain, shortness of breath, fevers, chills, nausea or abdominal pain. She is able to shake her head yes or no answering questions, and at times may answer question. Review of Systems A complete 10-point Review of Systems was discussed with the patient, with pertinent positives and negatives listed in the History of Present Illness. All remaining Review of Systems questions can be considered negative unless otherwise specified. Past Medical/Surgical History Medical Problems: (1) Abdominal pain (2) Acute kidney injury (3) Adult failure to thrive (4) Anemia (5) Aphasia following cerebral infarction (6) Aspiration pneumonia due to gastric secretions (7) Chronic kidney disease (8) Chronic kidney disease, stage 3 (9) Diab W Unspec Compl, Type Ii Or Unspec Type, Not Uncntrld (10) Dysphagia following cerebral infarction (11) Dysphagia, oropharyngeal phase (12) Dysphagia, unspecified (13) Expressive aphasia (14) GI bleed (15) Gross hematuria (16) Hemiparesis (17) Hemiplegia (18) Hypercalcemia (19) Hypertension Nos (20) Hypertensive chronic kidney disease (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 (22) shelter (current) use of insulin (23) Lupus anticoagulant positive (24) Lymphadenopathy (25) Major depressive disorder (26) Muscle weakness (generalized) (27) Nausea and vomiting (28) Other artificial openings of gastrointestinal tract status (29) Pleural Effusion Nos (30) Pressure ulcer of right buttock, stage 2 (31) Sarcoidosis (32) Splenomegaly (33) Stroke (34) Transaminasemia Family History Diabetes mellitus Seizures Social History Smoking Status: Former Smoker Alcohol Use: none Drug Use: none Marital Status: in relationship Housing Status: lives with significant other Occupation Status: disabled Current/Historical Medications Scheduled Atenolol (Tenormin), 50 MG PEG QAM Atorvastatin (Lipitor), 20 MG PEG HS Cyanocobalamin (Vitamin B-12), 500 MCG PEG QAM Enoxaparin (Lovenox), 0.7 ML SQ DIRECTED Ergocalciferol (Calcidol), 6.25 ML PEG WK Fentanyl (Fentanyl), 12 MCG TD Q72H Folic Acid (Folvite), 1 MG PEG DAILY Insulin Aspart (Novolog Flexpen), UNITS SC QID Insulin Glargine (Lantus Solostar), 20 UNITS SC HS Insulin Isophane (Human) (Novolin N U-100), 10 UNITS SC QAM Ketoconazole (Nizoral), 200 MG PEG DAILY Metoclopramide HCl (Metoclopramide HCl), 5 ML PEG Q6 Nutritional Supplements (Vital 1.5 Jos), PEG UD Potassium Chloride (Potassium Chloride), 20 MEQ PEG QPM Prednisone (Prednisone), 5 MG PEG QAM Venlafaxine Hcl (Effexor), 75 MG PEG QAM Warfarin Sod (Jantoven), 5 MG PEG 4XWK Warfarin Sodium (Coumadin), 7.5 MG PEG 3XWK Scheduled PRN Meclizine Hcl (Meclizine Hcl), 25 MG PEG PRN/UD PRN for ONE HOUR PRIOR TO TRAVEL Oxycodone Ir (Roxicodone Ir), 5 MG PEG Q4H PRN for MOD PAIN Oxycodone Ir (Roxicodone Ir), 10 MG PO Q4H PRN for Severe Pain Promethazine Hcl (Phenergan), 25 MG PEG Q6H PRN for Nausea Allergies Coded Allergies: Ezetimibe (Verified Allergy, Intermediate, Vytorin - hives and N/V, ) Simvastatin (Verified Allergy, Intermediate, Vytorin - hives and N/V, ) Latex1 -Allergic Contact Dermititis (Verified Allergy, Unknown, RASH, BLISTERS, 05/05/16) Adhesives (Verified Adverse Reaction, Mild, Unknown Rxn, 05/05/16) Physical Exam Vital Signs Date Time Temp Pulse Resp B/P Pulse Ox O2 Delivery O2 Flow Rate FiO2 11/26/16 17:49 79 16 98/73 98 Room Air 11/26/16 16:45 80 18 98/73 97 Room Air 11/26/16 15:18 96 Room Air 11/26/16 15:18 79 18 99/41 97 Room Air 11/26/16 15:17 79 11/26/16 14:22 36.8 74 22 107/58 100 Room Air Physical Exam VITAL SIGNS - Vital signs and nursing notes were reviewed. Afebrile, normotensive, non-tachycardic and is saturating well on room air at 100%. GENERAL -46-year-old female appearing her stated age who is in no acute distress. She is nonverbal. SKIN - Without rashes. There is a dark, circular like 1 cm x 1 cm ulceration on the right heel, and 2 cm x 2 cm circular ulceration on the mid posterior right calf. No bleeding noted. HEAD - NC/AT. EYES - Sclera anicteric. Palpebral conjunctiva pink and moist with no injection noted. EARS - No deformities of external structures noted on gross examination bilaterally. NOSE - Midline and without cyanosis. No epistaxis or purulent drainage noted. MOUTH/OROPHARYNX - Without perioral cyanosis. Buccal mucosa pink and moist and without leukoplakia. Fair dentition noted. NECK - No lymphadenopathy noted. No nuchal rigidity. LUNGS - Chest wall symmetric without accessory muscle use, intercostals retractions, or central cyanosis. Normal vesicular breath sounds CTA B/L. No wheezes, rales, or rhonchi appreciated. CARDIAC - RRR with S1/S2. No murmur, rubs, or gallops appreciated. ABDOMEN - Abdominal contour without pulsations or visible masses. BS normoactive all four quadrants. There is an adequate PEG tube noted. No evidence of infection. No tenderness, palpable masses, hepatosplenomegaly, or ascites noted. EXTREMITIES - No clubbing or peripheral cyanosis. No pretibial edema present. + 5/5 strength noted in UE/LE bilaterally. NEUROLOGIC - severe neurologic deficits. Medical Decision & Procedures ER Provider Diagnostic Interpretation: CHEST ONE VIEW PORTABLE HISTORY: Hypercalcemia COMPARISON: Chest 11/04/2016. FINDINGS: Low lung volumes. No focal lung consolidations to suggest pneumonia. No evidence for pulmonary edema. No pleural effusions. No pneumothorax. The heart is normal in size. Cholecystectomy. IMPRESSION: No acute process. Electronically signed by: Paulo Koroma M.D. 11/26/2016 3:37 PM Dictated Date/Time: 11/26/2016 3:36 PM Laboratory Results 11/26/16 15:15 Red Blood Count 3.18, Mean Corpuscular Volume 99.4, Mean Corpuscular Hemoglobin 32.7, Mean Corpuscular Hemoglobin Concent 32.9, Mean Platelet Volume 11.3, Neutrophils (%) (Auto) 79.1, Lymphocytes (%) (Auto) 11.3, Monocytes (%) (Auto) 7.9, Eosinophils (%) (Auto) 1.3, Basophils (%) (Auto) 0.2, Neutrophils # (Auto) 4.20, Lymphocytes # (Auto) 0.60, Monocytes # (Auto) 0.42, Eosinophils # (Auto) 0.07, Basophils # (Auto) 0.01 11/26/16 15:15 Test 11/26/16 15:15 White Blood Count 5.31 K/uL (4.8-10.8) Red Blood Count 3.18 M/uL (4.2-5.4) Hemoglobin 10.4 g/dL (12.0-16.0) Hematocrit 31.6 % (37-47) Mean Corpuscular Volume 99.4 fL (80-100) Mean Corpuscular Hemoglobin 32.7 pg (25-34) Mean Corpuscular Hemoglobin Concent 32.9 g/dl (32-36) Platelet Count 146 K/uL (130-400) Mean Platelet Volume 11.3 fL (7.4-10.4) Neutrophils (%) (Auto) 79.1 % Lymphocytes (%) (Auto) 11.3 % Monocytes (%) (Auto) 7.9 % Eosinophils (%) (Auto) 1.3 % Basophils (%) (Auto) 0.2 % Neutrophils # (Auto) 4.20 K/uL (1.4-6.5) Lymphocytes # (Auto) 0.60 K/uL (1.2-3.4) Monocytes # (Auto) 0.42 K/uL (0.11-0.59) Eosinophils # (Auto) 0.07 K/uL (0-0.5) Basophils # (Auto) 0.01 K/uL (0-0.2) RDW Standard Deviation 54.6 fL (36.4-46.3) RDW Coefficient of Variation 14.8 % (11.5-14.5) Immature Granulocyte % (Auto) 0.2 % Immature Granulocyte # (Auto) 0.01 K/uL (0.00-0.02) Prothrombin Time 30.2 SECONDS (9.0-12.0) Prothromb Time International Ratio 2.7 (0.9-1.1) Activated Partial Thromboplast Time 53.2 SECONDS (21.0-31.0) Partial Thromboplastin Ratio 2.0 Anion Gap 9.0 mmol/L (3-11) Estimated GFR () 20.6 Estimated GFR (Non- 17.8 BUN/Creatinine Ratio 26.1 (10-20) Calcium Level 13.0 mg/dl (8.5-10.1) Magnesium Level 2.7 mg/dl (1.8-2.4) Total Bilirubin 0.9 mg/dl (0.2-1) Aspartate Amino Transf (AST/SGOT) 37 U/L (15-37) Alanine Aminotransferase (ALT/SGPT) 41 U/L (12-78) Alkaline Phosphatase 588 U/L (45-117) Total Protein 7.1 gm/dl (6.4-8.2) Albumin 2.6 gm/dl (3.4-5.0) Globulin 4.5 gm/dl (2.5-4.0) Albumin/Globulin Ratio 0.6 (0.9-2) Medications Administered Medications (Trade) Dose Ordered Sig/Filipe Route Start Time Stop Time Status Last Admin Dose Admin Sodium Chloride (Nss 1000ml) 1,000 ml @ 200 mls/hr Q5H STAT IV 11/26/16 14:53 11/26/16 19:52 11/26/16 15:20 200 MLS/HR Medical Decision Patient was seen and evaluated as above. After obtaining a thorough history and physical examination IV access was initiated and the above workup was performed. She was hydrated with 1 L of normal saline, 200 mL per hour. CBC reveals no leukocytosis. There is anemia with hemoglobin of 10.4. Coagulation studies reveal an INR of 2.7. Sodium is 135, potassium high at 5.4. BUN and creatinine are both elevated with creatinine of 3.0. Glucose of 249, calcium of 13, magnesium of 2.4, alkaline phosphatase of 588. Chest x-ray no acute process. Patient does have a significant increase of calcium of 13. This is concerning as the patient had a near normal level of this in late October. This will need further workup. I did speak with Dr. Waddell regarding the patient, who is also concerned about the spike in elevated calcium. Patient has had this many times in the past and we discussed this. At this time does not appear to be from the sarcoidosis. It is recommended she has endocrinology follow-up. I did discuss the case with my attending, and subsequently the hospitalist. Please refer to further documentation regarding her stay. EKG reveals normal sinus, rate of 78 bpm. There is a questionable Q-wave in lead V2. In evaluation treatment this patient following differential diagnoses were entertained: Hypercalcemia, infectious process, among others. Impression Primary Impression: Hypercalcemia Additional Impression: Anemia Departure Information Dispostion Admitted as an inpatient Condition POOR Referrals WilkinsonAdriel (PCP) Patient Instructions My [facility] Problem Qualifiers
[2016-11-26] MEDS ORDERED: SODIUM CHLORIDE 0.9% 1000ML 1,000 ML IV STA (14:53)
[2016-11-26] MEDS ORDERED: ENOX80IN SQ (15:14)
[2016-11-26 15:29] LABS: BASO % 0.2 %; BASO ABS # 0.01 K/uL (0-0.2); COMPLETE YES; EOS % 1.3 %; HEMATOCRIT 31.6 % (37-47); IG% 0.2 %; LYMPH % 11.3 %; MEAN CELL VOLUME 99.4 fL (80-100); MEAN CORPUSCULAR HEMOGLOBIN 32.7 pg (25-34); MEAN CORPUSCULAR HGB CONC 32.9 g/dl (32-36); MEAN PLATELET VOLUME 11.3 fL (7.4-10.4); MONO % 7.9 %; NEUT % 79.1 %; PLATELET COUNT 146 K/uL (130-400); RED BLOOD COUNT 3.18 M/uL (4.2-5.4); WHITE BLOOD COUNT 5.31 K/uL (4.8-10.8)
--- NOTE | 2016-11-26 15:39 | DIAGNOSTIC IMAGING REPORT ---
CHEST ONE VIEW PORTABLE HISTORY: Hypercalcemia COMPARISON: Chest 11/04/2016. FINDINGS: Low lung volumes. No focal lung consolidations to suggest pneumonia. No evidence for pulmonary edema. No pleural effusions. No pneumothorax. The heart is normal in size. Cholecystectomy. IMPRESSION: No acute process. Electronically signed by: Paulo Koroma M.D. 11/26/2016 3:37 PM Dictated Date/Time: 11/26/2016 3:36 PM
[2016-11-26 15:44] LABS: INR 2.7 (0.9-1.1); PROTHROMBIN TIME (PATIENT) 30.2 SECONDS (9.0-12.0)
[2016-11-26 15:56] LABS: ALB/GLOB RATIO 0.6 (0.9-2); ALKALINE PHOSPHATASE 588 U/L (45-117); ALT/SGPT 41 U/L (12-78); AST/SGOT 37 U/L (15-37); BLOOD UREA NITROGEN 78 mg/dl (7-18); BUN/CREATININE RATIO 26.1 (10-20); CARBON DIOXIDE 27 mmol/L (21-32); CHLORIDE 99 mmol/L (98-107); GLUCOSE 249 mg/dl (70-99); MAGNESIUM 2.7 mg/dl (1.8-2.4); POTASSIUM 5.4 mmol/L (3.5-5.1); SODIUM 135 mmol/L (136-145)
[2016-11-26] MEDS ORDERED: ONDANSETRON INJ 2 MG/ML 2 ML VIAL IV PRN (17:30)
[2016-11-26] MEDS ORDERED: POLYETHYLENE (MIRALAX) 17 GM PACK PO PRN (17:30)
[2016-11-26] MEDS ORDERED: PROMETHAZINE HCL 25 MG TAB GT PRN (17:30)
[2016-11-26] MEDS ORDERED: ALUMINUM/MAGNESIUM/SIMETH (MAALOX MAX) 30 ML UDC PO PRN (17:30)
[2016-11-26] MEDS ORDERED: OXYCODONE HCL IR 5 MG TAB (IMMEDIATE RELEASE) PO PRN (17:30)
[2016-11-26] MEDS ORDERED: NITROGLYCERIN 0.4 MG SL PER TAB CHARGE SL PRN (17:30)
[2016-11-26] MEDS ORDERED: MAGNESIUM HYDROXIDE SUSP 30 ML UDC PO PRN (17:30)
[2016-11-26] MEDS ORDERED: MECLIZINE HCL 25 MG TAB PO PRN (17:30)
--- NOTE | 2016-11-26 18:01 | History and Physical ---
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 Waddell's orders due to hypercalcemia. Patient is a resident of [facility]. She is nonverbal, but will shake her head yes and no to questions. Patient shakes her head NO to fever, chills, sweats, lightheadedness , dizziness, vision changes, CP, palpitations, edema, SOB, wheezing, cough, abdominal pain, nausea, vomiting, diarrhea, urinary symptoms, melena, numbness/ tingling, weakness, muscle/joint pain, anxiety/depression, active bleeding, or new skin discoloration/changes. Patient was most recently admitted to [facility] on 11/05/14 due to anemia secondary to GI bleed. GI was consulted, but H&H stabilized and no intervention was needed. Anticoagulation was held, but continued at discharge due to the risk of discontinuing. 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 s/p PEG tube positive homocystine and lupus anticoagulant on Coumadin LIANG and cirrhosis s/p liver biopsy in 05/03 w/ sarcoidosis and secondary hypercalcemia h/o kidney stones CKD stage IV DM HTN hyperlipidemia Family History Diabetes mellitus Seizures Social History Smoking Status: Former Smoker Drug Use: none Marital Status: in relationship Housing status: other Occupational Status: disabled Immunizations History of Influenza Vaccine: Unknown History of Tetanus Vaccine?: Unknown History of Pneumococcal: Unknown History of Hepatitis B Vaccine: Unknown Multi-Drug Resistant Organisms History of MDRO: No Allergies Coded Allergies: Ezetimibe (Verified Allergy, Intermediate, Vytorin - hives and N/V, ) Simvastatin (Verified Allergy, Intermediate, Vytorin - hives and N/V, ) Latex1 -Allergic Contact Dermititis (Verified Allergy, Unknown, RASH, BLISTERS, 05/05/16) Adhesives (Verified Adverse Reaction, Mild, Unknown Rxn, 05/05/16) Home Medications Scheduled Atenolol (Tenormin), 50 MG PEG QAM Atorvastatin (Lipitor), 20 MG PEG HS Cyanocobalamin (Vitamin B-12), 500 MCG PEG QAM Enoxaparin (Lovenox), 0.7 ML SQ DIRECTED Ergocalciferol (Calcidol), 6.25 ML PEG WK Fentanyl (Fentanyl), 12 MCG TD Q72H Folic Acid (Folvite), 1 MG PEG DAILY Insulin Aspart (Novolog Flexpen), UNITS SC QID Insulin Glargine (Lantus Solostar), 20 UNITS SC HS Insulin Isophane (Human) (Novolin N U-100), 10 UNITS SC QAM Ketoconazole (Nizoral), 200 MG PEG DAILY Metoclopramide HCl (Metoclopramide HCl), 5 ML PEG Q6 Nutritional Supplements (Vital 1.5 Jos), PEG UD Potassium Chloride (Potassium Chloride), 20 MEQ PEG QPM Prednisone (Prednisone), 5 MG PEG QAM Venlafaxine Hcl (Effexor), 75 MG PEG QAM Warfarin Sod (Jantoven), 5 MG PEG 4XWK Warfarin Sodium (Coumadin), 7.5 MG PEG 3XWK Scheduled PRN Meclizine Hcl (Meclizine Hcl), 25 MG PEG PRN/UD PRN for ONE HOUR PRIOR TO TRAVEL Oxycodone Ir (Roxicodone Ir), 5 MG PEG Q4H PRN for MOD PAIN Oxycodone Ir (Roxicodone Ir), 10 MG PO Q4H PRN for Severe Pain Promethazine Hcl (Phenergan), 25 MG PEG Q6H PRN for Nausea Physical Exam Vital Signs Date Time Temp Pulse Resp B/P Pulse Ox O2 Delivery O2 Flow Rate FiO2 11/26/16 16:45 80 18 98/73 97 Room Air 11/26/16 15:18 96 Room Air 11/26/16 15:18 79 18 99/41 97 Room Air 11/26/16 15:17 79 11/26/16 14:22 36.8 74 22 107/58 100 Room Air General Appearance: no apparent distress Head: normocephalic, atraumatic Eyes: normal inspection, PERRL ENT: hearing grossly normal Neck: supple Respiratory/Chest: lungs clear, no respiratory distress, no accessory muscle use Cardiovascular: regular rate, rhythm, + systolic murmur Abdomen/GI: normal bowel sounds, non tender, soft, + pertinent finding (PEG tube ) Extremities/Musculoskelatal: no calf tenderness, no pedal edema Neurologic/Psych: alert Skin: normal color, warm/dry, no rash Diagnostics Laboratory Results Results Past 24 Hours Test 11/26/16 15:15 Range/Units White Blood Count 5.31 4.8-10.8 K/uL Red Blood Count 3.18 4.2-5.4 M/uL Hemoglobin 10.4 12.0-16.0 g/dL Hematocrit 31.6 37-47 % Mean Corpuscular Volume 99.4 80-100 fL Mean Corpuscular Hemoglobin 32.7 25-34 pg Mean Corpuscular Hemoglobin Concent 32.9 32-36 g/dl Platelet Count 146 130-400 K/uL Mean Platelet Volume 11.3 7.4-10.4 fL Neutrophils (%) (Auto) 79.1 % Lymphocytes (%) (Auto) 11.3 % Monocytes (%) (Auto) 7.9 % Eosinophils (%) (Auto) 1.3 % Basophils (%) (Auto) 0.2 % Neutrophils # (Auto) 4.20 1.4-6.5 K/uL Lymphocytes # (Auto) 0.60 1.2-3.4 K/uL Monocytes # (Auto) 0.42 0.11-0.59 K/uL Eosinophils # (Auto) 0.07 0-0.5 K/uL Basophils # (Auto) 0.01 0-0.2 K/uL RDW Standard Deviation 54.6 36.4-46.3 fL RDW Coefficient of Variation 14.8 11.5-14.5 % Immature Granulocyte % (Auto) 0.2 % Immature Granulocyte # (Auto) 0.01 0.00-0.02 K/uL Prothrombin Time 30.2 9.0-12.0 SECONDS Prothromb Time International Ratio 2.7 0.9-1.1 Activated Partial Thromboplast Time 53.2 21.0-31.0 SECONDS Partial Thromboplastin Ratio 2.0 Sodium Level 135 136-145 mmol/L Potassium Level 5.4 3.5-5.1 mmol/L Chloride Level 99 98-107 mmol/L Carbon Dioxide Level 27 21-32 mmol/L Anion Gap 9.0 3-11 mmol/L Blood Urea Nitrogen 78 7-18 mg/dl Creatinine 3.00 0.60-1.20 mg/dl Estimated GFR () 20.6 Estimated GFR (Non- 17.8 BUN/Creatinine Ratio 26.1 10-20 Random Glucose 249 70-99 mg/dl Calcium Level 13.0 8.5-10.1 mg/dl Magnesium Level 2.7 1.8-2.4 mg/dl Total Bilirubin 0.9 0.2-1 mg/dl Aspartate Amino Transf (AST/SGOT) 37 15-37 U/L Alanine Aminotransferase (ALT/SGPT) 41 12-78 U/L Alkaline Phosphatase 588 45-117 U/L Total Protein 7.1 6.4-8.2 gm/dl Albumin 2.6 3.4-5.0 gm/dl Globulin 4.5 2.5-4.0 gm/dl Albumin/Globulin Ratio 0.6 0.9-2 Diagnostic Radiology CHEST ONE VIEW PORTABLE HISTORY: Hypercalcemia COMPARISON: Chest 11/04/2016. FINDINGS: Low lung volumes. No focal lung consolidations to suggest pneumonia. No evidence for pulmonary edema. No pleural effusions. No pneumothorax. The heart is normal in size. Cholecystectomy. IMPRESSION: No acute process. Electronically signed by: Paulo Koroma M.D. 11/26/2016 3:37 PM Dictated Date/Time: 11/26/2016 3:36 PM The status of this report is Signed. Draft = Not yet reviewed or approved by Radiologist. Signed = Reviewed and approved by Radiologist. EKG MATTHEW APARICIO ID:[id number] 26-NOV-2016 14:52:21 [facility] Normal sinus rhythm Septal infarct (cited on or before 19-APR-2016) Abnormal ECG When compared with ECG of 05-NOV-2016 03:21, QRS axis Shifted right QT has shortened 25mm/s 10mm/mV 150Hz 8.0 SP2 12SL 241 RIGO: 0 Referred by: [facility] Unconfirmed Vent. 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 Waddell's orders due to hypercalcemia. Hypercalcemia secondary to sarcoidosis/LIANG and cirrhosis: - Admit to tele for cardiac monitoring - Treat w/ IV NSS @ 125 ml/hr and IV Lasix 20 mg BID -- Treat w/ Lasix cautiously due to EARL and hypotension - Place Pedraza - Follow calcium level - Follow CMP - Continue Prednisone 5 mg daily via PEG tube - Consult rheumatology, appreciate recommendations EARL w/ CKD stage IV- baseline Cr. 2.0: - IV NSS - Follow PRP - Check renal US due to h/o kidney stones - Consult Nephrology, appreciate recommendations- follows w/ Dr. 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 Y/N: Yes Risk Level: High Given or contraindicated: Warfarin (Coumadin), T.E.D. Stockings, SCD's
[2016-11-26 18:33] VITALS: BP 129/66; PULSE 79; TEMP 36.6; O2SAT 95
[2016-11-26] MEDS ORDERED: GLUCOSE 40% GEL 15 GM TUBE PO PRN (18:45)
[2016-11-26] MEDS ORDERED: GLUCAGON FOR INJ 1 MG VIAL SQ PRN (18:45)
[2016-11-26] MEDS ORDERED: DEXTROSE 50% 50 ML SYR IV PRN (18:45)
[2016-11-26] MEDS ORDERED: GLUCOSE 10 TABS/TUBE PO PRN (18:45)
[2016-11-26] MEDS ORDERED: WARFARIN SOD 7.5 MG TAB PEG SCH (19:00)
[2016-11-26 19:10] VITALS: BP 129/66; PULSE 79; TEMP 36.6; O2SAT 95; BMI 26.1
[2016-11-26] MEDS: SODIUM CHLORIDE 0.9% 1000ML 1,000 ML IV SCH (19:33)
[2016-11-26] MEDS: FENTANYL PATCH REMOVE & WASTE SCH (19:59)
[2016-11-26 20:00] VITALS: O2SAT 95
[2016-11-26] MEDS ORDERED: NURSING VERBAL MED ORDER ONE (20:30)
[2016-11-26] MEDS: METOCLOPRAMIDE HCL 5 MG/5 ML UDP PO SCH ×2 (20:36→23:37)
[2016-11-26] MEDS: ATORVASTATIN 20 MG TAB PEG SCH (20:37)
[2016-11-26] MEDS: FUROSEMIDE INJ 20 MG in SYRINGE 0 ML IV SCH (20:37)
--- NOTE | 2016-11-26 20:38 | Rheumatology Consultation ---
Rheumatology Consultation Date of Consultation: November 26, 2016. 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 She was seen at [facility] today by Dr. Alvarado and was noted to be more lethargic. Her calcium level from 11/24/16 was 12.5 despite her current regimen of prednisone 7.5 mg daily. She is also on Ketaconazole 200 mg daily which was started at her last admission in September for hypercalcemia. In patient admission was advised to help manage hypercalcemia. Past treatments have included IV bisphosphonates x 3 and higher doses of steroids, and Plaquenil which was recently discontinued. Past Medical/Surgical History Medical History: CVA/TIA/stroke, diabetes, GERD, GI bleed, hypertension, renal disease Sarcoidosis Recurrent hypercalcemia LIANG Cirrhosis +LAC Chronic anticoagulation Nephrolithiasis Liver biopsy PEG Tube placement Social History Smoking Status: Former Smoker History of Alcohol Use: No Drug Use: none Marital Status: in relationship Housing Status: other Occupation Status: disabled Allergies Coded Allergies: Ezetimibe (Verified Allergy, Intermediate, Vytorin - hives and N/V, ) Simvastatin (Verified Allergy, Intermediate, Vytorin - hives and N/V, ) Latex1 -Allergic Contact Dermititis (Verified Allergy, Unknown, RASH, BLISTERS, 05/05/16) Adhesives (Verified Adverse Reaction, Mild, Unknown Rxn, 05/05/16) Medications Current Inpatient Medications Medications (Trade) Dose Ordered Sig/Filipe Route Start Time Stop Time Status Last Admin Dose Admin Al Hydrox/Mg Hydrox/Simethicone (Maalox Max Susp) 15 ml Q4H PRN PO 11/26/16 17:30 12/26/16 17:29 Magnesium Hydroxide (Milk Of Magnesia Susp) 30 ml Q12H PRN PO 11/26/16 17:30 12/26/16 17:29 Ondansetron HCl (Zofran Inj) 4 mg Q6H PRN IV 11/26/16 17:30 12/26/16 17:29 Nitroglycerin (Nitrostat Tab) 0.4 mg UD PRN SL 11/26/16 17:30 12/26/16 17:29 Polyethylene (Miralax Powder Packet) 17 gm DAILY PRN PO 11/26/16 17:30 12/26/16 17:29 Atorvastatin Calcium (Lipitor Tab) 20 mg HS PEG 11/26/16 21:00 12/26/16 20:59 Fentanyl (Duragesic Patch) 12 mcg Q72H TD 11/26/16 20:00 12/10/16 19:59 Folic Acid (Folvite Tab) 1 mg DAILY PEG 11/27/16 09:00 12/27/16 08:59 Insulin Glargine (Lantus Solostar Pen) 20 unit HS SC 11/26/16 21:00 12/26/16 20:59 Ketoconazole (Nizoral Tab) 200 mg DAILY PEG 11/27/16 09:00 12/07/16 08:59 Meclizine HCl (Antivert Tab) 25 mg TID PRN PO 11/26/16 17:30 12/26/16 17:29 Metoclopramide HCl (Reglan Syrup) 5 mg Q6 PO 11/26/16 19:00 12/26/16 18:59 Miscellaneous Information (Order Awaiting Action) 1 ea QS N/A 11/27/16 00:00 12/27/16 00:00 Oxycodone HCl (Roxicodone Immediate Rel Tab) 5 mg Q4H PRN PEG 11/26/16 17:30 12/10/16 17:29 Oxycodone HCl (Roxicodone Immediate Rel Tab) 10 mg Q4H PRN PO 11/26/16 17:30 12/10/16 17:29 Promethazine HCl (Phenergan Tab) 25 mg Q6H PRN GT 11/26/16 17:30 12/26/16 17:29 Venlafaxine HCl (effeXOR TAB) 75 mg QAM PO 11/27/16 09:00 12/27/16 08:59 Warfarin Sodium (Coumadin Tab) 5 mg SuMoWeFr@1600 PEG 11/27/16 16:00 12/27/16 15:59 Warfarin Sodium (Coumadin Tab) 7.5 mg TuThSa@1600 PEG 11/26/16 19:00 12/26/16 18:59 Cyanocobalamin (Vitamin B-12 Tab) 500 mcg QAM PEG 11/27/16 09:00 12/27/16 08:59 Miscellaneous Information 1 ea 1 ea QS N/A 11/27/16 00:00 12/27/16 00:00 Sodium Chloride (Nss 1000ml) 1,000 ml @ 125 mls/hr Q8H IV 11/26/16 17:30 12/26/16 17:29 11/26/16 19:33 125 MLS/HR Insulin Aspart SLIDING SCALE G... ACHS SC 11/26/16 21:00 12/26/16 20:59 Furosemide/Syringe (Lasix Inj/ Syringe) 2 ml @ 4 mls/min BID17 IV 11/26/16 21:00 12/26/16 20:59 Miscellaneous (Fentanyl Patch Remove & Waste) 1 ea Q3D@1959 N/A 11/26/16 19:59 12/26/16 19:58 Miscellaneous Information (Check Fentanyl Patch Placement) 1 ea QS N/A 11/27/16 00:00 12/27/16 00:00 Glucose (Glucose 40% Gel) 15-30 GRAMS 15 GRAMS... UD PRN PO 11/26/16 18:45 12/26/16 18:44 Glucose (Glucose Chew Tab) 4-8 Tablets 4 Tabl... UD PRN PO 11/26/16 18:45 12/26/16 18:44 Dextrose (Dextrose 50% 50ML Syringe) 25-50ML OF 50% DW IV FOR... UD PRN IV 11/26/16 18:45 12/26/16 18:44 Glucagon (Glucagon Inj) 1 mg UD PRN SQ 11/26/16 18:45 12/26/16 18:44 Physical Exam Date Time Temp Pulse Resp B/P Pulse Ox O2 Delivery O2 Flow Rate FiO2 11/26/16 19:10 36.6 79 18 129/66 95 Room Air 11/26/16 18:33 36.6 79 18 129/66 95 Room Air 11/26/16 17:49 79 16 98/73 98 Room Air 11/26/16 16:45 80 18 98/73 97 Room Air 11/26/16 15:18 96 Room Air 11/26/16 15:18 79 18 99/41 97 Room Air 11/26/16 15:17 79 11/26/16 14:22 36.8 74 22 107/58 100 Room Air Eyes: bilateral eyes EOMI, bilateral eyes normal inspection ENT: normal ENT inspection Neck: supple Respiratory: chest non-tender, lungs clear, normal breath sounds, no respiratory distress Cardiovascular: regular rate, rhythm, no edema Abdomen: non tender Musculoskeletal: tenderness of right knee without warmth or swelling contraction of right arm/hand no joint swelling Skin: warm/dry, no rash Laboratory Results Last 24 Hours Test 11/26/16 15:15 11/26/16 19:10 White Blood Count 5.31 K/uL Red Blood Count 3.18 M/uL Hemoglobin 10.4 g/dL Hematocrit 31.6 % Mean Corpuscular Volume 99.4 fL Mean Corpuscular Hemoglobin 32.7 pg Mean Corpuscular Hemoglobin Concent 32.9 g/dl Platelet Count 146 K/uL Mean Platelet Volume 11.3 fL Neutrophils (%) (Auto) 79.1 % Lymphocytes (%) (Auto) 11.3 % Monocytes (%) (Auto) 7.9 % Eosinophils (%) (Auto) 1.3 % Basophils (%) (Auto) 0.2 % Neutrophils # (Auto) 4.20 K/uL Lymphocytes # (Auto) 0.60 K/uL Monocytes # (Auto) 0.42 K/uL Eosinophils # (Auto) 0.07 K/uL Basophils # (Auto) 0.01 K/uL RDW Standard Deviation 54.6 fL RDW Coefficient of Variation 14.8 % Immature Granulocyte % (Auto) 0.2 % Immature Granulocyte # (Auto) 0.01 K/uL Prothrombin Time 30.2 SECONDS Prothromb Time International Ratio 2.7 Activated Partial Thromboplast Time 53.2 SECONDS Partial Thromboplastin Ratio 2.0 Sodium Level 135 mmol/L Potassium Level 5.4 mmol/L Chloride Level 99 mmol/L Carbon Dioxide Level 27 mmol/L Anion Gap 9.0 mmol/L Blood Urea Nitrogen 78 mg/dl Creatinine 3.00 mg/dl Estimated GFR () 20.6 Estimated GFR (Non- 17.8 BUN/Creatinine Ratio 26.1 Random Glucose 249 mg/dl Calcium Level 13.0 mg/dl Magnesium Level 2.7 mg/dl Total Bilirubin 0.9 mg/dl Aspartate Amino Transf (AST/SGOT) 37 U/L Alanine Aminotransferase (ALT/SGPT) 41 U/L Alkaline Phosphatase 588 U/L Total Protein 7.1 gm/dl Albumin 2.6 gm/dl Globulin 4.5 gm/dl Albumin/Globulin Ratio 0.6 Thyroid Stimulating Hormone (TSH) 1.660 uIu/ml Assessment & Plan Assessment & Plan: 46 yo woman with multiple medical issues including sarcoidosis, CKD IV and history of recurrent hypercalcemia admitted for elevated calcium of 13. Recommendations 1. Agree with IV hydration 2. Consider either using calcitonin or pamidronate. Patient received pamidronate 60 mg X 1 infused over 24 hours at her last admission. 3. Consider endocrinology consult for management of recurrent hypercalcemia. 4. Appreciate nephrology input. 5. Continue close monitoring of calcium levels. 6. Consider increasing prednisone to 30 mg x 2-3 doses then resume her home dose of prednisone. 7. She is scheduled to see Dr. Alvarado on December 29. Thank you for allowing rheumatology to participate in the care of this patient.
[2016-11-26] MEDS: FENTANYL 12 MCG/HR TDSY TD SCH (20:48)
[2016-11-26] MEDS: INSULIN GLARGINE SOLOSTAR 100 UNITS/ML 3 ML PEN SC SCH (20:50)
[2016-11-26] MEDS ORDERED: INSULIN ASPART 100 UNITS/ML 3 ML PEN SC SCH (21:00)
[2016-11-26] MEDS ORDERED: PAMIDRONATE DISODIUM IV INJ 60 MG in SODIUM CHLORIDE 0.9% 1000ML 1,000 ML IV ONE (21:30)
--- NOTE | 2016-11-26 21:32 | DIAGNOSTIC IMAGING REPORT ---
RENAL ULTRASOUND CLINICAL HISTORY: EARL w/ hypercalcemia and h/o kidney stones COMPARISON STUDY: CT of the abdomen and pelvis November 05, 2016 and renal ultrasound October 12, 2016. TECHNIQUE: Sonography of the kidneys and the urinary bladder was performed. FINDINGS: The left kidney is partially obscured on this exam. The right kidney measures approximately 12.7 x 5.1 x 5.4 cm. The left kidney is difficult to measure on this exam. There is no left hydronephrosis. There is renal cortical thinning with increased echogenicity. There is mild right collecting system dilatation. Several right renal calculi are noted. The bladder is collapsed and contains a Pedraza balloon. IMPRESSION: 1. Mild right collecting system dilatation. No left hydronephrosis. Left kidney partially obscured. 2. Right-sided nephrolithiasis. Electronically signed by: Jim Sandhu M.D. 11/26/2016 9:31 PM Dictated Date/Time: 11/26/2016 9:27 PM
[2016-11-26] MEDS: INSULIN ASPART 100 UNITS/ML 3 ML PEN SQ SCH (23:37)
[2016-11-26] MEDS: CHECK FENTANYL PATCH PLACEMENT SCH (23:39)
[2016-11-26 23:48] VITALS: BP 142/66; PULSE 69; TEMP 36.4; O2SAT 98
[2016-11-27] VITALS (7 sets, daily range): BP systolic 120–163; BP diastolic 53–80; PULSE 69–78; TEMP 36.3–36.8; O2SAT 95–99
[2016-11-27] MEDS: SODIUM CHLORIDE 0.9% 1000ML 1,000 ML IV SCH (01:27)
[2016-11-27] MEDS: METOCLOPRAMIDE HCL 5 MG/5 ML UDP PO SCH ×4 (05:31→23:01)
[2016-11-27] MEDS: INSULIN ASPART 100 UNITS/ML 3 ML PEN SQ SCH ×4 (05:53→23:00)
[2016-11-27 07:37] LABS: HEMATOCRIT 21.1 % (37-47); MEAN CORPUSCULAR HEMOGLOBIN 33.6 pg (25-34); MEAN CORPUSCULAR HGB CONC 33.6 g/dl (32-36); MEAN PLATELET VOLUME 10.6 fL (7.4-10.4); PLATELET COUNT 110 K/uL (130-400); RED BLOOD COUNT 2.11 M/uL (4.2-5.4); WHITE BLOOD COUNT 3.44 K/uL (4.8-10.8)
[2016-11-27 07:40] LABS: INR 3.4 (0.9-1.1); PARTIAL THROMBOPLASTIN RATIO 1.8; PROTHROMBIN TIME (PATIENT) 38.3 SECONDS (9.0-12.0)
[2016-11-27] MEDS: CHECK FENTANYL PATCH PLACEMENT SCH ×3 (08:00→23:00)
[2016-11-27] MEDS: FUROSEMIDE INJ 20 MG in SYRINGE 0 ML IV SCH ×2 (08:29→17:29)
[2016-11-27] MEDS: CYANOCOBALAMIN 500 MCG TAB (VIT B-12) PEG SCH (08:30)
[2016-11-27] MEDS: KETOCONAZOLE 200 MG TAB PEG SCH (08:30)
[2016-11-27] MEDS: VENLAFAXINE HCL 37.5 MG TAB PO SCH (08:31)
[2016-11-27 09:07] LABS: ALB/GLOB RATIO 0.6 (0.9-2); BUN/CREATININE RATIO 26.7 (10-20); CREATININE 2.8 mg/dl (0.60-1.20); MAGNESIUM 2.4 mg/dl (1.8-2.4)
[2016-11-27] MEDS: D5W AND NSS 1,000 ML IV SCH ×2 (09:09→17:28)
[2016-11-27 09:45] LABS: CALCIUM 11.9 mg/dl (8.5-10.1)
--- NOTE | 2016-11-27 12:38 | Hospitalist Progress Note ---
Hospitalist Progress Note Date of Service November 27, 2016. Subjective pt is nonverbal and very drowsy Additional Comments: unable to obtain Objective Vital Signs Date Time Temp Pulse Resp B/P Pulse Ox O2 Delivery O2 Flow Rate FiO2 11/27/16 11:59 36.3 69 20 146/80 98 11/27/16 08:00 98 Room Air 11/27/16 07:36 36.4 71 20 163/71 98 11/27/16 04:00 36.4 74 16 135/76 99 Room Air 11/27/16 04:00 Room Air 11/27/16 00:00 Room Air 11/26/16 23:48 36.4 69 18 142/66 98 Room Air 11/26/16 20:00 95 Room Air 11/26/16 19:10 36.6 79 18 129/66 95 Room Air 11/26/16 18:33 36.6 79 18 129/66 95 Room Air 11/26/16 17:49 79 16 98/73 98 Room Air 11/26/16 16:45 80 18 98/73 97 Room Air 11/26/16 15:18 96 Room Air 11/26/16 15:18 79 18 99/41 97 Room Air 11/26/16 15:17 79 11/26/16 14:22 36.8 74 22 107/58 100 Room Air Physical Exam General Appearance: + pertinent finding (very drowsy. Opens eyes to loud verbal stimuli) Neck: no JVD Respiratory/Chest: lungs clear Cardiovascular: regular rate, rhythm Abdomen: normal bowel sounds, non tender, soft Extremities: non-tender, no pedal edema Neurologic/Psychiatric: alert (only opens eyes temporarily. Does not follow commands) Skin: warm/dry Laboratory Results 11/27/16 07:01 11/27/16 08:24 Test 11/26/16 15:15 11/26/16 19:10 11/27/16 07:01 11/27/16 08:24 Immature Granulocyte % (Auto) 0.2 % White Blood Count 5.31 K/uL (4.8-10.8) Red Blood Count 3.18 M/uL (4.2-5.4) 2.11 M/uL (4.2-5.4) Hemoglobin 10.4 g/dL (12.0-16.0) Hematocrit 31.6 % (37-47) Mean Corpuscular Volume 99.4 fL (80-100) 100.0 fL (80-100) Mean Corpuscular Hemoglobin 32.7 pg (25-34) 33.6 pg (25-34) Mean Corpuscular Hemoglobin Concent 32.9 g/dl (32-36) 33.6 g/dl (32-36) Platelet Count 146 K/uL (130-400) Mean Platelet Volume 11.3 fL (7.4-10.4) 10.6 fL (7.4-10.4) Neutrophils (%) (Auto) 79.1 % Lymphocytes (%) (Auto) 11.3 % Monocytes (%) (Auto) 7.9 % Eosinophils (%) (Auto) 1.3 % Basophils (%) (Auto) 0.2 % Neutrophils # (Auto) 4.20 K/uL (1.4-6.5) Lymphocytes # (Auto) 0.60 K/uL (1.2-3.4) Monocytes # (Auto) 0.42 K/uL (0.11-0.59) Eosinophils # (Auto) 0.07 K/uL (0-0.5) Basophils # (Auto) 0.01 K/uL (0-0.2) Immature Granulocyte # (Auto) 0.01 K/uL (0.00-0.02) 25-Hydroxy Vitamin D Total 15.3 ng/ml (30-100) Thyroid Stimulating Hormone (TSH) 1.660 uIu/ml (0.300-4.500) RDW Standard Deviation 54.8 fL (36.4-46.3) RDW Coefficient of Variation 14.9 % (11.5-14.5) Prothrombin Time 38.3 SECONDS (9.0-12.0) Prothromb Time International Ratio 3.4 (0.9-1.1) Activated Partial Thromboplast Time 47.4 SECONDS (21.0-31.0) Partial Thromboplastin Ratio 1.8 Anion Gap 9.0 mmol/L (3-11) Est Creatinine Clear Calc Drug Dose 23.7 ml/min Estimated GFR () 22.4 Estimated GFR (Non- 19.3 BUN/Creatinine Ratio 26.7 (10-20) Calcium Level 11.9 mg/dl (8.5-10.1) Magnesium Level 2.4 mg/dl (1.8-2.4) Total Bilirubin 0.7 mg/dl (0.2-1) Aspartate Amino Transf (AST/SGOT) 35 U/L (15-37) Alanine Aminotransferase (ALT/SGPT) 35 U/L (12-78) Alkaline Phosphatase 488 U/L (45-117) Total Protein 6.5 gm/dl (6.4-8.2) Albumin 2.5 gm/dl (3.4-5.0) Globulin 4.0 gm/dl (2.5-4.0) Albumin/Globulin Ratio 0.6 (0.9-2) Parathyroid Hormone (Intact) 16.7 pg/mL (11.1-79.5) Test 11/27/16 09:19 Bedside Glucose 70 mg/dl (70-90) Date/Time Source Procedure Growth Status 11/26/16 19:35 Nasal MRSA DNA Surveillance Screen - Final Specimen Negative for MRSA by DNA Probe Complete Last 24 Hours Test 11/26/16 15:15 11/26/16 19:10 11/26/16 20:31 11/26/16 23:37 White Blood Count 5.31 K/uL Red Blood Count 3.18 M/uL Hemoglobin 10.4 g/dL Hematocrit 31.6 % Mean Corpuscular Volume 99.4 fL Mean Corpuscular Hemoglobin 32.7 pg Mean Corpuscular Hemoglobin Concent 32.9 g/dl Platelet Count 146 K/uL Mean Platelet Volume 11.3 fL Neutrophils (%) (Auto) 79.1 % Lymphocytes (%) (Auto) 11.3 % Monocytes (%) (Auto) 7.9 % Eosinophils (%) (Auto) 1.3 % Basophils (%) (Auto) 0.2 % Neutrophils # (Auto) 4.20 K/uL Lymphocytes # (Auto) 0.60 K/uL Monocytes # (Auto) 0.42 K/uL Eosinophils # (Auto) 0.07 K/uL Basophils # (Auto) 0.01 K/uL RDW Standard Deviation 54.6 fL RDW Coefficient of Variation 14.8 % Immature Granulocyte % (Auto) 0.2 % Immature Granulocyte # (Auto) 0.01 K/uL Prothrombin Time 30.2 SECONDS Prothromb Time International Ratio 2.7 Activated Partial Thromboplast Time 53.2 SECONDS Partial Thromboplastin Ratio 2.0 Sodium Level 135 mmol/L Potassium Level 5.4 mmol/L Chloride Level 99 mmol/L Carbon Dioxide Level 27 mmol/L Anion Gap 9.0 mmol/L Blood Urea Nitrogen 78 mg/dl Creatinine 3.00 mg/dl Estimated GFR () 20.6 Estimated GFR (Non- 17.8 BUN/Creatinine Ratio 26.1 Random Glucose 249 mg/dl Calcium Level 13.0 mg/dl Magnesium Level 2.7 mg/dl Total Bilirubin 0.9 mg/dl Aspartate Amino Transf (AST/SGOT) 37 U/L Alanine Aminotransferase (ALT/SGPT) 41 U/L Alkaline Phosphatase 588 U/L Total Protein 7.1 gm/dl Albumin 2.6 gm/dl Globulin 4.5 gm/dl Albumin/Globulin Ratio 0.6 25-Hydroxy Vitamin D Total 15.3 ng/ml Thyroid Stimulating Hormone (TSH) 1.660 uIu/ml Bedside Glucose 177 mg/dl 130 mg/dl Test 11/27/16 05:51 11/27/16 06:00 11/27/16 07:01 11/27/16 07:58 Bedside Glucose 86 mg/dl 82 mg/dl 78 mg/dl White Blood Count 3.44 K/uL Red Blood Count 2.11 M/uL Hemoglobin 7.1 g/dL Hematocrit 21.1 % Mean Corpuscular Volume 100.0 fL Mean Corpuscular Hemoglobin 33.6 pg Mean Corpuscular Hemoglobin Concent 33.6 g/dl RDW Standard Deviation 54.8 fL RDW Coefficient of Variation 14.9 % Platelet Count 110 K/uL Mean Platelet Volume 10.6 fL Prothrombin Time 38.3 SECONDS Prothromb Time International Ratio 3.4 Activated Partial Thromboplast Time 47.4 SECONDS Partial Thromboplastin Ratio 1.8 Test 11/27/16 08:24 11/27/16 09:19 Sodium Level 142 mmol/L Potassium Level 4.0 mmol/L Chloride Level 107 mmol/L Carbon Dioxide Level 26 mmol/L Anion Gap 9.0 mmol/L Blood Urea Nitrogen 75 mg/dl Creatinine 2.80 mg/dl Est Creatinine Clear Calc Drug Dose 23.7 ml/min Estimated GFR () 22.4 Estimated GFR (Non- 19.3 BUN/Creatinine Ratio 26.7 Random Glucose 70 mg/dl Calcium Level 11.9 mg/dl Magnesium Level 2.4 mg/dl Total Bilirubin 0.7 mg/dl Aspartate Amino Transf (AST/SGOT) 35 U/L Alanine Aminotransferase (ALT/SGPT) 35 U/L Alkaline Phosphatase 488 U/L Total Protein 6.5 gm/dl Albumin 2.5 gm/dl Globulin 4.0 gm/dl Albumin/Globulin Ratio 0.6 Parathyroid Hormone (Intact) 16.7 pg/mL Bedside Glucose 70 mg/dl Assessment and Plan 46 y/o female, with 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 Waddell's orders due to hypercalcemia. Hypercalcemia secondary to sarcoidosis/LIANG and cirrhosis-Ca improving today -Continue IV NSS @ 125 ml/hr and IV Lasix 20 mg BID -Increase Prednisone to 30 mg daily x 3 doses -Continue Ketoconazole 200 mg daily -Rheumatology consult appreciated--> Continue Pamidronate Anemia--? lab error -send FOB -repeat H&H at 1500 ?Chronic pain -d/c oxy 10 because of over sedation -continue oxy 5 mg q 4 hr and fentanyl patch EARL w/ CKD stage IV- baseline Cr. 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
[2016-11-27] MEDS: PEPTAMEN 1.5 CAL 1000ML BAG PEG SCH (14:30)
--- NOTE | 2016-11-27 14:54 | Nephrology Consultation ---
Nephrology Consultation Date & Providers Date of Consultation: November 27, 2016. Primary Care Provider: Adriel Campos Referring Provider: Reason for Consultation Evaluation of acute on chronic kidney injury in this patient with Sarcoidosis admitted w/ recurrent hypercalcemia History of Present Illness Ms. Ventura is a 46 year old white female who is seen at the request of Dr. Goldsmith for evaluation of acute on chronic kidney injury. Medical records in the hospital and office EMR were reviewed. The patient has a complex medical history. 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 She developed a dense right hemiparesis and expressive aphasia. She tested positive for lupus anticoagulant and required initiation of anticoagulation therapy. She also developed dysphagia and had a PEG tube placed. She required long term placement. Ms. Ventura subsequently developed hypercalcemia and elevated liver enzymes. She underwent liver biopsy 05/03. Histology revealed granulomas c/w Sardcoidosis, LIANG and cirrhosis. She was evaluated by Rheumatology and treated with high dose steroid therapy. Steroids were later tapered and Plaquenil was added. Ms. Ventura's medical history is also significant for CKD w/ baseline creatinine 2.0, kidney stones due to hypercalcemia associated w/ sarcoidosis, AODM (poorly controlled and complicated by peripheral neuropathy), HTN, hyperlipidemia (intolerant of statins due to hives). 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 Laboratory studies revealed serum calcium has again risen to 13.0 with creatinine 3.0. She was admitted to the hospital for IV hydration, Pamidronate therapy and titration of her prednisone. Past Medical/Surgical History Medical: # CKD stage IV. 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 # Dysphagia requiring PEG tube feeding Surgical: # Liver biopsy 05/03 # PEG tube Allergies Coded Allergies: Ezetimibe (Verified Allergy, Intermediate, Vytorin - hives and N/V, ) Simvastatin (Verified Allergy, Intermediate, Vytorin - hives and N/V, ) Latex1 -Allergic Contact Dermititis (Verified Allergy, Unknown, RASH, BLISTERS, 05/05/16) Adhesives (Verified Adverse Reaction, Mild, Unknown Rxn, 05/05/16) Inpatient Medications Current Inpatient Medications Medications (Trade) Dose Ordered Sig/Filipe Route Start Time Stop Time Status Last Admin Dose Admin Al Hydrox/Mg Hydrox/Simethicone (Maalox Max Susp) 15 ml Q4H PRN PO 11/26/16 17:30 12/26/16 17:29 Magnesium Hydroxide (Milk Of Magnesia Susp) 30 ml Q12H PRN PO 11/26/16 17:30 12/26/16 17:29 Ondansetron HCl (Zofran Inj) 4 mg Q6H PRN IV 11/26/16 17:30 12/26/16 17:29 Nitroglycerin (Nitrostat Tab) 0.4 mg UD PRN SL 11/26/16 17:30 12/26/16 17:29 Polyethylene (Miralax Powder Packet) 17 gm DAILY PRN PO 11/26/16 17:30 12/26/16 17:29 Atorvastatin Calcium (Lipitor Tab) 20 mg HS PEG 11/26/16 21:00 12/26/16 20:59 11/26/16 20:37 20 MG Fentanyl (Duragesic Patch) 12 mcg Q72H TD 11/26/16 20:00 12/10/16 19:59 11/26/16 20:48 12 MCG Folic Acid (Folvite Tab) 1 mg DAILY PEG 11/27/16 09:00 12/27/16 08:59 11/27/16 08:30 1 MG Insulin Glargine (Lantus Solostar Pen) 20 unit HS SC 11/26/16 21:00 12/26/16 20:59 11/26/16 20:50 20 UNIT Ketoconazole (Nizoral Tab) 200 mg DAILY PEG 11/27/16 09:00 12/07/16 08:59 11/27/16 08:30 200 MG Meclizine HCl (Antivert Tab) 25 mg TID PRN PO 11/26/16 17:30 12/26/16 17:29 Metoclopramide HCl (Reglan Syrup) 5 mg Q6 PO 11/26/16 19:00 12/26/16 18:59 11/27/16 14:27 5 MG Miscellaneous Information (Order Awaiting Action) 1 ea QS N/A 11/27/16 00:00 12/27/16 00:00 Oxycodone HCl (Roxicodone Immediate Rel Tab) 5 mg Q4H PRN PEG 11/26/16 17:30 12/10/16 17:29 Promethazine HCl (Phenergan Tab) 25 mg Q6H PRN GT 11/26/16 17:30 12/26/16 17:29 Venlafaxine HCl (effeXOR TAB) 75 mg QAM PO 11/27/16 09:00 12/27/16 08:59 11/27/16 08:31 75 MG Cyanocobalamin (Vitamin B-12 Tab) 500 mcg QAM PEG 11/27/16 09:00 12/27/16 08:59 11/27/16 08:30 500 MCG Miscellaneous Information 1 ea 1 ea QS N/A 11/27/16 00:00 12/27/16 00:00 Furosemide/Syringe (Lasix Inj/ Syringe) 2 ml @ 4 mls/min BID17 IV 11/26/16 21:00 12/26/16 20:59 11/27/16 08:29 4 MLS/MIN Miscellaneous (Fentanyl Patch Remove & Waste) 1 ea Q3D@1959 N/A 11/26/16 19:59 12/26/16 19:58 11/26/16 19:59 1 EA Miscellaneous Information (Check Fentanyl Patch Placement) 1 ea QS N/A 11/27/16 00:00 12/27/16 00:00 11/27/16 08:00 1 EA Glucose (Glucose 40% Gel) 15-30 GRAMS 15 GRAMS... UD PRN PO 11/26/16 18:45 12/26/16 18:44 Glucose (Glucose Chew Tab) 4-8 Tablets 4 Tabl... UD PRN PO 11/26/16 18:45 12/26/16 18:44 Dextrose (Dextrose 50% 50ML Syringe) 25-50ML OF 50% DW IV FOR... UD PRN IV 11/26/16 18:45 12/26/16 18:44 Glucagon (Glucagon Inj) 1 mg UD PRN SQ 11/26/16 18:45 12/26/16 18:44 Insulin Aspart SLIDING SCALE G... Q6 SQ 11/27/16 00:00 12/26/16 20:59 Dextrose/Sodium Chloride (D5W And Nss) 1,000 ml @ 125 mls/hr Q8H IV 11/27/16 09:30 12/27/16 09:29 11/27/16 09:09 125 MLS/HR Enteral Nutritional Formula (Peptamen 1.5) 1,000 ml UD PEG 11/27/16 13:30 12/27/16 13:29 11/27/16 14:30 1,000 ML Prednisone (PredniSONE TAB) 30 mg DAILY PEG 11/28/16 09:00 12/28/16 08:59 Atenolol (Tenormin Tab) 50 mg QAM PEG 11/28/16 09:00 12/28/16 08:59 Family History Diabetes mellitus Seizures Negative for CKD/ESRD Social History Smoking Status: Former Smoker Drug Use: none Marital Status: in relationship Housing Status: other Occupation: disabled . Medically disabled. Resides at [facility]. No history of tobacco or alcohol use. Review of Systems Unable to obtain ROS due to patient's expressive aphasia Physical Exam Date Time Temp Pulse Resp B/P Pulse Ox O2 Delivery O2 Flow Rate FiO2 11/27/16 11:59 36.3 69 20 146/80 98 11/27/16 08:00 98 Room Air 11/27/16 07:36 36.4 71 20 163/71 98 11/27/16 04:00 36.4 74 16 135/76 99 Room Air 11/27/16 04:00 Room Air 11/27/16 00:00 Room Air 11/26/16 23:48 36.4 69 18 142/66 98 Room Air 11/26/16 20:00 95 Room Air 11/26/16 19:10 36.6 79 18 129/66 95 Room Air 11/26/16 18:33 36.6 79 18 129/66 95 Room Air 11/26/16 17:49 79 16 98/73 98 Room Air 11/26/16 16:45 80 18 98/73 97 Room Air 11/26/16 15:18 96 Room Air 11/26/16 15:18 79 18 99/41 97 Room Air 11/26/16 15:17 79 General Appearance: + thin (frail, chronically ill appearing) Head: atraumatic (temporal muscle wasting) Eyes: PERRL ENT: + pertinent finding (dry mucous membranes) Respiratory/Chest: lungs clear (anteriorly) Cardiovascular: regular rate, rhythm Abdomen/GI: non tender, soft, + pertinent finding (g-tube in place) Extremities/Musculoskelatal: no pedal edema Neurologic/Psych: alert Laboratory Results Last 24 Hours Test 11/26/16 15:15 11/26/16 19:10 11/26/16 20:31 11/26/16 23:37 White Blood Count 5.31 K/uL Red Blood Count 3.18 M/uL Hemoglobin 10.4 g/dL Hematocrit 31.6 % Mean Corpuscular Volume 99.4 fL Mean Corpuscular Hemoglobin 32.7 pg Mean Corpuscular Hemoglobin Concent 32.9 g/dl Platelet Count 146 K/uL Mean Platelet Volume 11.3 fL Neutrophils (%) (Auto) 79.1 % Lymphocytes (%) (Auto) 11.3 % Monocytes (%) (Auto) 7.9 % Eosinophils (%) (Auto) 1.3 % Basophils (%) (Auto) 0.2 % Neutrophils # (Auto) 4.20 K/uL Lymphocytes # (Auto) 0.60 K/uL Monocytes # (Auto) 0.42 K/uL Eosinophils # (Auto) 0.07 K/uL Basophils # (Auto) 0.01 K/uL RDW Standard Deviation 54.6 fL RDW Coefficient of Variation 14.8 % Immature Granulocyte % (Auto) 0.2 % Immature Granulocyte # (Auto) 0.01 K/uL Prothrombin Time 30.2 SECONDS Prothromb Time International Ratio 2.7 Activated Partial Thromboplast Time 53.2 SECONDS Partial Thromboplastin Ratio 2.0 Sodium Level 135 mmol/L Potassium Level 5.4 mmol/L Chloride Level 99 mmol/L Carbon Dioxide Level 27 mmol/L Anion Gap 9.0 mmol/L Blood Urea Nitrogen 78 mg/dl Creatinine 3.00 mg/dl Estimated GFR () 20.6 Estimated GFR (Non- 17.8 BUN/Creatinine Ratio 26.1 Random Glucose 249 mg/dl Calcium Level 13.0 mg/dl Magnesium Level 2.7 mg/dl Total Bilirubin 0.9 mg/dl Aspartate Amino Transf (AST/SGOT) 37 U/L Alanine Aminotransferase (ALT/SGPT) 41 U/L Alkaline Phosphatase 588 U/L Total Protein 7.1 gm/dl Albumin 2.6 gm/dl Globulin 4.5 gm/dl Albumin/Globulin Ratio 0.6 25-Hydroxy Vitamin D Total 15.3 ng/ml Thyroid Stimulating Hormone (TSH) 1.660 uIu/ml Bedside Glucose 177 mg/dl 130 mg/dl Test 11/27/16 05:51 11/27/16 06:00 11/27/16 07:01 11/27/16 07:58 Bedside Glucose 86 mg/dl 82 mg/dl 78 mg/dl White Blood Count 3.44 K/uL Red Blood Count 2.11 M/uL Hemoglobin 7.1 g/dL Hematocrit 21.1 % Mean Corpuscular Volume 100.0 fL Mean Corpuscular Hemoglobin 33.6 pg Mean Corpuscular Hemoglobin Concent 33.6 g/dl RDW Standard Deviation 54.8 fL RDW Coefficient of Variation 14.9 % Platelet Count 110 K/uL Mean Platelet Volume 10.6 fL Prothrombin Time 38.3 SECONDS Prothromb Time International Ratio 3.4 Activated Partial Thromboplast Time 47.4 SECONDS Partial Thromboplastin Ratio 1.8 Test 11/27/16 08:24 11/27/16 09:19 11/27/16 11:59 Sodium Level 142 mmol/L Potassium Level 4.0 mmol/L Chloride Level 107 mmol/L Carbon Dioxide Level 26 mmol/L Anion Gap 9.0 mmol/L Blood Urea Nitrogen 75 mg/dl Creatinine 2.80 mg/dl Est Creatinine Clear Calc Drug Dose 23.7 ml/min Estimated GFR () 22.4 Estimated GFR (Non- 19.3 BUN/Creatinine Ratio 26.7 Random Glucose 70 mg/dl Calcium Level 11.9 mg/dl Magnesium Level 2.4 mg/dl Total Bilirubin 0.7 mg/dl Aspartate Amino Transf (AST/SGOT) 35 U/L Alanine Aminotransferase (ALT/SGPT) 35 U/L Alkaline Phosphatase 488 U/L Total Protein 6.5 gm/dl Albumin 2.5 gm/dl Globulin 4.0 gm/dl Albumin/Globulin Ratio 0.6 Parathyroid Hormone (Intact) 16.7 pg/mL Bedside Glucose 70 mg/dl 89 mg/dl Impression (1) Acute kidney injury (2) Chronic kidney disease, stage 3 (3) Hypercalcemia (4) Sarcoidosis (5) Lupus anticoagulant positive (6) Expressive aphasia (7) Diab W Unspec Compl, Type Ii Or Unspec Type, Not Uncntrld Recommendations ACUTE KIDNEY INJURY: -- Likely related to dehydration and hypercalcemia -- Renal US report 12/02 reviewed today. Several right kidney stones. No significant hydronephrosis -- Monitor serial PRP CHRONIC KIDNEY DISEASE: -- Baseline creatinine has been 2.0 HYPERCALCEMIA: -- Patient appears clinically volume contracted. Continue D5 0.9NS at 125 cc/hr -- Patient is on IV Furosemide to promote Ca excretion -- Agree with redosing Pamidronate -- Defer management of Sarcoidosis to Rheumatology ANEMIA: -- Recommend rechecking Hgb. If anemia persists consider transfusion to maintain Hgb > 10 and check FOBT, iron studies
[2016-11-27 15:37] LABS: HEMATOCRIT 26.6 % (37-47)
[2016-11-27] MEDS ORDERED: WARFARIN SOD 5 MG TAB PEG SCH (16:00)
[2016-11-27] MEDS: ATORVASTATIN 20 MG TAB PEG SCH (20:40)
[2016-11-27] MEDS: INSULIN GLARGINE SOLOSTAR 100 UNITS/ML 3 ML PEN SC SCH (20:43)
[2016-11-28] VITALS (11 sets, daily range): BP systolic 132–172; BP diastolic 69–88; PULSE 81–97; TEMP 36.4–37.1; O2SAT 92–98
[2016-11-28] MEDS: D5W AND NSS 1,000 ML IV SCH (01:31)
[2016-11-28] MEDS: OXYCODONE HCL IR 5 MG TAB (IMMEDIATE RELEASE) PEG PRN ×2 (04:05→23:53)
[2016-11-28] MEDS: METOCLOPRAMIDE HCL 5 MG/5 ML UDP PO SCH ×4 (05:48→23:53)
[2016-11-28] MEDS: INSULIN ASPART 100 UNITS/ML 3 ML PEN SQ SCH ×2 (05:48→12:31)
[2016-11-28 06:36] LABS: HEMATOCRIT 28.7 % (37-47); MEAN CELL VOLUME 99.7 fL (80-100); MEAN CORPUSCULAR HEMOGLOBIN 32.3 pg (25-34); MEAN CORPUSCULAR HGB CONC 32.4 g/dl (32-36); MEAN PLATELET VOLUME 10.6 fL (7.4-10.4); PLATELET COUNT 146 K/uL (130-400); RED BLOOD COUNT 2.88 M/uL (4.2-5.4); WHITE BLOOD COUNT 4.53 K/uL (4.8-10.8)
[2016-11-28 06:50] LABS: INR 3.8 (0.9-1.1); PARTIAL THROMBOPLASTIN RATIO 1.9; PROTHROMBIN TIME (PATIENT) 42.5 SECONDS (9.0-12.0)
[2016-11-28 07:02] LABS: BUN/CREATININE RATIO 24.8 (10-20); CALCIUM 11.4 mg/dl (8.5-10.1); CREATININE 2.7 mg/dl (0.60-1.20); MAGNESIUM 2.4 mg/dl (1.8-2.4); POTASSIUM 3.8 mmol/L (3.5-5.1)
[2016-11-28 07:04] LABS: ALB/GLOB RATIO 0.6 (0.9-2)
[2016-11-28] MEDS: CHECK FENTANYL PATCH PLACEMENT SCH ×3 (08:00→23:52)
[2016-11-28] MEDS ORDERED: NURSING VERBAL MED ORDER ONE (08:30)
[2016-11-28] MEDS: VENLAFAXINE HCL 37.5 MG TAB PO SCH (09:02)
[2016-11-28] MEDS: KETOCONAZOLE 200 MG TAB PEG SCH (09:03)
[2016-11-28] MEDS: CYANOCOBALAMIN 500 MCG TAB (VIT B-12) PEG SCH (09:03)
[2016-11-28] MEDS: FUROSEMIDE INJ 20 MG in SYRINGE 0 ML IV SCH ×2 (09:06→17:01)
[2016-11-28] MEDS ORDERED: LACTULOSE SYRUP 30 GM/45 ML UDP PEG ONE (12:30)
--- NOTE | 2016-11-28 12:45 | Nephrology Progress Note ---
Nephrology Progress Note Date of Service November 28, 2016. Chief Complaint Follow-up for acute kidney injury and hypercalcemia. Carina Patino was seen and examined in her room this morning. She denies any specific symptom, seems comfortable however she does not communicate. has been having decent urine output, blood pressure stable. Creatinine slightly improved to 2.7 and calcium improved to 11.4. Review of Systems A complete review of systems was performed. Pertinent positives are noted above. All other systems are negative. Vital Signs Last 8 Hrs Date Time Temp Pulse Resp B/P Pulse Ox O2 Delivery O2 Flow Rate FiO2 11/28/16 11:33 36.4 81 20 140/82 98 11/28/16 08:00 98 Room Air 11/28/16 07:36 36.4 85 20 172/88 98 I & O 24-Hour Column 11/28/16 07:59 Intake Total 5525 ml Output Total 3325 ml Balance 2200 ml Last Recorded Weight Weight (Kilograms): 69.000 Physical Exam GENERAL: Middle-age female, AAA x 3, pleasant, aphasic, not in any distress. NECK: Supple, no JVD. RESPIRATORY: Normal breathing efforts, no accessory muscle use, clear to auscultation bilaterally, no wheezes or rales. CARDIOVASCULAR: S1, S2 normal, rate rhythm regular. EXTREMITY: No lower extremity edema NEURO: Moves extremities Family History Diabetes mellitus Seizures Negative for CKD/ESRD Social History Smoking Status: Never smoker Drug Use: none Marital Status: in relationship Housing Status: other Occupation: disabled . Medically disabled. Resides at [facility]. No history of tobacco or alcohol use. Laboratory Results Past 24 Hours 11/27/16 15:20 11/28/16 06:18 11/28/16 06:18 Test 11/27/16 18:33 11/27/16 22:56 11/28/16 05:47 11/28/16 06:18 Bedside Glucose 117 mg/dl (70-90) 135 mg/dl (70-90) 172 mg/dl (70-90) Red Blood Count 2.88 M/uL (4.2-5.4) Mean Corpuscular Volume 99.7 fL (80-100) Mean Corpuscular Hemoglobin 32.3 pg (25-34) Mean Corpuscular Hemoglobin Concent 32.4 g/dl (32-36) RDW Standard Deviation 54.8 fL (36.4-46.3) RDW Coefficient of Variation 14.9 % (11.5-14.5) Mean Platelet Volume 10.6 fL (7.4-10.4) Prothrombin Time 42.5 SECONDS (9.0-12.0) Prothromb Time International Ratio 3.8 (0.9-1.1) Activated Partial Thromboplast Time 49.6 SECONDS (21.0-31.0) Partial Thromboplastin Ratio 1.9 Anion Gap 7.0 mmol/L (3-11) Est Creatinine Clear Calc Drug Dose 24.6 ml/min Estimated GFR () 23.4 Estimated GFR (Non- 20.2 BUN/Creatinine Ratio 24.8 (10-20) Calcium Level 11.4 mg/dl (8.5-10.1) Magnesium Level 2.4 mg/dl (1.8-2.4) Total Bilirubin 0.8 mg/dl (0.2-1) Aspartate Amino Transf (AST/SGOT) 37 U/L (15-37) Alanine Aminotransferase (ALT/SGPT) 36 U/L (12-78) Alkaline Phosphatase 500 U/L (45-117) Total Protein 6.7 gm/dl (6.4-8.2) Albumin 2.4 gm/dl (3.4-5.0) Globulin 4.3 gm/dl (2.5-4.0) Albumin/Globulin Ratio 0.6 (0.9-2) Test 11/28/16 06:56 11/28/16 11:00 11/28/16 11:25 Bedside Glucose 193 mg/dl (70-90) 208 mg/dl (70-90) Ammonia 99.0 umol/L (11-32) Allergies Coded Allergies: Ezetimibe (Verified Allergy, Intermediate, Vytorin - hives and N/V, ) Simvastatin (Verified Allergy, Intermediate, Vytorin - hives and N/V, ) Latex1 -Allergic Contact Dermititis (Verified Allergy, Unknown, RASH, BLISTERS, 05/05/16) Adhesives (Verified Adverse Reaction, Mild, Unknown Rxn, 05/05/16) Medications Current Inpatient Medications Medications (Trade) Dose Ordered Sig/Filipe Route Start Time Stop Time Status Last Admin Dose Admin Al Hydrox/Mg Hydrox/Simethicone (Maalox Max Susp) 15 ml Q4H PRN PO 11/26/16 17:30 12/26/16 17:29 Magnesium Hydroxide (Milk Of Magnesia Susp) 30 ml Q12H PRN PO 11/26/16 17:30 12/26/16 17:29 Ondansetron HCl (Zofran Inj) 4 mg Q6H PRN IV 11/26/16 17:30 12/26/16 17:29 Nitroglycerin (Nitrostat Tab) 0.4 mg UD PRN SL 11/26/16 17:30 12/26/16 17:29 Polyethylene (Miralax Powder Packet) 17 gm DAILY PRN PO 11/26/16 17:30 12/26/16 17:29 Atorvastatin Calcium (Lipitor Tab) 20 mg HS PEG 11/26/16 21:00 12/26/16 20:59 11/27/16 20:40 20 MG Fentanyl (Duragesic Patch) 12 mcg Q72H TD 11/26/16 20:00 12/10/16 19:59 11/26/16 20:48 12 MCG Folic Acid (Folvite Tab) 1 mg DAILY PEG 11/27/16 09:00 12/27/16 08:59 11/28/16 09:03 1 MG Insulin Glargine (Lantus Solostar Pen) 20 unit HS SC 11/26/16 21:00 12/26/16 20:59 11/27/16 20:43 20 UNIT Ketoconazole (Nizoral Tab) 200 mg DAILY PEG 11/27/16 09:00 12/07/16 08:59 11/28/16 09:03 200 MG Meclizine HCl (Antivert Tab) 25 mg TID PRN PO 11/26/16 17:30 12/26/16 17:29 Metoclopramide HCl (Reglan Syrup) 5 mg Q6 PO 11/26/16 19:00 12/26/16 18:59 11/28/16 12:28 5 MG Miscellaneous Information (Order Awaiting Action) 1 ea QS N/A 11/27/16 00:00 12/27/16 00:00 Oxycodone HCl (Roxicodone Immediate Rel Tab) 5 mg Q4H PRN PEG 11/26/16 17:30 12/10/16 17:29 11/28/16 04:05 5 MG Promethazine HCl (Phenergan Tab) 25 mg Q6H PRN GT 11/26/16 17:30 12/26/16 17:29 Venlafaxine HCl (effeXOR TAB) 75 mg QAM PO 11/27/16 09:00 12/27/16 08:59 11/28/16 09:02 75 MG Cyanocobalamin (Vitamin B-12 Tab) 500 mcg QAM PEG 11/27/16 09:00 12/27/16 08:59 11/28/16 09:03 500 MCG Miscellaneous Information 1 ea 1 ea QS N/A 11/27/16 00:00 12/27/16 00:00 Furosemide/Syringe (Lasix Inj/ Syringe) 2 ml @ 4 mls/min BID17 IV 11/26/16 21:00 12/26/16 20:59 11/28/16 09:06 4 MLS/MIN Miscellaneous (Fentanyl Patch Remove & Waste) 1 ea Q3D@1959 N/A 11/26/16 19:59 12/26/16 19:58 11/26/16 19:59 1 EA Miscellaneous Information (Check Fentanyl Patch Placement) 1 ea QS N/A 11/27/16 00:00 12/27/16 00:00 11/28/16 08:00 1 EA Glucose (Glucose 40% Gel) 15-30 GRAMS 15 GRAMS... UD PRN PO 11/26/16 18:45 12/26/16 18:44 Glucose (Glucose Chew Tab) 4-8 Tablets 4 Tabl... UD PRN PO 11/26/16 18:45 12/26/16 18:44 Dextrose (Dextrose 50% 50ML Syringe) 25-50ML OF 50% DW IV FOR... UD PRN IV 11/26/16 18:45 12/26/16 18:44 Glucagon (Glucagon Inj) 1 mg UD PRN SQ 11/26/16 18:45 12/26/16 18:44 Insulin Aspart (novoLOG ASPART) SLIDING SCALE G... Q6 SQ 11/27/16 00:00 12/26/16 20:59 11/28/16 12:31 1 UNITS Enteral Nutritional Formula (Peptamen 1.5) 1,000 ml UD PEG 11/27/16 13:30 12/27/16 13:29 11/27/16 14:30 1,000 ML Prednisone (PredniSONE TAB) 30 mg DAILY PEG 11/28/16 09:00 12/28/16 08:59 11/28/16 09:03 30 MG Atenolol (Tenormin Tab) 50 mg QAM PEG 11/28/16 09:00 12/28/16 08:59 11/28/16 09:02 50 MG Lactulose (Chronulac Syrup) 30 gm DAILY PEG 11/28/16 18:00 12/28/16 17:59 Impression (1) Acute kidney injury (2) Chronic kidney disease, stage 3 (3) Hypercalcemia (4) Sarcoidosis (5) Lupus anticoagulant positive (6) Expressive aphasia (7) Diab W Unspec Compl, Type Ii Or Unspec Type, Not Uncntrld Recommendations ACUTE KIDNEY INJURY: -- Likely related to dehydration and hypercalcemia -- Renal US report 12/02 reviewed today. Several right kidney stones. No significant hydronephrosis -- Monitor serial PRP CHRONIC KIDNEY DISEASE: -- Baseline creatinine has been 2.0 HYPERCALCEMIA: -- suggest continuing on D5 0.9NS at 110 cc/hr and IV Furosemide to promote Ca excretion -- Defer management of Sarcoidosis to Rheumatology ANEMIA: -- Recommend rechecking Hgb. If anemia persists consider transfusion to maintain Hgb > 10 and check FOBT, iron studies
[2016-11-28] MEDS: LACTULOSE SYRUP 30 GM/45 ML UDP PEG SCH (17:01)
[2016-11-28] MEDS: PEPTAMEN 1.5 CAL 1000ML BAG PEG SCH (18:00)
[2016-11-28] MEDS: ATORVASTATIN 20 MG TAB PEG SCH (20:05)
[2016-11-28] MEDS: INSULIN GLARGINE SOLOSTAR 100 UNITS/ML 3 ML PEN SC SCH (20:08)
[2016-11-28] MEDS: INSULIN HUMAN REGULAR SC SCH ×2 (20:09→23:58)
[2016-11-29] VITALS (10 sets, daily range): BP systolic 123–161; BP diastolic 56–84; PULSE 87–109; TEMP 35.9–36.7; O2SAT 95–97
--- NOTE | 2016-11-29 00:30 | Progress Note ---
Subjective Date of Service: November 28, 2016. Subjective Pt evaluation today including: conversation w/ patient, physical exam, chart review, lab review, review of inpatient medication list Pain: nothing obvious per staff PO Intake: npo, peg tube feedings only Voiding: loera catheter in place patient was quite sleepy most of today per staff during my afternoon visit she was much more awake and alert and following commands she could shake her head yes/no to questions Problem List Medical Problems: (1) Acute on chronic renal insufficiency Status: Acute (2) Altered mental status Status: Acute (3) Closed head injury Status: Acute (4) Contusion of multiple sites Status: Acute (5) Contusion of right leg Status: Acute (6) Dehydration Status: Acute (7) Elevated alkaline phosphatase level Status: Acute (8) Fall Status: Acute (9) Fever Status: Acute (10) Hyperkalemia Status: Acute (11) Nausea Status: Acute (12) Sepsis due to urinary tract infection Status: Acute (13) UTI (urinary tract infection) Status: Acute (14) Vomiting Status: Acute Review of Systems unable to accurately obtain 2nd to expressive aphasia Objective Vital Signs Date Time Temp Pulse Resp B/P Pulse Ox O2 Delivery O2 Flow Rate FiO2 11/29/16 00:00 96 Room Air 11/28/16 23:45 37.1 97 18 132/81 93 Room Air 11/28/16 20:00 96 Room Air 11/28/16 19:58 36.6 92 18 138/70 96 Room Air 11/28/16 16:00 94 Room Air 11/28/16 15:04 37.0 82 20 141/69 97 11/28/16 12:00 96 Room Air 11/28/16 11:33 36.4 81 20 140/82 98 11/28/16 08:00 98 Room Air 11/28/16 07:36 36.4 85 20 172/88 98 11/28/16 04:00 Room Air 11/28/16 04:00 36.7 91 18 149/83 92 Room Air Physical Exam General Appearance: no apparent distress, + pertinent finding (awake; expressive aphasia) ENT: pharynx normal, + pertinent finding (right facial droop) Neck: no JVD Respiratory/Chest: lungs clear, no respiratory distress, no accessory muscle use Cardiovascular: regular rate, rhythm, no gallop, no murmur Abdomen: normal bowel sounds, non tender, soft, + splenomegaly Extremities: no pedal edema Neurologic/Psychiatric: alert, + motor weakness (RUE/RLE) Skin: + pertinent finding (PEG tube in place, clean ) Laboratory Results Last 24 Hours Test 11/28/16 05:47 11/28/16 06:18 11/28/16 06:56 11/28/16 11:00 Bedside Glucose 172 mg/dl 193 mg/dl White Blood Count 4.53 K/uL Red Blood Count 2.88 M/uL Hemoglobin 9.3 g/dL Hematocrit 28.7 % Mean Corpuscular Volume 99.7 fL Mean Corpuscular Hemoglobin 32.3 pg Mean Corpuscular Hemoglobin Concent 32.4 g/dl RDW Standard Deviation 54.8 fL RDW Coefficient of Variation 14.9 % Platelet Count 146 K/uL Mean Platelet Volume 10.6 fL Prothrombin Time 42.5 SECONDS Prothromb Time International Ratio 3.8 Activated Partial Thromboplast Time 49.6 SECONDS Partial Thromboplastin Ratio 1.9 Sodium Level 144 mmol/L Potassium Level 3.8 mmol/L Chloride Level 110 mmol/L Carbon Dioxide Level 27 mmol/L Anion Gap 7.0 mmol/L Blood Urea Nitrogen 67 mg/dl Creatinine 2.70 mg/dl Est Creatinine Clear Calc Drug Dose 24.6 ml/min Estimated GFR () 23.4 Estimated GFR (Non- 20.2 BUN/Creatinine Ratio 24.8 Random Glucose 172 mg/dl Calcium Level 11.4 mg/dl Magnesium Level 2.4 mg/dl Total Bilirubin 0.8 mg/dl Aspartate Amino Transf (AST/SGOT) 37 U/L Alanine Aminotransferase (ALT/SGPT) 36 U/L Alkaline Phosphatase 500 U/L Total Protein 6.7 gm/dl Albumin 2.4 gm/dl Globulin 4.3 gm/dl Albumin/Globulin Ratio 0.6 Ammonia 99.0 umol/L Test 11/28/16 11:25 11/28/16 18:03 11/28/16 23:51 Bedside Glucose 208 mg/dl 355 mg/dl 300 mg/dl Assessment and Plan 46yo female - 1. hypercalcemia - improving, s/p IV bisphosphonate and lasix IV. Recheck BMP in am. 2nd to sarcoid? other? 2. acute kidney injury in setting of CKD stage 3 - creatinine modestly improving with current care plan. 3. sarcoid - on increased steroids at this time. Follow. 4. h/o stroke with resulting right sided hemiplegia - cont coumadin for secondary stroke prevention. 5. lupus anticoagulant - on coumadin chronically. INR > 3 today - hold coumadin. 6. pancytopenia - 2nd to liver disease? other? 7. 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 Lactulose 30cc x 2 doses today, then 30cc daily thereafter. 8. uncontrolled T2DM - restart AM lantus; change novolog to regular insulin q6h and titrate the latter. 9. FEN - at goal for PEG tube feedings. Repeat BMP am. 10. DVT proph - coumadin. Continued [facility] stay due to: ambulation difficulties, multiple IV medications needed Discharge planning: custodial facility
[2016-11-29] MEDS: METOCLOPRAMIDE HCL 5 MG/5 ML UDP PO SCH ×3 (06:03→18:42)
[2016-11-29] MEDS: INSULIN HUMAN REGULAR SC SCH ×3 (06:09→18:48)
[2016-11-29 07:28] LABS: HEMATOCRIT 29.3 % (37-47); MEAN CELL VOLUME 98.7 fL (80-100); MEAN CORPUSCULAR HEMOGLOBIN 31.3 pg (25-34); MEAN CORPUSCULAR HGB CONC 31.7 g/dl (32-36); MEAN PLATELET VOLUME 10.6 fL (7.4-10.4); PLATELET COUNT 165 K/uL (130-400); RED BLOOD COUNT 2.97 M/uL (4.2-5.4)
[2016-11-29 07:37] LABS: INR 2.4 (0.9-1.1); PROTHROMBIN TIME (PATIENT) 26.1 SECONDS (9.0-12.0)
[2016-11-29] MEDS: FUROSEMIDE INJ 20 MG in SYRINGE 0 ML IV SCH ×2 (08:09→18:41)
[2016-11-29] MEDS: LACTULOSE SYRUP 30 GM/45 ML UDP PEG SCH (08:10)
[2016-11-29] MEDS: VENLAFAXINE HCL 37.5 MG TAB PO SCH (08:10)
[2016-11-29] MEDS: CYANOCOBALAMIN 500 MCG TAB (VIT B-12) PEG SCH (08:11)
[2016-11-29] MEDS: CHECK FENTANYL PATCH PLACEMENT SCH ×2 (08:12→16:00)
[2016-11-29] MEDS: KETOCONAZOLE 200 MG TAB PEG SCH (08:12)
[2016-11-29] MEDS ORDERED: INSULIN GLARGINE SOLOSTAR 100 UNITS/ML 3 ML PEN SC ONE (09:00)
[2016-11-29] MEDS ORDERED: INSULIN GLARGINE SOLOSTAR 100 UNITS/ML 3 ML PEN SC SCH (09:00)
--- NOTE | 2016-11-29 09:43 | Nephrology Progress Note ---
Nephrology Progress Note Date of Service November 29, 2016. Chief Complaint Follow-up for acute kidney injury and hypercalcemia. Carina Patino was seen and examined in her room this morning. She denies any specific symptom, seems comfortable however she does not speak. Has been having decent urine output, blood pressure stable. Lab this am pending. Review of Systems A complete review of systems was performed. Pertinent positives are noted above. All other systems are negative. Vital Signs Last 8 Hrs Date Time Temp Pulse Resp B/P Pulse Ox O2 Delivery O2 Flow Rate FiO2 11/29/16 07:37 36.5 100 16 136/79 97 11/29/16 04:42 36.7 109 18 161/84 97 Room Air 11/29/16 04:00 96 Room Air I & O 24-Hour Column 11/29/16 08:00 Intake Total 1958 ml Output Total 3000 ml Balance -1042 ml Last Recorded Weight Weight (Kilograms): 69.000 Physical Exam GENERAL: Middle-age female, AAA x 3, pleasant, aphasic, not in any distress. NECK: Supple, no JVD. RESPIRATORY: Normal breathing efforts, no accessory muscle use, clear to auscultation bilaterally, no wheezes or rales. CARDIOVASCULAR: S1, S2 normal, rate rhythm regular. EXTREMITY: No lower extremity edema NEURO: Moves extremities Family History Diabetes mellitus Seizures Negative for CKD/ESRD Social History Smoking Status: Never smoker Drug Use: none Marital Status: in relationship Housing Status: other Occupation: disabled . Medically disabled. Resides at [facility]. No history of tobacco or alcohol use. Laboratory Results Past 24 Hours 11/29/16 07:17 Test 11/28/16 11:00 11/28/16 11:25 11/28/16 18:03 11/28/16 23:51 Ammonia 99.0 umol/L (11-32) Bedside Glucose 208 mg/dl (70-90) 355 mg/dl (70-90) 300 mg/dl (70-90) Test 11/29/16 05:59 11/29/16 07:17 11/29/16 09:21 Bedside Glucose 261 mg/dl (70-90) Red Blood Count 2.97 M/uL (4.2-5.4) Mean Corpuscular Volume 98.7 fL (80-100) Mean Corpuscular Hemoglobin 31.3 pg (25-34) Mean Corpuscular Hemoglobin Concent 31.7 g/dl (32-36) RDW Standard Deviation 52.8 fL (36.4-46.3) RDW Coefficient of Variation 14.7 % (11.5-14.5) Mean Platelet Volume 10.6 fL (7.4-10.4) Prothrombin Time 26.1 SECONDS (9.0-12.0) Prothromb Time International Ratio 2.4 (0.9-1.1) Magnesium Level 2.5 mg/dl (1.8-2.4) Allergies Coded Allergies: Ezetimibe (Verified Allergy, Intermediate, Vytorin - hives and N/V, ) Simvastatin (Verified Allergy, Intermediate, Vytorin - hives and N/V, ) Latex1 -Allergic Contact Dermititis (Verified Allergy, Unknown, RASH, BLISTERS, 05/05/16) Adhesives (Verified Adverse Reaction, Mild, Unknown Rxn, 05/05/16) Medications Current Inpatient Medications Medications (Trade) Dose Ordered Sig/Filipe Route Start Time Stop Time Status Last Admin Dose Admin Al Hydrox/Mg Hydrox/Simethicone (Maalox Max Susp) 15 ml Q4H PRN PO 11/26/16 17:30 12/26/16 17:29 Magnesium Hydroxide (Milk Of Magnesia Susp) 30 ml Q12H PRN PO 11/26/16 17:30 12/26/16 17:29 Ondansetron HCl (Zofran Inj) 4 mg Q6H PRN IV 11/26/16 17:30 12/26/16 17:29 11/28/16 23:53 4 MG Nitroglycerin (Nitrostat Tab) 0.4 mg UD PRN SL 11/26/16 17:30 12/26/16 17:29 Polyethylene (Miralax Powder Packet) 17 gm DAILY PRN PO 11/26/16 17:30 12/26/16 17:29 Atorvastatin Calcium (Lipitor Tab) 20 mg HS PEG 11/26/16 21:00 12/26/16 20:59 11/28/16 20:05 20 MG Fentanyl (Duragesic Patch) 12 mcg Q72H TD 11/26/16 20:00 12/10/16 19:59 11/26/16 20:48 12 MCG Folic Acid (Folvite Tab) 1 mg DAILY PEG 11/27/16 09:00 12/27/16 08:59 11/29/16 08:10 1 MG Insulin Glargine (Lantus Solostar Pen) 20 unit HS SC 11/26/16 21:00 12/26/16 20:59 11/28/16 20:08 20 UNIT Ketoconazole (Nizoral Tab) 200 mg DAILY PEG 11/27/16 09:00 12/07/16 08:59 11/29/16 08:12 200 MG Meclizine HCl (Antivert Tab) 25 mg TID PRN PO 11/26/16 17:30 12/26/16 17:29 Metoclopramide HCl (Reglan Syrup) 5 mg Q6 PO 11/26/16 19:00 12/26/16 18:59 11/29/16 06:03 5 MG Miscellaneous Information (Order Awaiting Action) 1 ea QS N/A 11/27/16 00:00 12/27/16 00:00 Oxycodone HCl (Roxicodone Immediate Rel Tab) 5 mg Q4H PRN PEG 11/26/16 17:30 12/10/16 17:29 11/28/16 23:53 5 MG Promethazine HCl (Phenergan Tab) 25 mg Q6H PRN GT 11/26/16 17:30 12/26/16 17:29 Venlafaxine HCl (effeXOR TAB) 75 mg QAM PO 11/27/16 09:00 12/27/16 08:59 11/29/16 08:10 75 MG Cyanocobalamin (Vitamin B-12 Tab) 500 mcg QAM PEG 11/27/16 09:00 12/27/16 08:59 11/29/16 08:11 500 MCG Miscellaneous Information 1 ea 1 ea QS N/A 11/27/16 00:00 12/27/16 00:00 Furosemide/Syringe (Lasix Inj/ Syringe) 2 ml @ 4 mls/min BID17 IV 11/26/16 21:00 12/26/16 20:59 11/29/16 08:09 4 MLS/MIN Miscellaneous (Fentanyl Patch Remove & Waste) 1 ea Q3D@1959 N/A 11/26/16 19:59 12/26/16 19:58 11/26/16 19:59 1 EA Miscellaneous Information (Check Fentanyl Patch Placement) 1 ea QS N/A 11/27/16 00:00 12/27/16 00:00 11/29/16 08:12 1 EA Glucose (Glucose 40% Gel) 15-30 GRAMS 15 GRAMS... UD PRN PO 11/26/16 18:45 12/26/16 18:44 Glucose (Glucose Chew Tab) 4-8 Tablets 4 Tabl... UD PRN PO 11/26/16 18:45 12/26/16 18:44 Dextrose (Dextrose 50% 50ML Syringe) 25-50ML OF 50% DW IV FOR... UD PRN IV 11/26/16 18:45 12/26/16 18:44 Glucagon (Glucagon Inj) 1 mg UD PRN SQ 11/26/16 18:45 12/26/16 18:44 Enteral Nutritional Formula (Peptamen 1.5) 1,000 ml UD PEG 11/27/16 13:30 12/27/16 13:29 11/28/16 18:00 1,000 ML Atenolol (Tenormin Tab) 50 mg QAM PEG 11/28/16 09:00 12/28/16 08:59 11/29/16 08:11 50 MG Lactulose (Chronulac Syrup) 30 gm DAILY PEG 11/28/16 18:00 12/28/16 17:59 11/29/16 08:10 30 GM Insulin Human Regular (novoLIN-R) SLIDING SCALE PARAMETERS Q6 SC 11/28/16 18:45 12/29/16 18:44 11/29/16 06:09 6 UNITS Insulin Glargine (Lantus Solostar Pen) 15 unit QAM SC 11/30/16 09:00 12/30/16 08:59 Prednisone (PredniSONE TAB) 20 mg DAILY PEG 11/30/16 09:00 12/30/16 08:59 Warfarin Sodium (Coumadin Tab) 5 mg SuTuThSa@1600 PO 11/29/16 16:00 12/29/16 15:59 Warfarin Sodium (Coumadin Tab) 7.5 mg MoWeFr@1600 PO 11/30/16 16:00 12/30/16 15:59 Impression (1) Acute kidney injury (2) Chronic kidney disease, stage 3 (3) Hypercalcemia (4) Sarcoidosis (5) Lupus anticoagulant positive (6) Expressive aphasia (7) Diab W Unspec Compl, Type Ii Or Unspec Type, Not Uncntrld Recommendations -- EARL related to dehydration and hypercalcemia -- Renal US report 12/02 reviewed today. Several right kidney stones. No significant hydronephrosis -- Monitor serial PRP -- cr was 2.7 yesterday, pending am labs (Baseline creatinine has been 2.0) -- suggest continuing on D5 0.9NS at 100 cc/hr and IV Furosemide to promote Ca excretion -- Defer management of Sarcoidosis to Rheumatology
[2016-11-29 10:19] LABS: BUN/CREATININE RATIO 21.8 (10-20); CREATININE 2.9 mg/dl (0.60-1.20); POTASSIUM 3.2 mmol/L (3.5-5.1)
[2016-11-29] MEDS ORDERED: SODIUM CHLORIDE 0.45% 1000ML 1,000 ML IV SCH (10:30)
[2016-11-29] MEDS: POTASSIUM CHLORIDE INJ 40 MEQ in SODIUM CHLORIDE 0.45% 1000ML 1,000 ML IV SCH ×2 (12:00→20:08)
[2016-11-29] MEDS: PEPTAMEN 1.5 CAL 1000ML BAG PEG SCH (14:10)
[2016-11-29] MEDS: WARFARIN SOD 5 MG TAB PO SCH (18:41)
[2016-11-29] MEDS: FENTANYL PATCH REMOVE & WASTE SCH (20:18)
[2016-11-29] MEDS: FENTANYL 12 MCG/HR TDSY TD SCH (20:18)
[2016-11-29] MEDS: ATORVASTATIN 20 MG TAB PEG SCH (20:24)
[2016-11-29] MEDS: INSULIN GLARGINE SOLOSTAR 100 UNITS/ML 3 ML PEN SC SCH (20:27)
[2016-11-29] MEDS ORDERED: VANCOMYCIN HCL 125 MG/2.5ML SOLN PO SCH (21:00)
[2016-11-29] MEDS ORDERED: RASPBERRY SYRUP 5 ML UDP PO SCH (21:00)
[2016-11-29] MEDS ORDERED: NURSING DECISION MEDICATION ORDER SCH (21:15)
[2016-11-29] MEDS: VANCOMYCIN HCL 125 MG/2.5ML SOLN PEG SCH (21:48)
--- NOTE | 2016-11-29 23:17 | Progress Note ---
Subjective Date of Service: November 29, 2016. Subjective Pt evaluation today including: conversation w/ patient, physical exam, chart review, lab review, review of inpatient medication list Pain: no obvious areas of pain PO Intake: npo, peg tube in place Voiding: loera catheter in place staff report copious amounts of diarrhea apparently the patient's room-mate tested positive for c diff today stool is mucous-filled & foul-smelling per staff no other acute issues Problem List Medical Problems: (1) Acute on chronic renal insufficiency Status: Acute (2) Altered mental status Status: Acute (3) Closed head injury Status: Acute (4) Contusion of multiple sites Status: Acute (5) Contusion of right leg Status: Acute (6) Dehydration Status: Acute (7) Elevated alkaline phosphatase level Status: Acute (8) Fall Status: Acute (9) Fever Status: Acute (10) Hyperkalemia Status: Acute (11) Nausea Status: Acute (12) Sepsis due to urinary tract infection Status: Acute (13) UTI (urinary tract infection) Status: Acute (14) Vomiting Status: Acute Review of Systems unable to obtain ROS due to aphasic status shakes head yes/no to some questions Objective Vital Signs Date Time Temp Pulse Resp B/P Pulse Ox O2 Delivery O2 Flow Rate FiO2 11/29/16 19:50 36.3 87 16 138/76 96 Room Air 11/29/16 16:00 97 Room Air 11/29/16 15:00 35.9 92 18 123/80 95 Room Air 11/29/16 12:00 97 Room Air 11/29/16 08:00 97 Room Air 11/29/16 07:37 36.5 100 16 136/79 97 11/29/16 04:42 36.7 109 18 161/84 97 Room Air 11/29/16 04:00 96 Room Air 11/29/16 00:00 96 Room Air 11/28/16 23:45 37.1 97 18 132/81 93 Room Air Physical Exam General Appearance: no apparent distress ENT: pharynx normal Neck: no JVD Respiratory/Chest: lungs clear, no respiratory distress, no accessory muscle use Cardiovascular: regular rate, rhythm, no gallop, no murmur Abdomen: normal bowel sounds, non tender, soft, no organomegaly, + splenomegaly , + pertinent finding (PEG clean) Extremities: no pedal edema Neurologic/Psychiatric: alert, + motor weakness (hemiplegia, right side), + pertinent finding (foot drop on right) Laboratory Results Last 24 Hours Test 11/28/16 23:51 11/29/16 00:00 11/29/16 05:59 11/29/16 07:17 Bedside Glucose 300 mg/dl 261 mg/dl Stool Occult Blood POSITIVE White Blood Count 7.70 K/uL Red Blood Count 2.97 M/uL Hemoglobin 9.3 g/dL Hematocrit 29.3 % Mean Corpuscular Volume 98.7 fL Mean Corpuscular Hemoglobin 31.3 pg Mean Corpuscular Hemoglobin Concent 31.7 g/dl RDW Standard Deviation 52.8 fL RDW Coefficient of Variation 14.7 % Platelet Count 165 K/uL Mean Platelet Volume 10.6 fL Prothrombin Time 26.1 SECONDS Prothromb Time International Ratio 2.4 Magnesium Level 2.5 mg/dl Test 11/29/16 09:21 11/29/16 11:54 Sodium Level 148 mmol/L Potassium Level 3.2 mmol/L Chloride Level 109 mmol/L Carbon Dioxide Level 28 mmol/L Anion Gap 11.0 mmol/L Blood Urea Nitrogen 63 mg/dl Creatinine 2.90 mg/dl Est Creatinine Clear Calc Drug Dose 22.9 ml/min Estimated GFR () 21.4 Estimated GFR (Non- 18.5 BUN/Creatinine Ratio 21.8 Random Glucose 283 mg/dl Calcium Level 12.0 mg/dl Bedside Glucose 288 mg/dl Assessment and Plan 46yo female - 1. hypercalcemia - improved but has not yet normalized. s/p IV bisphosphonate this admission; continues on lasix IV. Recheck BMP in am. 2nd to sarcoid? other? defer management to nephrology. 2. acute kidney injury in setting of CKD stage 3 - baseline Cr 2.3-2.4; Cr today slightly worse. Suspect slight worsening overnight is from volume depletion given the hypernatremia. Agree w/ hypotonic fluids. 3. sarcoid - recent rheum consult with recommendation to increase prednisone temporarily. Now tapering; start with 20mg today and taper back down to 5mg over the next 5-7 days. 4. h/o stroke with resulting right sided hemiplegia - cont coumadin for secondary stroke prevention. 5. lupus anticoagulant - on coumadin chronically. INR 2.4 today; resume coumadin at previous dosing. 6. pancytopenia - 2nd to liver disease? other? CBC serially is stable. 7. hepatic encephalopathy - seems improved. Staff report much better mentation today. In light of c. diff colitis stop the lactulose. 8. uncontrolled T2DM - 2nd to increased prednisone, stress of c. diff infection , etc. Increase lantus at HS tonight. Adjust regular insulin. Ask revenue enforcement agent to see if current tube feeding regimen is most appropriate in light of renal status & DM. 9. FEN - at goal for PEG tube feedings. Repeat BMP am. 10. DVT proph - coumadin. 11. c diff colitis - start vanco 125mg via PEG qid x 14 days. stop lactulose. 12. hypokalemia - replace with IV KCL in maintenance fluids. 13. hypernatremia - 2nd to lasix, diarrhea, etc. Changing fluids to hypotonic. appreciate nephrology assistance Continued [facility] stay due to: ambulation difficulties, multiple IV medications needed, other (hyperglycemia, c diff colitis ) Discharge planning: retirement facility
[2016-11-30] VITALS (7 sets, daily range): BP systolic 108–169; BP diastolic 68–89; PULSE 75–84; TEMP 36.5–37; O2SAT 95–97
[2016-11-30] MEDS: CHECK FENTANYL PATCH PLACEMENT SCH ×3 (00:16→16:00)
[2016-11-30] MEDS: METOCLOPRAMIDE HCL 5 MG/5 ML UDP PEG SCH ×4 (00:16→17:35)
[2016-11-30] MEDS: INSULIN HUMAN REGULAR SC SCH ×4 (00:19→18:00)
[2016-11-30] MEDS: POTASSIUM CHLORIDE INJ 40 MEQ in SODIUM CHLORIDE 0.45% 1000ML 1,000 ML IV SCH ×3 (04:11→20:04)
[2016-11-30 06:57] LABS: INR 2.1 (0.9-1.1)
[2016-11-30 07:26] LABS: BUN/CREATININE RATIO 24.5 (10-20); CALCIUM 11.4 mg/dl (8.5-10.1); CREATININE 2.5 mg/dl (0.60-1.20); MAGNESIUM 2.5 mg/dl (1.8-2.4); POTASSIUM 4.4 mmol/L (3.5-5.1)
[2016-11-30] MEDS: CYANOCOBALAMIN 500 MCG TAB (VIT B-12) PEG SCH (09:11)
[2016-11-30] MEDS: KETOCONAZOLE 200 MG TAB PEG SCH (09:11)
[2016-11-30] MEDS: VENLAFAXINE HCL 37.5 MG TAB PO SCH (09:11)
[2016-11-30] MEDS: VANCOMYCIN HCL 125 MG/2.5ML SOLN PEG SCH ×4 (09:12→22:26)
[2016-11-30] MEDS: FUROSEMIDE INJ 20 MG in SYRINGE 0 ML IV SCH ×2 (09:19→17:34)
[2016-11-30] MEDS: INSULIN GLARGINE SOLOSTAR 100 UNITS/ML 3 ML PEN SC SCH ×2 (09:21→22:28)
--- NOTE | 2016-11-30 11:29 | Nephrology Progress Note ---
Nephrology Progress Note Date of Service November 30, 2016. Chief Complaint Follow-up for acute kidney injury and hypercalcemia. Carina Patino was seen and examined in her room this morning. She denies any specific symptom, seems comfortable however she does not speak. Has been having decent urine output, blood pressure stable. Cr improved to 2.6, ca 11.4 Review of Systems A complete review of systems was performed. Pertinent positives are noted above. All other systems are negative. Vital Signs Last 8 Hrs Date Time Temp Pulse Resp B/P Pulse Ox O2 Delivery O2 Flow Rate FiO2 11/30/16 08:09 37.0 75 18 113/68 95 11/30/16 05:00 36.5 75 16 108/72 97 Room Air 11/30/16 04:00 Room Air I & O 24-Hour Column 11/30/16 08:00 Intake Total 3476 ml Output Total 2850 ml Balance 626 ml Last Recorded Weight Weight (Kilograms): 69.000 Physical Exam GENERAL: Middle-age female, AAA x 3, pleasant, aphasic, not in any distress. NECK: Supple, no JVD. RESPIRATORY: Normal breathing efforts, no accessory muscle use, clear to auscultation bilaterally, no wheezes or rales. CARDIOVASCULAR: S1, S2 normal, rate rhythm regular. EXTREMITY: No lower extremity edema NEURO: Moves extremities Family History Diabetes mellitus Seizures Negative for CKD/ESRD Social History Smoking Status: Never smoker Drug Use: none Marital Status: in relationship Housing Status: other Occupation: disabled . Medically disabled. Resides at [facility]. No history of tobacco or alcohol use. Laboratory Results Past 24 Hours 11/29/16 09:21 11/30/16 06:07 Test 11/29/16 09:21 11/29/16 11:54 11/30/16 05:55 11/30/16 06:07 Anion Gap 11.0 mmol/L (3-11) 8.0 mmol/L (3-11) Est Creatinine Clear Calc Drug Dose 22.9 ml/min 26.5 ml/min Estimated GFR () 21.4 25.7 Estimated GFR (Non- 18.5 22.1 BUN/Creatinine Ratio 21.8 (10-20) 24.5 (10-20) Calcium Level 12.0 mg/dl (8.5-10.1) 11.4 mg/dl (8.5-10.1) Bedside Glucose 288 mg/dl (70-90) 253 mg/dl (70-90) Prothrombin Time 23.0 SECONDS (9.0-12.0) Prothromb Time International Ratio 2.1 (0.9-1.1) Magnesium Level 2.5 mg/dl (1.8-2.4) Test 11/30/16 08:01 Bedside Glucose 232 mg/dl (70-90) Allergies Coded Allergies: Ezetimibe (Verified Allergy, Intermediate, Vytorin - hives and N/V, ) Simvastatin (Verified Allergy, Intermediate, Vytorin - hives and N/V, ) Latex1 -Allergic Contact Dermititis (Verified Allergy, Unknown, RASH, BLISTERS, 05/05/16) Adhesives (Verified Adverse Reaction, Mild, Unknown Rxn, 05/05/16) Medications Current Inpatient Medications Medications (Trade) Dose Ordered Sig/Filipe Route Start Time Stop Time Status Last Admin Dose Admin Al Hydrox/Mg Hydrox/Simethicone (Maalox Max Susp) 15 ml Q4H PRN PO 11/26/16 17:30 12/26/16 17:29 Magnesium Hydroxide (Milk Of Magnesia Susp) 30 ml Q12H PRN PO 11/26/16 17:30 12/26/16 17:29 Ondansetron HCl (Zofran Inj) 4 mg Q6H PRN IV 11/26/16 17:30 12/26/16 17:29 11/28/16 23:53 4 MG Nitroglycerin (Nitrostat Tab) 0.4 mg UD PRN SL 11/26/16 17:30 12/26/16 17:29 Polyethylene (Miralax Powder Packet) 17 gm DAILY PRN PO 11/26/16 17:30 12/26/16 17:29 Atorvastatin Calcium (Lipitor Tab) 20 mg HS PEG 11/26/16 21:00 12/26/16 20:59 11/29/16 20:24 20 MG Fentanyl (Duragesic Patch) 12 mcg Q72H TD 11/26/16 20:00 12/10/16 19:59 11/29/16 20:18 12 MCG Folic Acid (Folvite Tab) 1 mg DAILY PEG 11/27/16 09:00 12/27/16 08:59 11/29/16 08:10 1 MG Ketoconazole (Nizoral Tab) 200 mg DAILY PEG 11/27/16 09:00 12/07/16 08:59 11/29/16 08:12 200 MG Meclizine HCl (Antivert Tab) 25 mg TID PRN PO 11/26/16 17:30 12/26/16 17:29 Miscellaneous Information (Order Awaiting Action) 1 ea QS N/A 11/27/16 00:00 12/27/16 00:00 Oxycodone HCl (Roxicodone Immediate Rel Tab) 5 mg Q4H PRN PEG 11/26/16 17:30 12/10/16 17:29 11/28/16 23:53 5 MG Promethazine HCl (Phenergan Tab) 25 mg Q6H PRN GT 11/26/16 17:30 12/26/16 17:29 Venlafaxine HCl (effeXOR TAB) 75 mg QAM PO 11/27/16 09:00 12/27/16 08:59 11/29/16 08:10 75 MG Cyanocobalamin (Vitamin B-12 Tab) 500 mcg QAM PEG 11/27/16 09:00 12/27/16 08:59 11/29/16 08:11 500 MCG Miscellaneous Information 1 ea 1 ea QS N/A 11/27/16 00:00 12/27/16 00:00 Furosemide/Syringe (Lasix Inj/ Syringe) 2 ml @ 4 mls/min BID17 IV 11/26/16 21:00 12/26/16 20:59 11/29/16 18:41 4 MLS/MIN Miscellaneous (Fentanyl Patch Remove & Waste) 1 ea Q3D@1959 N/A 11/26/16 19:59 12/26/16 19:58 11/29/16 20:18 1 EA Miscellaneous Information (Check Fentanyl Patch Placement) 1 ea QS N/A 11/27/16 00:00 12/27/16 00:00 11/30/16 00:16 1 EA Glucose (Glucose 40% Gel) 15-30 GRAMS 15 GRAMS... UD PRN PO 11/26/16 18:45 12/26/16 18:44 Glucose (Glucose Chew Tab) 4-8 Tablets 4 Tabl... UD PRN PO 11/26/16 18:45 12/26/16 18:44 Dextrose (Dextrose 50% 50ML Syringe) 25-50ML OF 50% DW IV FOR... UD PRN IV 11/26/16 18:45 12/26/16 18:44 Glucagon (Glucagon Inj) 1 mg UD PRN SQ 11/26/16 18:45 12/26/16 18:44 Enteral Nutritional Formula (Peptamen 1.5) 1,000 ml UD PEG 11/27/16 13:30 12/27/16 13:29 11/29/16 14:10 1,000 ML Atenolol (Tenormin Tab) 50 mg QAM PEG 11/28/16 09:00 12/28/16 08:59 11/29/16 08:11 50 MG Insulin Human Regular (novoLIN-R) SLIDING SCALE PARAMETERS Q6 SC 11/28/16 18:45 12/29/16 18:44 11/30/16 06:13 7 UNITS Insulin Glargine (Lantus Solostar Pen) 15 unit QAM SC 11/30/16 09:00 12/30/16 08:59 Prednisone (PredniSONE TAB) 20 mg DAILY PEG 11/30/16 09:00 12/30/16 08:59 Warfarin Sodium (Coumadin Tab) 5 mg SuTuThSa@1600 PO 11/29/16 16:00 12/29/16 15:59 11/29/16 18:41 5 MG Warfarin Sodium 7.5 mg 7.5 mg MoWeFr@1600 PO 11/30/16 16:00 12/30/16 15:59 Potassium Chloride/Sodium Chloride (KCl Inj/1/2 Nss 1000ml) 1,020 ml @ 125 mls/hr Q8H10M IV 11/29/16 11:00 12/29/16 10:29 11/30/16 04:11 125 MLS/HR Insulin Glargine (Lantus Solostar Pen) 25 unit HS SC 11/29/16 21:00 12/29/16 20:59 11/29/16 20:27 25 UNIT Raspberry (Raspberry Syrup 5ml Cup) 5 ml QID PO 11/29/16 21:00 12/09/16 20:59 Future Hold Metoclopramide HCl (Reglan Syrup) 5 mg Q6 PEG 11/30/16 00:00 12/30/16 00:00 11/30/16 05:56 5 MG Vancomycin HCl (Vancomycin Oral Soln) 125 mg QID PEG 11/29/16 21:30 12/09/16 21:29 11/29/16 21:48 125 MG Impression (1) Acute kidney injury (2) Chronic kidney disease, stage 3 (3) Hypercalcemia (4) Sarcoidosis (5) Lupus anticoagulant positive (6) Expressive aphasia (7) Diab W Unspec Compl, Type Ii Or Unspec Type, Not Uncntrld Recommendations -- Continue IV 1/2 NS for now -- Renal US report 12/02 reviewed today. Several right kidney stones. No significant hydronephrosis -- Monitor serial PRP -- cr was 2.6 (Baseline creatinine has been 2.0) --ca stable <12, on IV fluid and lasix. Ideally she should be on low ca feeding. Her immobile status is not helping with the chronic high ca. -- Defer management of Sarcoidosis to Rheumatology
[2016-11-30] MEDS: PEPTAMEN 1.5 CAL 1000ML BAG PEG SCH (12:31)
--- NOTE | 2016-11-30 16:24 | Progress Note ---
Subjective Date of Service: November 30, 2016. Subjective pt responds with non verbal ques, did call her mother, poa and left message 11/30 Problem List Medical Problems: (1) Acute on chronic renal insufficiency Status: Acute (2) Altered mental status Status: Acute (3) Closed head injury Status: Acute (4) Contusion of multiple sites Status: Acute (5) Contusion of right leg Status: Acute (6) Dehydration Status: Acute (7) Elevated alkaline phosphatase level Status: Acute (8) Fall Status: Acute (9) Fever Status: Acute (10) Hyperkalemia Status: Acute (11) Nausea Status: Acute (12) Sepsis due to urinary tract infection Status: Acute (13) UTI (urinary tract infection) Status: Acute (14) Vomiting Status: Acute Review of Systems Constitutional: + weakness, No chills, No fever she shakes her head no to questions of pain, shortness of breath, or discomfort but a full ROS is not able to be obtained due to previous CVA Objective Vital Signs Date Time Temp Pulse Resp B/P Pulse Ox O2 Delivery O2 Flow Rate FiO2 11/30/16 08:09 37.0 75 18 113/68 95 11/30/16 05:00 36.5 75 16 108/72 97 Room Air 11/30/16 04:00 Room Air 11/30/16 00:00 Room Air 11/29/16 23:58 36.5 87 18 125/56 96 Room Air 11/29/16 20:00 Room Air 11/29/16 19:50 36.3 87 16 138/76 96 Room Air 11/29/16 16:00 97 Room Air 11/29/16 15:00 35.9 92 18 123/80 95 Room Air 11/29/16 12:00 97 Room Air Physical Exam General Appearance: + mild distress, + pertinent finding (chronically ill) Eyes: PERRL, EOMI Respiratory/Chest: + decreased breath sounds, + rhonchi Cardiovascular: regular rate, rhythm, no murmur Abdomen: normal bowel sounds, non tender, soft Extremities: no pedal edema, no calf tenderness Laboratory Results Last 24 Hours Test 11/29/16 09:21 11/29/16 11:54 11/30/16 05:55 11/30/16 06:07 Sodium Level 148 mmol/L 144 mmol/L Potassium Level 3.2 mmol/L 4.4 mmol/L Chloride Level 109 mmol/L 111 mmol/L Carbon Dioxide Level 28 mmol/L 25 mmol/L Anion Gap 11.0 mmol/L 8.0 mmol/L Blood Urea Nitrogen 63 mg/dl 61 mg/dl Creatinine 2.90 mg/dl 2.50 mg/dl Est Creatinine Clear Calc Drug Dose 22.9 ml/min 26.5 ml/min Estimated GFR () 21.4 25.7 Estimated GFR (Non- 18.5 22.1 BUN/Creatinine Ratio 21.8 24.5 Random Glucose 283 mg/dl 237 mg/dl Calcium Level 12.0 mg/dl 11.4 mg/dl Bedside Glucose 288 mg/dl 253 mg/dl Prothrombin Time 23.0 SECONDS Prothromb Time International Ratio 2.1 Magnesium Level 2.5 mg/dl Test 11/30/16 08:01 Bedside Glucose 232 mg/dl Assessment and Plan 46yo female symptomatic hypercalcemia associated with sarcoidosis, has hepatic encephalopathy and developed acute c diff hypercalcemia - improved s/p IV bisphosphonate this admission; continues on lasix IV. acute kidney injury in setting of CKD stage 3 -nephrology is assisting with volume management challenging with diarrhea from lactulose and acute C Diff c diff colitis - vanco 125mg via PEG qid x 14 days. stop lactulose. sarcoid - tapering steroids; start with 20mg today and taper back down to 5mg over the next 5-7 days. h/o stroke with resulting right sided hemiplegia - coumadin for secondary stroke prevention. due to lupus anticoagulant hepatic encephalopathy - seems improved. Staff report much better mentation today. In light of c. diff colitis stop the lactulose. uncontrolled T2DM - 2nd to increased prednisone, stress of c. diff infection, etc. basal bolus and adjust tube feedings DVT proph - coumadin. Continued [facility] stay due to: ambulation difficulties, multiple IV medications needed, other (hyperglycemia, c diff colitis ) [facility] jail facility
[2016-11-30] MEDS: WARFARIN SOD 7.5 MG TAB PO SCH (17:33)
[2016-11-30] MEDS ORDERED: NURSING VERBAL MED ORDER ONE ×2 (18:15→18:30)
[2016-11-30] MEDS ORDERED: INSULIN HUMAN REGULAR SC STA (18:29)
[2016-11-30] MEDS ORDERED: INSULIN GLARGINE SOLOSTAR 100 UNITS/ML 3 ML PEN SC STA (18:31)
[2016-11-30] MEDS: ATORVASTATIN 20 MG TAB PEG SCH (22:26)
[2016-12-01] VITALS (9 sets, daily range): BP systolic 149–184; BP diastolic 59–86; PULSE 66–80; TEMP 36.2–36.9; O2SAT 94–100
[2016-12-01] MEDS: METOCLOPRAMIDE HCL 5 MG/5 ML UDP PEG SCH ×4 (00:21→17:57)
[2016-12-01] MEDS: CHECK FENTANYL PATCH PLACEMENT SCH ×4 (00:24→22:21)
[2016-12-01] MEDS: INSULIN HUMAN REGULAR SC SCH ×4 (00:27→18:08)
[2016-12-01] MEDS: POTASSIUM CHLORIDE INJ 40 MEQ in SODIUM CHLORIDE 0.45% 1000ML 1,000 ML IV SCH (04:02)
[2016-12-01 07:11] LABS: INR 1.9 (0.9-1.1); PROTHROMBIN TIME (PATIENT) 20.7 SECONDS (9.0-12.0)
[2016-12-01 07:44] LABS: BUN/CREATININE RATIO 27.4 (10-20); CALCIUM 11.7 mg/dl (8.5-10.1); CREATININE 2.2 mg/dl (0.60-1.20); POTASSIUM 5.2 mmol/L (3.5-5.1)
[2016-12-01] MEDS: VANCOMYCIN HCL 125 MG/2.5ML SOLN PEG SCH ×4 (09:07→20:18)
[2016-12-01] MEDS: KETOCONAZOLE 200 MG TAB PEG SCH (09:16)
[2016-12-01] MEDS: VENLAFAXINE HCL 37.5 MG TAB PO SCH (09:16)
[2016-12-01] MEDS: CYANOCOBALAMIN 500 MCG TAB (VIT B-12) PEG SCH (09:19)
[2016-12-01] MEDS: SODIUM CHLORIDE 0.45% 1000ML 1,000 ML IV SCH ×2 (09:20→18:15)
[2016-12-01] MEDS: INSULIN GLARGINE SOLOSTAR 100 UNITS/ML 3 ML PEN SC SCH ×2 (09:22→20:22)
[2016-12-01] MEDS: FUROSEMIDE INJ 40 MG in SYRINGE 0 ML IV SCH ×2 (09:54→18:01)
--- NOTE | 2016-12-01 11:22 | Nephrology Progress Note ---
Nephrology Progress Note Date of Service December 01, 2016. Chief Complaint Follow-up for acute kidney injury and hypercalcemia. Subjective Carey was seen and examined in her room this morning. She looks a lot better today, awake, alert and tried to speak Has been having decent urine output, blood pressure stable. Cr improved to 2.2, but ca still elevated at 11.7 Review of Systems A complete review of systems was performed. Pertinent positives are noted above. All other systems are negative. Vital Signs Last 8 Hrs Date Time Temp Pulse Resp B/P Pulse Ox O2 Delivery O2 Flow Rate FiO2 12/01/16 07:19 36.6 75 18 183/71 98 Room Air 12/01/16 04:00 Room Air I & O 24-Hour Column 12/01/16 07:59 Intake Total 5345 ml Output Total 3350 ml Balance 1995 ml Last Recorded Weight Weight (Kilograms): 69.000 Physical Exam GENERAL: Middle-age female, AAA x 3, pleasant, aphasic, not in any distress. NECK: Supple, no JVD. RESPIRATORY: Normal breathing efforts, no accessory muscle use, clear to auscultation bilaterally, no wheezes or rales. CARDIOVASCULAR: S1, S2 normal, rate rhythm regular. EXTREMITY: No lower extremity edema NEURO: Moves extremities Family History Diabetes mellitus Seizures Negative for CKD/ESRD Social History Smoking Status: Never smoker Drug Use: none Marital Status: in relationship Housing Status: other Occupation: disabled . Medically disabled. Resides at [facility]. No history of tobacco or alcohol use. Laboratory Results Past 24 Hours 12/01/16 06:51 Test 11/30/16 09:19 11/30/16 11:54 11/30/16 17:53 12/01/16 00:01 Bedside Glucose 223 mg/dl (70-90) 181 mg/dl (70-90) 367 mg/dl (70-90) 257 mg/dl (70-90) Test 12/01/16 06:27 12/01/16 06:51 Bedside Glucose 194 mg/dl (70-90) Prothrombin Time 20.7 SECONDS (9.0-12.0) Prothromb Time International Ratio 1.9 (0.9-1.1) Anion Gap 5.0 mmol/L (3-11) Est Creatinine Clear Calc Drug Dose 30.2 ml/min Estimated GFR () 30.0 Estimated GFR (Non- 25.8 BUN/Creatinine Ratio 27.4 (10-20) Calcium Level 11.7 mg/dl (8.5-10.1) Ammonia 19.0 umol/L (11-32) Allergies Coded Allergies: Ezetimibe (Verified Allergy, Intermediate, Vytorin - hives and N/V, ) Simvastatin (Verified Allergy, Intermediate, Vytorin - hives and N/V, ) Latex1 -Allergic Contact Dermititis (Verified Allergy, Unknown, RASH, BLISTERS, 05/05/16) Adhesives (Verified Adverse Reaction, Mild, Unknown Rxn, 05/05/16) Medications Current Inpatient Medications Medications (Trade) Dose Ordered Sig/Filipe Route Start Time Stop Time Status Last Admin Dose Admin Al Hydrox/Mg Hydrox/Simethicone (Maalox Max Susp) 15 ml Q4H PRN PO 11/26/16 17:30 12/26/16 17:29 Magnesium Hydroxide (Milk Of Magnesia Susp) 30 ml Q12H PRN PO 11/26/16 17:30 12/26/16 17:29 Ondansetron HCl (Zofran Inj) 4 mg Q6H PRN IV 11/26/16 17:30 12/26/16 17:29 11/28/16 23:53 4 MG Nitroglycerin (Nitrostat Tab) 0.4 mg UD PRN SL 11/26/16 17:30 12/26/16 17:29 Polyethylene (Miralax Powder Packet) 17 gm DAILY PRN PO 11/26/16 17:30 12/26/16 17:29 Atorvastatin Calcium (Lipitor Tab) 20 mg HS PEG 11/26/16 21:00 12/26/16 20:59 11/30/16 22:26 20 MG Fentanyl (Duragesic Patch) 12 mcg Q72H TD 11/26/16 20:00 12/10/16 19:59 11/29/16 20:18 12 MCG Folic Acid (Folvite Tab) 1 mg DAILY PEG 11/27/16 09:00 12/27/16 08:59 11/30/16 09:11 1 MG Ketoconazole (Nizoral Tab) 200 mg DAILY PEG 11/27/16 09:00 12/07/16 08:59 11/30/16 09:11 200 MG Meclizine HCl (Antivert Tab) 25 mg TID PRN PO 11/26/16 17:30 12/26/16 17:29 Miscellaneous Information (Order Awaiting Action) 1 ea QS N/A 11/27/16 00:00 12/27/16 00:00 Oxycodone HCl (Roxicodone Immediate Rel Tab) 5 mg Q4H PRN PEG 11/26/16 17:30 12/10/16 17:29 11/28/16 23:53 5 MG Promethazine HCl (Phenergan Tab) 25 mg Q6H PRN GT 11/26/16 17:30 12/26/16 17:29 Venlafaxine HCl (effeXOR TAB) 75 mg QAM PO 11/27/16 09:00 12/27/16 08:59 11/30/16 09:11 75 MG Cyanocobalamin (Vitamin B-12 Tab) 500 mcg QAM PEG 11/27/16 09:00 12/27/16 08:59 11/30/16 09:11 500 MCG Miscellaneous Information (Order Awaiting Action) 1 ea QS N/A 11/27/16 00:00 12/27/16 00:00 Miscellaneous (Fentanyl Patch Remove & Waste) 1 ea Q3D@1959 N/A 11/26/16 19:59 12/26/16 19:58 11/29/16 20:18 1 EA Miscellaneous Information (Check Fentanyl Patch Placement) 1 ea QS N/A 11/27/16 00:00 12/27/16 00:00 12/01/16 00:24 1 EA Glucose (Glucose 40% Gel) 15-30 GRAMS 15 GRAMS... UD PRN PO 11/26/16 18:45 12/26/16 18:44 Glucose (Glucose Chew Tab) 4-8 Tablets 4 Tabl... UD PRN PO 11/26/16 18:45 12/26/16 18:44 Dextrose (Dextrose 50% 50ML Syringe) 25-50ML OF 50% DW IV FOR... UD PRN IV 11/26/16 18:45 12/26/16 18:44 Glucagon (Glucagon Inj) 1 mg UD PRN SQ 11/26/16 18:45 12/26/16 18:44 Enteral Nutritional Formula (Peptamen 1.5) 1,000 ml UD PEG 11/27/16 13:30 12/27/16 13:29 11/30/16 12:31 1,000 ML Atenolol (Tenormin Tab) 50 mg QAM PEG 11/28/16 09:00 12/28/16 08:59 11/30/16 09:11 50 MG Insulin Human Regular (novoLIN-R) SLIDING SCALE PARAMETERS Q6 SC 11/28/16 18:45 12/29/16 18:44 12/01/16 06:38 3 UNITS Insulin Glargine (Lantus Solostar Pen) 15 unit QAM SC 11/30/16 09:00 12/30/16 08:59 11/30/16 09:21 15 UNIT Prednisone (PredniSONE TAB) 20 mg DAILY PEG 11/30/16 09:00 12/30/16 08:59 11/30/16 09:11 20 MG Warfarin Sodium (Coumadin Tab) 5 mg SuTuThSa@1600 PO 11/29/16 16:00 12/29/16 15:59 11/29/16 18:41 5 MG Warfarin Sodium (Coumadin Tab) 7.5 mg MoWeFr@1600 PO 11/30/16 16:00 12/30/16 15:59 11/30/16 17:33 7.5 MG Insulin Glargine (Lantus Solostar Pen) 25 unit HS SC 11/29/16 21:00 12/29/16 20:59 11/30/16 22:28 25 UNIT Raspberry (Raspberry Syrup 5ml Cup) 5 ml QID PO 11/29/16 21:00 12/09/16 20:59 Future Hold Metoclopramide HCl (Reglan Syrup) 5 mg Q6 PEG 11/30/16 00:00 12/30/16 00:00 12/01/16 06:35 5 MG Vancomycin HCl (Vancomycin Oral Soln) 125 mg QID PEG 11/29/16 21:30 12/09/16 21:29 11/30/16 22:26 125 MG Sterile Water 1 ea 1 ea Q4 PEG 12/01/16 12:00 12/31/16 11:59 Furosemide 40 mg/ Syringe 4 ml @ 4 mls/min BID17 IV 12/01/16 09:00 12/31/16 08:59 Sodium Chloride (1/2 Nss 1000ml) 1,000 ml @ 125 mls/hr Q8H IV 12/01/16 08:30 12/31/16 08:29 Impression (1) Acute kidney injury (2) Chronic kidney disease, stage 3 (3) Hypercalcemia (4) Sarcoidosis (5) Lupus anticoagulant positive (6) Expressive aphasia (7) Diab W Unspec Compl, Type Ii Or Unspec Type, Not Uncntrld Christiano is a 46-year-old female with history of sarcoidosis, CKD, add baseline aphasic and lives at [facility] presented to the hospital with them acute kidney injury in and recurrent hypercalcemia. Received pamidronate, started on steroid and continued on ketoconazole as her outpatient regimen by Rheumatology. calcium slightly improved however staying around 11.5-11.7. has CKD baseline creatinine around 2, developed acute kidney injury creatinine was above 3 which has been slowly improving and came down to around 2.2. Recommendations -- resume IV 1/2 NS and increase lasix as ca still elevated -- Monitor serial PRP -- cr stightly improved to 2.2 (Baseline creatinine has been 2.0) --ca stable <12, on IV fluid and lasix. --Should be on low calcium with feeding Will follow.
[2016-12-01] MEDS: PEPTAMEN 1.5 CAL 1000ML BAG PEG SCH (11:47)
[2016-12-01] MEDS: LACTOBACILLUS ACIDOPHILUS (FLORANEX) TAB PEG SCH ×2 (11:47→18:01)
[2016-12-01] MEDS: TUBE FEEDING WATER FLUSH PEG SCH ×4 (11:48→23:31)
--- NOTE | 2016-12-01 13:38 | Hospitalist Progress Note ---
Hospitalist Progress Note Date of Service December 01, 2016. (Brissa Goldsmith ., CASSIE) Subjective Pt evaluation today including: conversation w/ patient, physical exam, chart review, lab review, review of inpatient medication list Voiding: loera catheter in place Patient able to shake head yes/no. Her only complaint at this time is diarrhea. Nursing staff notes +9 episodes of diarrhea. Patient denies any fever, chills, sweats, lightheadedness, dizziness, vision changes, CP, palpitations, edema, SOB , wheezing, cough, abdominal pain, nausea, vomiting, urinary symptoms, melena, numbness/tingling, weakness, muscle/joint pain, anxiety/depression, active bleeding, or new skin discoloration/changes. (Brissa Goldsmith ., ALFREDOC) Medications Current Inpatient Medications Medications (Trade) Dose Ordered Sig/Filipe Route Start Time Stop Time Status Last Admin Dose Admin Al Hydrox/Mg Hydrox/Simethicone (Maalox Max Susp) 15 ml Q4H PRN PO 11/26/16 17:30 12/26/16 17:29 Magnesium Hydroxide (Milk Of Magnesia Susp) 30 ml Q12H PRN PO 11/26/16 17:30 12/26/16 17:29 Ondansetron HCl (Zofran Inj) 4 mg Q6H PRN IV 11/26/16 17:30 12/26/16 17:29 11/28/16 23:53 4 MG Nitroglycerin (Nitrostat Tab) 0.4 mg UD PRN SL 11/26/16 17:30 12/26/16 17:29 Polyethylene (Miralax Powder Packet) 17 gm DAILY PRN PO 11/26/16 17:30 12/26/16 17:29 Atorvastatin Calcium (Lipitor Tab) 20 mg HS PEG 11/26/16 21:00 12/26/16 20:59 11/30/16 22:26 20 MG Fentanyl (Duragesic Patch) 12 mcg Q72H TD 11/26/16 20:00 12/10/16 19:59 11/29/16 20:18 12 MCG Folic Acid (Folvite Tab) 1 mg DAILY PEG 11/27/16 09:00 12/27/16 08:59 12/01/16 09:21 1 MG Ketoconazole (Nizoral Tab) 200 mg DAILY PEG 11/27/16 09:00 12/07/16 08:59 12/01/16 09:16 200 MG Meclizine HCl (Antivert Tab) 25 mg TID PRN PO 11/26/16 17:30 12/26/16 17:29 Miscellaneous Information (Order Awaiting Action) 1 ea QS N/A 11/27/16 00:00 12/27/16 00:00 Oxycodone HCl (Roxicodone Immediate Rel Tab) 5 mg Q4H PRN PEG 11/26/16 17:30 12/10/16 17:29 11/28/16 23:53 5 MG Promethazine HCl (Phenergan Tab) 25 mg Q6H PRN GT 11/26/16 17:30 12/26/16 17:29 Venlafaxine HCl (effeXOR TAB) 75 mg QAM PO 11/27/16 09:00 12/27/16 08:59 12/01/16 09:16 75 MG Cyanocobalamin (Vitamin B-12 Tab) 500 mcg QAM PEG 11/27/16 09:00 12/27/16 08:59 12/01/16 09:19 500 MCG Miscellaneous Information (Order Awaiting Action) 1 ea QS N/A 11/27/16 00:00 12/27/16 00:00 Miscellaneous (Fentanyl Patch Remove & Waste) 1 ea Q3D@1959 N/A 11/26/16 19:59 12/26/16 19:58 11/29/16 20:18 1 EA Miscellaneous Information (Check Fentanyl Patch Placement) 1 ea QS N/A 11/27/16 00:00 12/27/16 00:00 12/01/16 00:24 1 EA Glucose (Glucose 40% Gel) 15-30 GRAMS 15 GRAMS... UD PRN PO 11/26/16 18:45 12/26/16 18:44 Glucose (Glucose Chew Tab) 4-8 Tablets 4 Tabl... UD PRN PO 11/26/16 18:45 12/26/16 18:44 Dextrose (Dextrose 50% 50ML Syringe) 25-50ML OF 50% DW IV FOR... UD PRN IV 11/26/16 18:45 12/26/16 18:44 Glucagon (Glucagon Inj) 1 mg UD PRN SQ 5/11/17 18:45 12/26/16 18:44 Enteral Nutritional Formula (Peptamen 1.5) 1,000 ml UD PEG 11/27/16 13:30 12/27/16 13:29 12/01/16 11:47 1,000 ML Atenolol (Tenormin Tab) 50 mg QAM PEG 11/28/16 09:00 12/28/16 08:59 12/01/16 09:17 50 MG Insulin Human Regular (novoLIN-R) SLIDING SCALE PARAMETERS Q6 SC 11/28/16 18:45 12/28/16 18:44 12/01/16 12:22 5 UNITS Insulin Glargine (Lantus Solostar Pen) 15 unit QAM SC 11/30/16 09:00 12/30/16 08:59 12/01/16 09:22 15 UNIT Warfarin Sodium (Coumadin Tab) 5 mg SuTuThSa@1600 PO 11/29/16 16:00 12/29/16 15:59 11/29/16 18:41 5 MG Warfarin Sodium (Coumadin Tab) 7.5 mg MoWeFr@1600 PO 11/30/16 16:00 12/30/16 15:59 11/30/16 17:33 7.5 MG Insulin Glargine (Lantus Solostar Pen) 25 unit HS SC 11/29/16 21:00 12/29/16 20:59 11/30/16 22:28 25 UNIT Raspberry (Raspberry Syrup 5ml Cup) 5 ml QID PO 11/29/16 21:00 12/09/16 20:59 Future Hold Metoclopramide HCl (Reglan Syrup) 5 mg Q6 PEG 11/30/16 00:00 12/30/16 00:00 12/01/16 11:48 5 MG Vancomycin HCl (Vancomycin Oral Soln) 125 mg QID PEG 11/29/16 21:30 12/09/16 21:29 12/01/16 09:07 125 MG Sterile Water 1 ea 1 ea Q4 PEG 12/01/16 12:00 12/31/16 11:59 12/01/16 11:48 1 EA Furosemide 40 mg/ Syringe 4 ml @ 4 mls/min BID17 IV 12/01/16 09:00 12/31/16 08:59 12/01/16 09:54 4 MLS/MIN Sodium Chloride (1/2 Nss 1000ml) 1,000 ml @ 125 mls/hr Q8H IV 12/01/16 08:30 12/31/16 08:29 12/01/16 09:20 125 MLS/HR Prednisone (PredniSONE TAB) 5 mg DAILY PEG 12/02/16 09:00 01/01/17 08:59 Lactobacillus Acidophilus (Floranex Tab) 4 tab TIDM PEG 12/01/16 12:00 12/31/16 11:59 12/01/16 11:47 4 TAB (Brissa Goldsmith, SANJUANA-C) Objective Vital Signs Date Time Temp Pulse Resp B/P Pulse Ox O2 Delivery O2 Flow Rate FiO2 12/01/16 11:43 36.2 70 20 184/86 99 Room Air 12/01/16 07:19 36.6 75 18 183/71 98 Room Air 12/01/16 04:00 Room Air 12/01/16 00:25 36.9 80 18 149/80 94 Room Air 12/01/16 00:00 96 Room Air 11/30/16 20:17 36.7 84 18 169/89 97 Room Air 11/30/16 20:00 96 Room Air 11/30/16 16:00 96 Room Air 11/30/16 15:44 36.9 83 18 127/74 96 Room Air (Brissa Goldsmith, SANJUANA-C) Physical Exam General Appearance: no apparent distress Eyes: normal inspection, PERRL ENT: hearing grossly normal Neck: supple Respiratory/Chest: lungs clear, no respiratory distress, no accessory muscle use Cardiovascular: regular rate, rhythm Abdomen: normal bowel sounds, non tender, soft, + pertinent finding (PEG tube) Extremities: no pedal edema, no calf tenderness Neurologic/Psychiatric: alert Skin: normal color, warm/dry, no rash (Brissa Goldsmith, SANJUANA-C) Laboratory Results Last 24 Hours Test 11/30/16 17:53 12/01/16 00:01 12/01/16 06:27 12/01/16 06:51 Bedside Glucose 367 mg/dl 257 mg/dl 194 mg/dl Prothrombin Time 20.7 SECONDS Prothromb Time International Ratio 1.9 Sodium Level 143 mmol/L Potassium Level 5.2 mmol/L Chloride Level 112 mmol/L Carbon Dioxide Level 26 mmol/L Anion Gap 5.0 mmol/L Blood Urea Nitrogen 60 mg/dl Creatinine 2.20 mg/dl Est Creatinine Clear Calc Drug Dose 30.2 ml/min Estimated GFR () 30.0 Estimated GFR (Non- 25.8 BUN/Creatinine Ratio 27.4 Random Glucose 199 mg/dl Calcium Level 11.7 mg/dl Ammonia 19.0 umol/L Test 12/01/16 12:18 Bedside Glucose 257 mg/dl (Brissa Goldsmith, PATutuC) Assessment and Plan 46 y/o female, with 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 Waddell's orders due to hypercalcemia. Hypercalcemia secondary to sarcoidosis/LIANG and cirrhosis: - Admit to tele for cardiac monitoring - Treating w/ IVF and Lasix, and Pamidronate x1 dose - Follow calcium level - Follow CMP - Ketoconazole 200 mg daily - Treated w/ Prednisone 30 mg x2 doses, then 20 mg x2 doses, on 12/02 decrease to Prednisone 10 mg x2 doses, then resume Prednisone 5 mg daily via PEG tube - Consult rheumatology, appreciate recommendations EARL w/ CKD stage IV- baseline Cr. 2.0- IMPROVING: - IVF - Follow PRP - Check renal US- right nephrolithiasis, no significant hydronephrosis - Consult Nephrology, appreciate recommendations- follows w/ Dr. 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, positive homocystine and lupus anticoagulant on Coumadin: - Continue Coumadin 5 mg M,W,F,Sun and 7.5 mg T,TH,Sat via PEG tube - Follow PT/INR Hyperlipidemia: Continue Lipitor 20 mg vis PEG tube DM w/ hyperglycemia, like secondary to steroid treatment and infection: - Lantus 25 u HS and increase 15 u QAM to 20 u QAM - BSG ACHS w/ sliding insulin scale- adjusted - Spoke with Pharmacy District Manager- will make adjustments to feedings h/o GI bleed on 11/05/16: H&H stable- continue to follow DVT prophylaxis: Coumadin Code Status: LEVEL V, DNR Dispo: Resident of [facility] (Brissa Goldsmith ., PA-C) PA Physician Supervision Note: I interviewed and examined the patient. Discussed with Brissa MELVIN and agree with findings and plan as documented in the note. Any exceptions or clarifications are listed here: None PT is much improved, however did find recurrent enterococcus in urine, C diff still with diarrhea vitals reviewed stable car is regular lungs diminished but clear abd is soft and mildly tender Pt with c diff and continues with vancomycin via peg and adding colestyriamine enterococcus once again in urine >100k, starting iv vanco, will ask ID to weigh in as she is much improved prior to treating this but just recently was treated two weeks ago for same Sarcoidosis , elevated Calcium and glucose control issues, improving but steroids and tube feeding also at play in glucose control Documented By: Jair Lopez (Jair Lopez M.D.)
[2016-12-01] MEDS ORDERED: VANCOMYCIN CONSULT ACTIVE PRN (16:59)
[2016-12-01] MEDS: NOVASOURCE RENAL 1000ML BAG PEG SCH (17:59)
[2016-12-01] MEDS: WARFARIN SOD 5 MG TAB PO SCH (18:02)
[2016-12-01] MEDS ORDERED: VANCOMYCIN INJ 1,400 MG in SODIUM CHLORIDE 0.9% 500ML 500 ML IV SCH (19:00)
[2016-12-01] MEDS ORDERED: NURSING VERBAL MED ORDER ONE (19:15)
[2016-12-01] MEDS ORDERED: INSULIN HUMAN REGULAR SC SCH (20:00)
[2016-12-01] MEDS ORDERED: AMLODIPINE BESYLATE 5 MG TAB PO ONE (20:15)
[2016-12-01] MEDS: ATORVASTATIN 20 MG TAB PEG SCH (20:22)
[2016-12-01] MEDS ORDERED: INSULIN GLARGINE SOLOSTAR 100 UNITS/ML 3 ML PEN SC SCH (21:00)
[2016-12-01] MEDS: CHOLESTYRAMINE LIGHT 4 GM PKT PEG SCH (22:21)
--- NOTE | 2016-12-01 23:26 | Pharmacy Progress Note ---
Pharmacy Antibiotic Consult Date of Service: December 01, 2016. Pharmacy Dosing Scope Pharmacy is consulted to initiate vancomycin IV dosing therapy, order appropriate labs and adjust drug dose/frequency. Subjective The patient is a 46 year old female admitted on November 26, 2016 at 17:34. Objective Height (Feet): 5 Height (Inches): 4.00 Weight (Kilograms): 69.000 Lab Results (24hrs): Test 12/01/16 06:51 12/01/16 18:01 12/01/16 18:02 Prothrombin Time 20.7 SECONDS (9.0-12.0) Prothromb Time International Ratio 1.9 (0.9-1.1) Sodium Level 143 mmol/L (136-145) Potassium Level 5.2 mmol/L (3.5-5.1) Chloride Level 112 mmol/L (98-107) Carbon Dioxide Level 26 mmol/L (21-32) Anion Gap 5.0 mmol/L (3-11) Blood Urea Nitrogen 60 mg/dl (7-18) Creatinine 2.20 mg/dl (0.60-1.20) Est Creatinine Clear Calc Drug Dose 30.2 ml/min Estimated GFR () 30.0 Estimated GFR (Non- 25.8 BUN/Creatinine Ratio 27.4 (10-20) Random Glucose 199 mg/dl (70-99) Calcium Level 11.7 mg/dl (8.5-10.1) Ammonia 19.0 umol/L (11-32) Bedside Glucose 400 mg/dl (70-90) 413 mg/dl (70-90) Micro Results: Stool: c. diff Urine: enterococcus Recent Pertinent Medications Vancomycin 125mg PO qid x 14 days for c. diff. Assessment & Plan Patient is ordered IV vancomycin for enterococcus in urine, recurrent infection 2 weeks ago. Patient also with c.diff, on PO vancomycin. Hx of cva, pt with PEG tube. CKD stage IV, baseline cr 2.0. Vancomycin Loading dose: 1400 mg IV X 1 dose (~20mg/kg) then: 900 mg IV every 26 hours, calculated t-1/2 ~26hrs. Goal peak level estimate: between 35 - 40 mcg/mL. Goal trough level estimate: between 15 - 20 mcg/mL. Will follow up tomorrow with dosing/levels. Pharmacy will continue to follow and will adjust dose/frequency as necessary. Thank you
[2016-12-02] VITALS (9 sets, daily range): BP systolic 153–186; BP diastolic 68–101; PULSE 67–75; TEMP 36.3–36.5; O2SAT 96–100; Ht 162.6 cm; Wt 69.0 kg
[2016-12-02] MEDS: METOCLOPRAMIDE HCL 5 MG/5 ML UDP PEG SCH ×4 (00:03→17:09)
[2016-12-02] MEDS: INSULIN HUMAN REGULAR SC SCH ×4 (00:09→18:00)
[2016-12-02] MEDS: OXYCODONE HCL IR 5 MG TAB (IMMEDIATE RELEASE) PEG PRN ×2 (00:38→08:41)
[2016-12-02] MEDS: TUBE FEEDING WATER FLUSH PEG SCH ×5 (03:25→20:54)
[2016-12-02] MEDS: SODIUM CHLORIDE 0.45% 1000ML 1,000 ML IV SCH ×2 (04:56→08:04)
[2016-12-02 07:35] LABS: HEMATOCRIT 30.3 % (37-47); MEAN CELL VOLUME 96.5 fL (80-100); MEAN CORPUSCULAR HEMOGLOBIN 31.5 pg (25-34); MEAN CORPUSCULAR HGB CONC 32.7 g/dl (32-36); MEAN PLATELET VOLUME 10.4 fL (7.4-10.4); PLATELET COUNT 199 K/uL (130-400); RED BLOOD COUNT 3.14 M/uL (4.2-5.4); WHITE BLOOD COUNT 9.93 K/uL (4.8-10.8)
[2016-12-02 07:46] LABS: INR 2.1 (0.9-1.1); PROTHROMBIN TIME (PATIENT) 22.8 SECONDS (9.0-12.0)
[2016-12-02 08:03] LABS: BUN/CREATININE RATIO 27.7 (10-20); POTASSIUM 3.9 mmol/L (3.5-5.1)
[2016-12-02] MEDS: KETOCONAZOLE 200 MG TAB PEG SCH (08:03)
[2016-12-02] MEDS: VENLAFAXINE HCL 37.5 MG TAB PO SCH (08:05)
[2016-12-02] MEDS: LACTOBACILLUS ACIDOPHILUS (FLORANEX) TAB PEG SCH ×3 (08:05→15:46)
[2016-12-02] MEDS: CHECK FENTANYL PATCH PLACEMENT SCH ×2 (08:07→15:45)
[2016-12-02] MEDS: NOVASOURCE RENAL 1000ML BAG PEG SCH (08:13)
[2016-12-02] MEDS: CYANOCOBALAMIN 500 MCG TAB (VIT B-12) PEG SCH (08:14)
[2016-12-02 08:34] LABS: CALCIUM 10.8 mg/dl (8.5-10.1)
[2016-12-02] MEDS: INSULIN GLARGINE SOLOSTAR 100 UNITS/ML 3 ML PEN SC SCH ×2 (08:39→21:12)
[2016-12-02] MEDS: VANCOMYCIN HCL 125 MG/2.5ML SOLN PEG SCH ×4 (09:06→21:10)
[2016-12-02] MEDS: CHOLESTYRAMINE LIGHT 4 GM PKT PEG SCH ×2 (10:00→21:11)
--- NOTE | 2016-12-02 10:50 | Medical Consult ---
Consultation Date of Consultation: December 02, 2016. Attending Physician: Mukesh Alarcon MD Reason for Consultation: Recurrent enterococcus in urine, ? Tx History of Present Illness Patient is a 46-year-old nonverbal female who presented to the emergency department from [facility] with concerns of hypercalcemia. The patient does have an extensive medical history including CVA history. The patient does have history of hypercalcemia from sarcoidosis. Her most recent level was 12.5. During her admission, the patient began to experience abdominal pain. A urinalysis and urine culture was completed. It was noted that she is growing enterococcus species. The patient had enterococcus faecalis grow from a urine culture in October 2016 well. She was treated with penicillin at that time. She currently is not complaining of any urinary symptoms, but she is having severe diarrhea. Her C diff toxin was positive. She is currently on IV vancomycin and p.o. vancomycin of for concerns of enterococcal infection and C diff. The patient is nonverbal, but she does shake her head yes or no in regards to questions. Her nurses do also note that she is beginning to develop sacral pressure ulcers. It is noted that the last time the patient grew Enterococcus faecalis from her urine, it was ampicillin sensitive. The VASILIY that time was 4. Her white count today was 9.93. Her creatinine was 2.0. She has improved since admission. I did discuss patient with Dr. Lopez as well. Past Medical/Surgical History Medical Problems: (1) Acute on chronic renal insufficiency Status: Acute (2) Altered mental status Status: Acute (3) Closed head injury Status: Acute (4) Contusion of multiple sites Status: Acute (5) Contusion of right leg Status: Acute (6) Dehydration Status: Acute (7) Elevated alkaline phosphatase level Status: Acute (8) Fall Status: Acute (9) Fever Status: Acute (10) Hyperkalemia Status: Acute (11) Nausea Status: Acute (12) Sepsis due to urinary tract infection Status: Acute (13) UTI (urinary tract infection) Status: Acute (14) Vomiting Status: Acute Medical Problems: (1) Abdominal pain (2) Acute kidney injury (3) Adult failure to thrive (4) Anemia (5) Aphasia following cerebral infarction (6) Aspiration pneumonia due to gastric secretions (7) Chronic kidney disease (8) Chronic kidney disease, stage 3 (9) Diab W Unspec Compl, Type Ii Or Unspec Type, Not Uncntrld (10) Dysphagia following cerebral infarction (11) Dysphagia, oropharyngeal phase (12) Dysphagia, unspecified (13) Expressive aphasia (14) GI bleed (15) Gross hematuria (16) Hemiparesis (17) Hemiplegia (18) Hypercalcemia (19) Hypercalcemia (20) Hypertension Nos (21) Hypertensive chronic kidney disease (22) senior living (current) use of anticoagulants (23) senior living (current) use of insulin (24) Lupus anticoagulant positive (25) Lymphadenopathy (26) Major depressive disorder (27) Muscle weakness (generalized) (28) Nausea and vomiting (29) Other artificial openings of gastrointestinal tract status (30) Pleural Effusion Nos (31) Pressure ulcer of right buttock, stage 2 (32) Sarcoidosis (33) Splenomegaly (34) Stroke (35) Transaminasemia Family History Diabetes mellitus Seizures Noncontributory Social History Smoking Status: Former Smoker Drug Use: none Marital Status: in relationship Housing Status: lives with significant other Occupation Status: disabled Allergies Coded Allergies: Ezetimibe (Verified Allergy, Intermediate, Vytorin - hives and N/V, ) Simvastatin (Verified Allergy, Intermediate, Vytorin - hives and N/V, ) Latex1 -Allergic Contact Dermititis (Verified Allergy, Unknown, RASH, BLISTERS, 05/05/16) Adhesives (Verified Adverse Reaction, Mild, Unknown Rxn, 05/05/16) Home Medications Reported Home Medications Medications Dose Route/Sig Max Daily Dose Days Date Category Dose Instructions Lovenox (Enoxaparin Sodium) 80 Mg/0.8 Ml Inj 0.7 Ml SQ DIRECTED 11/26/16 Reported GIVE LOVENOX DAILY UNTIL INR IS > OR = 2.0 Meclizine Hcl 25 Mg Tab 25 Mg PEG PRN/UD PRN 11/05/16 Reported Roxicodone Ir (Oxycodone HCl) 5 Mg Tab 10 Mg PO Q4H PRN 11/05/16 Reported Roxicodone Ir (Oxycodone HCl) 5 Mg Tab 5 Mg PEG Q4H PRN 11/05/16 Reported Phenergan (Promethazine HCl) 25 Mg Tab 25 Mg PEG Q6H PRN 11/05/16 Reported Vital 1.5 Jos (Nutritional Supplements) 1 Liq Liq PEG UD 11/05/16 Reported 75ML/HR VIA PEG TUBE UNTIL 1080ML INFUSED Fentanyl 12 Mcg Tdsy 12 Mcg TD Q72H 11/05/16 Reported Nizoral (Ketoconazole) 200 Mg Tab 200 Mg PEG DAILY 11/05/16 Reported Prednisone 5 Mg Tab 5 Mg PEG QAM 10/28/16 Reported Metoclopramide HCl 5 Mg/Ml Inj 5 Ml PEG Q6 10/28/16 Reported Jantoven (Warfarin Sodium) 5 Mg Tab 5 Mg PEG 4XWK 10/12/16 Reported WEDNESDAY,WEDNESDAY,WEDNESDAY,WEDNESDAY Coumadin (Warfarin Sodium) 7.5 Mg Tab 7.5 Mg PEG 3XWK 10/12/16 Reported WEDNESDAY, WEDNESDAY & WEDNESDAY Vitamin B-12 (Cyanocobalamin) 500 Mcg Be 500 Mcg PEG QAM 10/12/16 Reported Effexor (Venlafaxine Hcl) 75 Mg Tab 75 Mg PEG QAM 10/12/16 Reported Novolog Flexpen (Insulin Aspart) 100 Units/Ml Inj Units SC QID 10/12/16 Reported 131-180= 2 UNITS 181-240= 4 UNITS 241-300= 6 UNITS 301-350= 8 UNITS 351-400= 10 UNITS GREATED THAN 400= 12 UNITS AND CALL MD Hamilton N U-100 (Insulin Isophane (Human)) 100 Unit/Ml Inj 10 Units SC QAM 10/12/16 Reported Lantus Solostar (Insulin Glargine) 100 Unit/Ml Inj 20 Units SC HS 10/12/16 Reported Potassium Chloride 20 Meq/100 Ml Inj 20 Meq PEG QPM 10/12/16 Reported DILUTE WITH 90-120ML WATER/JUICE Folvite (Folic Acid) 1 Mg Tab 1 Mg PEG DAILY 10/12/16 Reported Calcidol (Ergocalciferol) 8,000 Unit/Ml Neto 6.25 Ml PEG WK 10/12/16 Reported MONDAYS Lipitor (Atorvastatin Calcium) 20 Mg Tab 20 Mg PEG HS 10/12/16 Reported Tenormin (Atenolol) 50 Mg Tab 50 Mg PEG QAM 10/12/16 Reported Current Inpatient Medications Current Inpatient Medications Medications (Trade) Dose Ordered Sig/Filipe Route Start Time Stop Time Status Last Admin Dose Admin Al Hydrox/Mg Hydrox/Simethicone (Maalox Max Susp) 15 ml Q4H PRN PO 11/26/16 17:30 12/26/16 17:29 Magnesium Hydroxide (Milk Of Magnesia Susp) 30 ml Q12H PRN PO 11/26/16 17:30 12/26/16 17:29 Ondansetron HCl (Zofran Inj) 4 mg Q6H PRN IV 11/26/16 17:30 12/26/16 17:29 11/28/16 23:53 4 MG Nitroglycerin (Nitrostat Tab) 0.4 mg UD PRN SL 11/26/16 17:30 12/26/16 17:29 Polyethylene (Miralax Powder Packet) 17 gm DAILY PRN PO 11/26/16 17:30 12/26/16 17:29 Atorvastatin Calcium (Lipitor Tab) 20 mg HS PEG 11/26/16 21:00 12/26/16 20:59 12/01/16 20:22 20 MG Fentanyl (Duragesic Patch) 12 mcg Q72H TD 11/26/16 20:00 12/10/16 19:59 11/29/16 20:18 12 MCG Folic Acid (Folvite Tab) 1 mg DAILY PEG 11/27/16 09:00 12/27/16 08:59 12/02/16 08:04 1 MG Ketoconazole (Nizoral Tab) 200 mg DAILY PEG 11/27/16 09:00 12/07/16 08:59 12/02/16 08:03 200 MG Meclizine HCl (Antivert Tab) 25 mg TID PRN PO 11/26/16 17:30 12/26/16 17:29 Miscellaneous Information (Order Awaiting Action) 1 ea QS N/A 11/27/16 00:00 12/27/16 00:00 Oxycodone HCl (Roxicodone Immediate Rel Tab) 5 mg Q4H PRN PEG 11/26/16 17:30 12/10/16 17:29 12/02/16 08:41 5 MG Promethazine HCl (Phenergan Tab) 25 mg Q6H PRN GT 11/26/16 17:30 12/26/16 17:29 Venlafaxine HCl (effeXOR TAB) 75 mg QAM PO 11/27/16 09:00 12/27/16 08:59 12/02/16 08:05 75 MG Cyanocobalamin (Vitamin B-12 Tab) 500 mcg QAM PEG 11/27/16 09:00 12/27/16 08:59 12/02/16 08:14 500 MCG Miscellaneous Information (Order Awaiting Action) 1 ea QS N/A 11/27/16 00:00 12/27/16 00:00 Miscellaneous (Fentanyl Patch Remove & Waste) 1 ea Q3D@1959 N/A 11/26/16 19:59 12/26/16 19:58 11/29/16 20:18 1 EA Miscellaneous Information (Check Fentanyl Patch Placement) 1 ea QS N/A 11/27/16 00:00 12/27/16 00:00 12/02/16 08:07 1 EA Glucose (Glucose 40% Gel) 15-30 GRAMS 15 GRAMS... UD PRN PO 11/26/16 18:45 12/26/16 18:44 Glucose (Glucose Chew Tab) 4-8 Tablets 4 Tabl... UD PRN PO 11/26/16 18:45 12/26/16 18:44 Dextrose (Dextrose 50% 50ML Syringe) 25-50ML OF 50% DW IV FOR... UD PRN IV 11/26/16 18:45 12/26/16 18:44 Glucagon (Glucagon Inj) 1 mg UD PRN SQ 11/26/16 18:45 12/26/16 18:44 Atenolol (Tenormin Tab) 50 mg QAM PEG 11/28/16 09:00 12/28/16 08:59 12/02/16 08:06 50 MG Insulin Human Regular (novoLIN-R) SLIDING SCALE PARAMETERS Q6 SC 11/28/16 18:45 12/28/16 18:44 12/02/16 00:09 3 UNITS Warfarin Sodium (Coumadin Tab) 5 mg SuTuThSa@1600 PO 11/29/16 16:00 12/29/16 15:59 12/01/16 18:02 5 MG Warfarin Sodium (Coumadin Tab) 7.5 mg MoWeFr@1600 PO 11/30/16 16:00 12/30/16 15:59 11/30/16 17:33 7.5 MG Raspberry (Raspberry Syrup 5ml Cup) 5 ml QID PO 11/29/16 21:00 12/09/16 20:59 Future Hold Metoclopramide HCl (Reglan Syrup) 5 mg Q6 PEG 11/30/16 00:00 12/30/16 00:00 12/02/16 05:43 5 MG Vancomycin HCl (Vancomycin Oral Soln) 125 mg QID PEG 11/29/16 21:30 12/09/16 21:29 12/02/16 09:06 125 MG Sterile Water (Tube Feeding Water Flush) 1 ea Q4 PEG 12/01/16 12:00 12/31/16 11:59 12/02/16 08:05 1 EA Lactobacillus Acidophilus (Floranex Tab) 4 tab TIDM PEG 12/01/16 12:00 12/31/16 11:59 12/02/16 08:05 4 TAB Cholestyramine Resin (Questran Powder Light) 4 gm BID@10,22 PEG 12/01/16 22:00 12/31/16 21:59 12/01/16 22:21 4 GM Prednisone (PredniSONE TAB) 10 mg DAILY PO 12/02/16 09:00 01/01/17 08:59 12/02/16 08:14 10 MG Insulin Glargine (Lantus Solostar Pen) 20 unit QAM SC 12/02/16 09:00 01/01/17 08:59 12/02/16 08:39 20 UNIT Enteral Nutritional Formula (Novasource Renal) 1,000 ml DAILY PEG 12/01/16 15:00 12/31/16 14:59 12/02/16 08:13 1,000 ML Vancomycin HCl (Consult) 1 ea NOW PRN N/A 12/01/16 16:59 12/31/16 16:58 Insulin Glargine 35 unit 35 unit HS SC 12/01/16 21:00 12/31/16 20:59 12/01/16 20:22 35 UNIT Vancomycin HCl/ Sodium Chloride (Vancomycin Inj/ Nss 250ml) 268 ml @ 125 mls/hr Q26H IV 12/02/16 20:00 12/11/16 19:59 Review of Systems Constitutional: + fatigue, No fever Eyes: No worsening of vision ENT: No hearing loss Respiratory: No cough, No shortness of breath Cardiovascular: No chest pain Abdomen: + diarrhea (multiple times per day), + pain, + problem reported (PEG tube) Musculoskeletal: No joint pain Genitourinary - Female: No dysuria, No urinary frequency, No urinary urgency Integumentary: No itch, No new/changing skin lesions, No rash Physical Exam Date Time Temp Pulse Resp B/P Pulse Ox O2 Delivery O2 Flow Rate FiO2 12/02/16 07:20 36.4 67 18 153/89 100 Room Air 12/02/16 04:00 Room Air 12/02/16 00:20 36.3 67 20 155/79 100 Room Air 12/02/16 00:00 Room Air 12/01/16 20:27 36.3 66 16 182/70 100 Room Air 12/01/16 20:00 Room Air 12/01/16 16:00 98 Room Air 12/01/16 15:12 72 16 169/59 100 Room Air 12/01/16 12:00 95 Room Air 12/01/16 11:43 36.2 70 20 184/86 99 Room Air General Appearance: WD/WN, no apparent distress, + pertinent finding (Nonverbal , does shake head yes/no) Head: normocephalic, atraumatic Eyes: normal inspection, sclerae normal ENT: hearing grossly normal Neck: supple, trachea midline Respiratory/Chest: chest non-tender, lungs clear, normal breath sounds, no respiratory distress, no accessory muscle use Cardiovascular: regular rate, rhythm Abdomen/GI: normal bowel sounds Extremities/Musculoskelatal: + pertinent finding (right heel ulceration, dark center, no surrounding erythema. No drainage) Neurologic/Psych: alert, normal mood/affect Skin: normal color, warm/dry, no rash Laboratory Results RUN DATE: 12/01/16 [facility] PAGE 1 RUN TIME: 3318 Specimen Inquiry PATIENT: MATTHEW APARICIO LOC: [facility] # : [id number] AGE/SX: 46/F ROOM: [facility] REG : 11/26/[address]: Mukesh Alarcon MD : 1970 BED: 1 DIS : STATUS: ADM IN TLOC: SPEC #: [id number] REFUGIO: 11/30/16 STATUS: RES REQ #: [id number] RECD: 11/30/[address]: Jair Lopez M.D. SOURCE: URINE CATH ENTR: 11/30/16 [facility] DR: Adriel Campos SPDESC: Johan Mccartney M.D. Lin, Daniel Y., MD , PhD Bud Alvarado M.D. Siuta, Jonathan R., MD ORDERED: CULTURE UR CATH COMMENTS: Has Specimen Been Obtained/Collected? Y Procedure Result Verified Site URINE CULTURE Preliminary 12/01/16-1428 Organism 1 ENTEROCOCCUS SPECIES COLONY COUNT >100,000 CFU/ml SENS SENSITIVITY TO FOLLOW Item Value Date Time Urine Culture - Preliminary Resulted 11/30/16 1900 Urine,Catheterized Enterococcus Species C.difficile Toxin B Gene (PCR) - Final Complete 11/29/16 0000 Stool Positive for C. difficile toxin B gene MRSA DNA Surveillance Screen - Final Complete 11/26/16 1935 Nasal Specimen Negative for MRSA by DNA Probe Last 24 Hours Test 12/01/16 12:18 12/01/16 18:02 12/01/16 23:58 12/02/16 05:47 Bedside Glucose 257 mg/dl 413 mg/dl 221 mg/dl 101 mg/dl Test 12/02/16 06:56 White Blood Count 9.93 K/uL Red Blood Count 3.14 M/uL Hemoglobin 9.9 g/dL Hematocrit 30.3 % Mean Corpuscular Volume 96.5 fL Mean Corpuscular Hemoglobin 31.5 pg Mean Corpuscular Hemoglobin Concent 32.7 g/dl RDW Standard Deviation 49.9 fL RDW Coefficient of Variation 14.1 % Platelet Count 199 K/uL Mean Platelet Volume 10.4 fL Prothrombin Time 22.8 SECONDS Prothromb Time International Ratio 2.1 Sodium Level 136 mmol/L Potassium Level 3.9 mmol/L Chloride Level 102 mmol/L Carbon Dioxide Level 25 mmol/L Anion Gap 9.0 mmol/L Blood Urea Nitrogen 55 mg/dl Creatinine 2.00 mg/dl Est Creatinine Clear Calc Drug Dose 33.2 ml/min Estimated GFR () 33.6 Estimated GFR (Non- 29.0 BUN/Creatinine Ratio 27.7 Random Glucose 106 mg/dl Calcium Level 10.8 mg/dl Assessment & Plan Patient with C. Diff colitis and possible Enterococcus UTI. She does have history of ampicillin sensitive Enterococcus growing from her urine in October 2016. The VASILIY for Ampicillin was 4 at that time. She tested positive for C. Diff during this admission and continues to have severe diarrhea. She was started on IV Vancomycin and PO Vancomycin for Enterococcus in urine and C. Diff. The current urine culture is pending final identification and sensitivities. She also had a renal U/S which noted right sided collecting system dilatation and nephrolithiasis. Feel that she could have a component of renal infection despite no verbalized urinary symptoms. Recommend continuing IV Vancomycin pending final culture results, but if Enterococcus is sensitive to Ampicillin again, likely could transition to PO Amoxicillin to complete 14 days. Recommend also continuing PO Vancomycin throughout abx therapy and for 7 days after. We will follow. PROVIDER ADDENDUM: Patient examined and reviewed with Ms. Bae. Agree with above assessment.
--- NOTE | 2016-12-02 11:53 | Nephrology Progress Note ---
Nephrology Progress Note Date of Service December 02, 2016. Chief Complaint Follow-up for acute kidney injury and hypercalcemia. Carina Patino was seen and examined in her room this morning. She looks comfortable, denies any symptoms. Renal function has been improving, creatinine 2.0 which is baseline. Calcium improved to 10.8. Blood pressure stable. Review of Systems A complete review of systems was performed. Pertinent positives are noted above. All other systems are negative. Vital Signs Last 8 Hrs Date Time Temp Pulse Resp B/P Pulse Ox O2 Delivery O2 Flow Rate FiO2 12/02/16 11:45 36.4 68 18 167/68 96 Room Air 12/02/16 07:20 36.4 67 18 153/89 100 Room Air 12/02/16 04:00 Room Air I & O 24-Hour Column 12/02/16 08:00 Intake Total 6551 ml Output Total 4525 ml Balance 2026 ml Last Recorded Weight Weight (Kilograms): 69.000 Physical Exam GENERAL: Middle-age female, AAA x 3, pleasant, aphasic, not in any distress. NECK: Supple, no JVD. RESPIRATORY: Normal breathing efforts, no accessory muscle use, clear to auscultation bilaterally, no wheezes or rales. CARDIOVASCULAR: S1, S2 normal, rate rhythm regular. EXTREMITY: No lower extremity edema NEURO: Moves extremities Family History Diabetes mellitus Seizures Negative for CKD/ESRD Social History Smoking Status: Never smoker Drug Use: none Marital Status: in relationship Housing Status: other Occupation: disabled . Medically disabled. Resides at [facility]. No history of tobacco or alcohol use. Laboratory Results Past 24 Hours 12/02/16 06:56 12/02/16 06:56 Test 12/01/16 12:18 12/01/16 18:02 12/01/16 23:58 12/02/16 05:47 Bedside Glucose 257 mg/dl (70-90) 413 mg/dl (70-90) 221 mg/dl (70-90) 101 mg/dl (70-90) Test 12/02/16 06:56 Red Blood Count 3.14 M/uL (4.2-5.4) Mean Corpuscular Volume 96.5 fL (80-100) Mean Corpuscular Hemoglobin 31.5 pg (25-34) Mean Corpuscular Hemoglobin Concent 32.7 g/dl (32-36) RDW Standard Deviation 49.9 fL (36.4-46.3) RDW Coefficient of Variation 14.1 % (11.5-14.5) Mean Platelet Volume 10.4 fL (7.4-10.4) Prothrombin Time 22.8 SECONDS (9.0-12.0) Prothromb Time International Ratio 2.1 (0.9-1.1) Anion Gap 9.0 mmol/L (3-11) Est Creatinine Clear Calc Drug Dose 33.2 ml/min Estimated GFR () 33.6 Estimated GFR (Non- 29.0 BUN/Creatinine Ratio 27.7 (10-20) Calcium Level 10.8 mg/dl (8.5-10.1) Allergies Coded Allergies: Ezetimibe (Verified Allergy, Intermediate, Vytorin - hives and N/V, ) Simvastatin (Verified Allergy, Intermediate, Vytorin - hives and N/V, ) Latex1 -Allergic Contact Dermititis (Verified Allergy, Unknown, RASH, BLISTERS, 05/05/16) Adhesives (Verified Adverse Reaction, Mild, Unknown Rxn, 05/05/16) Medications Current Inpatient Medications Medications (Trade) Dose Ordered Sig/Filipe Route Start Time Stop Time Status Last Admin Dose Admin Al Hydrox/Mg Hydrox/Simethicone (Maalox Max Susp) 15 ml Q4H PRN PO 11/26/16 17:30 12/26/16 17:29 Magnesium Hydroxide (Milk Of Magnesia Susp) 30 ml Q12H PRN PO 11/26/16 17:30 12/26/16 17:29 Ondansetron HCl (Zofran Inj) 4 mg Q6H PRN IV 11/26/16 17:30 12/26/16 17:29 11/28/16 23:53 4 MG Nitroglycerin (Nitrostat Tab) 0.4 mg UD PRN SL 11/26/16 17:30 12/26/16 17:29 Polyethylene (Miralax Powder Packet) 17 gm DAILY PRN PO 11/26/16 17:30 12/26/16 17:29 Atorvastatin Calcium (Lipitor Tab) 20 mg HS PEG 11/26/16 21:00 12/26/16 20:59 12/01/16 20:22 20 MG Fentanyl (Duragesic Patch) 12 mcg Q72H TD 11/26/16 20:00 12/10/16 19:59 11/29/16 20:18 12 MCG Folic Acid (Folvite Tab) 1 mg DAILY PEG 11/27/16 09:00 12/27/16 08:59 12/02/16 08:04 1 MG Ketoconazole (Nizoral Tab) 200 mg DAILY PEG 11/27/16 09:00 12/07/16 08:59 12/02/16 08:03 200 MG Meclizine HCl (Antivert Tab) 25 mg TID PRN PO 11/26/16 17:30 12/26/16 17:29 Miscellaneous Information (Order Awaiting Action) 1 ea QS N/A 11/27/16 00:00 12/27/16 00:00 Oxycodone HCl (Roxicodone Immediate Rel Tab) 5 mg Q4H PRN PEG 11/26/16 17:30 12/10/16 17:29 12/02/16 08:41 5 MG Promethazine HCl (Phenergan Tab) 25 mg Q6H PRN GT 11/26/16 17:30 12/26/16 17:29 Venlafaxine HCl (effeXOR TAB) 75 mg QAM PO 11/27/16 09:00 12/27/16 08:59 12/02/16 08:05 75 MG Cyanocobalamin (Vitamin B-12 Tab) 500 mcg QAM PEG 11/27/16 09:00 12/27/16 08:59 12/02/16 08:14 500 MCG Miscellaneous Information (Order Awaiting Action) 1 ea QS N/A 11/27/16 00:00 12/27/16 00:00 Miscellaneous (Fentanyl Patch Remove & Waste) 1 ea Q3D@1959 N/A 11/26/16 19:59 12/26/16 19:58 11/29/16 20:18 1 EA Miscellaneous Information (Check Fentanyl Patch Placement) 1 ea QS N/A 11/27/16 00:00 12/27/16 00:00 12/02/16 08:07 1 EA Glucose (Glucose 40% Gel) 15-30 GRAMS 15 GRAMS... UD PRN PO 11/26/16 18:45 12/26/16 18:44 Glucose (Glucose Chew Tab) 4-8 Tablets 4 Tabl... UD PRN PO 11/26/16 18:45 12/26/16 18:44 Dextrose (Dextrose 50% 50ML Syringe) 25-50ML OF 50% DW IV FOR... UD PRN IV 11/26/16 18:45 12/26/16 18:44 Glucagon (Glucagon Inj) 1 mg UD PRN SQ 11/26/16 18:45 12/26/16 18:44 Atenolol (Tenormin Tab) 50 mg QAM PEG 11/28/16 09:00 12/28/16 08:59 12/02/16 08:06 50 MG Insulin Human Regular (novoLIN-R) SLIDING SCALE PARAMETERS Q6 SC 11/28/16 18:45 12/28/16 18:44 12/02/16 00:09 3 UNITS Warfarin Sodium (Coumadin Tab) 5 mg SuTuThSa@1600 PO 11/29/16 16:00 12/29/16 15:59 12/01/16 18:02 5 MG Warfarin Sodium (Coumadin Tab) 7.5 mg MoWeFr@1600 PO 11/30/16 16:00 12/30/16 15:59 11/30/16 17:33 7.5 MG Raspberry (Raspberry Syrup 5ml Cup) 5 ml QID PO 11/29/16 21:00 12/09/16 20:59 Future Hold Metoclopramide HCl (Reglan Syrup) 5 mg Q6 PEG 11/30/16 00:00 12/30/16 00:00 12/02/16 11:31 5 MG Vancomycin HCl (Vancomycin Oral Soln) 125 mg QID PEG 11/29/16 21:30 12/09/16 21:29 12/02/16 09:06 125 MG Sterile Water (Tube Feeding Water Flush) 1 ea Q4 PEG 12/01/16 12:00 12/31/16 11:59 12/02/16 11:31 1 EA Lactobacillus Acidophilus (Floranex Tab) 4 tab TIDM PEG 12/01/16 12:00 12/31/16 11:59 12/02/16 11:31 4 TAB Cholestyramine Resin (Questran Powder Light) 4 gm BID@10,22 PEG 12/01/16 22:00 12/31/16 21:59 12/01/16 22:21 4 GM Prednisone (PredniSONE TAB) 10 mg DAILY PO 12/02/16 09:00 01/01/17 08:59 12/02/16 08:14 10 MG Insulin Glargine (Lantus Solostar Pen) 20 unit QAM SC 12/02/16 09:00 01/01/17 08:59 12/02/16 08:39 20 UNIT Enteral Nutritional Formula (Novasource Renal) 1,000 ml DAILY PEG 12/01/16 15:00 12/31/16 14:59 12/02/16 08:13 1,000 ML Vancomycin HCl (Consult) 1 ea NOW PRN N/A 12/01/16 16:59 12/31/16 16:58 Insulin Glargine 35 unit 35 unit HS SC 12/01/16 21:00 12/31/16 20:59 12/01/16 20:22 35 UNIT Vancomycin HCl/ Sodium Chloride (Vancomycin Inj/ Nss 250ml) 268 ml @ 125 mls/hr Q26H IV 12/02/16 20:00 12/11/16 19:59 Impression (1) Acute kidney injury (2) Chronic kidney disease, stage 3 (3) Hypercalcemia (4) Sarcoidosis (5) Lupus anticoagulant positive (6) Expressive aphasia (7) Diab W Unspec Compl, Type Ii Or Unspec Type, Not Uncntrld Christiano is a 46-year-old female with history of sarcoidosis, CKD, add baseline aphasic and lives [facility] presented to the hospital with them acute kidney injury in and recurrent hypercalcemia. Received pamidronate, started on steroid and continued on ketoconazole as her outpatient regimen by Rheumatology. calcium slightly improved however staying around 11.5-11.7. has CKD baseline creatinine around 2, developed acute kidney injury creatinine was above 3 which has been slowly improving and came down to around 2.2. Recommendations -- discontinue IV fluid and Lasix, continue with their free water flush 300 mL every 4 hours -- Monitor serial PRP -- cr improved to 2.0 (Baseline creatinine has been 2.0) --ca improved to 10.8 --Should be on low calcium with feeding Will follow.
--- NOTE | 2016-12-02 13:46 | Discharge Summary ---
Discharge Summary Date of Service December 03, 2016. 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 FINDINGS: Low lung volumes. No focal lung consolidations to suggest pneumonia. No evidence for pulmonary edema. No pleural effusions. No pneumothorax. The heart is normal in size. Cholecystectomy. IMPRESSION: No acute process. Electronically signed by: Paulo Koroma M.D. 11/26/2016 3:37 PM Dictated Date/Time: 11/26/2016 3:36 PM The status of this report is Signed. Draft = Not yet reviewed or approved by Radiologist. Signed = Reviewed and approved by Radiologist. RENAL ULTRASOUND CLINICAL HISTORY: EARL w/ hypercalcemia and h/o kidney stones COMPARISON STUDY: CT of the abdomen and pelvis November 05, 2016 and renal ultrasound October 12, 2016. TECHNIQUE: Sonography of the kidneys and the urinary bladder was performed. FINDINGS: The left kidney is partially obscured on this exam. The right kidney measures approximately 12.7 x 5.1 x 5.4 cm. The left kidney is difficult to measure on this exam. There is no left hydronephrosis. There is renal cortical thinning with increased echogenicity. There is mild right collecting system dilatation. Several right renal calculi are noted. The bladder is collapsed and contains a Pedraza balloon. IMPRESSION: 1. Mild right collecting system dilatation. No left hydronephrosis. Left kidney partially obscured. 2. Right-sided nephrolithiasis. Electronically signed by: Jim Sandhu M.D. 11/26/2016 9:31 PM Dictated Date/Time: 11/26/2016 9:27 PM The status of this report is Signed. Draft = Not yet reviewed or approved by Radiologist. Signed = Reviewed and approved by Radiologist. Consultations: Rheumatology Nephrology Infectious Disease (Brissa Goldsmith, CASSIE) Medication Reconciliation New Medications: Amoxicillin (Amoxil) 500 Mg Cap 500 MG PO BID for 11 Days, #22 CAP Cholestyramine (Cholestyramine Light) 4 Gm Pack 4 GM PEG BID@10,22 for 30 Days Insulin Glargine (Lantus Solostar) 100 Unit/Ml Inj 20 UNIT SC QAM for 30 Days Insulin Glargine (Lantus Solostar) 100 Unit/Ml Inj 35 UNIT SC HS for 30 Days Lactobacillus Acidophilus (Floranex) 1 Tab Tab 4 TAB PEG TIDM for 30 Days, TAB Nutritional Supplements (Novasource Renal) 1 Liq Liq 1000 ML PEG DAILY for 30 Days Vancomycin HCl (Vancomycin HCl) 125 Mg/2.5 Ml Susp 125 MG PEG QID for 19 Days, DOSE Continued Medications: Atenolol (Tenormin) 50 Mg Tab 50 MG PEG QAM, TAB Atorvastatin (Lipitor) 20 Mg Tab 20 MG PEG HS, TAB Cyanocobalamin (Vitamin B-12) 500 Mcg Be 500 MCG PEG QAM Ergocalciferol (Calcidol) 8,000 Unit/Ml Neto 6.25 ML PEG WK MONDAYS Fentanyl (Fentanyl) 12 Mcg Tdsy 12 MCG TD Q72H Folic Acid (Folvite) 1 Mg Tab 1 MG PEG DAILY, TAB Insulin Aspart (Novolog Flexpen) 100 Units/Ml Inj UNITS SC QID for SLIDING SCALE 131-180= 2 UNITS 181-240= 4 UNITS 241-300= 6 UNITS 301-350= 8 UNITS 351-400= 10 UNITS GREATED THAN 400= 12 UNITS AND CALL Insulin Isophane (Human) (Novolin N U-100) 100 Unit/Ml Inj 10 UNITS SC QAM Ketoconazole (Nizoral) 200 Mg Tab 200 MG PEG DAILY, TAB Meclizine Hcl (Meclizine Hcl) 25 Mg Tab 25 MG PEG PRN/UD PRN for ONE HOUR PRIOR TO TRAVEL, TAB Metoclopramide HCl (Metoclopramide HCl) 5 Mg/Ml Inj 5 ML PEG Q6 Oxycodone Ir (Roxicodone Ir) 5 Mg Tab 5 MG PEG Q4H PRN for MOD PAIN, TAB Oxycodone Ir (Roxicodone Ir) 5 Mg Tab 10 MG PO Q4H PRN for Severe Pain, TAB Potassium Chloride (Potassium Chloride) 20 Meq/100 Ml Inj 20 MEQ PEG QPM DILUTE WITH 90-120ML WATER/JUICE Prednisone (Prednisone) 5 Mg Tab 5 MG PEG QAM, TAB Promethazine Hcl (Phenergan) 25 Mg Tab 25 MG PEG Q6H PRN for Nausea, TAB Venlafaxine Hcl (Effexor) 75 Mg Tab 75 MG PEG QAM, TAB Warfarin Sod (Jantoven) 5 Mg Tab 5 MG PEG 4XWK, TAB WEDNESDAY,WEDNESDAY,WEDNESDAY,WEDNESDAY Warfarin Sodium (Coumadin) 7.5 Mg Tab 7.5 MG PEG 3XWK, TAB WEDNESDAY, WEDNESDAY & WEDNESDAY Discontinued Medications: Enoxaparin (Lovenox) 80 Mg/0.8 Ml Inj 0.7 ML SQ DIRECTED, SYR GIVE LOVENOX DAILY UNTIL INR IS > OR = 2.0 Insulin Glargine (Lantus Solostar) 100 Unit/Ml Inj 20 UNITS SC HS, PEN Nutritional Supplements (Vital 1.5 Jos) 1 Liq Liq PEG UD 75ML/HR VIA PEG TUBE UNTIL 1080ML INFUSED Discharge Exam Limited ROS secondary to patient's status; denies any CP, SOB, abdominal pain, body pain. Shakes head yes that diarrhea is improving. 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 Opperman's orders due to hypercalcemia. 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 2.0- RESOLVED: - IVF - Follow PRP - Check renal US- right nephrolithiasis, no significant hydronephrosis - Consult Nephrology, appreciate recommendations- follows w/ Dr. 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 s/p PEG tube, positive homocystine and lupus anticoagulant on Coumadin: - Continue Coumadin 5 mg ,,,Wed and 7.5 mg T,,Sat via PEG tube - Follow PT/INR Hyperlipidemia: Continue Lipitor 20 mg vis PEG tube DM w/ hyperglycemia, like secondary to steroid treatment and infection: - Lantus 35 u HS and increase 20 u QAM to 20 u QAM - BSG ACHS w/ sliding insulin scale - Spoke with Data Warehouse Architect- will make adjustments to feedings h/o GI bleed on 11/05/16: H&H stable- continue to follow DVT prophylaxis: Coumadin Code Status: LEVEL V, DNR Dispo: Discharge to [facility] Total Time Spent: Greater than 30 minutes This includes examination of the patient, discharge planning, medication reconciliation, and communication with other providers. (Brissa Goldsmith, CASSIE) [place] Physician Supervision Note: I interviewed and examined the patient. Discussed with Brissa Headley PAC and agree with findings and plan as documented in the note. Any exceptions or clarifications are listed here: None PT returns to her baseline after treatment of enterococcus in urine, C diff with improving diarrhea vitals reviewed stable car is regular lungs clear abd is soft and non tender Pt with c diff and continues with vancomycin via peg enterococcus once again in urine >100k,, ID recommends amoxil Sarcoidosis ,improved glucose with tube feed adjustment and steroid decrease Documented By: Jair Lopez Total Time Spent: Greater than 30 minutes (Jair Lopez M.D.) Discharge Instructions Please refer to the electronic Patient Visit Report (Discharge Instructions) for additional information. (Brissa Goldsmith PA-C) Follow-Up Follow-up with [facility] provider within 24-48 hrs (Brissa Goldsmith PA-C) Additional Copies To [facility]
--- NOTE | 2016-12-02 14:04 | Discharge Instructions ---
Discharge Instructions Date of Service December 03, 2016. Admission Reason for Admission: Hypercalcemia Discharge Discharge Diagnosis / Problem: Hypercalcemia; c.diff; DM w/ hyperglycemia Discharge Goals Goal(s): Decrease discomfort, Improve disease control, Improve nutritional status, Diagnostic testing, Therapeutic intervention, Prevent Disease Progression Activity Recommendations Activity Level: Assistance Required Therapies: Physical Therapy, Occupational Therapy . Additional Information Patient informed of condition: Yes Advance Directives: Yes DNR: Yes Level of Care: Skilled Communicable Disease: Yes Prognosis: Stable Pedraza Catheter: Yes (left in place because of frequent stools- may removed pending [facility] preference ) Instructions / Follow-Up Instructions / Follow-Up New medications: Vancomycin 125 mg by PEG tube four times per day until prescription is complete (last day of treatment 12/21) This is an antibiotic used to treat c.diff infection Questran twice per day This will help with your diarrhea Probiotic three times per day This will help with treating your c.diff infection Amoxicillin 500 mg twice per day by PEG tube twice per day until prescription is complete (last day of treatment 12/14) This is an antibiotic used to treat your urinary tract infection Follow-up with [facility] provider within 24-48 hrs Current Hospital Diet Patient's current hospital diet: Discharge Diet Recommended Diet: Diabetes Type 2 Diet, Renal Diet Pending Studies Studies pending at discharge: no Physician Orders On Transfer Special Precautions: Contact precautions with c.diff Additional Orders: Hyperglycemia- Lantus was increased to 20 units in the morning and 35 units at night Feedings changed to Novasource Renal per exercise equipment repair technician recommendations Last day of Vancomycin treatment on 11/21 Last day of Amoxicillin treatment 12/14 Laboratory Results Results Past 24 Hours Test 12/02/16 12:13 12/02/16 18:29 12/03/16 00:30 12/03/16 06:09 Range/Units Bedside Glucose 127 224 183 142 70-90 mg/dl Test 12/03/16 06:24 Range/Units Prothrombin Time 26.0 9.0-12.0 SECONDS Prothromb Time International Ratio 2.3 0.9-1.1 Sodium Level 135 136-145 mmol/L Potassium Level 3.7 3.5-5.1 mmol/L Chloride Level 103 98-107 mmol/L Carbon Dioxide Level 24 21-32 mmol/L Anion Gap 8.0 3-11 mmol/L Blood Urea Nitrogen 59 7-18 mg/dl Creatinine 2.00 0.60-1.20 mg/dl Est Creatinine Clear Calc Drug Dose 33.2 ml/min Estimated GFR () 33.6 Estimated GFR (Non- 29.0 BUN/Creatinine Ratio 29.6 10-20 Random Glucose 149 70-99 mg/dl Calcium Level 10.6 8.5-10.1 mg/dl Hemoglobin A1c Test 11/05/16 06:58 Range/Units Estimated Average Glucose 117 mg/dl Hemoglobin A1c 5.7 H 4.5-5.6 % Medical Emergencies . Who to Call and When: Medical Emergencies: If at any time you feel your situation is an emergency, please call 911 immediately. . Non-Emergent Contact Non-Emergency issues call your: Primary Care Provider . . "Provider Documentation" section prepared by Brissa Goldsmith. . Core Measure Problem Core Measures: None
[2016-12-02] MEDS ORDERED: LCTX PEG (14:38)
[2016-12-02] MEDS ORDERED: AMOX875T PEG (14:38)
[2016-12-02] MEDS ORDERED: INSDGIPEN SC ×2 (14:38)
[2016-12-02] MEDS ORDERED: NUTR-1276 PEG (14:38)
[2016-12-02] MEDS ORDERED: PRD10 PO (14:38)
[2016-12-02] MEDS ORDERED: QSTP PEG (14:38)
[2016-12-02] MEDS ORDERED: VNCS125 PEG (14:38)
--- NOTE | 2016-12-02 14:48 | Hospitalist Progress Note ---
Hospitalist Progress Note Date of Service December 02, 2016. (Brissa Goldsmith ., PA-C) Subjective Pt evaluation today including: conversation w/ patient, physical exam, chart review, lab review, review of studies, review of inpatient medication list Voiding: loera catheter in place Patient states she is feeling well. Shakes head yes that diarrhea is improving. Denies any CP, SOB, abdominal pain, or other areas of pain. (Brissa Goldsmith ., PA-C) Medications Current Inpatient Medications Medications (Trade) Dose Ordered Sig/Filipe Route Start Time Stop Time Status Last Admin Dose Admin Al Hydrox/Mg Hydrox/Simethicone (Maalox Max Susp) 15 ml Q4H PRN PO 11/26/16 17:30 12/26/16 17:29 Magnesium Hydroxide (Milk Of Magnesia Susp) 30 ml Q12H PRN PO 11/26/16 17:30 12/26/16 17:29 Ondansetron HCl (Zofran Inj) 4 mg Q6H PRN IV 11/26/16 17:30 12/26/16 17:29 11/28/16 23:53 4 MG Nitroglycerin (Nitrostat Tab) 0.4 mg UD PRN SL 11/26/16 17:30 12/26/16 17:29 Polyethylene (Miralax Powder Packet) 17 gm DAILY PRN PO 11/26/16 17:30 12/26/16 17:29 Atorvastatin Calcium (Lipitor Tab) 20 mg HS PEG 11/26/16 21:00 12/26/16 20:59 12/01/16 20:22 20 MG Fentanyl (Duragesic Patch) 12 mcg Q72H TD 11/26/16 20:00 12/10/16 19:59 11/29/16 20:18 12 MCG Folic Acid (Folvite Tab) 1 mg DAILY PEG 11/27/16 09:00 12/27/16 08:59 12/02/16 08:04 1 MG Ketoconazole (Nizoral Tab) 200 mg DAILY PEG 11/27/16 09:00 12/07/16 08:59 12/02/16 08:03 200 MG Meclizine HCl (Antivert Tab) 25 mg TID PRN PO 11/26/16 17:30 12/26/16 17:29 Miscellaneous Information (Order Awaiting Action) 1 ea QS N/A 11/27/16 00:00 12/27/16 00:00 Oxycodone HCl (Roxicodone Immediate Rel Tab) 5 mg Q4H PRN PEG 11/26/16 17:30 12/10/16 17:29 12/02/16 08:41 5 MG Promethazine HCl (Phenergan Tab) 25 mg Q6H PRN GT 11/26/16 17:30 12/26/16 17:29 Venlafaxine HCl (effeXOR TAB) 75 mg QAM PO 11/27/16 09:00 12/27/16 08:59 12/02/16 08:05 75 MG Cyanocobalamin (Vitamin B-12 Tab) 500 mcg QAM PEG 11/27/16 09:00 12/27/16 08:59 12/02/16 08:14 500 MCG Miscellaneous Information (Order Awaiting Action) 1 ea QS N/A 11/27/16 00:00 12/27/16 00:00 Miscellaneous (Fentanyl Patch Remove & Waste) 1 ea Q3D@1959 N/A 11/26/16 19:59 12/26/16 19:58 11/29/16 20:18 1 EA Miscellaneous Information (Check Fentanyl Patch Placement) 1 ea QS N/A 11/27/16 00:00 12/27/16 00:00 12/02/16 08:07 1 EA Glucose (Glucose 40% Gel) 15-30 GRAMS 15 GRAMS... UD PRN PO 11/26/16 18:45 12/26/16 18:44 Glucose (Glucose Chew Tab) 4-8 Tablets 4 Tabl... UD PRN PO 11/26/16 18:45 12/26/16 18:44 Dextrose (Dextrose 50% 50ML Syringe) 25-50ML OF 50% DW IV FOR... UD PRN IV 11/26/16 18:45 12/26/16 18:44 Glucagon (Glucagon Inj) 1 mg UD PRN SQ 11/26/16 18:45 12/26/16 18:44 Atenolol (Tenormin Tab) 50 mg QAM PEG 11/28/16 09:00 12/28/16 08:59 12/02/16 08:06 50 MG Insulin Human Regular (novoLIN-R) SLIDING SCALE PARAMETERS Q6 SC 11/28/16 18:45 12/28/16 18:44 12/02/16 00:09 3 UNITS Warfarin Sodium (Coumadin Tab) 5 mg SuTuThSa@1600 PO 11/29/16 16:00 12/29/16 15:59 12/01/16 18:02 5 MG Warfarin Sodium (Coumadin Tab) 7.5 mg MoWeFr@1600 PO 11/30/16 16:00 12/30/16 15:59 11/30/16 17:33 7.5 MG Raspberry (Raspberry Syrup 5ml Cup) 5 ml QID PO 11/29/16 21:00 12/09/16 20:59 Future Hold Metoclopramide HCl (Reglan Syrup) 5 mg Q6 PEG 11/30/16 00:00 12/30/16 00:00 12/02/16 11:31 5 MG Vancomycin HCl (Vancomycin Oral Soln) 125 mg QID PEG 11/29/16 21:30 12/09/16 21:29 12/02/16 14:00 125 MG Sterile Water (Tube Feeding Water Flush) 1 ea Q4 PEG 12/01/16 12:00 12/31/16 11:59 12/02/16 11:31 1 EA Lactobacillus Acidophilus (Floranex Tab) 4 tab TIDM PEG 12/01/16 12:00 12/31/16 11:59 12/02/16 11:31 4 TAB Cholestyramine Resin (Questran Powder Light) 4 gm BID@10,22 PEG 12/01/16 22:00 12/31/16 21:59 12/02/16 10:00 4 GM Prednisone (PredniSONE TAB) 10 mg DAILY PO 12/02/16 09:00 01/01/17 08:59 12/02/16 08:14 10 MG Insulin Glargine (Lantus Solostar Pen) 20 unit QAM SC 12/02/16 09:00 01/01/17 08:59 12/02/16 08:39 20 UNIT Enteral Nutritional Formula (Novasource Renal) 1,000 ml DAILY PEG 12/01/16 15:00 12/31/16 14:59 12/02/16 08:13 1,000 ML Vancomycin HCl (Consult) 1 ea NOW PRN N/A 12/01/16 16:59 12/31/16 16:58 Insulin Glargine 35 unit 35 unit HS SC 12/01/16 21:00 12/31/16 20:59 12/01/16 20:22 35 UNIT Vancomycin HCl/ Sodium Chloride (Vancomycin Inj/ Nss 250ml) 268 ml @ 125 mls/hr Q26H IV 12/02/16 20:00 12/11/16 19:59 (Brissa Goldsmith, PA-C) Objective Vital Signs Date Time Temp Pulse Resp B/P Pulse Ox O2 Delivery O2 Flow Rate FiO2 12/02/16 11:45 36.4 68 18 167/68 96 Room Air 12/02/16 07:20 36.4 67 18 153/89 100 Room Air 12/02/16 04:00 Room Air 12/02/16 00:20 36.3 67 20 155/79 100 Room Air 12/02/16 00:00 Room Air 12/01/16 20:27 36.3 66 16 182/70 100 Room Air 12/01/16 20:00 Room Air 12/01/16 16:00 98 Room Air 12/01/16 15:12 72 16 169/59 100 Room Air (Brissa Goldsmith ., PA-C) Physical Exam General Appearance: no apparent distress Eyes: normal inspection, PERRL ENT: hearing grossly normal Neck: supple Respiratory/Chest: lungs clear, no respiratory distress, no accessory muscle use Cardiovascular: regular rate, rhythm Abdomen: normal bowel sounds, non tender, soft, + pertinent finding (PEG tube) Extremities: no pedal edema, no calf tenderness Neurologic/Psychiatric: alert, normal mood/affect, oriented x 3 Skin: normal color, warm/dry, no rash (Brissa Goldsmith ., PA-C) Laboratory Results Last 24 Hours Test 12/01/16 18:02 12/01/16 23:58 12/02/16 05:47 12/02/16 06:56 Bedside Glucose 413 mg/dl 221 mg/dl 101 mg/dl White Blood Count 9.93 K/uL Red Blood Count 3.14 M/uL Hemoglobin 9.9 g/dL Hematocrit 30.3 % Mean Corpuscular Volume 96.5 fL Mean Corpuscular Hemoglobin 31.5 pg Mean Corpuscular Hemoglobin Concent 32.7 g/dl RDW Standard Deviation 49.9 fL RDW Coefficient of Variation 14.1 % Platelet Count 199 K/uL Mean Platelet Volume 10.4 fL Prothrombin Time 22.8 SECONDS Prothromb Time International Ratio 2.1 Sodium Level 136 mmol/L Potassium Level 3.9 mmol/L Chloride Level 102 mmol/L Carbon Dioxide Level 25 mmol/L Anion Gap 9.0 mmol/L Blood Urea Nitrogen 55 mg/dl Creatinine 2.00 mg/dl Est Creatinine Clear Calc Drug Dose 33.2 ml/min Estimated GFR () 33.6 Estimated GFR (Non- 29.0 BUN/Creatinine Ratio 27.7 Random Glucose 106 mg/dl Calcium Level 10.8 mg/dl Test 12/02/16 12:13 Bedside Glucose 127 mg/dl (Brissa Goldsmith, PATutuC) Assessment and Plan 46 y/o female, with 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 Waddell's orders due to hypercalcemia. UTI: - UA dirty, UCx growing Enterococcus species - Started on IV Vancomycin pending sensitives- ID consulted, suggest Augmentin if sensitive x14 days of treatment (last day of treatment 12/14) Hypercalcemia secondary to sarcoidosis/LIANG and cirrhosis: - Admit to tele for cardiac monitoring - Treated w/ IVF and Lasix, and Pamidronate x1 dose - Follow calcium level - Follow CMP - Ketoconazole 200 mg daily - Treated w/ Prednisone 30 mg x2 doses, then 20 mg x2 doses, on 12/02 decrease to Prednisone 10 mg x2 doses, then resume Prednisone 5 mg daily via PEG tube - Consult rheumatology, appreciate recommendations EARL w/ CKD stage IV- baseline Cr. 2.0- RESOLVED: - IVF - Follow PRP - Check renal US- right nephrolithiasis, no significant hydronephrosis - Consult Nephrology, appreciate recommendations- follows w/ Dr. Sherrill Lewis. 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 s/p PEG tube, positive homocystine and lupus anticoagulant on Coumadin: - Continue Coumadin 5 mg M,,,Wed and 7.5 mg T,,Sat via PEG tube - Follow PT/INR Hyperlipidemia: Continue Lipitor 20 mg vis PEG tube DM w/ hyperglycemia, like secondary to steroid treatment and infection: - Lantus 35 u HS and increase 20 u QAM to 20 u QAM - BSG ACHS w/ sliding insulin scale - Spoke with Craps Manager- will make adjustments to feedings h/o GI bleed on 11/05/16: H&H stable- continue to follow DVT prophylaxis: Coumadin Code Status: LEVEL V, DNR Dispo: Discharge to [facility] likely tomorrow (Brissa Goldsmith ., PA-C) PA Physician Supervision Note: I interviewed and examined the patient. Discussed with Brissa Headley PAC and agree with findings and plan as documented in the note. Any exceptions or clarifications are listed here: None PT continues to be improved, however did find recurrent enterococcus in urine, C diff with improving diarrhea vitals reviewed stable car is regular lungs clear abd is soft and mildly tender near peg site ? rectus hematoma check ultrasound Pt with c diff and continues with vancomycin via peg and adding colestyriamine enterococcus once again in urine >100k, starting iv vanco, ID considering amoxil Sarcoidosis ,improved glucose with tube feed adjustment and steroid decrease Documented By: Jair Lopez (Jair Lopez M.D.) (Jair Lopez M.D.)
[2016-12-02] MEDS: WARFARIN SOD 7.5 MG TAB PO SCH (15:47)
[2016-12-02] MEDS ORDERED: VANCOMYCIN INJ 900 MG in SODIUM CHLORIDE 0.9% 250ML 250 ML IV SCH (20:00)
[2016-12-02] MEDS: ATORVASTATIN 20 MG TAB PEG SCH (21:10)
[2016-12-02] MEDS: FENTANYL 12 MCG/HR TDSY TD SCH (21:10)
[2016-12-02] MEDS: FENTANYL PATCH REMOVE & WASTE SCH (21:13)
[2016-12-03] MEDS ORDERED: FUROSEMIDE 20 MG TAB PEG STA (00:05)
[2016-12-03] MEDS: METOCLOPRAMIDE HCL 5 MG/5 ML UDP PEG SCH ×3 (00:58→12:36)
[2016-12-03] MEDS: INSULIN HUMAN REGULAR SC SCH ×3 (01:01→12:35)
[2016-12-03] MEDS: OXYCODONE HCL IR 5 MG TAB (IMMEDIATE RELEASE) PEG PRN (01:41)
[2016-12-03 01:45] VITALS: BP 165/92; PULSE 64
[2016-12-03] MEDS: TUBE FEEDING WATER FLUSH PEG SCH ×4 (03:58→12:37)
[2016-12-03 04:06] VITALS: BP 174/103; PULSE 65; TEMP 36.6; O2SAT 98
[2016-12-03 04:59] VITALS: BP_SYST 142; BP_SYST 147; BP_DIAS 85; BP_DIAS 89
[2016-12-03 06:53] LABS: INR 2.3 (0.9-1.1)
[2016-12-03 07:20] VITALS: BP 132/80; PULSE 68; TEMP 36.6; O2SAT 100
[2016-12-03 07:21] LABS: BUN/CREATININE RATIO 29.6 (10-20); CALCIUM 10.6 mg/dl (8.5-10.1); POTASSIUM 3.7 mmol/L (3.5-5.1)
[2016-12-03] MEDS: CHECK FENTANYL PATCH PLACEMENT SCH ×2 (08:01)
[2016-12-03] MEDS ORDERED: AMOX500C3 PO (09:11)
[2016-12-03] MEDS: LACTOBACILLUS ACIDOPHILUS (FLORANEX) TAB PEG SCH ×2 (09:12→12:36)
[2016-12-03] MEDS: KETOCONAZOLE 200 MG TAB PEG SCH (09:13)
[2016-12-03] MEDS: VANCOMYCIN HCL 125 MG/2.5ML SOLN PEG SCH ×2 (09:13→12:37)
[2016-12-03] MEDS: CYANOCOBALAMIN 500 MCG TAB (VIT B-12) PEG SCH (09:13)
[2016-12-03] MEDS: NOVASOURCE RENAL 1000ML BAG PEG SCH (09:14)
[2016-12-03] MEDS: VENLAFAXINE HCL 37.5 MG TAB PO SCH (09:14)
[2016-12-03] MEDS: INSULIN GLARGINE SOLOSTAR 100 UNITS/ML 3 ML PEN SC SCH (09:17)
[2016-12-03] MEDS: CHOLESTYRAMINE LIGHT 4 GM PKT PEG SCH (10:00)
--- NOTE | 2016-12-03 11:02 | Nephrology Progress Note ---
Nephrology Progress Note Date of Service December 03, 2016. Chief Complaint Follow-up for acute kidney injury and hypercalcemia. Carina Patino was seen and examined in her room this morning. She is awake, alert was able to communicate and seems like she is back to her baseline. diarrhea has improved, on p.o. Vanco. Renal function remained stable creatinine around 2.0 however, calcium continues to be elevated above 11. Review of Systems A complete review of systems was performed. Pertinent positives are noted above. All other systems are negative. Vital Signs Last 8 Hrs Date Time Temp Pulse Resp B/P Pulse Ox O2 Delivery O2 Flow Rate FiO2 12/03/16 07:20 36.6 68 18 132/80 100 Room Air 12/03/16 04:59 147/89 142/85 12/03/16 04:06 36.6 65 20 174/103 98 Room Air 12/03/16 04:00 Room Air 12/03/16 01:45 64 165/92 I & O 24-Hour Column 12/03/16 08:00 Intake Total 3755 ml Output Total 4525 ml Balance -770 ml Last Recorded Weight Weight (Kilograms): 69.000 Physical Exam GENERAL: Middle-age female, AAA x 3, pleasant, aphasic, not in any distress. NECK: Supple, no JVD. RESPIRATORY: Normal breathing efforts, no accessory muscle use, clear to auscultation bilaterally, no wheezes or rales. CARDIOVASCULAR: S1, S2 normal, rate rhythm regular. EXTREMITY: No lower extremity edema NEURO: Moves extremities Family History Diabetes mellitus Seizures Negative for CKD/ESRD Social History Smoking Status: Never smoker Drug Use: none Marital Status: in relationship Housing Status: other Occupation: disabled . Medically disabled. Resides at [facility]. No history of tobacco or alcohol use. Laboratory Results Past 24 Hours 12/03/16 06:24 Test 12/02/16 12:13 12/02/16 18:29 12/03/16 00:30 12/03/16 06:09 Bedside Glucose 127 mg/dl (70-90) 224 mg/dl (70-90) 183 mg/dl (70-90) 142 mg/dl (70-90) Test 12/03/16 06:24 Prothrombin Time 26.0 SECONDS (9.0-12.0) Prothromb Time International Ratio 2.3 (0.9-1.1) Anion Gap 8.0 mmol/L (3-11) Est Creatinine Clear Calc Drug Dose 33.2 ml/min Estimated GFR () 33.6 Estimated GFR (Non- 29.0 BUN/Creatinine Ratio 29.6 (10-20) Calcium Level 10.6 mg/dl (8.5-10.1) Allergies Coded Allergies: Ezetimibe (Verified Allergy, Intermediate, Vytorin - hives and N/V, ) Simvastatin (Verified Allergy, Intermediate, Vytorin - hives and N/V, ) Latex1 -Allergic Contact Dermititis (Verified Allergy, Unknown, RASH, BLISTERS, 05/05/16) Adhesives (Verified Adverse Reaction, Mild, Unknown Rxn, 05/05/16) Medications Current Inpatient Medications Medications (Trade) Dose Ordered Sig/Filipe Route Start Time Stop Time Status Last Admin Dose Admin Al Hydrox/Mg Hydrox/Simethicone (Maalox Max Susp) 15 ml Q4H PRN PO 11/26/16 17:30 12/26/16 17:29 Magnesium Hydroxide (Milk Of Magnesia Susp) 30 ml Q12H PRN PO 11/26/16 17:30 12/26/16 17:29 Ondansetron HCl (Zofran Inj) 4 mg Q6H PRN IV 11/26/16 17:30 12/26/16 17:29 11/28/16 23:53 4 MG Nitroglycerin (Nitrostat Tab) 0.4 mg UD PRN SL 11/26/16 17:30 12/26/16 17:29 Polyethylene (Miralax Powder Packet) 17 gm DAILY PRN PO 11/26/16 17:30 12/26/16 17:29 Atorvastatin Calcium (Lipitor Tab) 20 mg HS PEG 11/26/16 21:00 12/26/16 20:59 12/02/16 21:10 20 MG Fentanyl (Duragesic Patch) 12 mcg Q72H TD 11/26/16 20:00 12/10/16 19:59 12/02/16 21:10 12 MCG Folic Acid (Folvite Tab) 1 mg DAILY PEG 11/27/16 09:00 12/27/16 08:59 12/02/16 08:04 1 MG Ketoconazole (Nizoral Tab) 200 mg DAILY PEG 11/27/16 09:00 12/07/16 08:59 12/02/16 08:03 200 MG Meclizine HCl (Antivert Tab) 25 mg TID PRN PO 11/26/16 17:30 12/26/16 17:29 Miscellaneous Information (Order Awaiting Action) 1 ea QS N/A 11/27/16 00:00 12/27/16 00:00 Oxycodone HCl (Roxicodone Immediate Rel Tab) 5 mg Q4H PRN PEG 11/26/16 17:30 12/10/16 17:29 12/03/16 01:41 5 MG Promethazine HCl (Phenergan Tab) 25 mg Q6H PRN GT 11/26/16 17:30 12/26/16 17:29 Venlafaxine HCl (effeXOR TAB) 75 mg QAM PO 11/27/16 09:00 12/27/16 08:59 12/02/16 08:05 75 MG Cyanocobalamin (Vitamin B-12 Tab) 500 mcg QAM PEG 11/27/16 09:00 12/27/16 08:59 12/02/16 08:14 500 MCG Miscellaneous Information (Order Awaiting Action) 1 ea QS N/A 11/27/16 00:00 12/27/16 00:00 Miscellaneous (Fentanyl Patch Remove & Waste) 1 ea Q3D@1959 N/A 11/26/16 19:59 12/26/16 19:58 12/02/16 21:13 1 EA Miscellaneous Information (Check Fentanyl Patch Placement) 1 ea QS N/A 11/27/16 00:00 12/27/16 00:00 12/03/16 08:01 1 EA Glucose (Glucose 40% Gel) 15-30 GRAMS 15 GRAMS... UD PRN PO 11/26/16 18:45 12/26/16 18:44 Glucose (Glucose Chew Tab) 4-8 Tablets 4 Tabl... UD PRN PO 11/26/16 18:45 12/26/16 18:44 Dextrose (Dextrose 50% 50ML Syringe) 25-50ML OF 50% DW IV FOR... UD PRN IV 11/26/16 18:45 12/26/16 18:44 Glucagon (Glucagon Inj) 1 mg UD PRN SQ 11/26/16 18:45 12/26/16 18:44 Atenolol (Tenormin Tab) 50 mg QAM PEG 11/28/16 09:00 12/28/16 08:59 12/02/16 08:06 50 MG Insulin Human Regular (novoLIN-R) SLIDING SCALE PARAMETERS Q6 SC 11/28/16 18:45 12/28/16 18:44 12/03/16 01:01 2 UNITS Warfarin Sodium (Coumadin Tab) 5 mg SuTuThSa@1600 PO 11/29/16 16:00 12/29/16 15:59 12/01/16 18:02 5 MG Warfarin Sodium (Coumadin Tab) 7.5 mg MoWeFr@1600 PO 11/30/16 16:00 12/30/16 15:59 12/02/16 15:47 7.5 MG Raspberry (Raspberry Syrup 5ml Cup) 5 ml QID PO 11/29/16 21:00 12/09/16 20:59 Future Hold Metoclopramide HCl (Reglan Syrup) 5 mg Q6 PEG 11/30/16 00:00 12/30/16 00:00 12/03/16 06:10 5 MG Vancomycin HCl (Vancomycin Oral Soln) 125 mg QID PEG 11/29/16 21:30 12/09/16 21:29 12/02/16 21:10 125 MG Sterile Water (Tube Feeding Water Flush) 1 ea Q4 PEG 12/01/16 12:00 12/31/16 11:59 12/03/16 03:58 1 EA Lactobacillus Acidophilus (Floranex Tab) 4 tab TIDM PEG 12/01/16 12:00 12/31/16 11:59 12/02/16 15:46 4 TAB Cholestyramine Resin (Questran Powder Light) 4 gm BID@10,22 PEG 12/01/16 22:00 12/31/16 21:59 12/02/16 21:11 4 GM Prednisone (PredniSONE TAB) 10 mg DAILY PO 12/02/16 09:00 01/01/17 08:59 12/02/16 08:14 10 MG Insulin Glargine (Lantus Solostar Pen) 20 unit QAM SC 12/02/16 09:00 01/01/17 08:59 12/02/16 08:39 20 UNIT Enteral Nutritional Formula (Novasource Renal) 1,000 ml DAILY PEG 12/01/16 15:00 12/31/16 14:59 12/02/16 08:13 1,000 ML Vancomycin HCl (Consult) 1 ea NOW PRN N/A 12/01/16 16:59 12/31/16 16:58 Insulin Glargine 35 unit 35 unit HS SC 12/01/16 21:00 12/31/16 20:59 12/02/16 21:12 35 UNIT Vancomycin HCl/ Sodium Chloride (Vancomycin Inj/ Nss 250ml) 268 ml @ 125 mls/hr Q26H IV 12/02/16 20:00 12/11/16 19:59 12/02/16 21:10 125 MLS/HR Impression (1) Acute kidney injury (2) Chronic kidney disease, stage 3 (3) Hypercalcemia (4) Sarcoidosis (5) Lupus anticoagulant positive (6) Expressive aphasia (7) Diab W Unspec Compl, Type Ii Or Unspec Type, Not Uncntrld Christiano is a 46-year-old female with history of sarcoidosis, CKD, add baseline aphasic and lives at [facility] presented to the hospital with them acute kidney injury in and recurrent hypercalcemia. Received pamidronate, started on steroid and continued on ketoconazole as her outpatient regimen by Rheumatology. calcium slightly improved however staying around 11.5-11.7. has CKD baseline creatinine around 2, developed acute kidney injury creatinine was above 3 which has been slowly improving and came down to around 2.2. Recommendations -- continue with free water flush 300 mL every 4 hours -- Monitor serial PRP -- cr improved to 2.0 (Baseline creatinine has been 2.0) --ca continues to be elevated above 11, currently on ketoconazole and prednisone and, possibly secondary to underlying pulmonary sarcoid, would appreciate Rheumatology recommendation further management of hyper glycemia. --Should be on low calcium with feeding Will follow.
[2016-12-03 11:46] VITALS: BP 165/85; PULSE 68; TEMP 36.6; O2SAT 100
[2016-12-03] MEDS ORDERED: AMOXICILLIN 500 MG CAP PO SCH (14:00)
[2016-12-10] MEDS ORDERED: WARF7.5T PEG (05:27)
[2016-12-10] MEDS ORDERED: WARF5TAB90 PEG (05:27)
[2016-12-10] MEDS ORDERED: FNTTP25 TOP (05:29)
[2016-12-10] MEDS ORDERED: NUTR-1276 PEG (05:40)
[2016-12-10] MEDS ORDERED: [UNRECOGNIZED DRUG - REMARK] PEG (05:41)
[2016-12-13] MEDS ORDERED: FNTTP25 TOP (13:15)
[2016-12-13] MEDS ORDERED: Tube Feeding Water Flush NG (13:15)
[2016-12-13] MEDS ORDERED: INSDGIPEN SC (13:15)
[2016-12-13] MEDS ORDERED: OXYC1TAB3 PO (13:15)
[2016-12-13] MEDS ORDERED: OXYC1TAB3 PEG (13:15)
== END 2016-12-03 15:10 | DRG 197 ==
LOC: ENRESERVTM → ENRESERVDT → C.EDB 14:16 → C.MED 17:34 → UNDOADMIN 17:34 → C.MED 11-29 12:41
PROVIDERS: ADMIT Hospitalist; ATTEND Internal Medicine
DX: D86.9 Sarcoidosis, unspecified (principal); N17.9 Acute kidney failure, unspecified; N18.4 Chronic kidney disease, stage 4 (severe); A04.7 Enterocolitis due to Clostridium difficile; N39.0 Urinary tract infection, site not specified; E87.1 Hypo-osmolality and hyponatremia; I69.351 Hemiplegia and hemiparesis following cerebral infarction affecting right dominant side; E72.20 Disorder of urea cycle metabolism, unspecified; E72.11 Homocystinuria; D61.818 Other pancytopenia; E83.52 Hypercalcemia; K74.60 Unspecified cirrhosis of liver; K75.81 Nonalcoholic steatohepatitis (NASH); K72.90 Hepatic failure, unspecified without coma; E86.0 Dehydration; E87.5 Hyperkalemia; R74.8 Abnormal levels of other serum enzymes; I12.9 Hypertensive chronic kidney disease with stage 1 through stage 4 chronic kidney disease, or unspecified chronic kidney disease; R13.10 Dysphagia, unspecified; B95.2 Enterococcus as the cause of diseases classified elsewhere; F80.1 Expressive language disorder; T38.0X5A Adverse effect of glucocorticoids and synthetic analogues, initial encounter; E78.5 Hyperlipidemia, unspecified; E11.65 Type 2 diabetes mellitus with hyperglycemia; Y92.230 Patient room in hospital as the place of occurrence of the external cause; E11.22 Type 2 diabetes mellitus with diabetic chronic kidney disease; I69.391 Dysphagia following cerebral infarction; Z87.891 Personal history of nicotine dependence; Z87.19 Personal history of other diseases of the digestive system; Z93.1 Gastrostomy status; Z98.890 Other specified postprocedural states; Z87.442 Personal history of urinary calculi; Z79.01 Long term (current) use of anticoagulants; Z79.891 Long term (current) use of opiate analgesic; Z79.4 Long term (current) use of insulin; Z79.52 Long term (current) use of systemic steroids; Z79.899 Other long term (current) drug therapy

== ENCOUNTER → 2016-11-26 | Outpatient (CLI) | payer OTHER ==
[2016-11-26 09:08] LABS: INR 2.1 (0.9-1.1); PROTHROMBIN TIME (PATIENT) 23.3 SECONDS (9.0-12.0)
== END ==
LOC: C.LABCC 08:28
PROVIDERS: ATTEND Internal Medicine
DX: I63.9 Cerebral infarction, unspecified (principal)

== ENCOUNTER → 2016-12-07 | Outpatient (CLI) | payer OTHER ==
[~2016-12-07] MED LIST changes: +AMOX500C3 PO; +FNTTP25 TOP; +LCTX PEG; +NUTR-1276 PEG; +QSTP PEG; +Tube Feeding Water Flush NG; +VNCS125 PEG; +WARF5TAB90 PEG; -[UNRECOGNIZED DRUG - CODE] PEG; +[UNRECOGNIZED DRUG - REMARK] PEG
[2016-12-07 09:31] LABS: INR 2.5 (0.9-1.1); PROTHROMBIN TIME (PATIENT) 27.4 SECONDS (9.0-12.0)
== END ==
LOC: C.LABCC 08:22
PROVIDERS: ATTEND Internal Medicine
DX: E83.52 Hypercalcemia (principal); D64.9 Anemia, unspecified; N18.9 Chronic kidney disease, unspecified

== ENCOUNTER → 2016-12-09 | Outpatient (CLI) | payer OTHER ==
[2016-12-09 12:24] LABS: HEMATOCRIT 26.7 % (37-47)
== END ==
LOC: C.LABCC 15:37
PROVIDERS: ATTEND Internal Medicine
DX: D64.9 Anemia, unspecified (principal)

== ENCOUNTER → 2017-01-05 | Outpatient (CLI) | payer OTHER ==
[~2017-01-05] MED LIST changes: -AMOX500C3 PO; -ATEN50TA PEG; -ATOR-22 PEG; -DRGTP12 TD; -QSTP PEG; -WARF5TAB7 PEG; -WARF5TAB90 PEG; -WARF7.5T PEG
[2017-01-06 09:29] LABS: URINE APPEARANCE TURBID (CLEAR); URINE BILIRUBIN NEG (NEG); URINE COLOR YELLOW; URINE NITRITE NEG (NEG); URINE PH 8.5 (4.5-7.5); URINE SPECIFIC GRAVITY 1.015 (1.000-1.030); UROBILINOGEN NEG (NEG)
[2017-01-06 10:17] LABS: MANUAL MICROSCOPIC REQUIRED? NO; REVIEW REQ? YES; SULFASALICYLIC ACID POS (NEG)
[2017-01-06 10:20] LABS: URINE EPITHELIAL CELL AUTO 0-5 /lpf (0-5)
--- NOTE | 2017-01-13 14:26 | CODING QUERY NO DIAGNOSIS ---
TREATMENT RENDERED WITHOUT A DIAGNOSIS To promote full compliance with coding requirements relating to patient care, physician participation is requested in all cases of director of consumer affairs uncertainty. Please assist us with providing a diagnosis/symptom for the test(s) below: A diagnosis/symptom was not documented on your Order. A valid diagnosis/symptom is required to bill all insurances. Please remember that we are unable to code a diagnosis of rule out, probable, possible, questionable, or suspected. Tests that require a diagnosis: * UA CATH DIAGNOSIS: * URINE CULTURE CATH DIAGNOSIS: Provider Signature: Date: Thank you Ophelia Gaviria [employer] Once completed, please kindly fax back to [phone] For questions please call [phone]
== END ==
LOC: C.LABCC 19:50
PROVIDERS: ATTEND Internal Medicine
DX: Z01.89 Encounter for other specified special examinations (principal)

== ENCOUNTER → 2017-01-08 | Outpatient (CLI) | payer OTHER ==
[2017-01-08 08:37] LABS: BASO % 0.4 %; BASO ABS # 0.02 K/uL (0-0.2); COMPLETE YES; EOS % 2.3 %; HEMATOCRIT 30.1 % (37-47); IG% 0.4 %; LYMPH % 11.4 %; LYMPH ABS # 0.61 K/uL (1.2-3.4); MEAN CELL VOLUME 98.4 fL (80-100); MEAN CORPUSCULAR HEMOGLOBIN 30.4 pg (25-34); MEAN CORPUSCULAR HGB CONC 30.9 g/dl (32-36); MEAN PLATELET VOLUME 12.1 fL (7.4-10.4); MONO % 8.8 %; NEUT % 76.7 %; PLATELET COUNT 132 K/uL (130-400); RED BLOOD COUNT 3.06 M/uL (4.2-5.4); WHITE BLOOD COUNT 5.33 K/uL (4.8-10.8)
== END ==
LOC: C.LABCC 07:39
PROVIDERS: ATTEND Internal Medicine
DX: D64.9 Anemia, unspecified (principal); E83.52 Hypercalcemia

== ENCOUNTER → 2017-01-09 | Outpatient (CLI) | payer OTHER | LOC: C.LABSPEC 21:30 | PROVIDERS: ATTEND Internal Medicine | DX: R19.5 Other fecal abnormalities (principal) ==